=== PATIENT | male | born 1965 | race African-American/Black ===

== ENCOUNTER → 2017-08-14 | Outpatient (CLI) | payer OTHER ==
--- NOTE | 2017-08-14 17:15 | DIAGNOSTIC IMAGING REPORT ---
CHEST 2 VIEWS ROUTINE HISTORY: 52 years-old Male ABNORMAL IMAGING acute shortness of breath COMPARISON: None available TECHNIQUE: PA and lateral views of the chest FINDINGS: Cardiac silhouette is normal in size. Lungs are hyperinflated with diaphragmatic flattening. Increased lucency of the lungs suggests possible emphysema. Linear and patchy subsegmental perihilar and left upper lobe opacities are noted without pneumothorax or pleural effusion. Additionally, there is a large air-fluid level within a lucent lesion which appears to measure up to approximately 8.1 x 8.9 cm within the left upper lobe. Bones of the chest appear grossly intact. IMPRESSION: 1. Air-fluid level within a large lucent lesion of the left upper lobe suggests a pulmonary cavitation with infection, pneumatocele or neoplasm differential considerations. Further evaluation with a follow-up chest CT recommended. 2. Linear and patchy perihilar and left upper lobe opacities suggest areas of atelectasis and/or scarring. The above report was generated using voice recognition software. It may contain grammatical, syntax or spelling errors. Electronically signed by: Javy Flores M.D. 08/14/2017 5:14 PM Dictated Date/Time: 08/14/2017 5:09 PM
[2017-08-17 14:18] LABS: QUANTIFERON NIL 0.05 IU/ML
== END | disposition home or self-care (01) ==
LOC: C.RAD 16:20
PROVIDERS: ATTEND Internal Medicine
DX: R91.8 Other nonspecific abnormal finding of lung field (principal)

== ENCOUNTER 2017-09-08 11:51 | Inpatient (IN) | payer OTHER ==
[~2017-09-08] VITALS: Ht 167.6 cm; Wt 76.4 kg
[2017-09-08 14:12] VITALS: BMI 27.2
[2017-09-08 14:16] VITALS: BP 121/84; PULSE 89; TEMP 36.5; O2SAT 97; Ht 167.6 cm; Wt 76.4 kg
[2017-09-08] MEDS ORDERED: TRAMADOL HCL 50 MG TAB PO STA (15:50)
[2017-09-08 16:00] VITALS: O2SAT 97
[2017-09-08] MEDS ORDERED: FAMOTIDINE IV INJ 20 MG in DEXTROSE 5% 100ML 100 ML IV SCH (16:00)
[2017-09-08] MEDS ORDERED: ALUMINUM/MAGNESIUM/SIMETH (MAALOX MAX) 30 ML UDC PO PRN (16:00)
[2017-09-08] MEDS ORDERED: ONDANSETRON INJ 2 MG/ML 2 ML VIAL IV PRN (16:00)
--- NOTE | 2017-09-08 16:35 | History and Physical ---
History & Physical Date & Time of Service: Sep 08, 2017 at 16:32 Chief Complaint: Copd Exacerbation Primary Care Physician: Karson Jerome M.D. History of Present Illness Source: patient, clinic records 52 years old -[place] man who presented from [facility] based on Dr. Huston recommendation. Patient has been incarcerated for 3-1/2 years, 1 more year left in his sentence. Patient does have history of heavy tobacco abuse. Collected 100 pack/year, quit 4 years ago Has COPD, hypertension, diabetes mellitus and GERD disease. Also has multiple episodes of pneumonia and recently was treated for sinusitis. Patient complained of pleuritic left-sided chest pain. Worse with deep breathing. Dr. Karson Jerome at the correction facility sent him for a chest x- ray that showed a 9 cm left upper loop cavitary lesion with air-fluid level. Initial workup was negative including QuantiFERON gold, 3 sputum for AFB. White blood cell count recently was within normal limits. Patient symptoms continued to progress and he was sent for further evaluation and management. he has intermittent cough with clear sputum occasionally Review of system is positive for epigastric abdominal pain Recently had felt a swelling in his neck on the right side with sore throat, that resolved spontaneously Remote history of cocaine abuse about 12 years ago Quit smoking 4 years ago Currently in the correction facility no access to alcohol or IV drug Father from lung cancer Social History Smoking Status: Former Smoker Allergies Coded Allergies: No Known Allergies (Unverified , 09/08/17) Review of Systems Constitutional: No fever, No chills, No sweats, No weight loss, No weakness, No fatigue, No problem reported Eyes: No worsening of vision, No eye pain, No redness, No discharge, No diplopia, No problem reported ENT: No hearing loss, No unusual epistaxis, No nasal symptoms, No sore throat, No tinnitus, No dental problems, No trouble swallowing, No problem reported Respiratory: + cough, + sputum, + shortness of breath, No wheezing, No dyspnea on exertion, No dyspnea at rest, No hemoptysis, No problem reported Cardiovascular: + chest pain (pleuritic left-sided), No orthopnea, No PND, No edema, No claudication, No palpitations, No problem reported Abdomen: + pain (epigastric), No nausea, No vomiting, No diarrhea, No constipation, No GI bleeding, No problem reported Musculoskeletal: No joint pain, No muscle pain, No swelling, No calf pain, No problem reported Genitourinary - Male: No hematuria, No dysuria, No urinary frequency, No urinary urgency, No urinary hesitancy, No urinary retention, No urinary incontinence, No penile discharge, No lesions, No impotence, No problem reported Neurologic: No memory loss, No paralysis, No weakness, No numbness/tingling, No vertigo, No balance problems, No problem reported Psychiatric: No depression symptoms, No anhedonism, No anxiety, No insomnia, No substance abuse, No problem reported Endocrine: No fatigue, No excessive thirst, No excessive urination, No problem reported Hematologic / Lymphatic: No abnormal bleeding/bruising, No clotting problems, No swollen lymph nodes, No night sweats, No problem reported Integumentary: No rash, No itch, No new/changing skin lesions, No color change , No bleeding, No problem reported Allergic / Immunologic: No environmental allergies, No seasonal allergies, No pet sensitivities, No food allergies, No hives, No frequent infections, No poor healing, No prolonged convalescence, No problem reported Physical Exam Vital Signs Date Time Temp Pulse Resp B/P (MAP) Pulse Ox O2 Delivery O2 Flow Rate FiO2 09/08/17 16:00 97 Room Air 09/08/17 14:16 36.5 89 18 121/84 97 Room Air General Appearance: WD/WN, + mild distress Head: normocephalic, atraumatic Eyes: normal inspection, EOMI ENT: normal ENT inspection, hearing grossly normal Neck: supple, no adenopathy, thyroid normal Respiratory/Chest: chest non-tender, + respiratory distress, + crackles, + rales, + rhonchi, + wheezing Cardiovascular: regular rate, rhythm, no edema, no gallop, no JVD, no murmur, normal peripheral pulses Abdomen/GI: normal bowel sounds, non tender, soft, no organomegaly, no pulsatile mass Back: normal inspection Extremities/Musculoskelatal: normal inspection, no calf tenderness, normal capillary refill, no pedal edema Neurologic/Psych: 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 Incarcerated in a correction facility with history of COPD, hypertension, diabetes mellitus, GERD and heavy tobacco abuse, quit 4 years ago. Also patient has family history of lung cancer in his father. Presented to the hospital with 9 cm left upper lung cavitary lesion. Assessment 9 cm left upper lobe cavitary lung lesion COPD exacerbation Hypertension Diabetes mellitus type 2 GERD disease Previous multiple episodes of pneumonia/sinusitis History of lung cancer History of heavy tobacco abuse quit 4 years ago Plan Admit patient to negative pressure room Despite of negative QuantiFERON gold, would like also to consider TB, negative QuantiFERON gold could be false negative 3 sputum AFP were sent and were negative, would like to repeat the test here Consult Dr. Huston for bronchoscopy Since patient does not look septic, we'll hold off antibiotics until we get good samples from the bronchoscopy Consulted Dr Ocampo Obtain blood cultures/sputum culture Obtain sputum fungal cultures Obtain fungetil/D galactomannan Genotypic/bronchodilator Pain management 2-D echo rule out vegetation/septic emboli Heparin for DVT prophylaxis Advanced Directives Existing Living Will: No Existing Power of [employer]: No VTE Prophylaxis VTE Risk Assessment Done? Y/N: Yes Risk Level: Moderate
[2017-09-08 16:58] LABS: BASO % 0.6 %; BASO ABS # 0.04 K/uL (0-0.2); EOS % 3.5 %; EOS ABS # 0.23 K/uL (0-0.5); HEMATOCRIT 42.3 % (42-52); HEMOGLOBIN 14.7 g/dL (14.0-18.0); IG# 0.01 K/uL (0.00-0.02); LYMPH % 47.8 %; LYMPH ABS # 3.12 K/uL (1.2-3.4); MEAN CELL VOLUME 93.2 fL (80-100); MEAN CORPUSCULAR HEMOGLOBIN 32.4 pg (25-34); MEAN CORPUSCULAR HGB CONC 34.8 g/dl (32-36); MONO % 10.7 %; NEUT % 37.2 %; NEUT ABS # 2.43 K/uL (1.4-6.5); PLATELET COUNT 300 K/uL (130-400); RED CELL DISTRIBUTION WIDTH CV 14.1 % (11.5-14.5); RED CELL DISTRIBUTION WIDTH SD 47.6 fL (36.4-46.3); WHITE BLOOD COUNT 6.53 K/uL (4.8-10.8)
[2017-09-08 17:24] LABS: ALBUMIN 3.4 gm/dl (3.4-5.0); CALCIUM 8.9 mg/dl (8.5-10.1); CREATININE 0.87 mg/dl (0.60-1.40); POTASSIUM 3.8 mmol/L (3.5-5.1)
[2017-09-08 17:26] LABS: TOTAL PROTEIN 8.2 gm/dl (6.4-8.2)
[2017-09-08] MEDS: FAMOTIDINE IV INJ 20 MG in SYRINGE 3 ML IV SCH (18:20)
[2017-09-08] MEDS: ALBUT/IPRATROP 3MG/0.5MG NEB 3 ML VIAL INH SCH ×2 (19:44→20:01)
[2017-09-08 20:03] VITALS: PULSE 81; O2SAT 96
[2017-09-08] MEDS: HEPARIN SOD 5000 UNIT/0.5 ML CARP SQ SCH (20:57)
[2017-09-09 00:22] VITALS: BP 136/88; PULSE 63; TEMP 36.6; O2SAT 94
[2017-09-09] MEDS: ACETAMINOPHEN 325 MG TAB PO PRN (00:44)
[2017-09-09 05:33] LABS: BASO % 0.5 %; BASO ABS # 0.04 K/uL (0-0.2); EOS % 2.6 %; EOS ABS # 0.19 K/uL (0-0.5); HEMATOCRIT 42.1 % (42-52); HEMOGLOBIN 14.3 g/dL (14.0-18.0); IG# 0.01 K/uL (0.00-0.02); LYMPH % 41.6 %; LYMPH ABS # 3.08 K/uL (1.2-3.4); MEAN CELL VOLUME 93.1 fL (80-100); MEAN CORPUSCULAR HEMOGLOBIN 31.6 pg (25-34); MEAN PLATELET VOLUME 9.9 fL (7.4-10.4); MONO % 7.4 %; MONO ABS # 0.55 K/uL (0.11-0.59); NEUT % 47.8 %; NEUT ABS # 3.54 K/uL (1.4-6.5); PLATELET COUNT 276 K/uL (130-400); RED CELL DISTRIBUTION WIDTH CV 14.1 % (11.5-14.5); RED CELL DISTRIBUTION WIDTH SD 47.7 fL (36.4-46.3); WHITE BLOOD COUNT 7.41 K/uL (4.8-10.8)
[2017-09-09 05:51] LABS: ALBUMIN 3.3 gm/dl (3.4-5.0); CALCIUM 8.7 mg/dl (8.5-10.1); CREATININE 0.83 mg/dl (0.60-1.40); POTASSIUM 3.6 mmol/L (3.5-5.1)
[2017-09-09 05:55] LABS: PHOSPHORUS 2.9 mg/dl (2.5-4.9); TOTAL PROTEIN 8.2 gm/dl (6.4-8.2)
[2017-09-09] MEDS: FAMOTIDINE IV INJ 20 MG in SYRINGE 3 ML IV SCH ×2 (06:00→18:00)
[2017-09-09] MEDS: HEPARIN SOD 5000 UNIT/0.5 ML CARP SQ SCH ×2 (06:02→14:24)
[2017-09-09 06:33] LABS: HEMOGLOBIN A1C 6.2 % (4.5-5.6)
--- NOTE | 2017-09-09 07:13 | Medical Student: [facility] ---
Med Student Progress Note Date of Service Sep 09, 2017. Subjective Pt evaluation today including: conversation w/ patient, physical exam, chart review, lab review, review of studies Voiding: no voiding problems, no incontinence 52 y/o -[place] gentleman presenting from [facility] after c/o of pleuritic left sided chest pain worse with deep breathing. CXR showed a 9cm left upper lobe cavitary lesion with air-fluid level. The patient reports losing 20 pounds in the past 5 months. SOB he attributes to his COPD and HF. 1-2 weeks [employer] he felt a small lump in the right side of his neck in conjunction with a sore throat which has since resolved. Mild Intermittent cough with clear sputum when lying down. Denies coughing up blood. He has had no abdominal pain, N/V/D. Denies fever/chills. Denies swelling in legs/extremities. Denies fatigue. Notably, 100 pack year history. Quit smoking cigarettes 4-5 years [employer]. Father from lung cancer. No events overnight. Review of Systems Constitutional: No fever, No chills Respiratory: + cough (intermittent, mild), + sputum (clear intermittent), + shortness of breath Cardiac: No edema Abdomen: + pain (mild epigastric, intermittent), No nausea, No vomiting, No diarrhea, No GI bleeding Musculoskeletal: No joint pain Male : No dysuria Neurologic: No weakness, No numbness/tingling Endo: No fatigue Skin: No rash Objective Vital Signs Date Time Temp Pulse Resp B/P (MAP) Pulse Ox O2 Delivery O2 Flow Rate FiO2 09/09/17 00:45 Room Air 09/09/17 00:22 36.6 63 18 136/88 (104) 94 Room Air 09/08/17 20:03 81 16 96 Room Air 09/08/17 16:00 97 Room Air 09/08/17 14:16 36.5 89 18 121/84 97 Room Air Physical Exam General Appearance: WD/WN, no apparent distress Eyes: bilateral eyes normal inspection ENT: hearing grossly normal Neck: supple, + adenopathy present (bilateral cervical anterior adenopathy, mobile 1 cm, non-tender) Respiratory/Chest: chest non-tender, lungs clear, normal breath sounds, no respiratory distress, no accessory muscle use Cardiovascular: regular rate, rhythm, no edema, no gallop, no JVD, no murmur Abdomen: normal bowel sounds, non tender, soft, no organomegaly Extremities: no calf tenderness Neurologic/Psychiatric: alert, normal mood/affect, oriented x 3 Skin: normal color Laboratory Results Last 24 Hours Test 09/08/17 16:34 09/08/17 17:39 09/08/17 19:00 09/09/17 05:22 White Blood Count 6.53 K/uL 7.41 K/uL Red Blood Count 4.54 M/uL 4.52 M/uL Hemoglobin 14.7 g/dL 14.3 g/dL Hematocrit 42.3 % 42.1 % Mean Corpuscular Volume 93.2 fL 93.1 fL Mean Corpuscular Hemoglobin 32.4 pg 31.6 pg Mean Corpuscular Hemoglobin Concent 34.8 g/dl 34.0 g/dl Platelet Count 300 K/uL 276 K/uL Mean Platelet Volume 10.0 fL 9.9 fL Neutrophils (%) (Auto) 37.2 % 47.8 % Lymphocytes (%) (Auto) 47.8 % 41.6 % Monocytes (%) (Auto) 10.7 % 7.4 % Eosinophils (%) (Auto) 3.5 % 2.6 % Basophils (%) (Auto) 0.6 % 0.5 % Neutrophils # (Auto) 2.43 K/uL 3.54 K/uL Lymphocytes # (Auto) 3.12 K/uL 3.08 K/uL Monocytes # (Auto) 0.70 K/uL 0.55 K/uL Eosinophils # (Auto) 0.23 K/uL 0.19 K/uL Basophils # (Auto) 0.04 K/uL 0.04 K/uL RDW Standard Deviation 47.6 fL 47.7 fL RDW Coefficient of Variation 14.1 % 14.1 % Immature Granulocyte % (Auto) 0.2 % 0.1 % Immature Granulocyte # (Auto) 0.01 K/uL 0.01 K/uL Erythrocyte Sedimentation Rate 18 mm/hr Prothrombin Time 10.2 SECONDS 10.7 SECONDS Prothromb Time International Ratio 1.0 1.0 Sodium Level 140 mmol/L 136 mmol/L Potassium Level 3.8 mmol/L 3.6 mmol/L Chloride Level 110 mmol/L 106 mmol/L Carbon Dioxide Level 24 mmol/L 25 mmol/L Anion Gap 6.0 mmol/L 5.0 mmol/L Blood Urea Nitrogen 11 mg/dl 12 mg/dl Creatinine 0.87 mg/dl 0.83 mg/dl Est Creatinine Clear Calc Drug Dose 88.6 ml/min 92.8 ml/min Estimated GFR () 114.2 116.4 Estimated GFR (Non- 98.5 100.5 BUN/Creatinine Ratio 12.0 14.2 Random Glucose 55 mg/dl 86 mg/dl Calcium Level 8.9 mg/dl 8.7 mg/dl Magnesium Level 1.5 mg/dl 1.4 mg/dl Total Bilirubin 0.4 mg/dl 0.5 mg/dl Aspartate Amino Transf (AST/SGOT) 13 U/L 15 U/L Alanine Aminotransferase (ALT/SGPT) 26 U/L 26 U/L Alkaline Phosphatase 50 U/L 48 U/L C-Reactive Protein 0.50 mg/dl Total Protein 8.2 gm/dl 8.2 gm/dl Albumin 3.4 gm/dl 3.3 gm/dl Globulin 4.8 gm/dl 4.9 gm/dl Albumin/Globulin Ratio 0.7 0.7 Lipase 226 U/L Bedside Glucose 84 mg/dl Estimated Average Glucose 131 mg/dl Hemoglobin A1c 6.2 % Lactic Acid Level 1.0 mmol/L Phosphorus Level 2.9 mg/dl Triglycerides Level 205 mg/dl Cholesterol Level 123 mg/dl HDL Cholesterol 41 mg/dl LDL Cholesterol, Calculated 41 mg/dl VLDL Cholesterol, Calculated 41 mg/dl Cholesterol/HDL Ratio 3.0 Assessment and Plan Assessment and Plan: 52 y/o AA male with hx of COPD, HF, HTN, DM, cardiac stent, 100 pack years, family hx of lung cancer presenting with left sided pleuritic chest pain and 9cm left upper lobe cavitary lung lesion on CXR. 1. Cavitary lung lesion -Dr. Ocampo ordering a CT scan to evaluate lesion. Will plan bronchoscopy pending CT. -Negative quant gold TB test makes TB unlikely. -3 sputum AFP sent and were negative. -Hold off on antibiotics in the setting of normal vitals and normal WBC. Does not appear septic. -Blood cultures pending. -Pain management with tylenol. 2. COPD -Duoneb DVT ppx -Heparin
--- NOTE | 2017-09-09 07:44 | Medical Consult ---
Consultation Note Date of Service Sep 09, 2017. Consultation Note Consult Dictated #[id number]
[2017-09-09] MEDS ORDERED: OPTIRAY 320 IV PRN (07:45)
[2017-09-09 07:49] VITALS: PULSE 81; O2SAT 96
[2017-09-09] MEDS: ALBUT/IPRATROP 3MG/0.5MG NEB 3 ML VIAL INH SCH ×4 (07:49→19:28)
--- NOTE | 2017-09-09 08:03 | CONSULTATION REPORT ---
DATE OF CONSULTATION: 09/09/2017 REASON FOR CONSULTATION: Abnormal chest x-ray. HISTORY OF PRESENT ILLNESS: This is a 52-year-old -[place] male who is currently incarcerated at the [facility]. The patient had a recent episode of pleuritic left-sided chest pain and the physician at his correctional facility ordered a chest x-ray which was noted to be abnormal with approximately 9 cm left upper lobe cavitary lesion with an air fluid level. The patient has had workup for this including 3 sputum for AFB, which were negative and a QuantiFERON Gold, which was also noted to be negative. The assisted physician consulted Dr. Huston who recommended admission for this problem. I visited with the patient at the bedside and discussed his history in detail. The patient says that he has had approximately 20 pound weight loss over the past 6 weeks. He denies any fevers, chills or night sweats. He denies any hemoptysis or cough. He does admit to occasional episodes of pleuritic chest pain and chest tightness. He does admit that his shortness of breath is in part related to COPD. At this time, he is resting comfortably in bed without any other specific complaints. The patient does note that he does have a history of smoking approximately [id number] history but did quit 4 years ago. He does have a family history of lung cancer. Concerning other symptomatology, he denies any falls, head injuries, visual changes, tinnitus, sore throat or neck pain. He does admit to occasional episodes of left-sided pleuritic chest pain. He says he is short of breath with activity. He denies any fever, shakes, chills, cough or hemoptysis. He denies any nausea, vomiting or diarrhea. He denies abdominal pain. He denies any dysuria, history of stroke, DVT or seizures. He denies anxiety or depression. His evaluation thus far has included a chest x-ray which again showed a left upper lobe approximately 9 cm lesion with an air-fluid level of pulmonary cavitation. He has had labs including chemistry profile where sodium, potassium, BUN and creatinine were all within the normal range. He has had a CBC where white blood cell count, hemoglobin, hematocrit and platelet count were all within normal range and he has had serologies for HIV and legionella which are all pending. At the present time, he is resting comfortably in bed. PAST MEDICAL HISTORY: 1. Diabetes. 2. COPD. 3. Hypertension. 4. GERD. PAST SURGICAL HISTORY: The patient says that he has had a cardiac catheterization in the past, but he is unsure of any of the details and is unsure if he has had any stents placed though he believes he has not. ALLERGIES: None. OUTPATIENT MEDICATION REGIMEN: Includes the followin. Tylenol as needed. 2. DuoNeb. 3. Maalox as needed. 4. Zofran as needed. 5. Percocet as needed. 6. MiraLax as needed. 7. Ultram as needed. SOCIAL HISTORY: He does have a smoking history of [id number] but quit 4 years as noted above. FAMILY HISTORY: Positive for lung cancer. REVIEW OF SYSTEMS: See above. PHYSICAL EXAMINATION: VITAL SIGNS: The patient is afebrile with temperature 36.6, pulse 63 and regular, respirations are 18 and unlabored, blood pressure 136/88, pulse ox 94% on room air. SKIN: Warm with good turgor. GENERAL: He is alert and he is oriented x3 in no distress. HEENT: Head is atraumatic, normocephalic. EYES: Pupils equal, round and reactive to light and accommodation. Extraocular motions are intact. EARS: Auditory acuity is grossly intact. NOSE: Nasal patency was intact. Sinuses are nontender. Mouth is moist without exudates. NECK: Supple. I cannot appreciate any JVD. CARDIOVASCULAR: Regular rate and rhythm. LUNGS: Clear to auscultation. ABDOMEN: Soft and nontender. EXTREMITIES: Revealed no cyanosis, clubbing or edema. NEUROLOGIC: Revealed no focal deficits. DIAGNOSTIC DATA: As noted above. IMPRESSION: A 52-year-old male with abnormal chest x-ray consisting of a cavitary lesion with air fluid level. PLAN: Discussed with the patient the possible etiologies of this abnormal chest x-ray findings. We will proceed by getting a chest CT with contrast to help us better characterize this lesion. Discussed with the patient that we will then determine the next best step to proceed based on this CAT scan findings. The patient is agreeable to this and I have ordered this CAT scan. Further recommendations will be forthcoming based on the results of this ensuing workup.
[2017-09-09 08:04] VITALS: BP 130/86; PULSE 63; TEMP 36.6; O2SAT 97
--- NOTE | 2017-09-09 08:46 | DIAGNOSTIC IMAGING REPORT ---
CT OF THE CHEST WITH IV CONTRAST CLINICAL HISTORY: lung mass COMPARISON STUDY: Chest x-ray dated August 14, 2017 TECHNIQUE: Following the IV administration of 93 mL of Optiray-320, CT of the thorax was performed from the thoracic inlet to the lung bases. Images are reviewed in the axial, sagittal, and coronal planes. IV contrast was administered without complication. A dose lowering technique was utilized adhering to the principles of ALARA. CT DOSE: 237.84 mGy.cm FINDINGS: Thyroid: Imaged portions of the thyroid gland are normal in appearance. Thoracic aorta: The thoracic aorta is normal in course and caliber, noting standard 3-vessel arch anatomy. No aneurysm or dissection is seen. Pulmonary vasculature: The pulmonary trunk is normal in caliber. There are no central filling defects identified to suggest pulmonary embolus. Note that this examination was not protocoled for the evaluation of pulmonary emboli. HEART: The heart is normal in size and configuration, without pericardial effusion. Lungs and pleural spaces: There is severe bullous emphysema. There is fluid present within an anterior left upper lobe peripheral bulla. There are patchy right lower lobe airspace opacities, which could represent either pneumonia or focal atelectasis. There are scattered tiny left lung pulmonary nodules measuring up to 3 mm in diameter there is a calcified right upper lobe granuloma. Mediastinum: There are mildly enlarged mediastinal lymph nodes measuring up to 12 mm in short axis. Ashlee: There is no evidence of pathologic hilar lymphadenopathy. Axilla: There is no evidence of pathologic axillary lymphadenopathy. Upper abdomen: Partially visualized upper abdominal viscera is within normal limits. Skeletal structures: There are no lytic or blastic osseous lesions. IMPRESSION: 1. Severe bullous emphysema 2. Fluid present within the anterior left upper lobe bulla, likely representing an infected bulla. 3. Patchy right lower lobe airspace opacities, pneumonia versus dependent atelectasis 4. Mildly enlarged mediastinal lymph nodes 5. Scattered tiny left lung pulmonary nodules, the largest of which measures 3 mm. Electronically signed by: Dio Noriega M.D. 09/09/2017 8:45 AM Dictated Date/Time: 09/09/2017 8:37 AM
--- NOTE | 2017-09-09 10:16 | Family Medicine Progress Note ---
Progress Note Date of Service Sep 09, 2017. Subjective Pt evaluation today including: conversation w/ patient, physical exam, chart review, lab review Pain: L sided pleuritic chest pain PO Intake: tolerating Voiding: no voiding problems This AM reports L sided chest pain worse on taking a deep breath and epigastric and mild sob Constitutional: No fever, No chills Respiratory: + shortness of breath (exertional) Cardiovascular: + chest pain (L sided pleuritic) Abdomen: + pain (epigastric), No nausea, No vomiting Male : No dysuria Medications Current Inpatient Medications Medications (Trade) Dose Ordered Sig/Rudy Route Start Time Stop Time Status Last Admin Dose Admin Heparin Sodium (Porcine) (Heparin Sq 5000 Unit/0.5ml) 5,000 unit Q8H SQ 09/08/17 22:00 10/08/17 21:59 09/09/17 06:02 5,000 UNIT Acetaminophen (Tylenol Tab) 650 mg Q4H PRN PO 09/08/17 16:00 10/08/17 15:59 09/09/17 00:44 650 MG Al Hydrox/Mg Hydrox/Simethicone (Maalox Max Susp) 15 ml Q4H PRN PO 09/08/17 16:00 10/08/17 15:59 Polyethylene (Miralax Powder Packet) 17 gm DAILY PRN PO 09/08/17 16:00 10/08/17 15:59 Ondansetron HCl (Zofran Inj) 4 mg Q6H PRN IV 09/08/17 16:00 10/08/17 15:59 Tramadol HCl (Ultram Tab) 50 mg Q6H PRN PO 09/08/17 16:00 10/08/17 15:59 Oxycodone/ Acetaminophen (Percocet 5-325mg Tab) 1 tab Q12H PRN PO 09/08/17 16:00 09/22/17 15:59 Famotidine 20 mg/ Syringe 5 ml @ 2.5 mls/min Q12H IV 09/08/17 18:00 10/08/17 17:59 09/09/17 06:00 2.5 MLS/MIN Albuterol/ Ipratropium (Duoneb) 3 ml QIDR INH 09/08/17 16:00 10/08/17 15:59 09/09/17 07:49 3 ML Ioversol (Optiray 320) 100 ml UD PRN IV 09/09/17 07:45 09/13/17 07:44 Objective Vital Signs Date Time Temp Pulse Resp B/P (MAP) Pulse Ox O2 Delivery O2 Flow Rate FiO2 09/09/17 08:04 36.6 63 16 130/86 (101) 97 Room Air 09/09/17 08:00 Room Air 09/09/17 07:49 81 16 96 Room Air 09/09/17 00:45 Room Air 09/09/17 00:22 36.6 63 18 136/88 (104) 94 Room Air 09/08/17 20:03 81 16 96 Room Air 09/08/17 16:00 97 Room Air 09/08/17 14:16 36.5 89 18 121/84 97 Room Air Physical Exam General Appearance: no apparent distress Neck: supple Respiratory/Chest: lungs clear, normal breath sounds Cardiovascular: regular rate, rhythm, no murmur, + pertinent finding (L sided chest TTP) Abdomen: normal bowel sounds, soft, + tenderness (epigastric) Extremities: non-tender, no pedal edema Neurologic/Psychiatric: alert, oriented x 3 Laboratory Results 09/09/17 05:22 Red Blood Count 4.52, Mean Corpuscular Volume 93.1, Mean Corpuscular Hemoglobin 31.6, Mean Corpuscular Hemoglobin Concent 34.0, Mean Platelet Volume 9.9, Neutrophils (%) (Auto) 47.8, Lymphocytes (%) (Auto) 41.6, Monocytes (%) (Auto) 7.4, Eosinophils (%) (Auto) 2.6, Basophils (%) (Auto) 0.5, Neutrophils # (Auto) 3.54, Lymphocytes # (Auto) 3.08, Monocytes # (Auto) 0.55, Eosinophils # (Auto) 0.19, Basophils # (Auto) 0.04 09/09/17 05:22 Test 09/08/17 16:34 09/08/17 17:39 09/08/17 19:00 09/09/17 05:22 Erythrocyte Sedimentation Rate 18 mm/hr (0-14) C-Reactive Protein 0.50 mg/dl (0-0.29) Lipase 226 U/L (73-393) Bedside Glucose 84 mg/dl (70-99) White Blood Count 7.41 K/uL (4.8-10.8) Red Blood Count 4.52 M/uL (4.7-6.1) Hemoglobin 14.3 g/dL (14.0-18.0) Hematocrit 42.1 % (42-52) Mean Corpuscular Volume 93.1 fL (80-100) Mean Corpuscular Hemoglobin 31.6 pg (25-34) Mean Corpuscular Hemoglobin Concent 34.0 g/dl (32-36) Platelet Count 276 K/uL (130-400) Mean Platelet Volume 9.9 fL (7.4-10.4) Neutrophils (%) (Auto) 47.8 % Lymphocytes (%) (Auto) 41.6 % Monocytes (%) (Auto) 7.4 % Eosinophils (%) (Auto) 2.6 % Basophils (%) (Auto) 0.5 % Neutrophils # (Auto) 3.54 K/uL (1.4-6.5) Lymphocytes # (Auto) 3.08 K/uL (1.2-3.4) Monocytes # (Auto) 0.55 K/uL (0.11-0.59) Eosinophils # (Auto) 0.19 K/uL (0-0.5) Basophils # (Auto) 0.04 K/uL (0-0.2) RDW Standard Deviation 47.7 fL (36.4-46.3) RDW Coefficient of Variation 14.1 % (11.5-14.5) Immature Granulocyte % (Auto) 0.1 % Immature Granulocyte # (Auto) 0.01 K/uL (0.00-0.02) Prothrombin Time 10.7 SECONDS (9.0-12.0) Prothromb Time International Ratio 1.0 (0.9-1.1) Anion Gap 5.0 mmol/L (3-11) Est Creatinine Clear Calc Drug Dose 92.8 ml/min Estimated GFR () 116.4 Estimated GFR (Non- 100.5 BUN/Creatinine Ratio 14.2 (10-20) Estimated Average Glucose 131 mg/dl Hemoglobin A1c 6.2 % (4.5-5.6) Lactic Acid Level 1.0 mmol/L (0.4-2.0) Calcium Level 8.7 mg/dl (8.5-10.1) Phosphorus Level 2.9 mg/dl (2.5-4.9) Magnesium Level 1.4 mg/dl (1.8-2.4) Total Bilirubin 0.5 mg/dl (0.2-1) Aspartate Amino Transf (AST/SGOT) 15 U/L (15-37) Alanine Aminotransferase (ALT/SGPT) 26 U/L (12-78) Alkaline Phosphatase 48 U/L (45-117) Total Protein 8.2 gm/dl (6.4-8.2) Albumin 3.3 gm/dl (3.4-5.0) Globulin 4.9 gm/dl (2.5-4.0) Albumin/Globulin Ratio 0.7 (0.9-2) Triglycerides Level 205 mg/dl (0-150) Cholesterol Level 123 mg/dl (0-200) HDL Cholesterol 41 mg/dl LDL Cholesterol, Calculated 41 mg/dl VLDL Cholesterol, Calculated 41 mg/dl Cholesterol/HDL Ratio 3.0 Assessment and Plan 52 years old -[place] man. Incarcerated in a correction facility with history of COPD, hypertension, diabetes mellitus, GERD and heavy tobacco abuse, quit 4 years ago. Also patient has family history of lung cancer in his father. Presented to the hospital with 9 cm left upper lung cavitary lesion. Sob and Chest pain - cavitary lesion TB vs. COPD exacerbation vs autoimmune vs. cancer - Previous multiple episodes of pneumonia/sinusitis. smoked 100 packs/day quit 4 years ago. Fhx of lung cancer father - Admit patient to negative pressure room - 9 cm left upper lobe cavitary lung lesion - negative QuantiFERON gold - could be false negative - 3 sputum AFP were sent and were negative - repeat - Previous multiple episodes of pneumonia/sinusitis - smoked 100 packs/day quit 4 years ago - Fhx of lung cancer father - Consult Dr. Huston for bronchoscopy - hold off antibiotics until we get good samples from the bronchoscopy - Consulted Dr Ocampo - 2-D echo rule out vegetation/septic emboli - Obtain blood cultures/sputum culture - Obtain sputum fungal cultures - Obtain fungetil/D galactomannan Hypertension Diabetes mellitus type 2 GERD disease Heparin for DVT prophylaxis History Resident Physician Supervision Note: I was present with Dr. Conde during the history and exam. I discussed the case with the resident and agree with the findings and plan as documented in the note. Any exceptions or clarifications are listed here. Pt resting comfortably in bed. Reports persistence of chronic fatigue and h/o extensive weight loss over the last 6 weeks. Reports no fever, chills, ARCE, lightheadedness, CP, SOB, n/v, productive cough. General Appearance: WD/WN, no apparent distress Neck: non-tender, full range of motion, supple Respiratory: chest non-tender, lungs clear, normal breath sounds, no respiratory distress Cardiovascular: normal peripheral pulses, regular rate, rhythm, no edema, no murmur Gastrointestinal: normal bowel sounds, non tender, soft, no organomegaly Assessment/Plan 52 y/o male incarcerated @ [facility], h/o COPD w/ 100 yr smoking hx, HTN, DMII, GERD presents w/ cavitary lung lesion on CT Cavitary lung lesion - 3cm on CT, fluid filled, neg QF-G, neg AFB x3 - cardiothoracic surgery consulted, input appreciated. Airborne precautions. Follow up Cultures. COPD - stable - duonebs PRN HTN - well controlled w/o medication DMII - monitor FSBS, ISS GERD - continue famotidine
--- NOTE | 2017-09-09 10:32 | Medical Consult ---
Consultation Date of Consultation: Sep 09, 2017. Attending Physician: Susan Benavidez MD Reason for Consultation: Lung cavitary lesion History of Present Illness 52-year-old prisoner with history of COPD, diabetes, GERD, previous episodes of pneumonia, was reportedly treated several weeks ago for apparent sinusitis. He recently developed onset pleuritic left-sided chest pain was found to have large cavitary lesion left upper lobe. He has had negative QuantiFERON gold, and 3 negative AFB smears. He has had 20 lb weight loss, but no significant fever or chills or other systemic complaints. Just underwent CT scan, read by me, which shows the presence of large bleb with a air-fluid level. Some mild increase in lymph nodes regionally. No other significant travel or exposure history Past Medical/Surgical History Past medical/surgical history: COPD, hypertension, diabetes mellitus, GERD, several episodes of pneumonia. Family History Noncontributory Social History Smoking Status: Former Smoker Allergies Coded Allergies: No Known Allergies (Unverified , 09/08/17) Current Inpatient Medications Current Inpatient Medications Medications (Trade) Dose Ordered Sig/Rudy Route Start Time Stop Time Status Last Admin Dose Admin Heparin Sodium (Porcine) (Heparin Sq 5000 Unit/0.5ml) 5,000 unit Q8H SQ 09/08/17 22:00 10/08/17 21:59 09/09/17 06:02 5,000 UNIT Acetaminophen (Tylenol Tab) 650 mg Q4H PRN PO 09/08/17 16:00 10/08/17 15:59 09/09/17 00:44 650 MG Al Hydrox/Mg Hydrox/Simethicone (Maalox Max Susp) 15 ml Q4H PRN PO 09/08/17 16:00 10/08/17 15:59 Polyethylene (Miralax Powder Packet) 17 gm DAILY PRN PO 09/08/17 16:00 10/08/17 15:59 Ondansetron HCl (Zofran Inj) 4 mg Q6H PRN IV 09/08/17 16:00 10/08/17 15:59 Tramadol HCl (Ultram Tab) 50 mg Q6H PRN PO 09/08/17 16:00 10/08/17 15:59 Oxycodone/ Acetaminophen (Percocet 5-325mg Tab) 1 tab Q12H PRN PO 09/08/17 16:00 09/22/17 15:59 Famotidine 20 mg/ Syringe 5 ml @ 2.5 mls/min Q12H IV 09/08/17 18:00 10/08/17 17:59 09/09/17 06:00 2.5 MLS/MIN Albuterol/ Ipratropium (Duoneb) 3 ml QIDR INH 09/08/17 16:00 10/08/17 15:59 09/09/17 07:49 3 ML Ioversol (Optiray 320) 100 ml UD PRN IV 09/09/17 07:45 09/13/17 07:44 Review of Systems Constitutional: + fatigue, No fever, No chills Eyes: No problem reported ENT: No problem reported Respiratory: + shortness of breath, No hemoptysis Cardiovascular: + chest pain Abdomen: No problem reported Musculoskeletal: No problem reported Genitourinary - Male: No problem reported Neurologic: No problem reported Psychiatric: No problem reported Endocrine: No problem reported Hematologic / Lymphatic: No problem reported Integumentary: No problem reported Allergic / Immunologic: No problem reported Physical Exam Date Time Temp Pulse Resp B/P (MAP) Pulse Ox O2 Delivery O2 Flow Rate FiO2 09/09/17 08:04 36.6 63 16 130/86 (101) 97 Room Air 09/09/17 08:00 Room Air 09/09/17 07:49 81 16 96 Room Air 09/09/17 00:45 Room Air 09/09/17 00:22 36.6 63 18 136/88 (104) 94 Room Air 09/08/17 20:03 81 16 96 Room Air 09/08/17 16:00 97 Room Air 09/08/17 14:16 36.5 89 18 121/84 97 Room Air General Appearance: WD/WN, no apparent distress Head: normocephalic, atraumatic Eyes: normal inspection, EOMI, sclerae normal ENT: normal ENT inspection, hearing grossly normal, pharynx normal Neck: supple, no adenopathy, thyroid normal, trachea midline Respiratory/Chest: chest non-tender, lungs clear, normal breath sounds, no respiratory distress Cardiovascular: regular rate, rhythm, no gallop, no murmur Abdomen/GI: normal bowel sounds, non tender, soft, no organomegaly Back: normal inspection, no CVA tenderness Extremities/Musculoskelatal: no calf tenderness, non-tender Neurologic/Psych: alert, oriented x 3 Skin: normal color, warm/dry, no rash Lymphatic: no adenopathy Laboratory Results Date/Time Source Procedure Growth Status 09/08/17 16:45 Blood Blood Culture Pending Received 09/08/17 16:34 Blood Blood Culture Pending Received Last 24 Hours Test 09/08/17 16:34 09/08/17 17:39 09/08/17 19:00 09/09/17 05:22 White Blood Count 6.53 K/uL 7.41 K/uL Red Blood Count 4.54 M/uL 4.52 M/uL Hemoglobin 14.7 g/dL 14.3 g/dL Hematocrit 42.3 % 42.1 % Mean Corpuscular Volume 93.2 fL 93.1 fL Mean Corpuscular Hemoglobin 32.4 pg 31.6 pg Mean Corpuscular Hemoglobin Concent 34.8 g/dl 34.0 g/dl Platelet Count 300 K/uL 276 K/uL Mean Platelet Volume 10.0 fL 9.9 fL Neutrophils (%) (Auto) 37.2 % 47.8 % Lymphocytes (%) (Auto) 47.8 % 41.6 % Monocytes (%) (Auto) 10.7 % 7.4 % Eosinophils (%) (Auto) 3.5 % 2.6 % Basophils (%) (Auto) 0.6 % 0.5 % Neutrophils # (Auto) 2.43 K/uL 3.54 K/uL Lymphocytes # (Auto) 3.12 K/uL 3.08 K/uL Monocytes # (Auto) 0.70 K/uL 0.55 K/uL Eosinophils # (Auto) 0.23 K/uL 0.19 K/uL Basophils # (Auto) 0.04 K/uL 0.04 K/uL RDW Standard Deviation 47.6 fL 47.7 fL RDW Coefficient of Variation 14.1 % 14.1 % Immature Granulocyte % (Auto) 0.2 % 0.1 % Immature Granulocyte # (Auto) 0.01 K/uL 0.01 K/uL Erythrocyte Sedimentation Rate 18 mm/hr Prothrombin Time 10.2 SECONDS 10.7 SECONDS Prothromb Time International Ratio 1.0 1.0 Sodium Level 140 mmol/L 136 mmol/L Potassium Level 3.8 mmol/L 3.6 mmol/L Chloride Level 110 mmol/L 106 mmol/L Carbon Dioxide Level 24 mmol/L 25 mmol/L Anion Gap 6.0 mmol/L 5.0 mmol/L Blood Urea Nitrogen 11 mg/dl 12 mg/dl Creatinine 0.87 mg/dl 0.83 mg/dl Est Creatinine Clear Calc Drug Dose 88.6 ml/min 92.8 ml/min Estimated GFR () 114.2 116.4 Estimated GFR (Non- 98.5 100.5 BUN/Creatinine Ratio 12.0 14.2 Random Glucose 55 mg/dl 86 mg/dl Calcium Level 8.9 mg/dl 8.7 mg/dl Magnesium Level 1.5 mg/dl 1.4 mg/dl Total Bilirubin 0.4 mg/dl 0.5 mg/dl Aspartate Amino Transf (AST/SGOT) 13 U/L 15 U/L Alanine Aminotransferase (ALT/SGPT) 26 U/L 26 U/L Alkaline Phosphatase 50 U/L 48 U/L C-Reactive Protein 0.50 mg/dl Total Protein 8.2 gm/dl 8.2 gm/dl Albumin 3.4 gm/dl 3.3 gm/dl Globulin 4.8 gm/dl 4.9 gm/dl Albumin/Globulin Ratio 0.7 0.7 Lipase 226 U/L Bedside Glucose 84 mg/dl Estimated Average Glucose 131 mg/dl Hemoglobin A1c 6.2 % Lactic Acid Level 1.0 mmol/L Phosphorus Level 2.9 mg/dl Triglycerides Level 205 mg/dl Cholesterol Level 123 mg/dl HDL Cholesterol 41 mg/dl LDL Cholesterol, Calculated 41 mg/dl VLDL Cholesterol, Calculated 41 mg/dl Cholesterol/HDL Ratio 3.0 Patient Name: ROBE SMITH [id number] Unit Number: [id number] Dictated: 09/09/17836 Transcribed: 09/09/17836 ARG Printed Date/Time: [~ rep prt dt]/[~ rep prt tm] [~ rep ct labl] - [~ rep ct ivnm] [facility] [place] [address] Dictated: 09/09/17836 Transcribed: 09/09/17836 ARG Printed Date/Time: [~ rep prt dt]/[~ rep prt tm] [~ rep ct labl] - [~ rep ct ivnm] CT OF THE CHEST WITH IV CONTRAST CLINICAL HISTORY: lung mass COMPARISON STUDY: Chest x-ray dated August 14, 2017 TECHNIQUE: Following the IV administration of 93 mL of Optiray-320, CT of the thorax was performed from the thoracic inlet to the lung bases. Images are reviewed in the axial, sagittal, and coronal planes. IV contrast was administered without complication. A dose lowering technique was utilized adhering to the principles of ALARA. CT DOSE: 237.84 mGy.cm FINDINGS: Thyroid: Imaged portions of the thyroid gland are normal in appearance. Thoracic aorta: The thoracic aorta is normal in course and caliber, noting standard 3-vessel arch anatomy. No aneurysm or dissection is seen. Pulmonary vasculature: The pulmonary trunk is normal in caliber. There are no central filling defects identified to suggest pulmonary embolus. Note that this examination was not protocoled for the evaluation of pulmonary emboli. HEART: The heart is normal in size and configuration, without pericardial effusion. Lungs and pleural spaces: There is severe bullous emphysema. There is fluid present within an anterior left upper lobe peripheral bulla. There are patchy right lower lobe airspace opacities, which could represent either pneumonia or focal atelectasis. There are scattered tiny left lung pulmonary nodules measuring up to 3 mm in diameter there is a calcified right upper lobe granuloma. Mediastinum: There are mildly enlarged mediastinal lymph nodes measuring up to 12 mm in short axis. Ashlee: There is no evidence of pathologic hilar lymphadenopathy. Axilla: There is no evidence of pathologic axillary lymphadenopathy. Upper abdomen: Partially visualized upper abdominal viscera is within normal limits. Skeletal structures: There are no lytic or blastic osseous lesions. IMPRESSION: 1. Severe bullous emphysema 2. Fluid present within the anterior left upper lobe bulla, likely representing an infected bulla. 3. Patchy right lower lobe airspace opacities, pneumonia versus dependent atelectasis 4. Mildly enlarged mediastinal lymph nodes 5. Scattered tiny left lung pulmonary nodules, the largest of which measures 3 mm. Electronically signed by: Dio Noriega M.D. 09/09/2017 8:45 AM Dictated Date/Time: 09/09/2017 8:37 AM The status of this report is Signed. Draft = Not yet reviewed or approved by Radiologist. Signed = Reviewed and approved by Radiologist. <AttendingPhy>Susan Benavidez MD</AttendingPhy> <FamilyPhy>Karson Jerome M.D.</FamilyPhy> <PrimaryPhy>Karson Jerome M.D.</PrimaryPhy> < UnitNumber>[id number]</UnitNumber> <VisitNumber>[id number]</VisitNumber> < PatientName>ROBE SMITH [id number]</PatientName> <DateOfBirth>1965</ DateOfBirth> <Location>C.MS2W</Location> <ServiceDate></ServiceDate> <MNE>ESINDI </MNE> <OrderingPhy>Felton Jc</OrderingPhy> <OrderingPhyMNE>f rep ord dr whitfield</OrderingPhyMNE> <DictatingPhyMNE>f rep dict dr whitfield</DictatingPhyMNE > <CCListMNE>f rep ct mne</CCListMNE> <AdmittingPhyMNE>f pt admit dr whitfield</ AdmittingPhyMNE> <AttendingPhyMNE>f pt attend dr whitfield</AttendingPhyMNE> <ConsultingPhyMNE>f pt consult dr whitfield</ConsultingPhyMNE> <FamilyPhyMNE>f pt fam dr whitfield</FamilyPhyMNE> <OtherPhyMNE>f pt other dr whitfield</OtherPhyMNE> < PrimaryPhyMNE>f pt prim care dr whitfield</PrimaryPhyMNE> <ReferringPhyMNE>f pt referring dr whitfield</ReferringPhyMNE> Assessment & Plan 52-year-old male with diabetes and COPD now presents with large left upper lobe cavity with air-fluid level, with appearance on CT scanning most consistent with infected bleb. Given lack of systemic complaints, would await evaluation by thoracic surgery and Pulmonary to see if intervention planned to allow optimization of potential culture results. If no procedure plan, would consider treating patient with prolonged course of oral antibiotics such as with Augmentin with follow-up CT scanning. Will discuss with all involved.
--- NOTE | 2017-09-09 12:55 | ECHOCARDIOGRAM REPORT ---
*NOTICE TO RECEIVING REPUBLICAN AGENCY This information is strictly Confidential and protected under [place] law. [place] law prohibits you from making any further disclosure of this information unless further disclosure is expressly permitted by the written consent of the person to whom it pertains or is authorized by law. A general authorization for the release of medical or other information is not sufficient for this purpose. Hospital accepts no responsibility if the information is made available to any other person, INCLUDING THE PATIENT. Interpretation Summary * Name: ROBE SMITH [id number] Study Date: 09/09/2017 11:24 AM BP: 136/88 mmHg * Patient Location: .MS2W\S\W251\S\1 HR: 64 * : 1965 (M/d/yyyy) Gender: Male Height: 66 in * Age: 52 yrs Ethnicity: AA Weight: 168 lb * Ordering Physician: Susan Benavidez * Referring Physician: Rafael Huston * Performed By: Yesenia Rinaldi RCS * * Reason For Study: ENDOCARDITIS * BSA: 1.9 m2 * There is no evidence of a mass or vegetation. This does not rule out endocarditis. * -- Conclusions -- * There is mild concentric left ventricular hypertrophy. * Left ventricular systolic function is mildly reduced. Procedure Details * A complete two-dimensional transthoracic echocardiogram was performed (2D, M-mode, Doppler and color flow Doppler). Left Ventricle * The left ventricle is normal in size. * There is mild concentric left ventricular hypertrophy. * Left ventricular systolic function is mildly reduced. * Ejection Fraction = 45-50%. * There is mild global hypokinesis of the left ventricle. * The distal anterior and lateral chan appear slightly more hypokinetic Right Ventricle * The right ventricle is normal in size and function. Atria * The left atrial size is normal. * Right atrial size is normal. Mitral Valve * The mitral valve leaflets appear normal. There is no evidence of stenosis, fluttering, or prolapse. * Significant mitral regurgitation is absent. Tricuspid Valve * The tricuspid valve anatomy is normal. * Significant tricuspid regurgitation is absent. Aortic Valve * The aortic valve is normal in structure and function. * The aortic valve is trileaflet. * No hemodynamically significant valvular aortic stenosis. * There is no significant aortic regurgitation. Pulmonic Valve * The pulmonic valve leaflets are thin and pliable; valve motion is normal. Great Vessels * The aortic root is normal size. Pericardium/Pleural * There is no pericardial effusion. Great Vessels * Normal inferior vena cava diameter and respiratory variation suggests normal central venous pressure. MMode 2D Measurements and Calculations IVSd 1.4 cm IVSs 1.5 cm LVIDd 4.4 cm LVIDs 3.5 cm LVPWd 1.3 cm LVPWs 1.6 cm IVS/LVPW 1.1 FS 21.9 % EDV(Teich) 89.4 ml ESV(Teich) 49.6 ml EF(Teich) 44.5 % EDV(cubed) 87.3 ml ESV(cubed) 41.5 ml EF(cubed) 52.4 % % IVS thick 10.3 % % LVPW thick 21.8 % LV mass(C)d 228.2 grams LV mass(C)dI 122.9 grams/m\S\2 LV mass(C)s 202.1 grams LV mass(C)sI 108.8 grams/m\S\2 SV(Teich) 39.8 ml SI(Teich) 21.4 ml/m\S\2 SV(cubed) 45.8 ml SI(cubed) 24.7 ml/m\S\2 Ao root diam 3.3 cm Ao root area 8.3 cm\S\2 LA dimension 3.3 cm LA/Ao 1.0 LVOT diam 2.0 cm LVOT area 3.1 cm\S\2 Doppler Measurements and Calculations MV E max cate 46.4 cm/sec MV A max cate 35.4 cm/sec MV E/A 1.3 MV P1/2t max cate 86.3 cm/sec MV P1/2t 52.9 msec MVA(P1/2t) 4.2 cm\S\2 MV dec slope 477.8 cm/sec\S\2 MV dec time 0.17 sec Ao V2 max 116.5 cm/sec Ao max PG 5.4 mmHg Ao max PG (full) 3.2 mmHg MARIAMA(V,A) 2.0 cm\S\2 MARIAMA(V,D) 2.0 cm\S\2 LV V1 max PG 2.2 mmHg LV V1 max 73.9 cm/sec MR max cate 428.3 cm/sec MR max PG 73.4 mmHg PA V2 max 47.5 cm/sec PA max PG 0.90 mmHg
--- NOTE | 2017-09-09 13:24 | Pulmonary Consultation ---
History General Date of Service: Sep 09, 2017. Stated Complaint: Copd Exacerbation HPI The patient is a 52 year old male who presents to [facility] with complaints of Copd Exacerbation. The patient's primary care provider is Karson Jerome M.D.. Mr. Servin is a 52-year-old inmate with past medical history of diabetes, COPD , FEV1 unknown, hypertension and GERD who presented on 09/09/2017 with complaints of left-sided pleuritic chest pain. He was seen by a intermediate physician at the [facility] as an outpatient. He was noted to have a large 9 cm left upper lobe cavitary lesion with air-fluid level on recent chest x-ray done on 08/14/2017. He also had 3 sputum AFBs as well as a QuantiFERON Gold which all resulted negative. Patient continued to have left- sided chest pain. The intermediate physician consulted Dr. Huston, boats renter who recommended that he come to the hospital for further evaluation he was transferred as a direct admit to the floor. Patient states that he has had symptoms for about 6 months. He denies any known exposures to anyone with tuberculosis. He denies any fevers, chills, night sweats, cough or hemoptysis. He describes dyspnea on exertion, he does have occasional chest tightness and wheezing. He does endorse about a 20 pound unintentional weight loss over this time. He admits to decreased appetite, but denies any gastrointestinal symptoms. He does have genitourinary symptoms of BPH. He denies any previous alcohol or IV drug use. He does admit to history of crack abuse,but quit about 15 years ago. He does have long history of tobacco use of over about 80-100 pack years. He has known history of COPD, FEV1 unknown. His exercise tolerance is limited due to COPD to several feet before becoming dyspneic. He quit smoking in 2013. He is currently on Duonebs, but states that he was presribed two inhalers 1 that he is to take twice a day and another on a prn basis. He is non complaint with both. He has had a history of pneumonia in the past, about 3 episodes. First time, was about 8 years ago. He also has family history of lung cancer. Initial vital signs, showed a temperature 36.5, pulse 89, respiratory rate 18, blood pressure 121/84, saturating 97% on room air. Laboratory data showed a white blood cell, 6.53, hemoglobin of 14.7, platelet count of 300. Sodium 140, potassium 2.8, chloride 110, carbon dioxide 24, BUN 11, creatinine 0.87 and glucose 55. Magnesium 1.5. ESR 18 and CRP 0.5. Coags were within normal limits. HIV RNA, urine Legionella and beta-1 3-D glucan pending. Throat cultures grew group B beta strep. Blood cultures pending. Chest x-ray shows large air-filled bulla in the left upper lobe with alejandro and patchy perihilar and left upper lobe opacities. CT chest was done this morning, which showed severe bullous emphysematous disease, a fluid-filled left upper lobe bulla, mildly enlarged mediastinal lymph nodes, patchy right lower lobe airspace opacities and scattered tiny left lung pulmonary nodules. At time of my evaluation this morning, patient denies any shortness of breath or chest pain. Historian: patient Onset: other (several weeks ago) Complaint Status: persistent Review of Systems Constitutional: + fatigue, No fever, No chills Eyes: No problem reported ENT: No problem reported Respiratory: + shortness of breath, No hemoptysis Cardiovascular: + chest pain Abdomen: No problem reported Musculoskeletal: No problem reported Genitourinary - Male: No problem reported Neurologic: No problem reported Psychiatric: No problem reported Endocrine: No problem reported Hematologic / Lymphatic: No problem reported Integumentary: No problem reported Allergic / Immunologic: No problem reported Eyes: reports: as stated in HPI All Other Symptoms All Other Systems: Reviewed and Negative Past Medical History Past Medical History: COPD, FEV1 unknown Hypertension GERD Diabetes type 2 Social History Hx Tobacco Use In Past Year?: No Smoking Status: Former Smoker Allergies Coded Allergies: No Known Allergies (Unverified , 09/08/17) Physical Physical Exam Vital Signs: Date Time Temp Pulse Resp B/P (MAP) Pulse Ox O2 Delivery O2 Flow Rate FiO2 09/09/17 08:04 36.6 63 16 130/86 (101) 97 Room Air 09/09/17 07:49 81 16 96 Room Air 09/09/17 00:45 Room Air 09/09/17 00:22 36.6 63 18 136/88 (104) 94 Room Air 09/08/17 20:03 81 16 96 Room Air 09/08/17 16:00 97 Room Air 09/08/17 14:16 36.5 89 18 121/84 97 Room Air General Appearance: WD/WN, no apparent distress Head: normocephalic, atraumatic Eyes: normal inspection, EOMI, sclerae normal ENT: normal ENT inspection, hearing grossly normal, pharynx normal Neck: supple, no adenopathy, thyroid normal, trachea midline Respiratory/Chest: chest non-tender, lungs clear, normal breath sounds, no respiratory distress Cardiovascular: regular rate, rhythm, no gallop, no murmur Abdomen/GI: normal bowel sounds, non tender, soft, no organomegaly Back: normal inspection, no CVA tenderness Extremities/Musculoskelatal: no calf tenderness, non-tender, no cyanosis, no clubbing, no lower extremity swelling or edema Neurologic/Psych: alert, oriented x 3 Skin: normal color, warm/dry, no rash Lymphatic: no adenopathy Diagnostics Labs Results Past 24 Hours Test 09/08/17 16:34 09/08/17 17:39 09/08/17 19:00 09/09/17 05:22 Range/Units White Blood Count 6.53 7.41 4.8-10.8 K/uL Red Blood Count 4.54 4.52 4.7-6.1 M/uL Hemoglobin 14.7 14.3 14.0-18.0 g/dL Hematocrit 42.3 42.1 42-52 % Mean Corpuscular Volume 93.2 93.1 80-100 fL Mean Corpuscular Hemoglobin 32.4 31.6 25-34 pg Mean Corpuscular Hemoglobin Concent 34.8 34.0 32-36 g/dl Platelet Count 300 276 130-400 K/uL Mean Platelet Volume 10.0 9.9 7.4-10.4 fL Neutrophils (%) (Auto) 37.2 47.8 % Lymphocytes (%) (Auto) 47.8 41.6 % Monocytes (%) (Auto) 10.7 7.4 % Eosinophils (%) (Auto) 3.5 2.6 % Basophils (%) (Auto) 0.6 0.5 % Neutrophils # (Auto) 2.43 3.54 1.4-6.5 K/uL Lymphocytes # (Auto) 3.12 3.08 1.2-3.4 K/uL Monocytes # (Auto) 0.70 0.55 0.11-0.59 K/uL Eosinophils # (Auto) 0.23 0.19 0-0.5 K/uL Basophils # (Auto) 0.04 0.04 0-0.2 K/uL RDW Standard Deviation 47.6 47.7 36.4-46.3 fL RDW Coefficient of Variation 14.1 14.1 11.5-14.5 % Immature Granulocyte % (Auto) 0.2 0.1 % Immature Granulocyte # (Auto) 0.01 0.01 0.00-0.02 K/uL Erythrocyte Sedimentation Rate 18 0-14 mm/hr Prothrombin Time 10.2 10.7 9.0-12.0 SECONDS Prothromb Time International Ratio 1.0 1.0 0.9-1.1 Sodium Level 140 136 136-145 mmol/L Potassium Level 3.8 3.6 3.5-5.1 mmol/L Chloride Level 110 106 98-107 mmol/L Carbon Dioxide Level 24 25 21-32 mmol/L Anion Gap 6.0 5.0 3-11 mmol/L Blood Urea Nitrogen 11 12 7-18 mg/dl Creatinine 0.87 0.83 0.60-1.40 mg/dl Est Creatinine Clear Calc Drug Dose 88.6 92.8 ml/min Estimated GFR () 114.2 116.4 Estimated GFR (Non- 98.5 100.5 BUN/Creatinine Ratio 12.0 14.2 10-20 Random Glucose 55 86 70-99 mg/dl Calcium Level 8.9 8.7 8.5-10.1 mg/dl Magnesium Level 1.5 1.4 1.8-2.4 mg/dl Total Bilirubin 0.4 0.5 0.2-1 mg/dl Aspartate Amino Transf (AST/SGOT) 13 15 15-37 U/L Alanine Aminotransferase (ALT/SGPT) 26 26 12-78 U/L Alkaline Phosphatase 50 48 45-117 U/L C-Reactive Protein 0.50 0-0.29 mg/dl Total Protein 8.2 8.2 6.4-8.2 gm/dl Albumin 3.4 3.3 3.4-5.0 gm/dl Globulin 4.8 4.9 2.5-4.0 gm/dl Albumin/Globulin Ratio 0.7 0.7 0.9-2 Lipase 226 73-393 U/L Bedside Glucose 84 70-99 mg/dl Estimated Average Glucose 131 mg/dl Hemoglobin A1c 6.2 4.5-5.6 % Lactic Acid Level 1.0 0.4-2.0 mmol/L Phosphorus Level 2.9 2.5-4.9 mg/dl Triglycerides Level 205 0-150 mg/dl Cholesterol Level 123 0-200 mg/dl HDL Cholesterol 41 mg/dl LDL Cholesterol, Calculated 41 mg/dl VLDL Cholesterol, Calculated 41 mg/dl Cholesterol/HDL Ratio 3.0 Microbiology Results 09/08/17 Blood Culture, Received Pending 09/08/17 Blood Culture, Received Pending Diagnostic Radiology CT OF THE CHEST WITH IV CONTRAST 09/09/2016 CLINICAL HISTORY: lung mass COMPARISON STUDY: Chest x-ray dated August 14, 2017 TECHNIQUE: Following the IV administration of 93 mL of Optiray-320, CT of the thorax was performed from the thoracic inlet to the lung bases. Images are reviewed in the axial, sagittal, and coronal planes. IV contrast was administered without complication. A dose lowering technique was utilized adhering to the principles of ALARA. CT DOSE: 237.84 mGy.cm FINDINGS: Thyroid: Imaged portions of the thyroid gland are normal in appearance. Thoracic aorta: The thoracic aorta is normal in course and caliber, noting standard 3-vessel arch anatomy. No aneurysm or dissection is seen. Pulmonary vasculature: The pulmonary trunk is normal in caliber. There are no central filling defects identified to suggest pulmonary embolus. Note that this examination was not protocoled for the evaluation of pulmonary emboli. HEART: The heart is normal in size and configuration, without pericardial effusion. Lungs and pleural spaces: There is severe bullous emphysema. There is fluid present within an anterior left upper lobe peripheral bulla. There are patchy right lower lobe airspace opacities, which could represent either pneumonia or focal atelectasis. There are scattered tiny left lung pulmonary nodules measuring up to 3 mm in diameter there is a calcified right upper lobe granuloma. Mediastinum: There are mildly enlarged mediastinal lymph nodes measuring up to 12 mm in short axis. Ashlee: There is no evidence of pathologic hilar lymphadenopathy. Axilla: There is no evidence of pathologic axillary lymphadenopathy. Upper abdomen: Partially visualized upper abdominal viscera is within normal limits. Skeletal structures: There are no lytic or blastic osseous lesions. IMPRESSION: 1. Severe bullous emphysema 2. Fluid present within the anterior left upper lobe bulla, likely representing an infected bulla. 3. Patchy right lower lobe airspace opacities, pneumonia versus dependent atelectasis 4. Mildly enlarged mediastinal lymph nodes 5. Scattered tiny left lung pulmonary nodules, the largest of which measures 3 mm. CHEST 2 VIEWS ROUTINE 08/14/2017 HISTORY: 52 years-old Male ABNORMAL IMAGING acute shortness of breath COMPARISON: None available TECHNIQUE: PA and lateral views of the chest FINDINGS: Cardiac silhouette is normal in size. Lungs are hyperinflated with diaphragmatic flattening. Increased lucency of the lungs suggests possible emphysema. Linear and patchy subsegmental perihilar and left upper lobe opacities are noted without pneumothorax or pleural effusion. Additionally, there is a large air-fluid level within a lucent lesion which appears to measure up to approximately 8.1 x 8.9 cm within the left upper lobe. Bones of the chest appear grossly intact. IMPRESSION: 1. Air-fluid level within a large lucent lesion of the left upper lobe suggests a pulmonary cavitation with infection, pneumatocele or neoplasm differential considerations. Further evaluation with a follow-up chest CT recommended. 2. Linear and patchy perihilar and left upper lobe opacities suggest areas of atelectasis and/or scarring. The above report was generated using voice recognition software. It may contain grammatical, syntax or spelling errors. Impression Assessment and Plan COPD, FEV1 unknown Bullous emphysema Left upper lobe cavitary lesion Mr. Servin is a 52-year-old male with COPD who presents with large left apical cavitary lesion. This likely represents an infected bulla that he does appear to have severe subpleural emphysema. However due to his social history we should consider other etiologies including mycobacterial infection, fungal infection, lung abscess, cavitary granuloma and bronchogenic carcinoma. He does have mediastinal adenopathy which is likely reactive I do agree with current work up . Currently workup thus far has showed a negative QuantiFERON as well as 3 negative sputum cultures for AFB. Mycobacterium could be present however lower on the differential. Still have to consider fungal infections. Galactomannan still pending. I would obtain a sputum culture for bacteria. Bronchoscopy is low yield for diagnosis of infectious bulla. I do recommend CT surgery for further evaluation to see what options they could offer. Percutaneous aspiration of bulla may be yielding however put him at high risk for pneumothorax. In the meantime I will continue to optimize him medically with bronchodilators, inhaled glucocorticosteroids and supplemental oxygen if needed. Continue with adequate pain control for pleurisy. He should also have a full PFT. I will also send alpha-1 antitrypsin as he does have severe emphysematous disease and he is quite young. I do agree with obtaining TTE to rule out possible septic emboli, however I feel that this is less likely. I await the results. Continue with antibiotic therapy per ID recommendations. Pulmonary will continue to follow with you.
[2017-09-09] MEDS ORDERED: SODIUM CHLORIDE 0.9% 1000ML 1,000 ML IV SCH (13:45)
[2017-09-09] MEDS: TRAMADOL HCL 50 MG TAB PO PRN ×2 (14:35→20:42)
--- NOTE | 2017-09-09 15:13 | SURGERY PROGRESS NOTE ---
DATE: 09/09/2017 SUBJECTIVE: Mr. Servin is a 52-year-old -[place] male who is an inmate, who has an air-fluid level in his left upper chest. He was seen by Dr. Huston and then he [facility] and was [facility] last night. He has had left-sided chest pain. He has had air-fluid levels for at least a week or so. We are going to order a CT scan. This may well be an infected bulla. He has been worked up for AFB and it is negative. He was a heavy cigarette smoker and has lost a significant amount of weight. 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 We are going to get a CT scan and I will discuss this with Dr. Huston. Interestingly enough, his white count is normal.
[2017-09-09 16:00] VITALS: O2SAT 94
[2017-09-09 16:05] VITALS: BP 128/86; PULSE 83; TEMP 36.6; O2SAT 94
[2017-09-09] MEDS: POLYETHYLENE (MIRALAX) 17 GM PACK PO PRN (18:00)
[2017-09-09 19:28] VITALS: PULSE 98; O2SAT 93
[2017-09-10] VITALS (9 sets, daily range): BP systolic 109–133; BP diastolic 73–88; PULSE 72–87; TEMP 36.4–36.8; O2SAT 90–93
[2017-09-10] MEDS: FAMOTIDINE IV INJ 20 MG in SYRINGE 3 ML IV SCH ×2 (05:39→19:13)
[2017-09-10] MEDS: TRAMADOL HCL 50 MG TAB PO PRN ×3 (05:44→23:17)
[2017-09-10] MEDS: ALBUT/IPRATROP 3MG/0.5MG NEB 3 ML VIAL INH SCH ×4 (07:02→19:26)
[2017-09-10 08:47] LABS: BASO % 0.7 %; BASO ABS # 0.04 K/uL (0-0.2); EOS % 3.4 %; EOS ABS # 0.19 K/uL (0-0.5); HEMATOCRIT 40.9 % (42-52); IG# 0.01 K/uL (0.00-0.02); LYMPH % 47.6 %; LYMPH ABS # 2.65 K/uL (1.2-3.4); MEAN CELL VOLUME 92.7 fL (80-100); MEAN CORPUSCULAR HEMOGLOBIN 31.7 pg (25-34); MEAN CORPUSCULAR HGB CONC 34.2 g/dl (32-36); MONO % 8.8 %; MONO ABS # 0.49 K/uL (0.11-0.59); NEUT % 39.3 %; NEUT ABS # 2.19 K/uL (1.4-6.5); PLATELET COUNT 267 K/uL (130-400); RED CELL DISTRIBUTION WIDTH SD 47.7 fL (36.4-46.3); WHITE BLOOD COUNT 5.57 K/uL (4.8-10.8)
[2017-09-10 10:18] LABS: CALCIUM 8.4 mg/dl (8.5-10.1); CREATININE 0.81 mg/dl (0.60-1.40); POTASSIUM 3.6 mmol/L (3.5-5.1)
--- NOTE | 2017-09-10 10:23 | SURGERY PROGRESS NOTE ---
DATE: 09/10/2017 DATE: 09/10/2017 Mr. Servin is seen today. He is unchanged. He is on room air. I reviewed his CT scan from yesterday. I went over the film with radiology and they have agreed to place a small catheter into this cavity percutaneously tomorrow under CT guidance. I am a bit concerned about his right lower lobe, he may have a small infiltrate there. At any rate, I discussed this in detail with the patient, as well as radiology. I discussed this with pulmonary also. We will get this set up in the morning.
--- NOTE | 2017-09-10 11:24 | Family Medicine Progress Note ---
Progress Note Date of Service Sep 10, 2017. Subjective Pt evaluation today including: conversation w/ patient, physical exam, chart review, lab review Pain: Chest pain this AM PO Intake: tolerating Voiding: no voiding problems This AM reports persistent sob and chest pain. No epigastric pain. Also reports headache Constitutional: No fever, No chills Respiratory: + shortness of breath Cardiovascular: + chest pain Abdomen: No pain, No nausea, No vomiting Male : No dysuria Neurologic: + problem reported (headache) Medications Current Inpatient Medications Medications (Trade) Dose Ordered Sig/Rudy Route Start Time Stop Time Status Last Admin Dose Admin Heparin Sodium (Porcine) (Heparin Sq 5000 Unit/0.5ml) 5,000 unit Q8H SQ 09/08/17 22:00 10/08/17 21:59 Future Hold 09/09/17 14:24 5,000 UNIT Acetaminophen (Tylenol Tab) 650 mg Q4H PRN PO 09/08/17 16:00 10/08/17 15:59 09/09/17 00:44 650 MG Al Hydrox/Mg Hydrox/Simethicone (Maalox Max Susp) 15 ml Q4H PRN PO 09/08/17 16:00 10/08/17 15:59 Polyethylene (Miralax Powder Packet) 17 gm DAILY PRN PO 09/08/17 16:00 10/08/17 15:59 09/09/17 18:00 17 GM Ondansetron HCl (Zofran Inj) 4 mg Q6H PRN IV 09/08/17 16:00 10/08/17 15:59 Tramadol HCl (Ultram Tab) 50 mg Q6H PRN PO 09/08/17 16:00 10/08/17 15:59 09/10/17 05:44 50 MG Oxycodone/ Acetaminophen (Percocet 5-325mg Tab) 1 tab Q12H PRN PO 09/08/17 16:00 09/22/17 15:59 Famotidine 20 mg/ Syringe 5 ml @ 2.5 mls/min Q12H IV 09/08/17 18:00 10/08/17 17:59 09/10/17 05:39 2.5 MLS/MIN Albuterol/ Ipratropium (Duoneb) 3 ml QIDR INH 09/08/17 16:00 10/08/17 15:59 1/4/18 11:06 3 ML Ioversol (Optiray 320) 100 ml UD PRN IV 09/09/17 07:45 09/13/17 07:44 Objective Vital Signs Date Time Temp Pulse Resp B/P (MAP) Pulse Ox O2 Delivery O2 Flow Rate FiO2 09/10/17 11:08 86 14 92 Nasal Cannula 2.0 09/10/17 08:00 Nasal Cannula 2.0 09/10/17 07:49 36.8 87 16 111/73 (86) 90 Nasal Cannula 2.0 09/10/17 07:05 85 16 92 Nasal Cannula 2.0 09/10/17 00:06 36.6 72 20 119/77 (91) 93 Room Air 09/10/17 00:00 Room Air 09/09/17 19:28 98 16 93 Room Air 09/09/17 16:05 36.6 83 16 128/86 (100) 94 Room Air 09/09/17 16:00 94 Room Air Physical Exam General Appearance: no apparent distress Eyes: normal inspection, sclerae normal Neck: supple Respiratory/Chest: lungs clear, + decreased breath sounds, + wheezing Cardiovascular: regular rate, rhythm, no murmur, + pertinent finding (L sided chest TTP) Abdomen: normal bowel sounds, non tender, soft Extremities: non-tender, no pedal edema Neurologic/Psychiatric: alert, oriented x 3 Skin: warm/dry Laboratory Results 09/10/17 08:21 Red Blood Count 4.41, Mean Corpuscular Volume 92.7, Mean Corpuscular Hemoglobin 31.7, Mean Corpuscular Hemoglobin Concent 34.2, Mean Platelet Volume 10.0, Neutrophils (%) (Auto) 39.3, Lymphocytes (%) (Auto) 47.6, Monocytes (%) (Auto) 8.8, Eosinophils (%) (Auto) 3.4, Basophils (%) (Auto) 0.7, Neutrophils # (Auto) 2.19, Lymphocytes # (Auto) 2.65, Monocytes # (Auto) 0.49, Eosinophils # (Auto) 0.19, Basophils # (Auto) 0.04 09/10/17 08:21 Test 09/09/17 13:34 09/09/17 20:45 09/10/17 08:21 White Blood Count 5.57 K/uL (4.8-10.8) Red Blood Count 4.41 M/uL (4.7-6.1) Hemoglobin 14.0 g/dL (14.0-18.0) Hematocrit 40.9 % (42-52) Mean Corpuscular Volume 92.7 fL (80-100) Mean Corpuscular Hemoglobin 31.7 pg (25-34) Mean Corpuscular Hemoglobin Concent 34.2 g/dl (32-36) Platelet Count 267 K/uL (130-400) Mean Platelet Volume 10.0 fL (7.4-10.4) Neutrophils (%) (Auto) 39.3 % Lymphocytes (%) (Auto) 47.6 % Monocytes (%) (Auto) 8.8 % Eosinophils (%) (Auto) 3.4 % Basophils (%) (Auto) 0.7 % Neutrophils # (Auto) 2.19 K/uL (1.4-6.5) Lymphocytes # (Auto) 2.65 K/uL (1.2-3.4) Monocytes # (Auto) 0.49 K/uL (0.11-0.59) Eosinophils # (Auto) 0.19 K/uL (0-0.5) Basophils # (Auto) 0.04 K/uL (0-0.2) RDW Standard Deviation 47.7 fL (36.4-46.3) RDW Coefficient of Variation 14.0 % (11.5-14.5) Immature Granulocyte % (Auto) 0.2 % Immature Granulocyte # (Auto) 0.01 K/uL (0.00-0.02) Anion Gap 8.0 mmol/L (3-11) Est Creatinine Clear Calc Drug Dose 95.1 ml/min Estimated GFR () 117.6 Estimated GFR (Non- 101.5 BUN/Creatinine Ratio 13.1 (10-20) Calcium Level 8.4 mg/dl (8.5-10.1) Phosphorus Level 3.0 mg/dl (2.5-4.9) Magnesium Level 1.8 mg/dl (1.8-2.4) Immunoglobulin G 1780.0 mg/dL (700-1600) Immunoglobulin A 245.0 mg/dL (70-400) Immunoglobulin M 31.9 mg/dL (40-230) Assessment and Plan 52 years old -[place] man. Incarcerated in a correction facility with history of COPD, hypertension, diabetes mellitus, GERD and heavy tobacco abuse, quit 4 years ago. Also patient has family history of lung cancer in his father. Presented to the hospital with 9 cm left upper lung cavitary lesion. Sob and Chest pain - cavitary lesion consistent with infected bulla and severe subpleural emphysema vs TB vs. COPD exacerbation vs autoimmune vs. cancer - Previous multiple episodes of pneumonia/sinusitis. smoked 100 packs/day quit 4 years ago. Fhx of lung cancer father - Admitted patient to negative pressure room - CXR - 9 cm left upper lobe cavitary lung lesion - CT 3cm fluid filled lesion - negative QuantiFERON gold - could be false negative - 3 sputum AFP were sent and were negative - repeat - Consult Dr. Huston for bronchoscopy - hold off antibiotics until we get good samples from the bronchoscopy - no bronchoscopy - Consulted Dr Ocampo - CT guided percutaneous small catheter into cavity - scheduled for tomorrow - Consulted pulm - infected bulla and severe subpleural emphysema - given in nursing home rule out - fungal and mycobacterial inf - also consider lung abscess, bronchogenic cancer and cavitary granuloma - ID consulted - augmentin if no procedure scheduled - 2-D echo rule out vegetation/septic emboli - no evidence of mass/vegetations; mildly dec LV systolic function and mild LVH - Obtain blood cultures x 2 NGTD - sputum culture x 3 pending - Throat culture - group B strep - fungetil/D galactomannan - pending - alpha 1 antitrypsin - pending - HIV pending - PFT outpatient COPD - duoneb PRN Hypertension - well without meds Diabetes mellitus type 2 - ISS GERD disease - Famotidine Heparin for DVT prophylaxis History Resident Physician Supervision Note: I was present with Dr. Conde during the history and exam. I discussed the case with the resident and agree with the findings and plan as documented in the note. Any exceptions or clarifications are listed here. Pt reports persistent reproducible central and left lower chest pain which is unchanged. Some slow urinary flow for which he has taken finasteride with improvement and would like to restart. Minimal nonproductive cough with some increased chest tightness since yesterday. Reports no fever, chills, ARCE, lightheadedness General Appearance: WD/WN, no apparent distress Respiratory: chest non-tender, no respiratory distress, decreased breath sounds (b/l bases), rhonchi Cardiovascular: normal peripheral pulses, regular rate, rhythm, no edema, no murmur Gastrointestinal: normal bowel sounds, non tender, soft, no organomegaly Assessment/Plan 52 y/o male incarcerated @ [facility], h/o COPD w/ 100 yr smoking hx, HTN, DMII, GERD presents w/ cavitary lung lesion on CT Cavitary lung lesion - 3cm on CT, fluid filled, neg QF-G, neg AFB x3 - cardiothoracic surgery consulted, input appreciated. For IR drainage tomorrow. COPD - stable - continue symbicort, spiriva, duonebs PRN, close monitoring Decreased urinary flow w/ h/o BPH - restart finasteride HTN - well controlled w/o medication DMII - monitor FSBS, ISS GERD - continue famotidine
--- NOTE | 2017-09-10 13:29 | Medical Student: [facility] ---
Med Student Progress Note Date of Service Sep 10, 2017. Subjective Pt evaluation today including: conversation w/ patient, physical exam, lab review, review of studies Pain: chest wall pain continues Voiding: no voiding problems 52 y/o AA male from [facility] c/o chest pain and found to have a 9 cm cavitary lesion on CXR prompting admission. Overnight his reproducible jeanette pain continued unchanged. His SOB worsened and he required 2 L NC this morning. Review of Systems Constitutional: + weight loss, No fever, No chills Respiratory: + cough, + shortness of breath, No sputum, No wheezing, No dyspnea at rest, No hemoptysis Cardiac: + chest pain, No palpitations Abdomen: No pain, No nausea, No vomiting, No diarrhea, No constipation Musculoskeletal: No swelling Male : No dysuria Endo: No fatigue Skin: No rash Objective Vital Signs Date Time Temp Pulse Resp B/P (MAP) Pulse Ox O2 Delivery O2 Flow Rate FiO2 09/10/17 11:08 86 14 92 Nasal Cannula 2.0 09/10/17 08:00 Nasal Cannula 2.0 09/10/17 07:49 36.8 87 16 111/73 (86) 90 Nasal Cannula 2.0 09/10/17 07:05 85 16 92 Nasal Cannula 2.0 09/10/17 00:06 36.6 72 20 119/77 (91) 93 Room Air 09/10/17 00:00 Room Air 09/09/17 19:28 98 16 93 Room Air 09/09/17 16:05 36.6 83 16 128/86 (100) 94 Room Air 09/09/17 16:00 94 Room Air Physical Exam General Appearance: WD/WN, no apparent distress ENT: hearing grossly normal Neck: supple, no JVD, + adenopathy present (anterior cervical, no supraclavicular ) Respiratory/Chest: normal breath sounds, no respiratory distress, no accessory muscle use, + rhonchi (right lung base), + wheezing (bilateral lung bases) Cardiovascular: regular rate, rhythm, no edema, no murmur Abdomen: normal bowel sounds, non tender, soft Neurologic/Psychiatric: alert, normal mood/affect, oriented x 3 Skin: normal color, warm/dry, no rash Laboratory Results Last 24 Hours Test 09/09/17 13:34 09/09/17 20:45 09/10/17 08:21 White Blood Count 5.57 K/uL Red Blood Count 4.41 M/uL Hemoglobin 14.0 g/dL Hematocrit 40.9 % Mean Corpuscular Volume 92.7 fL Mean Corpuscular Hemoglobin 31.7 pg Mean Corpuscular Hemoglobin Concent 34.2 g/dl Platelet Count 267 K/uL Mean Platelet Volume 10.0 fL Neutrophils (%) (Auto) 39.3 % Lymphocytes (%) (Auto) 47.6 % Monocytes (%) (Auto) 8.8 % Eosinophils (%) (Auto) 3.4 % Basophils (%) (Auto) 0.7 % Neutrophils # (Auto) 2.19 K/uL Lymphocytes # (Auto) 2.65 K/uL Monocytes # (Auto) 0.49 K/uL Eosinophils # (Auto) 0.19 K/uL Basophils # (Auto) 0.04 K/uL RDW Standard Deviation 47.7 fL RDW Coefficient of Variation 14.0 % Immature Granulocyte % (Auto) 0.2 % Immature Granulocyte # (Auto) 0.01 K/uL Sodium Level 136 mmol/L Potassium Level 3.6 mmol/L Chloride Level 105 mmol/L Carbon Dioxide Level 23 mmol/L Anion Gap 8.0 mmol/L Blood Urea Nitrogen 11 mg/dl Creatinine 0.81 mg/dl Est Creatinine Clear Calc Drug Dose 95.1 ml/min Estimated GFR () 117.6 Estimated GFR (Non- 101.5 BUN/Creatinine Ratio 13.1 Random Glucose 101 mg/dl Calcium Level 8.4 mg/dl Phosphorus Level 3.0 mg/dl Magnesium Level 1.8 mg/dl Immunoglobulin G 1780.0 mg/dL Immunoglobulin A 245.0 mg/dL Immunoglobulin M 31.9 mg/dL Medications Current Inpatient Medications Medications (Trade) Dose Ordered Sig/Rudy Route Start Time Stop Time Status Last Admin Dose Admin Heparin Sodium (Porcine) (Heparin Sq 5000 Unit/0.5ml) 5,000 unit Q8H SQ 09/08/17 22:00 10/08/17 21:59 Future Hold 09/09/17 14:24 5,000 UNIT Acetaminophen (Tylenol Tab) 650 mg Q4H PRN PO 09/08/17 16:00 10/08/17 15:59 09/09/17 00:44 650 MG Al Hydrox/Mg Hydrox/Simethicone (Maalox Max Susp) 15 ml Q4H PRN PO 09/08/17 16:00 10/08/17 15:59 Polyethylene (Miralax Powder Packet) 17 gm DAILY PRN PO 09/08/17 16:00 10/08/17 15:59 09/09/17 18:00 17 GM Ondansetron HCl (Zofran Inj) 4 mg Q6H PRN IV 09/08/17 16:00 10/08/17 15:59 Tramadol HCl (Ultram Tab) 50 mg Q6H PRN PO 09/08/17 16:00 10/08/17 15:59 09/10/17 05:44 50 MG Oxycodone/ Acetaminophen (Percocet 5-325mg Tab) 1 tab Q12H PRN PO 09/08/17 16:00 09/22/17 15:59 Famotidine 20 mg/ Syringe 5 ml @ 2.5 mls/min Q12H IV 09/08/17 18:00 10/08/17 17:59 09/10/17 05:39 2.5 MLS/MIN Albuterol/ Ipratropium (Duoneb) 3 ml QIDR INH 09/08/17 16:00 10/08/17 15:59 09/10/17 11:06 3 ML Ioversol (Optiray 320) 100 ml UD PRN IV 09/09/17 07:45 09/13/17 07:44 Assessment and Plan Assessment and Plan: 52 AA male with hx of COPD, HTN, DM, GERD, and former smoker with SOB and cavitary lung lesion. 1. Cavitary lesion - Cancer, fungal, lung abscess most likely given smoking history, family hx of lung cancer, and residence in correctional facility -Dr. Ocampo to perform CT guided percutaneous small catheter into cavity tomorrow. -Holding off on augmentin until after procedure. Although I am concerned for development of worsening atelectasis or pneumonia because wheezing, rhonchi in right lung base on exam. He is also on 2L NC due to worsening SOB. -Give patient an incentive spirometer and/or encourage ambulation. -fungal lab tests pending -alpha 1 antitrypsin pending -HIV pending -TB tests negative 2. COPD -Continue bronchodilators, inhaled glucocorticoids, O2 as needed to maintain O2 saturation above 90. 3. Chest pain -EKG showed no signs of ischemia -tylenol, tramadol, percocet seem to help 4. DVT ppx -heparin
[2017-09-10] MEDS: POLYETHYLENE (MIRALAX) 17 GM PACK PO PRN (15:32)
--- NOTE | 2017-09-10 15:44 | Pulmonology Progress Note ---
Pulmonary Progress Note Date of Service Sep 10, 2017. Attending Dr. Churchill Subjective Patient seen and examined this afternoon. He states that he is feeling a little better from a respiratory standpoint. He still has intermittent cough. He continues to have dyspnea and pleuritic chest pain with deep inspiration. He also complains of difficulty urinating. Dr. West, hospitalist at bedside during follow up today. Objective VS reviewed. Tm 36.8, BP 111/73-119/77, P 72-87, RR 14-20, SaO2 90-93% on 2L/m nasal canula. Gen: AAOx3, NAD, no respiratory distress or use of accessory muscles of respiration HEENT: Atraumatic, NC, PERRL, EOMI; no thrush, [place] II CVS: S1, S2, RRR Lungs: coarse crackles bilaterally, prolonged expiratory phase, no wheezing Abd: soft/NT/ND/BS+ Ext: no edema bilaterally, no clubbing, no cyanosis Labs reviewed. Sputum culture--heavy normal tiki Sputum AFB--pending Sputum fungal culture--pending HIV-1 RNA--pending Urine Legionella Ag--not detected Beta 1,3, D glucan--epnding Urine Histoplasma galactomannan. Imaging reviewed. TTE 09/09/2017 -- Conclusions -- * There is mild concentric left ventricular hypertrophy. * Left ventricular systolic function is mildly reduced. EF 40-45% Medications reviewed. Assessment & Plan COPD, FEV1 unknown Bullous emphysema Left upper lobe cavitary lesion Left ventricular systolic dysfunction. Mr. Servin is a 52-year-old male with COPD who presents with large left apical cavitary lesion. This likely represents an infected bulla that he does appear to have severe subpleural emphysema. However due to his social history we should consider other etiologies including mycobacterial infection, fungal infection, lung abscess, cavitary granuloma and bronchogenic carcinoma. He does have mediastinal adenopathy which is likely reactive. Continue with current workup. I spoke with Dr. Retana, cardiothoracic surgery this morning. Plan is for patient to have IR guided pigtail and drainage tomorrow AM. Hopefully, cultures of fluid will yield a diagnosis. Continue with bronchodilators, inhaled glucocorticosteroids and supplemental oxygen if needed. I have put him on Spiriva and Symbicor 160/4.5 2 puffs BID. Continue with adequate pain control for pleurisy. He should also have a full PFT. Alpha-1 antitrypsin is pending. Continue with antibiotic therapy per ID recommendations. BPH--management per primary team. Pulmonary will continue to follow with you. Data Medications: Current Inpatient Medications Medications (Trade) Dose Ordered Sig/Rudy Route Start Time Stop Time Status Last Admin Dose Admin Heparin Sodium (Porcine) (Heparin Sq 5000 Unit/0.5ml) 5,000 unit Q8H SQ 09/08/17 22:00 10/08/17 21:59 Future Hold 09/09/17 14:24 5,000 UNIT Acetaminophen (Tylenol Tab) 650 mg Q4H PRN PO 09/08/17 16:00 10/08/17 15:59 09/09/17 00:44 650 MG Al Hydrox/Mg Hydrox/Simethicone (Maalox Max Susp) 15 ml Q4H PRN PO 09/08/17 16:00 10/08/17 15:59 Polyethylene (Miralax Powder Packet) 17 gm DAILY PRN PO 09/08/17 16:00 10/08/17 15:59 09/09/17 18:00 17 GM Ondansetron HCl (Zofran Inj) 4 mg Q6H PRN IV 09/08/17 16:00 10/08/17 15:59 Tramadol HCl (Ultram Tab) 50 mg Q6H PRN PO 09/08/17 16:00 10/08/17 15:59 09/10/17 05:44 50 MG Oxycodone/ Acetaminophen (Percocet 5-325mg Tab) 1 tab Q12H PRN PO 09/08/17 16:00 09/22/17 15:59 Famotidine 20 mg/ Syringe 5 ml @ 2.5 mls/min Q12H IV 09/08/17 18:00 10/08/17 17:59 09/10/17 05:39 2.5 MLS/MIN Albuterol/ Ipratropium (Duoneb) 3 ml QIDR INH 09/08/17 16:00 10/08/17 15:59 09/10/17 15:17 3 ML Ioversol (Optiray 320) 100 ml UD PRN IV 09/09/17 07:45 09/13/17 07:44 I & O: 24-Hour Column 09/11/17 07:59 Intake Total 300 ml Output Total 550 ml Balance -250 ml Vital Signs: Date Time Temp Pulse Resp B/P (MAP) Pulse Ox O2 Delivery O2 Flow Rate FiO2 09/10/17 15:17 85 14 91 Room Air 09/10/17 11:08 86 14 92 Nasal Cannula 2.0 09/10/17 08:00 Nasal Cannula 2.0 09/10/17 07:49 36.8 87 16 111/73 (86) 90 Nasal Cannula 2.0 09/10/17 07:05 85 16 92 Nasal Cannula 2.0 09/10/17 00:06 36.6 72 20 119/77 (91) 93 Room Air 09/10/17 00:00 Room Air 09/09/17 19:28 98 16 93 Room Air 09/09/17 16:05 36.6 83 16 128/86 (100) 94 Room Air 09/09/17 16:00 94 Room Air Laboratory Results: Last 24 Hours Test 09/09/17 20:45 09/10/17 08:21 White Blood Count 5.57 K/uL Red Blood Count 4.41 M/uL Hemoglobin 14.0 g/dL Hematocrit 40.9 % Mean Corpuscular Volume 92.7 fL Mean Corpuscular Hemoglobin 31.7 pg Mean Corpuscular Hemoglobin Concent 34.2 g/dl Platelet Count 267 K/uL Mean Platelet Volume 10.0 fL Neutrophils (%) (Auto) 39.3 % Lymphocytes (%) (Auto) 47.6 % Monocytes (%) (Auto) 8.8 % Eosinophils (%) (Auto) 3.4 % Basophils (%) (Auto) 0.7 % Neutrophils # (Auto) 2.19 K/uL Lymphocytes # (Auto) 2.65 K/uL Monocytes # (Auto) 0.49 K/uL Eosinophils # (Auto) 0.19 K/uL Basophils # (Auto) 0.04 K/uL RDW Standard Deviation 47.7 fL RDW Coefficient of Variation 14.0 % Immature Granulocyte % (Auto) 0.2 % Immature Granulocyte # (Auto) 0.01 K/uL Sodium Level 136 mmol/L Potassium Level 3.6 mmol/L Chloride Level 105 mmol/L Carbon Dioxide Level 23 mmol/L Anion Gap 8.0 mmol/L Blood Urea Nitrogen 11 mg/dl Creatinine 0.81 mg/dl Est Creatinine Clear Calc Drug Dose 95.1 ml/min Estimated GFR () 117.6 Estimated GFR (Non- 101.5 BUN/Creatinine Ratio 13.1 Random Glucose 101 mg/dl Calcium Level 8.4 mg/dl Phosphorus Level 3.0 mg/dl Magnesium Level 1.8 mg/dl Immunoglobulin G 1780.0 mg/dL Immunoglobulin A 245.0 mg/dL Immunoglobulin M 31.9 mg/dL
[2017-09-10] MEDS ORDERED: FINASTERIDE 5 MG TAB PO ONE (19:17)
[2017-09-10] MEDS: OXYCODONE/ACETAMINOPHEN 5-325 TAB PO PRN (19:18)
[2017-09-10] MEDS: BUDESONIDE/FORMOTEROL FUMARATE 160/4.5 60 PUFFS/INHALER INH SCH (21:33)
[2017-09-11] VITALS (17 sets, daily range): BP systolic 110–138; BP diastolic 73–95; PULSE 63–90; TEMP 36.5–36.7; O2SAT 88–100
[2017-09-11] MEDS: FAMOTIDINE IV INJ 20 MG in SYRINGE 3 ML IV SCH ×2 (05:22→18:32)
[2017-09-11 06:11] LABS: HEMATOCRIT 41.1 % (42-52); HEMOGLOBIN 13.9 g/dL (14.0-18.0); MEAN CELL VOLUME 93.6 fL (80-100); MEAN CORPUSCULAR HEMOGLOBIN 31.7 pg (25-34); MEAN CORPUSCULAR HGB CONC 33.8 g/dl (32-36); MEAN PLATELET VOLUME 10.2 fL (7.4-10.4); PLATELET COUNT 282 K/uL (130-400); RED CELL DISTRIBUTION WIDTH SD 47.8 fL (36.4-46.3); WHITE BLOOD COUNT 5.23 K/uL (4.8-10.8)
[2017-09-11] MEDS: ALBUT/IPRATROP 3MG/0.5MG NEB 3 ML VIAL INH SCH ×4 (06:53→19:34)
--- NOTE | 2017-09-11 07:27 | Medical Student: [facility] ---
Med Student Progress Note Date of Service Sep 11, 2017. Subjective Pt evaluation today including: conversation w/ patient, physical exam, lab review Pain: no [facility] 52 [facility], SOB requiring oxygen, pleuritic CP Has not had a bowel movement. Urinating clear/yellow dark but small amount and this is unusual for him. He is eating/drinking normally. Pain is well controlled per patient. Denies fever, confusion, suprapubic pain, worsening CP, worsening SOB, N/V/D. Going for catheter placement by Dr. Ocampo today. Review of Systems Constitutional: + weight loss, No fever Respiratory: + cough, + sputum (clear), + shortness of breath, No wheezing Abdomen: + constipation, No pain, No nausea, No vomiting, No diarrhea Male : No urinary frequency, No hematuria (urinating less often compared to normal, ckear/yellow) Psychiatric: No depression symptoms Skin: No rash Objective Vital Signs Date Time Temp Pulse Resp B/P (MAP) Pulse Ox O2 Delivery O2 Flow Rate FiO2 09/11/17 06:53 82 14 95 Room Air 09/11/17 00:00 Room Air 09/10/17 23:50 36.6 78 20 133/88 (103) 93 Room Air 09/10/17 19:27 84 14 93 Room Air 09/10/17 15:45 92 Room Air 09/10/17 15:38 36.4 82 20 109/74 (86) 92 Room Air 09/10/17 15:17 85 14 91 Room Air 09/10/17 11:08 86 14 92 Nasal Cannula 2.0 09/10/17 08:00 Nasal Cannula 2.0 09/10/17 07:49 36.8 87 16 111/73 (86) 90 Nasal Cannula 2.0 Physical Exam Eyes: bilateral eyes abnormal EOM ENT: hearing grossly normal Neck: + pertinent finding (cervical adenopathy unchanged) Respiratory/Chest: no respiratory distress, no accessory muscle use, + rhonchi (wheezing improved from yesterday, rhonchi improved in RL base) Cardiovascular: regular rate, rhythm, no JVD, no murmur Abdomen: normal bowel sounds, non tender, soft Neurologic/Psychiatric: alert, normal mood/affect, oriented x 3 Skin: normal color Laboratory Results Last 24 Hours Test 09/10/17 08:21 09/11/17 05:16 09/11/17 07:00 White Blood Count 5.57 K/uL 5.23 K/uL Red Blood Count 4.41 M/uL 4.39 M/uL Hemoglobin 14.0 g/dL 13.9 g/dL Hematocrit 40.9 % 41.1 % Mean Corpuscular Volume 92.7 fL 93.6 fL Mean Corpuscular Hemoglobin 31.7 pg 31.7 pg Mean Corpuscular Hemoglobin Concent 34.2 g/dl 33.8 g/dl Platelet Count 267 K/uL 282 K/uL Mean Platelet Volume 10.0 fL 10.2 fL Neutrophils (%) (Auto) 39.3 % Lymphocytes (%) (Auto) 47.6 % Monocytes (%) (Auto) 8.8 % Eosinophils (%) (Auto) 3.4 % Basophils (%) (Auto) 0.7 % Neutrophils # (Auto) 2.19 K/uL Lymphocytes # (Auto) 2.65 K/uL Monocytes # (Auto) 0.49 K/uL Eosinophils # (Auto) 0.19 K/uL Basophils # (Auto) 0.04 K/uL RDW Standard Deviation 47.7 fL 47.8 fL RDW Coefficient of Variation 14.0 % 14.0 % Immature Granulocyte % (Auto) 0.2 % Immature Granulocyte # (Auto) 0.01 K/uL Sodium Level 136 mmol/L Potassium Level 3.6 mmol/L Chloride Level 105 mmol/L Carbon Dioxide Level 23 mmol/L Anion Gap 8.0 mmol/L Blood Urea Nitrogen 11 mg/dl Creatinine 0.81 mg/dl Est Creatinine Clear Calc Drug Dose 95.1 ml/min Estimated GFR () 117.6 Estimated GFR (Non- 101.5 BUN/Creatinine Ratio 13.1 Random Glucose 101 mg/dl Calcium Level 8.4 mg/dl Phosphorus Level 3.0 mg/dl Magnesium Level 1.8 mg/dl Immunoglobulin G 1780.0 mg/dL Immunoglobulin A 245.0 mg/dL Immunoglobulin M 31.9 mg/dL Medications Current Inpatient Medications Medications (Trade) Dose Ordered Sig/Rudy Route Start Time Stop Time Status Last Admin Dose Admin Heparin Sodium (Porcine) (Heparin Sq 5000 Unit/0.5ml) 5,000 unit Q8H SQ 09/08/17 22:00 2/1/18 21:59 Future Hold 09/09/17 14:24 5,000 UNIT Acetaminophen (Tylenol Tab) 650 mg Q4H PRN PO 09/08/17 16:00 10/08/17 15:59 09/09/17 00:44 650 MG Al Hydrox/Mg Hydrox/Simethicone (Maalox Max Susp) 15 ml Q4H PRN PO 09/08/17 16:00 10/08/17 15:59 Polyethylene (Miralax Powder Packet) 17 gm DAILY PRN PO 09/08/17 16:00 10/08/17 15:59 09/10/17 15:32 17 GM Ondansetron HCl (Zofran Inj) 4 mg Q6H PRN IV 09/08/17 16:00 10/08/17 15:59 Tramadol HCl (Ultram Tab) 50 mg Q6H PRN PO 09/08/17 16:00 10/08/17 15:59 09/10/17 23:17 50 MG Oxycodone/ Acetaminophen (Percocet 5-325mg Tab) 1 tab Q12H PRN PO 09/08/17 16:00 09/22/17 15:59 09/10/17 19:18 1 TAB Famotidine 20 mg/ Syringe 5 ml @ 2.5 mls/min Q12H IV 09/08/17 18:00 10/08/17 17:59 09/11/17 05:22 2.5 MLS/MIN Albuterol/ Ipratropium (Duoneb) 3 ml QIDR INH 09/08/17 16:00 10/08/17 15:59 09/11/17 06:53 3 ML Ioversol (Optiray 320) 100 ml UD PRN IV 09/09/17 07:45 09/13/17 07:44 Tiotropium [place] (Spiriva Handihaler Inhaler) 1 puff QAM INH 09/11/17 09:00 10/11/17 08:59 Budesonide/ Formoterol Fumarate (Symbicort 160/ 4.5 Inh) 2 puffs BID INH 09/10/17 21:00 10/10/17 20:59 09/10/17 21:33 2 PUFFS Finasteride (Proscar Tab) 5 mg QAM PO 09/11/17 09:00 10/11/17 08:59 Assessment and Plan Assessment and Plan: 52 AA male with hx of COPD, HTN, DM, GERD, and former smoker with SOB and cavitary lung lesion. 1. Cavitary lesion -Cancer, fungal, lung abscess most likely given smoking history, family hx of lung cancer, and residence in correctional facility -Dr. Ocampo to perform CT guided percutaneous small catheter into cavity tomorrow. Anticoagulation on hold. INR pending. -Holding off on augmentin until after procedure. Although I am concerned for development of worsening atelectasis or pneumonia because wheezing, rhonchi in right lung base on exam. He is also on 2L NC due to worsening SOB. -Encourage patient to sit in chair and move from bed. -fungal lab tests pending -alpha 1 antitrypsin pending -HIV pending -TB tests negative 2. COPD -Continue bronchodilators, inhaled glucocorticoids, O2 as needed to maintain O2 saturation above 90. 3. Chest pain -EKG showed no signs of ischemia -tylenol, tramadol, percocet seem to help 4. Constipation -Miralax 17gm PRN. Pt did not know he could use it every day. Encouraged him to do so after surgery. 5. GERD -maalox 6. DVT ppx -heparin on hold today prior to surgery -INR 1.0 7. Disposition Medical Full Code Continued [facility] stay due to: other (surgery)
[2017-09-11] MEDS: TIOTROPIUM BROMIDE 5 PUFF/90 MCG INH INH SCH (08:10)
[2017-09-11] MEDS: BUDESONIDE/FORMOTEROL FUMARATE 160/4.5 60 PUFFS/INHALER INH SCH ×2 (08:11→20:34)
[2017-09-11] MEDS: FINASTERIDE 5 MG TAB PO SCH (08:11)
--- NOTE | 2017-09-11 08:45 | Family Medicine Progress Note ---
Progress Note Date of Service Sep 11, 2017. Subjective Pt evaluation today including: conversation w/ patient, physical exam, chart review, lab review Pain: improved cp PO Intake: NPO after midnight for procedure Voiding: voiding difficulty This AM reports voiding difficulty/straining, but improving sob and cp Constitutional: No fever, No chills Respiratory: + shortness of breath Cardiovascular: + chest pain Abdomen: No pain, No nausea, No vomiting Male : + slowing stream, No dysuria, No hematuria Medications Current Inpatient Medications Medications (Trade) Dose Ordered Sig/Rudy Route Start Time Stop Time Status Last Admin Dose Admin Heparin Sodium (Porcine) (Heparin Sq 5000 Unit/0.5ml) 5,000 unit Q8H SQ 09/08/17 22:00 10/08/17 21:59 Future Hold 09/09/17 14:24 5,000 UNIT Acetaminophen (Tylenol Tab) 650 mg Q4H PRN PO 09/08/17 16:00 10/08/17 15:59 09/09/17 00:44 650 MG Al Hydrox/Mg Hydrox/Simethicone (Maalox Max Susp) 15 ml Q4H PRN PO 09/08/17 16:00 10/08/17 15:59 Polyethylene (Miralax Powder Packet) 17 gm DAILY PRN PO 09/08/17 16:00 10/08/17 15:59 09/10/17 15:32 17 GM Ondansetron HCl (Zofran Inj) 4 mg Q6H PRN IV 09/08/17 16:00 10/08/17 15:59 Tramadol HCl (Ultram Tab) 50 mg Q6H PRN PO 09/08/17 16:00 10/08/17 15:59 09/10/17 23:17 50 MG Oxycodone/ Acetaminophen (Percocet 5-325mg Tab) 1 tab Q12H PRN PO 09/08/17 16:00 09/22/17 15:59 09/10/17 19:18 1 TAB Famotidine 20 mg/ Syringe 5 ml @ 2.5 mls/min Q12H IV 09/08/17 18:00 10/08/17 17:59 09/11/17 05:22 2.5 MLS/MIN Albuterol/ Ipratropium (Duoneb) 3 ml QIDR INH 09/08/17 16:00 2/1/18 15:59 09/11/17 06:53 3 ML Ioversol (Optiray 320) 100 ml UD PRN IV 09/09/17 07:45 09/13/17 07:44 Tiotropium [place] (Spiriva Handihaler Inhaler) 1 puff QAM INH 09/11/17 09:00 10/11/17 08:59 09/11/17 08:10 1 PUFF Budesonide/ Formoterol Fumarate (Symbicort 160/ 4.5 Inh) 2 puffs BID INH 09/10/17 21:00 10/10/17 20:59 09/11/17 08:11 2 PUFFS Finasteride (Proscar Tab) 5 mg QAM PO 09/11/17 09:00 10/11/17 08:59 09/11/17 08:11 5 MG Objective Vital Signs Date Time Temp Pulse Resp B/P (MAP) Pulse Ox O2 Delivery O2 Flow Rate FiO2 09/11/17 07:20 36.7 63 20 110/73 (85) 94 09/11/17 06:53 82 14 95 Room Air 09/11/17 00:00 Room Air 09/10/17 23:50 36.6 78 20 133/88 (103) 93 Room Air 09/10/17 19:27 84 14 93 Room Air 09/10/17 15:45 92 Room Air 09/10/17 15:38 36.4 82 20 109/74 (86) 92 Room Air 09/10/17 15:17 85 14 91 Room Air 09/10/17 11:08 86 14 92 Nasal Cannula 2.0 Physical Exam General Appearance: no apparent distress Eyes: normal inspection, sclerae normal Neck: supple Respiratory/Chest: lungs clear, + decreased breath sounds Cardiovascular: regular rate, rhythm, no murmur, + pertinent finding (L sided chest TTP) Abdomen: normal bowel sounds, soft, + tenderness (suprapubic) Extremities: non-tender, no pedal edema Neurologic/Psychiatric: alert, oriented x 3 Laboratory Results 09/11/17 05:16 Test 09/11/17 05:16 09/11/17 07:52 Red Blood Count 4.39 M/uL (4.7-6.1) Mean Corpuscular Volume 93.6 fL (80-100) Mean Corpuscular Hemoglobin 31.7 pg (25-34) Mean Corpuscular Hemoglobin Concent 33.8 g/dl (32-36) RDW Standard Deviation 47.8 fL (36.4-46.3) RDW Coefficient of Variation 14.0 % (11.5-14.5) Mean Platelet Volume 10.2 fL (7.4-10.4) Prothrombin Time 10.5 SECONDS (9.0-12.0) Prothromb Time International Ratio 1.0 (0.9-1.1) Assessment and Plan 52 years old -[place] man. Incarcerated in a correction facility with history of COPD, hypertension, diabetes mellitus, GERD and heavy tobacco abuse, quit 4 years ago. Also patient has family history of lung cancer in his father. Presented to the hospital with 9 cm left upper lung cavitary lesion on CXR. Sob and Chest pain - cavitary lesion consistent with infected bulla and severe subpleural emphysema vs TB vs. COPD exacerbation vs autoimmune vs. cancer - Previous multiple episodes of pneumonia/sinusitis. smoked 100 packs/day quit 4 years ago. Fhx of lung cancer father - CXR - 9 cm left upper lobe cavitary lung lesion - CT 3cm fluid filled lesion - negative QuantiFERON gold - could be false negative - 3 sputum AFP were sent and were negative - repeated - Consult Dr. Huston for bronchoscopy - hold off antibiotics until we get good samples from the bronchoscopy - no bronchoscopy - Consulted Dr Ocampo - CT guided pigtail catheter drainage of cavity - received 5cc of complex fluid (sent for path) - CXR - trace L pneumothorax and pigtail catheter in place (repeat CXR today) - Consulted pulm - infected bulla and severe subpleural emphysema - given in skilled nursing rule out - fungal and mycobacterial inf - also consider lung abscess, bronchogenic cancer and cavitary granuloma - ID consulted - started on Unasyn 3g IV Q6H - 2-D echo rule out vegetation/septic emboli - no evidence of mass/vegetations; mildly dec LV systolic function and mild LVH - Obtain blood cultures x 2 NGTD since 1/2 - sputum culture x 3 pending - sputum culture x1 - normal tiki - Throat culture - group B strep - fungetil/D galactomannan - pending - alpha 1 antitrypsin - pending - Urine Legionella not detected - HIV pending - PFT outpatient BPH - spraining with urination - UA neg - PVR of 296 - Straighted cath x 1 - Restarted Flomax post procedure - Continue Finasteride 5mg QAM COPD - Spiriva and Symbicort - duoneb PRN Hypertension - well without meds Diabetes mellitus type 2 - ISS GERD - Famotidine Heparin for DVT prophylaxis Resident Involvement: Resident Care Provided Care Provided: Adult Hospital Medicine History Resident Physician Supervision Note: I was present with Dr. Conde during the history and exam. I discussed the case with the resident and agree with the findings and plan as documented in the note. Any exceptions or clarifications are listed here. Pt reports decreased chest pain which is well controlled on present medication regimen. Mild improvement in urinary retention and decreased stream. Reports no cough, wheeze, SOB, lightheadedness, fever/chills General Appearance: WD/WN, no apparent distress Respiratory: chest non-tender, lungs clear, normal breath sounds, no respiratory distress Cardiovascular: normal peripheral pulses, regular rate, rhythm, no murmur Gastrointestinal: normal bowel sounds, non tender, soft, no organomegaly Assessment/Plan 52 y/o male incarcerated @ [facility], h/o COPD w/ 100 yr smoking hx, HTN, DMII, GERD presents w/ cavitary lung lesion on CT Cavitary lung lesion s/p pigtail concerning for infected bleb - 3cm on CT, fluid filled, neg QF-G, neg AFB x3 - Unasyn, f/u cultures COPD - stable - continue symbicort, spiriva, duonebs PRN, close monitoring Decreased urinary flow w/ h/o BPH - continue finasteride, t/c addition of flomax if no improvement s/p procedure HTN - well controlled w/o medication DMII - monitor FSBS, ISS GERD - continue famotidine
[2017-09-11 09:20] LABS: CALCIUM 8.8 mg/dl (8.5-10.1); CREATININE 0.7 mg/dl (0.60-1.40); POTASSIUM 4.1 mmol/L (3.5-5.1)
--- NOTE | 2017-09-11 10:09 | Surgery Progress Note ---
Subjective Date of Service: Sep 11, 2017. Pt. doing well. No SOB at rest. No fevers, shakes, or chills. Objective Vitals Date Time Temp Pulse Resp B/P (MAP) Pulse Ox O2 Delivery O2 Flow Rate FiO2 09/11/17 08:00 96 Nasal Cannula 2.0 09/11/17 07:20 36.7 63 20 110/73 (85) 94 09/11/17 06:53 82 14 95 Room Air 09/11/17 00:00 Room Air 09/10/17 23:50 36.6 78 20 133/88 (103) 93 Room Air 09/10/17 19:27 84 14 93 Room Air 09/10/17 15:45 92 Room Air 09/10/17 15:38 36.4 82 20 109/74 (86) 92 Room Air 09/10/17 15:17 85 14 91 Room Air 09/10/17 11:08 86 14 92 Nasal Cannula 2.0 Physical Exam General: + well developed, + well nourished CV: + RRR Pulmonary: No accessory muscle use, No respiratory distress Neurologic: + alert & oriented x 3 Assessment & Plan 52 year old male with CXR air fluid level, concern for infected bullae -discussed with Dr. Ocampo and Dr. Lara: -plan on placing catheter in area of concern under CT guidance -will send any fluid retrieved for appropriate cultures Addendum 4:00 pm Visited pt. at bedside and discussed with RN. CXR done at this time shows small apical pneumothorax. Will repeat CXR in am. Pt. noted to be stable with no SOB and minir pain from catheter insertion
[2017-09-11] MEDS: OXYCODONE/ACETAMINOPHEN 5-325 TAB PO PRN (13:00)
[2017-09-11] MEDS ORDERED: LIDOCAINE HCL 1% 20 ML VIAL ONE ×2 (13:45→14:07)
--- NOTE | 2017-09-11 15:19 | DIAGNOSTIC IMAGING REPORT ---
ABSCESS DRAINAGE (CT) CLINICAL HISTORY: infected bullae infection TECHNIQUE: CT guided percutaneous catheter placement COMPARISON STUDY: None FINDINGS: Following description of procedure and informed consent, a 6 [place] catheter was placed to the complex bulla in the anterior left upper lung region. Approximately 5 cc of complex fluid was withdrawn. The catheter remains in position. There is 10% left-sided pneumothorax. There are no additional complications. Patient was maintained on 4 L of oxygen via nasal cannula IMPRESSION: 1. Successful 6 [place] drainage catheter placement to the potential infected bulla left upper lung. 2. 5 cc of complex fluid was a with drawn combined with sterile water and was sent to pathology for evaluation. 3. 10% left-sided pneumothorax as residual with the 6 [place] catheter left in place. 4. Catheter care is to be performed by Dr. Ocampo/Marlon Jc 5. Is recommended that a portable chest series be acquired at 1800 hours today The above report was generated using voice recognition software. It may contain grammatical, syntax or spelling errors. Electronically signed by: Venkat Lara M.D. 09/11/2017 3:18 PM Dictated Date/Time: 09/11/2017 3:14 PM
[2017-09-11] MEDS: TRAMADOL HCL 50 MG TAB PO PRN ×2 (16:06→21:18)
--- NOTE | 2017-09-11 16:20 | DIAGNOSTIC IMAGING REPORT ---
CHEST ONE VIEW PORTABLE CLINICAL HISTORY: Pneumothorax. COMPARISON STUDY: CT-guided abscess drainage September 11, 2017. FINDINGS: A left upper lobe pigtail is in place. Hazy adjacent opacities noted. There is a trace left apical pneumothorax. Emphysema is noted. Cardiomediastinal silhouette is normal. There is no evidence of pulmonary edema. IMPRESSION: 1. Trace left pneumothorax, likely decreased in size since postprocedural CT when allowing for differences in technique. 2. Left sided pigtail in place. Electronically signed by: Marvin Silva M.D. 09/11/2017 4:19 PM Dictated Date/Time: 09/11/2017 4:11 PM
--- NOTE | 2017-09-11 16:59 | Pulmonology Progress Note ---
Pulmonary Progress Note Date of Service Sep 11, 2017. Attending Dr. Churchill Subjective Patient currently undergoing left pigtail catheter placement with IR and surgery at this time. Objective VS reviewed. No examination performed Labs reviewed. Sputum culture--heavy normal tiki Sputum AFB--no AFB seen Sputum fungal culture--no hyphae or yeast seen HIV-1 RNA--pending Urine Legionella Ag--not detected Beta 1,3, D glucan--pending Urine Histoplasma galactomannan pending IgG 1780 (H), IgA 245, IgM 31.9 (L) Alpha-1 antitrypsin 142 Imaging reviewed. TTE 09/09/2017 -- Conclusions -- * There is mild concentric left ventricular hypertrophy. * Left ventricular systolic function is mildly reduced. EF 40-45% Medications reviewed. Assessment & Plan COPD, FEV1 unknown Bullous emphysema Left upper lobe cavitary lesion Left ventricular systolic dysfunction. Mr. Servin is a 52-year-old male with COPD who presents with large left apical cavitary lesion. This likely represents an infected bulla that he does appear to have severe subpleural emphysema. However due to his social history we should consider other etiologies including mycobacterial infection, fungal infection, lung abscess, cavitary granuloma and bronchogenic carcinoma. He does have mediastinal adenopathy which is likely reactive. Continue with current workup. He is currently undergoing IR guided pigtail. Hopefully, cultures of fluid will yield a diagnosis. Continue with bronchodilators, inhaled glucocorticosteroids and supplemental oxygen if needed. I have put him on Spiriva and Symbicort 160/4.5 2 puffs BID. Continue with adequate pain control for pleurisy. Continue with antibiotic therapy per ID recommendations. BPH--management per primary team. Pulmonary will continue to follow with you. Data Medications: Current Inpatient Medications Medications (Trade) Dose Ordered Sig/Rudy Route Start Time Stop Time Status Last Admin Dose Admin Heparin Sodium (Porcine) (Heparin Sq 5000 Unit/0.5ml) 5,000 unit Q8H SQ 09/08/17 22:00 10/08/17 21:59 Future Hold 09/09/17 14:24 5,000 UNIT Acetaminophen (Tylenol Tab) 650 mg Q4H PRN PO 09/08/17 16:00 10/08/17 15:59 09/09/17 00:44 650 MG Al Hydrox/Mg Hydrox/Simethicone (Maalox Max Susp) 15 ml Q4H PRN PO 09/08/17 16:00 10/08/17 15:59 Polyethylene (Miralax Powder Packet) 17 gm DAILY PRN PO 09/08/17 16:00 10/08/17 15:59 09/10/17 15:32 17 GM Ondansetron HCl (Zofran Inj) 4 mg Q6H PRN IV 09/08/17 16:00 10/08/17 15:59 Tramadol HCl (Ultram Tab) 50 mg Q6H PRN PO 09/08/17 16:00 10/08/17 15:59 09/11/17 16:06 50 MG Oxycodone/ Acetaminophen (Percocet 5-325mg Tab) 1 tab Q12H PRN PO 09/08/17 16:00 09/22/17 15:59 09/11/17 13:00 1 TAB Famotidine 20 mg/ Syringe 5 ml @ 2.5 mls/min Q12H IV 09/08/17 18:00 10/08/17 17:59 09/11/17 05:22 2.5 MLS/MIN Albuterol/ Ipratropium (Duoneb) 3 ml QIDR INH 09/08/17 16:00 10/08/17 15:59 09/11/17 11:05 3 ML Ioversol (Optiray 320) 100 ml UD PRN IV 09/09/17 07:45 09/13/17 07:44 Tiotropium [place] (Spiriva Handihaler Inhaler) 1 puff QAM INH 09/11/17 09:00 10/11/17 08:59 09/11/17 08:10 1 PUFF Budesonide/ Formoterol Fumarate (Symbicort 160/ 4.5 Inh) 2 puffs BID INH 09/10/17 21:00 10/10/17 20:59 09/11/17 08:11 2 PUFFS Finasteride (Proscar Tab) 5 mg QAM PO 09/11/17 09:00 10/11/17 08:59 09/11/17 08:11 5 MG I & O: 24-Hour Column 09/12/17 08:00 Output Total 600 ml Balance -600 ml Vital Signs: Date Time Temp Pulse Resp B/P (MAP) Pulse Ox O2 Delivery O2 Flow Rate FiO2 09/11/17 16:34 36.5 79 20 132/95 (107) 100 Nasal Cannula 2.0 09/11/17 15:15 82 18 127/91 (103) 95 Mask 6.0 09/11/17 14:41 73 18 135/86 (102) 95 Mask 6.0 09/11/17 14:40 82 17 138/94 (109) 98 Mask 6.0 09/11/17 14:30 73 18 123/93 (103) 95 Mask 6.0 09/11/17 14:20 82 17 126/95 (105) 98 Mask 6.0 09/11/17 14:10 78 18 122/94 (103) 98 Mask 6.0 09/11/17 14:00 67 16 137/93 (108) 97 Mask 6.0 09/11/17 13:50 71 17 132/93 (106) 88 Room Air 09/11/17 13:40 71 17 132/93 (106) 97 Room Air 09/11/17 11:06 86 14 90 Room Air 09/11/17 08:00 96 Nasal Cannula 2.0 09/11/17 07:20 36.7 63 20 110/73 (85) 94 09/11/17 06:53 82 14 95 Room Air 09/11/17 00:00 Room Air 09/10/17 23:50 36.6 78 20 133/88 (103) 93 Room Air 09/10/17 19:27 84 14 93 Room Air Laboratory Results: Last 24 Hours Test 09/11/17 00:00 09/11/17 05:16 09/11/17 07:52 Urine Color YELLOW Urine Appearance CLEAR Urine pH 7.0 Urine Specific [place] 1.019 Urine Protein NEG Urine Glucose (UA) NEG Urine Ketones NEG Urine Occult Blood NEG Urine Nitrite NEG Urine Bilirubin NEG Urine Urobilinogen POS Urine Leukocyte Esterase TRACE Urine WBC (Auto) 1-5 /hpf Urine RBC (Auto) 0-4 /hpf Urine Hyaline Casts (Auto) 1-5 /lpf Urine Epithelial Cells (Auto) 10-20 /lpf Urine Bacteria (Auto) NEG White Blood Count 5.23 K/uL Red Blood Count 4.39 M/uL Hemoglobin 13.9 g/dL Hematocrit 41.1 % Mean Corpuscular Volume 93.6 fL Mean Corpuscular Hemoglobin 31.7 pg Mean Corpuscular Hemoglobin Concent 33.8 g/dl RDW Standard Deviation 47.8 fL RDW Coefficient of Variation 14.0 % Platelet Count 282 K/uL Mean Platelet Volume 10.2 fL Prothrombin Time 10.5 SECONDS Prothromb Time International Ratio 1.0 Sodium Level 136 mmol/L Potassium Level 4.1 mmol/L Chloride Level 104 mmol/L Carbon Dioxide Level 24 mmol/L Anion Gap 8.0 mmol/L Blood Urea Nitrogen 8 mg/dl Creatinine 0.70 mg/dl Est Creatinine Clear Calc Drug Dose 110.1 ml/min Estimated GFR () 124.9 Estimated GFR (Non- 107.7 BUN/Creatinine Ratio 11.2 Random Glucose 107 mg/dl Calcium Level 8.8 mg/dl
--- NOTE | 2017-09-11 17:39 | Infectious Disease Progress Nt ---
Progress Note Date of Service Sep 11, 2017. Subjective Pt evaluation today including: conversation w/ patient, physical exam, chart review, lab review, review of studies, conversation w/ regional sales consultant, review of inpatient medication list Patient undergoing catheter drainage of left upper lobe cavitary lesion. Offers no new complaints. Remains afebrile. All Other Systems: Reviewed and Negative Medications Current Inpatient Medications Medications (Trade) Dose Ordered Sig/Rudy Route Start Time Stop Time Status Last Admin Dose Admin Heparin Sodium (Porcine) (Heparin Sq 5000 Unit/0.5ml) 5,000 unit Q8H SQ 09/08/17 22:00 10/08/17 21:59 Future Hold 09/09/17 14:24 5,000 UNIT Acetaminophen (Tylenol Tab) 650 mg Q4H PRN PO 09/08/17 16:00 10/08/17 15:59 09/09/17 00:44 650 MG Al Hydrox/Mg Hydrox/Simethicone (Maalox Max Susp) 15 ml Q4H PRN PO 09/08/17 16:00 10/08/17 15:59 Polyethylene (Miralax Powder Packet) 17 gm DAILY PRN PO 09/08/17 16:00 10/08/17 15:59 09/10/17 15:32 17 GM Ondansetron HCl (Zofran Inj) 4 mg Q6H PRN IV 09/08/17 16:00 10/08/17 15:59 Tramadol HCl (Ultram Tab) 50 mg Q6H PRN PO 09/08/17 16:00 10/08/17 15:59 09/11/17 16:06 50 MG Oxycodone/ Acetaminophen (Percocet 5-325mg Tab) 1 tab Q12H PRN PO 09/08/17 16:00 09/22/17 15:59 09/11/17 13:00 1 TAB Famotidine 20 mg/ Syringe 5 ml @ 2.5 mls/min Q12H IV 09/08/17 18:00 10/08/17 17:59 09/11/17 05:22 2.5 MLS/MIN Albuterol/ Ipratropium (Duoneb) 3 ml QIDR INH 09/08/17 16:00 10/08/17 15:59 09/11/17 11:05 3 ML Ioversol (Optiray 320) 100 ml UD PRN IV 09/09/17 07:45 09/13/17 07:44 Tiotropium [place] (Spiriva Handihaler Inhaler) 1 puff QAM INH 09/11/17 09:00 10/11/17 08:59 09/11/17 08:10 1 PUFF Budesonide/ Formoterol Fumarate (Symbicort 160/ 4.5 Inh) 2 puffs BID INH 09/10/17 21:00 10/10/17 20:59 09/11/17 08:11 2 PUFFS Finasteride (Proscar Tab) 5 mg QAM PO 09/11/17 09:00 10/11/17 08:59 09/11/17 08:11 5 MG Objective Vital Signs Date Time Temp Pulse Resp B/P (MAP) Pulse Ox O2 Delivery O2 Flow Rate FiO2 09/11/17 16:34 36.5 79 20 132/95 (107) 100 Nasal Cannula 2.0 09/11/17 16:00 97 Nasal Cannula 2.0 09/11/17 15:15 82 18 127/91 (103) 95 Mask 6.0 09/11/17 14:41 73 18 135/86 (102) 95 Mask 6.0 09/11/17 14:40 82 17 138/94 (109) 98 Mask 6.0 09/11/17 14:30 73 18 123/93 (103) 95 Mask 6.0 09/11/17 14:20 82 17 126/95 (105) 98 Mask 6.0 09/11/17 14:10 78 18 122/94 (103) 98 Mask 6.0 09/11/17 14:00 67 16 137/93 (108) 97 Mask 6.0 09/11/17 13:50 71 17 132/93 (106) 88 Room Air 09/11/17 13:40 71 17 132/93 (106) 97 Room Air 09/11/17 11:06 86 14 90 Room Air 09/11/17 08:00 96 Nasal Cannula 2.0 09/11/17 07:20 36.7 63 20 110/73 (85) 94 09/11/17 06:53 82 14 95 Room Air 09/11/17 00:00 Room Air 09/10/17 23:50 36.6 78 20 133/88 (103) 93 Room Air 09/10/17 19:27 84 14 93 Room Air Physical Exam General Appearance: WD/WN, no apparent distress Eyes: normal inspection, EOMI, sclerae normal ENT: normal ENT inspection, pharynx normal Neck: supple, no adenopathy, thyroid normal, trachea midline Respiratory/Chest: chest non-tender, lungs clear, normal breath sounds, no respiratory distress Cardiovascular: regular rate, rhythm, no gallop, no murmur Abdomen: normal bowel sounds, non tender, soft, no organomegaly Extremities: non-tender, normal capillary refill Neurologic/Psychiatric: alert, oriented x 3 Skin: normal color, no rash Lymphatic: no adenopathy Laboratory Results Date/Time Source Procedure Growth Status 09/11/17 00:00 Pleural Fluid (Thoracentesis) Left Fungal Smear Pending Received 09/11/17 00:00 Pleural Fluid (Thoracentesis) Left Fungal Culture Pending Received 09/11/17 00:00 Pleural Fluid (Thoracentesis) Left Acid Fast Stain Pending Received 09/11/17 00:00 Pleural Fluid (Thoracentesis) Left Mycobacterial Culture Pending Received 09/11/17 00:00 Pleural Fluid (Thoracentesis) Left Gram Stain Pending Received 09/11/17 00:00 Pleural Fluid (Thoracentesis) Left Bacterial Culture Pending Received Last 24 Hours Test 09/11/17 00:00 09/11/17 05:16 09/11/17 07:52 Urine Color YELLOW Urine Appearance CLEAR Urine pH 7.0 Urine Specific [place] 1.019 Urine Protein NEG Urine Glucose (UA) NEG Urine Ketones NEG Urine Occult Blood NEG Urine Nitrite NEG Urine Bilirubin NEG Urine Urobilinogen POS Urine Leukocyte Esterase TRACE Urine WBC (Auto) 1-5 /hpf Urine RBC (Auto) 0-4 /hpf Urine Hyaline Casts (Auto) 1-5 /lpf Urine Epithelial Cells (Auto) 10-20 /lpf Urine Bacteria (Auto) NEG White Blood Count 5.23 K/uL Red Blood Count 4.39 M/uL Hemoglobin 13.9 g/dL Hematocrit 41.1 % Mean Corpuscular Volume 93.6 fL Mean Corpuscular Hemoglobin 31.7 pg Mean Corpuscular Hemoglobin Concent 33.8 g/dl RDW Standard Deviation 47.8 fL RDW Coefficient of Variation 14.0 % Platelet Count 282 K/uL Mean Platelet Volume 10.2 fL Prothrombin Time 10.5 SECONDS Prothromb Time International Ratio 1.0 Sodium Level 136 mmol/L Potassium Level 4.1 mmol/L Chloride Level 104 mmol/L Carbon Dioxide Level 24 mmol/L Anion Gap 8.0 mmol/L Blood Urea Nitrogen 8 mg/dl Creatinine 0.70 mg/dl Est Creatinine Clear Calc Drug Dose 110.1 ml/min Estimated GFR () 124.9 Estimated GFR (Non- 107.7 BUN/Creatinine Ratio 11.2 Random Glucose 107 mg/dl Calcium Level 8.8 mg/dl CLINICAL HISTORY: Pneumothorax. COMPARISON STUDY: CT-guided abscess drainage September 11, 2017. FINDINGS: A left upper lobe pigtail is in place. Hazy adjacent opacities noted. There is a trace left apical pneumothorax. Emphysema is noted. Cardiomediastinal silhouette is normal. There is no evidence of pulmonary edema. IMPRESSION: 1. Trace left pneumothorax, likely decreased in size since postprocedural CT when allowing for differences in technique. 2. Left sided pigtail in place. Assessment and Plan 52-year-old male with diabetes and COPD now presents with large left upper lobe cavity with air-fluid level, with appearance on CT scanning most consistent with infected bleb.Patient now status post pigtail catheter placement, would consider starting patient on IV Unasyn pending culture results given positive culture for strep. Will adjust antibiotics once cultures are available. Will follow.
[2017-09-11] MEDS: AMPICILLIN/SULBACTAM SOD INJ 3,000 MG in SODIUM CHLORIDE 0.9% 100ML 100 ML IV SCH (20:34)
[2017-09-11] MEDS: TAMSULOSIN HCL 0.4 MG CAP PO SCH (20:34)
[2017-09-11] MEDS: HEPARIN SOD 5000 UNIT/0.5 ML CARP SQ SCH (22:04)
[2017-09-12] VITALS (12 sets, daily range): BP systolic 120–128; BP diastolic 81–88; PULSE 89–107; TEMP 36.4–36.9; O2SAT 89–97
[2017-09-12] MEDS: AMPICILLIN/SULBACTAM SOD INJ 3,000 MG in SODIUM CHLORIDE 0.9% 100ML 100 ML IV SCH ×4 (01:19→19:40)
[2017-09-12] MEDS: HEPARIN SOD 5000 UNIT/0.5 ML CARP SQ SCH ×3 (05:38→22:33)
[2017-09-12] MEDS: FAMOTIDINE IV INJ 20 MG in SYRINGE 3 ML IV SCH ×2 (05:39→18:08)
--- NOTE | 2017-09-12 07:11 | DIAGNOSTIC IMAGING REPORT ---
CHEST ONE VIEW PORTABLE CLINICAL HISTORY: chest tube COMPARISON STUDY: 09/11/2017 FINDINGS: The cardiac and mediastinal contours remain stable. The left-sided chest tube remains unchanged in position. There is a trace left apical pneumothorax the pleural separation of 2 mm. There is slight increase in the right basal airspace opacities.[ IMPRESSION: 1. Trace left apical pneumothorax 2. No change the position of the left-sided pigtail catheter 3. Slight increase in the right basal airspace opacities Electronically signed by: Dio Noriega M.D. 09/12/2017 7:09 AM Dictated Date/Time: 09/12/2017 7:08 AM
[2017-09-12] MEDS: OXYCODONE/ACETAMINOPHEN 5-325 TAB PO PRN ×2 (07:17→14:10)
[2017-09-12] MEDS: BUDESONIDE/FORMOTEROL FUMARATE 160/4.5 60 PUFFS/INHALER INH SCH ×2 (07:18→21:18)
[2017-09-12] MEDS: TIOTROPIUM BROMIDE 5 PUFF/90 MCG INH INH SCH (07:18)
[2017-09-12] MEDS: FINASTERIDE 5 MG TAB PO SCH (07:18)
[2017-09-12] MEDS: ALBUT/IPRATROP 3MG/0.5MG NEB 3 ML VIAL INH SCH ×3 (07:38→15:23)
[2017-09-12 07:59] LABS: HEMATOCRIT 44.9 % (42-52); HEMOGLOBIN 15.1 g/dL (14.0-18.0); MEAN CELL VOLUME 94.7 fL (80-100); MEAN CORPUSCULAR HEMOGLOBIN 31.9 pg (25-34); MEAN CORPUSCULAR HGB CONC 33.6 g/dl (32-36); MEAN PLATELET VOLUME 10.2 fL (7.4-10.4); PLATELET COUNT 281 K/uL (130-400); RED CELL DISTRIBUTION WIDTH CV 14.3 % (11.5-14.5); RED CELL DISTRIBUTION WIDTH SD 48.9 fL (36.4-46.3); WHITE BLOOD COUNT 5.56 K/uL (4.8-10.8)
[2017-09-12 08:29] LABS: CALCIUM 9.2 mg/dl (8.5-10.1); CREATININE 0.81 mg/dl (0.60-1.40)
--- NOTE | 2017-09-12 08:42 | Surgery Progress Note ---
Subjective Date of Service: Sep 12, 2017. Pt. notes discomfort from chest catheter. Objective Vitals Date Time Temp Pulse Resp B/P (MAP) Pulse Ox O2 Delivery O2 Flow Rate FiO2 09/12/17 07:38 106 16 95 Room Air 09/12/17 07:30 36.8 92 18 128/88 (101) 92 Room Air 09/12/17 00:06 36.9 101 20 126/88 (101) 97 Nasal Cannula 2.0 09/12/17 00:00 Nasal Cannula 2.0 09/11/17 22:09 20 95 Nasal Cannula 2.0 09/11/17 19:34 90 16 95 Nasal Cannula 2.0 09/11/17 16:34 36.5 79 20 132/95 (107) 100 Nasal Cannula 2.0 09/11/17 16:00 97 Nasal Cannula 2.0 09/11/17 15:15 82 18 127/91 (103) 95 Mask 6.0 09/11/17 14:41 73 18 135/86 (102) 95 Mask 6.0 09/11/17 14:40 82 17 138/94 (109) 98 Mask 6.0 09/11/17 14:30 73 18 123/93 (103) 95 Mask 6.0 09/11/17 14:20 82 17 126/95 (105) 98 Mask 6.0 09/11/17 14:10 78 18 122/94 (103) 98 Mask 6.0 09/11/17 14:00 67 16 137/93 (108) 97 Mask 6.0 09/11/17 13:50 71 17 132/93 (106) 88 Room Air 09/11/17 13:40 71 17 132/93 (106) 97 Room Air 09/11/17 11:06 86 14 90 Room Air Physical Exam General: + well developed, + well nourished CV: + RRR Pulmonary: + pertinent finding (slight decrease at bases), No accessory muscle use, No respiratory distress Neurologic: + alert & oriented x 3 Radiology CXR today shows only trace apical pneumothorax; concern noted for right basilar infiltrate Assessment & Plan 52 year old male with CXR air fluid level, concern for infected bullae -pigtail catheter placed under CT guidance on 09/11/17: -fluid sent for cultures and are all pending -ID input noted: -pt. placed on unasyn pending further culture date
--- NOTE | 2017-09-12 09:54 | Pulmonology Progress Note ---
Pulmonary Progress Note Date of Service Sep 12, 2017. Attending Dr. Churchill Subjective Patient seen and examined at bedside. He is status post insertion of left pigtail and left upper lobe cavitary lesion. Patient currently complaining of pleuritic chest pain and coughing that is exacerbated with deep inspiration. He is complaining of urinary retention and hesitancy as well as constipation. Objective VS reviewed. MAXIMUM TEMPERATURE 36.9, blood pressure 126/88 to 128/88, pulse 92-106, respiratory rate 16-20, pulse oximetry 96-97% on 2 L nasal cannula. On examination Gen.: Resting comfortably in bed, no acute respiratory distress, awake alert oriented 3. No use of respiratory muscles of respiration. CVS: S1-S2, rate regular, no murmurs rubs or gallops appreciated Lungs/chest: Pigtail catheter in anterior left chest wall, draining serosanguineous fluid; diminished breath sounds bilaterally, no crackles, no wheezing Abdomen: Soft, nontender, nondistended Extremities: No edema bilaterally in lower extremity, no cyanosis, no clubbing Labs reviewed. Pleural fluid fungal, AFB and bacteria culture-pending Sputum culture--heavy normal tiki Sputum AFB--no AFB seen Sputum fungal culture--no hyphae or yeast seen HIV-1 RNA--pending Urine Legionella Ag--not detected Beta 1,3, D glucan--pending Urine Histoplasma galactomannan pending IgG 1780 (H), IgA 245, IgM 31.9 (L) Alpha-1 antitrypsin 142 Imaging reviewed. Chest x-ray 09/12/2017 IMPRESSION: 1. Trace left apical pneumothorax 2. No change the position of the left-sided pigtail catheter 3. Slight increase in the right basal airspace opacities TTE 09/09/2017 -- Conclusions -- * There is mild concentric left ventricular hypertrophy. * Left ventricular systolic function is mildly reduced. EF 40-45% Medications reviewed. Assessment & Plan COPD, FEV1 unknown Bullous emphysema Left upper lobe cavitary lesion Left ventricular systolic dysfunction. Mr. Servin is a 52-year-old male with COPD who presents with large left apical cavitary lesion. This likely represents an infected bulla that he does appear to have severe subpleural emphysema. However due to his social history we should consider other etiologies including mycobacterial infection, fungal infection, lung abscess, cavitary granuloma and bronchogenic carcinoma. He does have mediastinal adenopathy which is likely reactive. He is status post prior guided pigtail catheter and drainage of left apical cavitary lesion. Cultures are still pending. He is being empirically started on Unasyn by ID. CT surgery following closely of managing chest tube. For respiratory standpoint he is stable. On 0-2 L nasal and been saturating well. He is in no respiratory distress at this time. Continue with bronchodilators, Spiriva and Symbicort 160/4.5 2 puffs BID. Continue with adequate pain control for pleurisy. Continue with incentive spirometry Continue with antibiotic therapy per ID recommendations. BPH and constipation--management per primary team. I will signoff case. Please contact pulmonary you've any further questions or concerns. Data Medications: Current Inpatient Medications Medications (Trade) Dose Ordered Sig/Rudy Route Start Time Stop Time Status Last Admin Dose Admin Heparin Sodium (Porcine) (Heparin Sq 5000 Unit/0.5ml) 5,000 unit Q8H SQ 09/08/17 22:00 10/08/17 21:59 Future hold 09/12/17 05:38 5,000 UNIT Acetaminophen (Tylenol Tab) 650 mg Q4H PRN PO 09/08/17 16:00 10/08/17 15:59 09/09/17 00:44 650 MG Al Hydrox/Mg Hydrox/Simethicone (Maalox Max Susp) 15 ml Q4H PRN PO 09/08/17 16:00 10/08/17 15:59 Polyethylene (Miralax Powder Packet) 17 gm DAILY PRN PO 09/08/17 16:00 10/08/17 15:59 09/10/17 15:32 17 GM Ondansetron HCl (Zofran Inj) 4 mg Q6H PRN IV 09/08/17 16:00 10/08/17 15:59 Tramadol HCl (Ultram Tab) 50 mg Q6H PRN PO 09/08/17 16:00 10/08/17 15:59 09/11/17 21:18 50 MG Oxycodone/ Acetaminophen (Percocet 5-325mg Tab) 1 tab Q12H PRN PO 09/08/17 16:00 09/22/17 15:59 09/12/17 07:17 1 TAB Famotidine 20 mg/ Syringe 5 ml @ 2.5 mls/min Q12H IV 1/2/18 18:00 10/08/17 17:59 09/12/17 05:39 2.5 MLS/MIN Albuterol/ Ipratropium (Duoneb) 3 ml QIDR INH 09/08/17 16:00 10/08/17 15:59 09/12/17 07:38 3 ML Ioversol (Optiray 320) 100 ml UD PRN IV 09/09/17 07:45 09/13/17 07:44 Tiotropium [place] (Spiriva Handihaler Inhaler) 1 puff QAM INH 09/11/17 09:00 10/11/17 08:59 09/12/17 07:18 1 PUFF Budesonide/ Formoterol Fumarate (Symbicort 160/ 4.5 Inh) 2 puffs BID INH 09/10/17 21:00 10/10/17 20:59 09/12/17 07:18 2 PUFFS Finasteride (Proscar Tab) 5 mg QAM PO 09/11/17 09:00 10/11/17 08:59 09/12/17 07:18 5 MG Ampicillin Sodium/ Sulbactam Sodium 3000 mg/Sodium Chloride 108 ml @ 200 mls/hr Q6H IV 09/11/17 20:00 09/15/17 19:59 09/12/17 07:17 200 MLS/HR Tamsulosin HCl (Flomax Cap) 0.4 mg HS PO 09/11/17 21:00 10/11/17 20:59 09/11/17 20:34 0.4 MG Vital Signs: Date Time Temp Pulse Resp B/P (MAP) Pulse Ox O2 Delivery O2 Flow Rate FiO2 09/12/17 07:38 106 16 95 Room Air 09/12/17 07:30 36.8 92 18 128/88 (101) 92 Room Air 09/12/17 00:06 36.9 101 20 126/88 (101) 97 Nasal Cannula 2.0 09/12/17 00:00 Nasal Cannula 2.0 09/11/17 22:09 20 95 Nasal Cannula 2.0 09/11/17 19:34 90 16 95 Nasal Cannula 2.0 09/11/17 16:34 36.5 79 20 132/95 (107) 100 Nasal Cannula 2.0 09/11/17 16:00 97 Nasal Cannula 2.0 09/11/17 15:15 82 18 127/91 (103) 95 Mask 6.0 09/11/17 14:41 73 18 135/86 (102) 95 Mask 6.0 09/11/17 14:40 82 17 138/94 (109) 98 Mask 6.0 09/11/17 14:30 73 18 123/93 (103) 95 Mask 6.0 09/11/17 14:20 82 17 126/95 (105) 98 Mask 6.0 09/11/17 14:10 78 18 122/94 (103) 98 Mask 6.0 09/11/17 14:00 67 16 137/93 (108) 97 Mask 6.0 09/11/17 13:50 71 17 132/93 (106) 88 Room Air 09/11/17 13:40 71 17 132/93 (106) 97 Room Air 09/11/17 11:06 86 14 90 Room Air Laboratory Results: Last 24 Hours Test 09/12/17 07:35 White Blood Count 5.56 K/uL Red Blood Count 4.74 M/uL Hemoglobin 15.1 g/dL Hematocrit 44.9 % Mean Corpuscular Volume 94.7 fL Mean Corpuscular Hemoglobin 31.9 pg Mean Corpuscular Hemoglobin Concent 33.6 g/dl RDW Standard Deviation 48.9 fL RDW Coefficient of Variation 14.3 % Platelet Count 281 K/uL Mean Platelet Volume 10.2 fL Sodium Level 134 mmol/L Potassium Level 4.0 mmol/L Chloride Level 103 mmol/L Carbon Dioxide Level 24 mmol/L Anion Gap 7.0 mmol/L Creatinine 0.81 mg/dl Est Creatinine Clear Calc Drug Dose 95.1 ml/min Estimated GFR () 117.6 Estimated GFR (Non- 101.5 BUN/Creatinine Ratio 16.1 Random Glucose 106 mg/dl Calcium Level 9.2 mg/dl
[2017-09-12] MEDS ORDERED: DOCUSATE SODIUM 100 MG CAP PO ONE (11:34)
[2017-09-12] MEDS: POLYETHYLENE (MIRALAX) 17 GM PACK PO SCH ×2 (11:56→21:00)
--- NOTE | 2017-09-12 16:22 | Family Medicine Progress Note ---
Progress Note Date of Service Sep 12, 2017. Subjective Pt evaluation today including: conversation w/ patient, physical exam, chart review, lab review, review of inpatient medication list Pain: Chest pain reported PO Intake: Tolerating PO intake Voiding: voiding difficulty Mr. Servin reports he has chest pain across his chest and shortness of breath which he states is about the same as yesterday. He also remains with difficulty with urination, primarily difficulty initiating it. He denies dysuria or hematuria. He reports he feels that with the straining he does for urinating, he now has lower abdominal pain. He states that he has not moved his bowels in over a week. He denies n/v, states he is not passing flatus. He has had no history of bowel obstructions or prior surgeries on his abdomen. Constitutional: No fever, No chills Respiratory: + shortness of breath, No cough, No sputum Cardiovascular: + chest pain, No edema Abdomen: + pain, + constipation, No nausea, No vomiting, No diarrhea All Other Systems: Reviewed and Negative Medications Current Inpatient Medications Medications (Trade) Dose Ordered Sig/Rudy Route Start Time Stop Time Status Last Admin Dose Admin Heparin Sodium (Porcine) (Heparin Sq 5000 Unit/0.5ml) 5,000 unit Q8H SQ 09/08/17 22:00 10/08/17 21:59 Future hold 09/12/17 05:38 5,000 UNIT Acetaminophen (Tylenol Tab) 650 mg Q4H PRN PO 09/08/17 16:00 10/08/17 15:59 09/09/17 00:44 650 MG Al Hydrox/Mg Hydrox/Simethicone (Maalox Max Susp) 15 ml Q4H PRN PO 09/08/17 16:00 10/08/17 15:59 Polyethylene (Miralax Powder Packet) 17 gm DAILY PRN PO 09/08/17 16:00 10/08/17 15:59 09/10/17 15:32 17 GM Ondansetron HCl (Zofran Inj) 4 mg Q6H PRN IV 09/08/17 16:00 10/08/17 15:59 Tramadol HCl (Ultram Tab) 50 mg Q6H PRN PO 09/08/17 16:00 10/08/17 15:59 09/11/17 21:18 50 MG Oxycodone/ Acetaminophen (Percocet 5-325mg Tab) 1 tab Q12H PRN PO 09/08/17 16:00 09/22/17 15:59 09/12/17 07:17 1 TAB Famotidine 20 mg/ Syringe 5 ml @ 2.5 mls/min Q12H IV 09/08/17 18:00 10/08/17 17:59 09/12/17 05:39 2.5 MLS/MIN Albuterol/ Ipratropium (Duoneb) 3 ml QIDR INH 09/08/17 16:00 10/08/17 15:59 09/12/17 07:38 3 ML Ioversol (Optiray 320) 100 ml UD PRN IV 09/09/17 07:45 09/13/17 07:44 Tiotropium Man (Spiriva Handihaler Inhaler) 1 puff QAM INH 09/11/17 09:00 10/11/17 08:59 09/12/17 07:18 1 PUFF Budesonide/ Formoterol Fumarate (Symbicort 160/ 4.5 Inh) 2 puffs BID INH 09/10/17 21:00 10/10/17 20:59 09/12/17 07:18 2 PUFFS Finasteride (Proscar Tab) 5 mg QAM PO 09/11/17 09:00 10/11/17 08:59 09/12/17 07:18 5 MG Ampicillin Sodium/ Sulbactam Sodium 3000 mg/Sodium Chloride 108 ml @ 200 mls/hr Q6H IV 09/11/17 20:00 09/15/17 19:59 09/12/17 07:17 200 MLS/HR Tamsulosin HCl (Flomax Cap) 0.4 mg HS PO 09/11/17 21:00 10/11/17 20:59 09/11/17 20:34 0.4 MG Objective Vital Signs Date Time Temp Pulse Resp B/P (MAP) Pulse Ox O2 Delivery O2 Flow Rate FiO2 09/12/17 07:38 106 16 95 Room Air 09/12/17 07:30 36.8 92 18 128/88 (101) 92 Room Air 09/12/17 00:06 36.9 101 20 126/88 (101) 97 Nasal Cannula 2.0 09/12/17 00:00 Nasal Cannula 2.0 09/11/17 22:09 20 95 Nasal Cannula 2.0 09/11/17 19:34 90 16 95 Nasal Cannula 2.0 09/11/17 16:34 36.5 79 20 132/95 (107) 100 Nasal Cannula 2.0 09/11/17 16:00 97 Nasal Cannula 2.0 09/11/17 15:15 82 18 127/91 (103) 95 Mask 6.0 09/11/17 14:41 73 18 135/86 (102) 95 Mask 6.0 09/11/17 14:40 82 17 138/94 (109) 98 Mask 6.0 09/11/17 14:30 73 18 123/93 (103) 95 Mask 6.0 09/11/17 14:20 82 17 126/95 (105) 98 Mask 6.0 09/11/17 14:10 78 18 122/94 (103) 98 Mask 6.0 09/11/17 14:00 67 16 137/93 (108) 97 Mask 6.0 09/11/17 13:50 71 17 132/93 (106) 88 Room Air 09/11/17 13:40 71 17 132/93 (106) 97 Room Air 09/11/17 11:06 86 14 90 Room Air Physical Exam General Appearance: WD/WN, + mild distress Respiratory/Chest: chest non-tender, no respiratory distress, no accessory muscle use, + decreased breath sounds Cardiovascular: regular rate, rhythm, no edema, no gallop, no JVD, no murmur Abdomen: normal bowel sounds, + distended, + tenderness (tenderness in lower abdomen. No rigidity, no guarding) Laboratory Results Last 24 Hours Test 09/12/17 07:35 White Blood Count 5.56 K/uL Red Blood Count 4.74 M/uL Hemoglobin 15.1 g/dL Hematocrit 44.9 % Mean Corpuscular Volume 94.7 fL Mean Corpuscular Hemoglobin 31.9 pg Mean Corpuscular Hemoglobin Concent 33.6 g/dl RDW Standard Deviation 48.9 fL RDW Coefficient of Variation 14.3 % Platelet Count 281 K/uL Mean Platelet Volume 10.2 fL Sodium Level 134 mmol/L Potassium Level 4.0 mmol/L Chloride Level 103 mmol/L Carbon Dioxide Level 24 mmol/L Anion Gap 7.0 mmol/L Creatinine 0.81 mg/dl Est Creatinine Clear Calc Drug Dose 95.1 ml/min Estimated GFR () 117.6 Estimated GFR (Non- 101.5 BUN/Creatinine Ratio 16.1 Random Glucose 106 mg/dl Calcium Level 9.2 mg/dl Assessment and Plan Mr. Servin is a 52 year old -[place] man with a history of COPD, hypertension, diabetes mellitus, GERD and heavy tobacco abuse (quit 4 years ago ) who presented to [facility] from a correction facility with a 9 cm left upper lung cavitary lesion on CXR. Sob and Chest pain - cavitary lesion consistent with infected bulla and severe subpleural emphysema vs TB vs. COPD exacerbation vs autoimmune vs. cancer - Previous multiple episodes of pneumonia/sinusitis. smoked 100 pack year history - quit 4 years ago. Fhx of lung cancer father - CXR - 9 cm left upper lobe cavitary lung lesion - CT 3cm fluid filled lesion - Consulted Dr Ocampo - CT guided pigtail catheter drainage of cavity done on 09/11/2017 - Repeat CXR today showed trace apical pneumothorax and slight increase in right basal airspace opacity - Consulted pulmonary - infected bulla and severe subpleural emphysema - stable from respiratory standpoint - continue current management - ID consulted - continue Unasyn 3g IV Q6H (day 2) - 2-D echo to rule out vegetation/septic emboli - no evidence of mass/vegetations; mildly dec LV systolic function and mild LVH - Negative blood cultures - Pleural fluid bacterial and fungal culture negative, awaiting AFB culture - Sputum culture showed heavy normal tiki, negative AFB culture, and few ritchie albicans on fungal culture - Throat culture - group B strep - fungetil/D galactomannan - pending - alpha 1 antitrypsin - pending - Urine Legionella not detected - HIV negative - PFT outpatient New Right Basal Airspace Opacity - stable from respiratory standpoint, off supplementary O2 - likely secondary to atelectasis, add incentive spirometry and encourage use BPH - straining with urination - UA neg - Continue flomax and finasteride 5mg QAM - consider increasing dose of flomax if no improvement Constipation - patient reports he has not had a bowel movement in one week - increase bowel regimen to miralax scheduled BID and 100mg bid of colace - will monitor COPD - Spiriva and Symbicort - change duonebs to xopenex as he is tachycardic Hypertension - BP 128/88 today Diabetes mellitus type 2 - ISS GERD - Famotidine DVT Prophylaxis: Heparin 5000 units SQ q8h Code: Full Disposition: remains on med/surg Resident Tracking Resident Involvement: Resident Care Provided Care Provided: Adult Hospital Medicine History Resident Physician Supervision Note: I was present with Dr. Echevarria during the history and exam. I discussed the case with the resident and agree with the findings and plan as documented in the note. Any exceptions or clarifications are listed here. Pt reports unchanged and well controlled reproducible chest pain. Minimal alleviation of abdominal discomfort and urinary pressure. Constipation for the last few days. Reports no n/v, fever, chills, palpitations, ARCE, lightheadedness. General Appearance: WD/WN, no apparent distress Respiratory: chest non-tender, no respiratory distress, decreased breath sounds , wheezing (mild) Cardiovascular: normal peripheral pulses, regular rate, rhythm, no murmur Gastrointestinal: normal bowel sounds, non tender, soft, no organomegaly Assessment/Plan 52 y/o male incarcerated @ [facility], h/o COPD w/ 100 yr smoking hx, HTN, DMII, GERD presents w/ cavitary lung lesion on CT Cavitary lung lesion s/p pigtail concerning for infected bleb - 3cm on CT, fluid filled, neg QF-G, neg AFB x3 - Unasyn, f/u cultures COPD - stable - continue symbicort, spiriva, duonebs PRN, close monitoring RLL opacity - likely atelectasis - monitor, encourage IS Decreased urinary flow w/ h/o BPH - continue finasteride and flomax Constipation - bowel regimen HTN - well controlled w/o medication DMII - monitor FSBS, ISS GERD - continue famotidine
[2017-09-12] MEDS: TRAMADOL HCL 50 MG TAB PO PRN (18:07)
[2017-09-12] MEDS ORDERED: NURSING VERBAL MED ORDER ONE (19:15)
[2017-09-12] MEDS ORDERED: MAGNESIUM HYDROXIDE SUSP 30 ML UDC PO ONE (19:30)
[2017-09-12] MEDS: LEVALBUTEROL 1.25MG/3ML NEB INH SCH (19:57)
[2017-09-12] MEDS: ACETAMINOPHEN 325 MG TAB PO PRN (21:16)
[2017-09-12] MEDS: TAMSULOSIN HCL 0.4 MG CAP PO SCH (21:17)
[2017-09-12] MEDS: DOCUSATE SODIUM 100 MG CAP PO SCH (21:18)
[2017-09-12] MEDS ORDERED: LIDOCAINE HCL 2% JELLY 30 ML TUBE EXT ONE (22:52)
[2017-09-12] MEDS ORDERED: NURSING DECISION MEDICATION ORDER SCH (23:00)
[2017-09-13] VITALS (7 sets, daily range): BP systolic 117–136; BP diastolic 80–84; PULSE 83–103; TEMP 36.4–36.7; O2SAT 91–95
[2017-09-13] MEDS: LEVALBUTEROL 1.25MG/3ML NEB INH SCH ×4 (02:00→19:15)
[2017-09-13] MEDS: AMPICILLIN/SULBACTAM SOD INJ 3,000 MG in SODIUM CHLORIDE 0.9% 100ML 100 ML IV SCH ×4 (02:07→19:54)
[2017-09-13] MEDS ORDERED: LIDOCAINE HCL 2% JELLY 30 ML TUBE EXT PRN (03:00)
[2017-09-13] MEDS: FAMOTIDINE IV INJ 20 MG in SYRINGE 3 ML IV SCH ×2 (06:05→17:39)
[2017-09-13] MEDS: HEPARIN SOD 5000 UNIT/0.5 ML CARP SQ SCH ×3 (06:10→21:32)
[2017-09-13 07:14] LABS: HEMATOCRIT 39.3 % (42-52); MEAN CELL VOLUME 92.3 fL (80-100); MEAN CORPUSCULAR HEMOGLOBIN 32.9 pg (25-34); MEAN CORPUSCULAR HGB CONC 35.6 g/dl (32-36); PLATELET COUNT 266 K/uL (130-400); RED CELL DISTRIBUTION WIDTH CV 14.1 % (11.5-14.5); RED CELL DISTRIBUTION WIDTH SD 47.1 fL (36.4-46.3); WHITE BLOOD COUNT 5.63 K/uL (4.8-10.8)
[2017-09-13] MEDS: OXYCODONE/ACETAMINOPHEN 5-325 TAB PO PRN ×2 (07:27→13:07)
[2017-09-13] MEDS: FINASTERIDE 5 MG TAB PO SCH (07:28)
[2017-09-13] MEDS: TIOTROPIUM BROMIDE 5 PUFF/90 MCG INH INH SCH (07:28)
[2017-09-13] MEDS: BUDESONIDE/FORMOTEROL FUMARATE 160/4.5 60 PUFFS/INHALER INH SCH ×2 (07:28→20:48)
[2017-09-13] MEDS: DOCUSATE SODIUM 100 MG CAP PO SCH ×2 (07:28→20:48)
[2017-09-13] MEDS: POLYETHYLENE (MIRALAX) 17 GM PACK PO SCH ×3 (07:29→20:50)
[2017-09-13 07:43] LABS: CALCIUM 8.9 mg/dl (8.5-10.1); CREATININE 0.65 mg/dl (0.60-1.40)
--- NOTE | 2017-09-13 08:39 | Family Medicine Progress Note ---
Progress Note Date of Service Sep 13, 2017. Subjective Pt evaluation today including: conversation w/ patient, physical exam, chart review, lab review, conversation w/ reimbursement consultant Pain: Chest pain reported PO Intake: Tolerating PO intake Voiding: voiding difficulty Mr. Servin reports he feels the same today as yesterday. He remains with chest pain and states it has not worsened or gotten any better. He reports he had to be straight cathed yesterday as he was unable to begin voiding, but reports he has voided this morning. He also states he has not yet had a bowel movement and remains with lower abdominal pressure. He states his breathing is the same and he is coughing occasionally but it is non-productive. He denies any new complaints. Constitutional: + weakness, + fatigue, No fever, No chills Respiratory: + cough, + shortness of breath, No sputum, No wheezing Cardiovascular: + chest pain, No orthopnea, No PND, No edema, No palpitations Abdomen: + pain, + constipation, No nausea, No vomiting, No diarrhea All Other Systems: Reviewed and Negative Medications Current Inpatient Medications Medications (Trade) Dose Ordered Sig/Rudy Route Start Time Stop Time Status Last Admin Dose Admin Heparin Sodium (Porcine) (Heparin Sq 5000 Unit/0.5ml) 5,000 unit Q8H SQ 09/08/17 22:00 10/08/17 21:59 Future hold 09/13/17 06:10 5,000 UNIT Acetaminophen (Tylenol Tab) 650 mg Q4H PRN PO 09/08/17 16:00 10/08/17 15:59 09/12/17 21:16 650 MG Al Hydrox/Mg Hydrox/Simethicone (Maalox Max Susp) 15 ml Q4H PRN PO 09/08/17 16:00 10/08/17 15:59 Ondansetron HCl (Zofran Inj) 4 mg Q6H PRN IV 09/08/17 16:00 10/08/17 15:59 Tramadol HCl (Ultram Tab) 50 mg Q6H PRN PO 09/08/17 16:00 10/08/17 15:59 09/12/17 18:07 50 MG Oxycodone/ Acetaminophen (Percocet 5-325mg Tab) 1 tab Q12H PRN PO 09/08/17 16:00 09/22/17 15:59 09/13/17 07:27 1 TAB Famotidine 20 mg/ Syringe 5 ml @ 2.5 mls/min Q12H IV 09/08/17 18:00 10/08/17 17:59 09/13/17 06:05 2.5 MLS/MIN Tiotropium [place] (Spiriva Handihaler Inhaler) 1 puff QAM INH 09/11/17 09:00 10/11/17 08:59 09/13/17 07:28 1 PUFF Budesonide/ Formoterol Fumarate (Symbicort 160/ 4.5 Inh) 2 puffs BID INH 09/10/17 21:00 10/10/17 20:59 09/13/17 07:28 2 PUFFS Finasteride (Proscar Tab) 5 mg QAM PO 09/11/17 09:00 10/11/17 08:59 09/13/17 07:28 5 MG Ampicillin Sodium/ Sulbactam Sodium 3000 mg/Sodium Chloride 108 ml @ 200 mls/hr Q6H IV 09/11/17 20:00 09/15/17 19:59 09/13/17 07:27 200 MLS/HR Tamsulosin HCl (Flomax Cap) 0.4 mg HS PO 09/11/17 21:00 10/11/17 20:59 09/12/17 21:17 0.4 MG Docusate Sodium (coLACE CAP) 100 mg BID PO 09/12/17 21:00 10/12/17 20:59 09/13/17 07:28 100 MG Polyethylene (Miralax Powder Packet) 17 gm BID PO 09/12/17 11:45 10/08/17 15:59 09/13/17 07:29 17 GM Levalbuterol (Xopenex 1.25MG/ 3ML Neb) 1.25 mg Q6R INH 09/12/17 21:00 10/12/17 20:59 09/13/17 07:00 1.25 MG Lidocaine HCl (Xylocaine Jelly 2%) PRN PRN EXT 09/13/17 03:00 10/13/17 02:59 Objective Vital Signs Date Time Temp Pulse Resp B/P (MAP) Pulse Ox O2 Delivery O2 Flow Rate FiO2 09/13/17 08:00 Nasal Cannula 2.0 09/13/17 07:18 36.6 95 18 117/80 (92) 94 Nasal Cannula 2.0 09/13/17 07:02 83 16 93 Nasal Cannula 2.0 09/13/17 02:00 103 16 91 Nasal Cannula 2.0 09/12/17 23:55 36.8 103 20 123/81 (95) 90 Room Air 09/12/17 23:51 91 Nasal Cannula 2.0 09/12/17 21:22 98 91 Nasal Cannula 2.0 09/12/17 19:57 107 16 93 Room Air 09/12/17 18:31 107 93 Nasal Cannula 2.0 09/12/17 18:30 89 Room Air 09/12/17 16:20 Room Air 09/12/17 15:43 36.4 101 18 120/81 (94) 91 Room Air 09/12/17 15:23 101 16 90 Room Air 09/12/17 11:19 89 16 93 Room Air Physical Exam General Appearance: WD/WN, no apparent distress Respiratory/Chest: chest non-tender, normal breath sounds, no respiratory distress, no accessory muscle use, + decreased breath sounds Cardiovascular: regular rate, rhythm, no edema, no gallop, no JVD, no murmur Abdomen: normal bowel sounds, soft, no organomegaly, no pulsatile mass, + tenderness (over lower abdomen) Neurologic/Psychiatric: alert, normal mood/affect, oriented x 3 Laboratory Results Last 24 Hours Test 09/13/17 07:03 White Blood Count 5.63 K/uL Red Blood Count 4.26 M/uL Hemoglobin 14.0 g/dL Hematocrit 39.3 % Mean Corpuscular Volume 92.3 fL Mean Corpuscular Hemoglobin 32.9 pg Mean Corpuscular Hemoglobin Concent 35.6 g/dl RDW Standard Deviation 47.1 fL RDW Coefficient of Variation 14.1 % Platelet Count 266 K/uL Mean Platelet Volume 10.0 fL Sodium Level 134 mmol/L Potassium Level 4.0 mmol/L Chloride Level 103 mmol/L Carbon Dioxide Level 25 mmol/L Anion Gap 6.0 mmol/L Blood Urea Nitrogen 9 mg/dl Creatinine 0.65 mg/dl Est Creatinine Clear Calc Drug Dose 118.5 ml/min Estimated GFR () 128.7 Estimated GFR (Non- 111.1 BUN/Creatinine Ratio 14.3 Random Glucose 114 mg/dl Calcium Level 8.9 mg/dl Assessment and Plan Mr. Servin is a 52 year old -[place] man with a history of COPD, hypertension, diabetes mellitus, GERD and heavy tobacco abuse (quit 4 years ago ) who presented to [facility] from a correction facility with a 9 cm left upper lung cavitary lesion on CXR. Sob and Chest pain - cavitary lesion consistent with infected bulla and severe subpleural emphysema vs TB vs. COPD exacerbation vs autoimmune vs. cancer - Previous multiple episodes of pneumonia/sinusitis. smoked 100 pack year history - quit 4 years ago. Fhx of lung cancer father - CXR - 9 cm left upper lobe cavitary lung lesion - CT 3cm fluid filled lesion - Consulted Dr Ocampo - CT guided pigtail catheter drainage of cavity done on 09/11/2017 - Repeat CXR showed trace apical pneumothorax and slight increase in right basal airspace opacity - Consulted pulmonary - infected bulla and severe subpleural emphysema - continue current management - ID consulted - continue Unasyn 3g IV Q6H (day 3) - awaiting mycobacterial culture results and then will select abx for d/c - 2-D echo to rule out vegetation/septic emboli - no evidence of mass/vegetations; mildly dec LV systolic function and mild LVH - Negative blood cultures - Pleural fluid bacterial and fungal culture negative, awaiting AFB culture - Sputum culture showed heavy normal tiki, negative AFB culture, and few ritchie albicans on fungal culture - Throat culture - group B strep - fungetil/D galactomannan - negative - Urine Legionella not detected - HIV negative - PFT outpatient New Right Basal Airspace Opacity - stable from respiratory standpoint, off supplementary O2 - likely secondary to atelectasis, continue incentive spirometry and encourage use BPH - straining with urination - UA neg - patient was straight cathed yesterday but reports he is voiding well today - Continue flomax and finasteride 5mg QAM Constipation - patient reports he had a BM today - continue bowel regimen - miralax BID and 100mg bid of colace COPD - Spiriva and Symbicort - continue xopenex Diabetes mellitus type 2 - ISS GERD - Famotidine DVT Prophylaxis: Heparin 5000 units SQ q8h Code: Full Disposition: remains on med/surg, likely d/c tomorrow Resident Tracking Resident Involvement: Resident Care Provided Care Provided: Adult Hospital Medicine History Resident Physician Supervision Note: I was present with Dr. Echevarria during the history and exam. I discussed the case with the resident and agree with the findings and plan as documented in the note. Any exceptions or clarifications are listed here. Pt reports stable chest pain which is unchanged from previous and well controlled by current meds. Abd pain has improved since straight cath (and is presently urinating) and bowel movement (x1). Breathing is stable on inhalers. General Appearance: WD/WN, no apparent distress Respiratory: lungs clear, normal breath sounds, no respiratory distress Cardiovascular: normal peripheral pulses, regular rate, rhythm, no edema, no murmur Gastrointestinal: normal bowel sounds, non tender, soft, no organomegaly Assessment/Plan 52 y/o male incarcerated @ [facility], h/o COPD w/ 100 yr smoking hx, HTN, DMII, GERD presents w/ cavitary lung lesion on CT Cavitary lung lesion s/p pigtail concerning for infected bleb - 3cm on CT, fluid filled, neg QF-G, neg AFB x3 - Unasyn, f/u C&S COPD - stable - continue symbicort, spiriva, duonebs PRN, close monitoring RLL opacity - likely atelectasis - monitor, encourage IS Decreased urinary flow w/ h/o BPH - continue finasteride and flomax, t/c increase flomax to 0.8mg Constipation - bowel regimen HTN - well controlled w/o medication DMII - monitor FSBS, ISS GERD - continue famotidine
[2017-09-13] MEDS: TRAMADOL HCL 50 MG TAB PO PRN (19:09)
[2017-09-13] MEDS: TAMSULOSIN HCL 0.4 MG CAP PO SCH (20:47)
[2017-09-14] VITALS (8 sets, daily range): BP systolic 120; BP diastolic 78–80; PULSE 90–104; TEMP 36.9; O2SAT 87–93
[2017-09-14] MEDS: AMPICILLIN/SULBACTAM SOD INJ 3,000 MG in SODIUM CHLORIDE 0.9% 100ML 100 ML IV SCH ×4 (01:47→19:52)
[2017-09-14] MEDS: LEVALBUTEROL 1.25MG/3ML NEB INH SCH ×4 (01:50→19:04)
[2017-09-14] MEDS: HEPARIN SOD 5000 UNIT/0.5 ML CARP SQ SCH ×3 (05:38→20:51)
[2017-09-14 07:13] LABS: HEMATOCRIT 38.2 % (42-52); HEMOGLOBIN 12.8 g/dL (14.0-18.0); MEAN CELL VOLUME 94.8 fL (80-100); MEAN CORPUSCULAR HEMOGLOBIN 31.8 pg (25-34); MEAN CORPUSCULAR HGB CONC 33.5 g/dl (32-36); MEAN PLATELET VOLUME 10.2 fL (7.4-10.4); PLATELET COUNT 264 K/uL (130-400); RED CELL DISTRIBUTION WIDTH CV 14.4 % (11.5-14.5); RED CELL DISTRIBUTION WIDTH SD 49.4 fL (36.4-46.3); WHITE BLOOD COUNT 4.96 K/uL (4.8-10.8)
[2017-09-14] MEDS: POLYETHYLENE (MIRALAX) 17 GM PACK PO SCH ×2 (08:26→20:52)
[2017-09-14] MEDS: BUDESONIDE/FORMOTEROL FUMARATE 160/4.5 60 PUFFS/INHALER INH SCH ×2 (08:26→20:48)
[2017-09-14] MEDS: DOCUSATE SODIUM 100 MG CAP PO SCH ×2 (08:26→20:48)
[2017-09-14] MEDS: FAMOTIDINE 20 MG TAB PO SCH ×2 (08:27→20:49)
[2017-09-14] MEDS: FINASTERIDE 5 MG TAB PO SCH (08:27)
[2017-09-14] MEDS: TRAMADOL HCL 50 MG TAB PO PRN ×2 (08:41→16:55)
[2017-09-14] MEDS: TIOTROPIUM BROMIDE 5 PUFF/90 MCG INH INH SCH (08:59)
--- NOTE | 2017-09-14 09:58 | Family Medicine Progress Note ---
Progress Note Date of Service Sep 14, 2017. Subjective Pt evaluation today including: conversation w/ patient, physical exam, chart review, lab review, review of inpatient medication list Pain: Patient reports RLQ pain over the last 2 days PO Intake: Tolertaing PO diet well Voiding: no voiding problems Patient states his "breathing is no good" and continued RLQ abdominal pain. He states he has been able to urinate without assistance. Constitutional: + fatigue, No fever, No chills, No sweats, No weight loss, No weakness, No problem reported Respiratory: + cough, + wheezing, + shortness of breath, + dyspnea at rest Cardiovascular: No chest pain, No orthopnea, No PND, No edema, No claudication, No palpitations, No problem reported Abdomen: + pain (RLQ) All Other Systems: Reviewed and Negative Medications Current Inpatient Medications Medications (Trade) Dose Ordered Sig/Urdy Route Start Time Stop Time Status Last Admin Dose Admin Heparin Sodium (Porcine) (Heparin Sq 5000 Unit/0.5ml) 5,000 unit Q8H SQ 09/08/17 22:00 10/08/17 21:59 Future hold 09/14/17 05:38 5,000 UNIT Acetaminophen (Tylenol Tab) 650 mg Q4H PRN PO 09/08/17 16:00 10/08/17 15:59 09/12/17 21:16 650 MG Al Hydrox/Mg Hydrox/Simethicone (Maalox Max Susp) 15 ml Q4H PRN PO 09/08/17 16:00 10/08/17 15:59 Ondansetron HCl (Zofran Inj) 4 mg Q6H PRN IV 09/08/17 16:00 10/08/17 15:59 Tramadol HCl (Ultram Tab) 50 mg Q6H PRN PO 09/08/17 16:00 10/08/17 15:59 09/14/17 08:41 50 MG Oxycodone/ Acetaminophen (Percocet 5-325mg Tab) 1 tab Q12H PRN PO 09/08/17 16:00 09/22/17 15:59 09/13/17 13:07 1 TAB Tiotropium [place] (Spiriva Handihaler Inhaler) 1 puff QAM INH 09/11/17 09:00 10/11/17 08:59 09/14/17 08:59 1 PUFF Budesonide/ Formoterol Fumarate (Symbicort 160/ 4.5 Inh) 2 puffs BID INH 09/10/17 21:00 10/10/17 20:59 09/14/17 08:26 2 PUFFS Finasteride (Proscar Tab) 5 mg QAM PO 09/11/17 09:00 10/11/17 08:59 09/14/17 08:27 5 MG Ampicillin Sodium/ Sulbactam Sodium 3000 mg/Sodium Chloride 108 ml @ 200 mls/hr Q6H IV 09/11/17 20:00 09/15/17 19:59 09/14/17 08:26 200 MLS/HR Tamsulosin HCl (Flomax Cap) 0.4 mg HS PO 09/11/17 21:00 10/11/17 20:59 09/13/17 20:47 0.4 MG Docusate Sodium (coLACE CAP) 100 mg BID PO 09/12/17 21:00 10/12/17 20:59 09/14/17 08:26 100 MG Polyethylene (Miralax Powder Packet) 17 gm BID PO 09/12/17 11:45 10/08/17 15:59 09/13/17 07:29 17 GM Levalbuterol (Xopenex 1.25MG/ 3ML Neb) 1.25 mg Q6R INH 09/12/17 21:00 10/12/17 20:59 09/14/17 07:09 1.25 MG Lidocaine HCl (Xylocaine Jelly 2%) PRN PRN EXT 09/13/17 03:00 10/13/17 02:59 Famotidine (Pepcid Tab) 20 mg BID PO 09/14/17 09:00 10/14/17 08:59 09/14/17 08:27 20 MG Objective Vital Signs 09/14/17 06:54 Test 09/14/17 06:54 Red Blood Count 4.03 M/uL (4.7-6.1) Mean Corpuscular Volume 94.8 fL (80-100) Mean Corpuscular Hemoglobin 31.8 pg (25-34) Mean Corpuscular Hemoglobin Concent 33.5 g/dl (32-36) RDW Standard Deviation 49.4 fL (36.4-46.3) RDW Coefficient of Variation 14.4 % (11.5-14.5) Mean Platelet Volume 10.2 fL (7.4-10.4) Physical Exam General Appearance: WD/WN, no apparent distress Eyes: normal inspection, PERRL, EOMI ENT: hearing grossly normal Neck: supple, no adenopathy, no JVD Respiratory/Chest: chest non-tender, lungs clear, no respiratory distress, no accessory muscle use, + decreased breath sounds Cardiovascular: regular rate, rhythm, no edema, no gallop, no JVD, no murmur Abdomen: normal bowel sounds, soft, no organomegaly, no pulsatile mass, + tenderness (RLQ) Extremities: non-tender, no pedal edema Neurologic/Psychiatric: enamel dipper II-XII nml as tested, no motor/sensory deficits, alert, normal mood/affect, oriented x 3 Skin: normal color, warm/dry, no rash Laboratory Results Last Resulted 09/14/17 06:54 Last Resulted 09/13/17 07:03 Assessment and Plan Mr. Servin is a 52 year old -[place] man with a history of COPD, hypertension, diabetes mellitus, GERD and heavy tobacco abuse (quit 4 years ago ) who [facility] cm left upper lung cavitary lesion on CXR. Cavitary lesion likely consistent with infected bulla and severe subpleural emphysema - CXR - 9 cm left upper lobe cavitary lung lesion, CT 3cm fluid filled lesion - Consulted Dr Ocampo, appreciate recs - CT guided pigtail catheter drainage of cavity done on 09/11/2017, Repeat CXR showed trace apical pneumothorax and slight increase in right basal airspace opacity - Consulted pulmonary, infected bulla and severe subpleural emphysema, - ID consulted: continue Unasyn 3g IV Q6H (day 4), awaiting mycobacterial culture, but convert to oral augmentin tomorrow, 875 bid - 2-D echo to rule out vegetation/septic emboli: no evidence of mass/ vegetations; mildly dec LV systolic function and mild LVH - Negative blood cultures, Pleural fluid bacterial and fungal culture negative, awaiting AFB culture - Sputum culture showed heavy normal tiki, negative AFB culture, and few ritchie albicans on fungal culture - Throat culture - group B strep, fungetil/D galactomannan - negative, Urine Legionella not detected, HIV negative - Previous multiple episodes of pneumonia/sinusitis. Since improving less likely autoimmune etiology. - 100 pack year smoking history - quit 4 years ago. FMHx of lung cancer (father) . Not able to have enough fluid for pathology. - PFT as outpatient Shortness of breath - resolved - likely sec to underlying severe copd and atelectasis. - supportive nasal O2 prn. Right Basal Airspace Opacity on CT scan - likely secondary to atelectasis, continue incentive spirometry and encourage use - stable from respiratory standpoint, wean off supplementary O2 COPD - Spiriva and Symbicort - continue xopenex BPH - - UA neg - patient has not reported any need for straight cath for 2 days now - Continue flomax and finasteride 5mg QAM Constipation - patient reports he had a BM yestertoday - continue bowel regimen - miralax BID and 100mg bid of colace Diabetes mellitus type 2 - ISS GERD - Famotidine DVT Prophylaxis: Heparin 5000 units SQ q8h Code: Full Disposition: remains on med/surg, likely d/c tomorrow Resident Tracking Resident Involvement: Resident Care Provided Care Provided: Adult Hospital Medicine Reviewed: Pt Seen/Exam by Me History still with some chest pain mild cough with phlegm shortness of breath improving Constitutional: denies: fever General Appearance: no apparent distress Respiratory: lungs clear, no respiratory distress Cardiovascular: regular rate, rhythm Gastrointestinal: soft Neurologic/Psychiatric: alert, oriented x 3 Skin Characteristics: warm/dry Assessment/Plan Resident Physician Supervision Note: I independently interviewed and examined the patient and verified the riley history and physical, reviewed labs and image studies, discussed the case with the resident Dr. Wong and agree with the findings and care plan.
--- NOTE | 2017-09-14 14:55 | Infectious Disease Progress Nt ---
Progress Note Date of Service Sep 14, 2017. Subjective Pt evaluation today including: conversation w/ patient, physical exam, chart review, lab review, review of studies, conversation w/ customer care voice consultant, review of inpatient medication list Patient offering no new complaints today. Chest pain better. Remains afebrile. Cultures from drainage remain negative. All Other Systems: Reviewed and Negative Medications Current Inpatient Medications Medications (Trade) Dose Ordered Sig/Rudy Route Start Time Stop Time Status Last Admin Dose Admin Heparin Sodium (Porcine) (Heparin Sq 5000 Unit/0.5ml) 5,000 unit Q8H SQ 09/08/17 22:00 10/08/17 21:59 Future hold 09/14/17 14:34 5,000 UNIT Acetaminophen (Tylenol Tab) 650 mg Q4H PRN PO 09/08/17 16:00 10/08/17 15:59 09/12/17 21:16 650 MG Al Hydrox/Mg Hydrox/Simethicone (Maalox Max Susp) 15 ml Q4H PRN PO 09/08/17 16:00 10/08/17 15:59 Ondansetron HCl (Zofran Inj) 4 mg Q6H PRN IV 09/08/17 16:00 10/08/17 15:59 Tramadol HCl (Ultram Tab) 50 mg Q6H PRN PO 09/08/17 16:00 10/08/17 15:59 09/14/17 08:41 50 MG Oxycodone/ Acetaminophen (Percocet 5-325mg Tab) 1 tab Q12H PRN PO 09/08/17 16:00 09/22/17 15:59 09/13/17 13:07 1 TAB Tiotropium [place] (Spiriva Handihaler Inhaler) 1 puff QAM INH 09/11/17 09:00 10/11/17 08:59 09/14/17 08:59 1 PUFF Budesonide/ Formoterol Fumarate (Symbicort 160/ 4.5 Inh) 2 puffs BID INH 09/10/17 21:00 10/10/17 20:59 09/14/17 08:26 2 PUFFS Finasteride (Proscar Tab) 5 mg QAM PO 09/11/17 09:00 10/11/17 08:59 09/14/17 08:27 5 MG Ampicillin Sodium/ Sulbactam Sodium 3000 mg/Sodium Chloride 108 ml @ 200 mls/hr Q6H IV 09/11/17 20:00 09/15/17 19:59 09/14/17 14:33 200 MLS/HR Tamsulosin HCl (Flomax Cap) 0.4 mg HS PO 09/11/17 21:00 10/11/17 20:59 09/13/17 20:47 0.4 MG Docusate Sodium (coLACE CAP) 100 mg BID PO 09/12/17 21:00 10/12/17 20:59 09/14/17 08:26 100 MG Polyethylene (Miralax Powder Packet) 17 gm BID PO 09/12/17 11:45 10/08/17 15:59 09/13/17 07:29 17 GM Levalbuterol (Xopenex 1.25MG/ 3ML Neb) 1.25 mg Q6R INH 09/12/17 21:00 10/12/17 20:59 09/14/17 14:14 1.25 MG Lidocaine HCl (Xylocaine Jelly 2%) PRN PRN EXT 09/13/17 03:00 10/13/17 02:59 Famotidine (Pepcid Tab) 20 mg BID PO 09/14/17 09:00 10/14/17 08:59 09/14/17 08:27 20 MG Objective Vital Signs Date Time Temp Pulse Resp B/P (MAP) Pulse Ox O2 Delivery O2 Flow Rate FiO2 09/14/17 14:14 93 16 90 Room Air 09/14/17 09:30 91 87 09/14/17 09:17 92 Nasal Cannula 2.0 09/14/17 08:38 36.9 90 20 120/80 (93) 92 Nasal Cannula 2.0 09/14/17 07:09 90 16 93 Nasal Cannula 2.0 09/14/17 01:50 97 16 91 Room Air 09/13/17 23:45 Nasal Cannula 2.0 09/13/17 23:26 36.4 98 20 136/82 (100) 92 Nasal Cannula 2.0 09/13/17 19:15 86 16 95 Nasal Cannula 2.0 09/13/17 16:00 Nasal Cannula 2.0 09/13/17 15:37 36.7 100 18 125/84 (98) 91 Nasal Cannula 2.0 Physical Exam General Appearance: WD/WN, no apparent distress Eyes: normal inspection, EOMI, sclerae normal ENT: normal ENT inspection, pharynx normal Neck: supple, no adenopathy, trachea midline Respiratory/Chest: chest non-tender, lungs clear, normal breath sounds, no respiratory distress Cardiovascular: regular rate, rhythm, no gallop, no murmur Abdomen: normal bowel sounds, non tender, soft, no organomegaly Extremities: non-tender, no calf tenderness Neurologic/Psychiatric: alert, oriented x 3 Skin: normal color, warm/dry, no rash Lymphatic: no adenopathy Laboratory Results RUN DATE: 09/14/17 [facility] LAB PAGE 1 RUN TIME: 918 Specimen Inquiry PATIENT: ROBE SMITH [id number] LOC: AkiMS2W U # : [id number] AGE/SX: 52/M ROOM: [facility] REG : 09/08/[address]: Ashtyn Castle M.D. : 1965 BED: 1 DIS : STATUS: ADM IN TLOC: SPEC #: [id number] SHLOMO: 09/11/17-UNK STATUS: RES REQ #: [id number] RECD: 09/11/17-[address]: Felton Jc PA SOURCE: PLEURAL FL ENTR: 09/11/17-1530 [facility] DR: Jim Velazquez MD [facility]: MARTINA Bernardo West MD Kollman, Kevin J., M.D. Moustafa Hussein, Wesam H., MD Noor, Rahiba ., M.D. Ratner, Jeffrey A., M.D. Whitlark, Joseph D., MD ORDERED: AER/CESILIA CULTSMR COMMENTS: Has Specimen Been Obtained/Collected? Y Procedure Result Verified Site GRAM STAIN Final 09/12/17 RESULT MODERATE WBCs SEEN NO ORGANISMS SEEN OR AER/CESILIA CULT Preliminary 09/14/17 NO GROWTH TO DATE. Last 24 Hours Test 09/14/17 06:54 White Blood Count 4.96 K/uL Red Blood Count 4.03 M/uL Hemoglobin 12.8 g/dL Hematocrit 38.2 % Mean Corpuscular Volume 94.8 fL Mean Corpuscular Hemoglobin 31.8 pg Mean Corpuscular Hemoglobin Concent 33.5 g/dl RDW Standard Deviation 49.4 fL RDW Coefficient of Variation 14.4 % Platelet Count 264 K/uL Mean Platelet Volume 10.2 fL Patient Name: ROBE SMITH [id number] Unit Number: [id number] Dictated: 09/12/17707 Transcribed: 09/12/17707 ARG Printed Date/Time: [~ rep prt dt]/[~ rep prt tm] [~ rep ct labl] - [~ rep ct ivnm] [facility] Radiology Department [place] [id number] Dictated: 09/12/17707 Transcribed: 09/12/17707 ARG Printed Date/Time: [~ rep prt dt]/[~ rep prt tm] [~ rep ct labl] - [~ rep ct ivnm] [~ rep ct add3]] CHEST ONE VIEW PORTABLE CLINICAL HISTORY: chest tube COMPARISON STUDY: 09/11/2017 FINDINGS: The cardiac and mediastinal contours remain stable. The left-sided chest tube remains unchanged in position. There is a trace left apical pneumothorax the pleural separation of 2 mm. There is slight increase in the right basal airspace opacities.[ IMPRESSION: 1. Trace left apical pneumothorax 2. No change the position of the left-sided pigtail catheter 3. Slight increase in the right basal airspace opacities Electronically signed by: Dio Noriega M.D. 09/12/2017 7:09 AM Dictated Date/Time: 09/12/2017 7:08 AM The status of this report is Signed. Draft = Not yet reviewed or approved by Radiologist. Signed = Reviewed and approved by Radiologist. <AttendingPhy>Bernardo West MD</AttendingPhy> <FamilyPhy>Karson Jerome M.D.</FamilyPhy> <PrimaryPhy>Karson Jerome M.D.</PrimaryPhy> < UnitNumber>[id number]</UnitNumber> <VisitNumber>[id number]</VisitNumber> < PatientName>ROBE SMITH [id number]</PatientName> <DateOfBirth>1965</ DateOfBirth> <Location>C.MS2W</Location> <ServiceDate></ServiceDate> <MNE>ESINDI </MNE> <OrderingPhy>Felton Jc</OrderingPhy> <OrderingPhyMNE>f rep ord dr whitfield</OrderingPhyMNE> <DictatingPhyMNE>f rep dict dr whitfield</DictatingPhyMNE > <CCListMNE>f rep ct mne</CCListMNE> <AdmittingPhyMNE>f pt admit dr whitfield</ AdmittingPhyMNE> <AttendingPhyMNE>f pt attend dr whitfield</AttendingPhyMNE> <ConsultingPhyMNE>f pt consult dr whitfield</ConsultingPhyMNE> <FamilyPhyMNE>f pt fam dr whitfield</FamilyPhyMNE> <OtherPhyMNE>f pt other dr whitfield</OtherPhyMNE> < PrimaryPhyMNE>f pt prim care dr whitfield</PrimaryPhyMNE> <ReferringPhyMNE>f pt referring dr whitfield</ReferringPhyMNE> Assessment and Plan 52-year-old male with diabetes and COPD now presents with large left upper lobe cavity with air-fluid level, with appearance on CT scanning most consistent with infected bleb.Patient now status post pigtail catheter placement with negative cultures. With think the patient could be transitioned to oral Augmentin tomorrow with continues to improve, likely in the range of 2-3 weeks more therapy. Will discuss.
--- NOTE | 2017-09-14 16:29 | Medical Student: [facility] ---
Med Student Progress Note Date of Service Sep 14, 2017. Subjective Pt evaluation today including: conversation w/ family, physical exam, chart review, lab review, review of studies Pt is a 52 yo M who presented from [facility] with left sided pleuritic chest pain that was worse with deep breathing. He received a CXR there which showed a 9-cm cavitary lesion with an air-fluid level at the left upper lobe. Quantiferon Gold negative and AFB stain negative x 3. Pt is s/p CT-guided cavity drainage via catheter and is still complaining of diffuse chest pain but says it's better than before. He is complaining of RLQ pain which has been present for several days. Also complaining of occasional cough with clear sputum. He is not reporting problems with urination. Review of Systems Constitutional: No fever, No chills Eyes: No worsening of vision, No eye pain ENT: No hearing loss Respiratory: + cough, + shortness of breath, + dyspnea on exertion Cardiac: + chest pain Abdomen: + pain (RLQ) Musculoskeletal: No joint pain, No muscle pain Neurologic: No memory loss Psychiatric: No depression symptoms Heme: No abnormal bleeding/bruising Endo: No fatigue Skin: No rash, No itch Objective Vital Signs Date Time Temp Pulse Resp B/P (MAP) Pulse Ox O2 Delivery O2 Flow Rate FiO2 09/14/17 15:42 36.9 104 18 120/78 (92) 91 Room Air 09/14/17 14:14 93 16 90 Room Air 09/14/17 09:30 91 87 09/14/17 09:17 92 Nasal Cannula 2.0 09/14/17 08:38 36.9 90 20 120/80 (93) 92 Nasal Cannula 2.0 09/14/17 07:09 90 16 93 Nasal Cannula 2.0 09/14/17 01:50 97 16 91 Room Air 09/13/17 23:45 Nasal Cannula 2.0 09/13/17 23:26 36.4 98 20 136/82 (100) 92 Nasal Cannula 2.0 09/13/17 19:15 86 16 95 Nasal Cannula 2.0 09/13/17 16:00 Nasal Cannula 2.0 Physical Exam General Appearance: WD/WN, no apparent distress Eyes: bilateral eyes normal inspection, bilateral eyes PERRL, bilateral eyes EOMI ENT: normal ENT inspection, hearing grossly normal Neck: supple, no JVD Respiratory/Chest: chest non-tender, lungs clear, + decreased breath sounds Cardiovascular: regular rate, rhythm, no edema, no JVD, no murmur Abdomen: normal bowel sounds, + tenderness (RLQ tender on palpation) Extremities: normal range of motion, non-tender, normal inspection, no pedal edema, no calf tenderness Neurologic/Psychiatric: no motor/sensory deficits, alert, oriented x 3 Skin: normal color, warm/dry, no rash Laboratory Results Last 24 Hours Test 09/14/17 06:54 White Blood Count 4.96 K/uL Red Blood Count 4.03 M/uL Hemoglobin 12.8 g/dL Hematocrit 38.2 % Mean Corpuscular Volume 94.8 fL Mean Corpuscular Hemoglobin 31.8 pg Mean Corpuscular Hemoglobin Concent 33.5 g/dl RDW Standard Deviation 49.4 fL RDW Coefficient of Variation 14.4 % Platelet Count 264 K/uL Mean Platelet Volume 10.2 fL Medications Current Inpatient Medications Medications (Trade) Dose Ordered Sig/Rudy Route Start Time Stop Time Status Last Admin Dose Admin Heparin Sodium (Porcine) (Heparin Sq 5000 Unit/0.5ml) 5,000 unit Q8H SQ 09/08/17 22:00 10/08/17 21:59 Future hold 09/14/17 14:34 5,000 UNIT Acetaminophen (Tylenol Tab) 650 mg Q4H PRN PO 09/08/17 16:00 10/08/17 15:59 09/12/17 21:16 650 MG Al Hydrox/Mg Hydrox/Simethicone (Maalox Max Susp) 15 ml Q4H PRN PO 09/08/17 16:00 10/08/17 15:59 Ondansetron HCl (Zofran Inj) 4 mg Q6H PRN IV 09/08/17 16:00 10/08/17 15:59 Tramadol HCl (Ultram Tab) 50 mg Q6H PRN PO 09/08/17 16:00 10/08/17 15:59 09/14/17 08:41 50 MG Oxycodone/ Acetaminophen (Percocet 5-325mg Tab) 1 tab Q12H PRN PO 09/08/17 16:00 09/22/17 15:59 09/13/17 13:07 1 TAB Tiotropium [place] (Spiriva Handihaler Inhaler) 1 puff QAM INH 09/11/17 09:00 10/11/17 08:59 09/14/17 08:59 1 PUFF Budesonide/ Formoterol Fumarate (Symbicort 160/ 4.5 Inh) 2 puffs BID INH 09/10/17 21:00 10/10/17 20:59 09/14/17 08:26 2 PUFFS Finasteride (Proscar Tab) 5 mg QAM PO 09/11/17 09:00 10/11/17 08:59 09/14/17 08:27 5 MG Ampicillin Sodium/ Sulbactam Sodium 3000 mg/Sodium Chloride 108 ml @ 200 mls/hr Q6H IV 09/11/17 20:00 09/15/17 19:59 09/14/17 14:33 200 MLS/HR Tamsulosin HCl (Flomax Cap) 0.4 mg HS PO 09/11/17 21:00 10/11/17 20:59 09/13/17 20:47 0.4 MG Docusate Sodium (coLACE CAP) 100 mg BID PO 09/12/17 21:00 10/12/17 20:59 09/14/17 08:26 100 MG Polyethylene (Miralax Powder Packet) 17 gm BID PO 09/12/17 11:45 10/08/17 15:59 09/13/17 07:29 17 GM Levalbuterol (Xopenex 1.25MG/ 3ML Neb) 1.25 mg Q6R INH 09/12/17 21:00 10/12/17 20:59 09/14/17 14:14 1.25 MG Lidocaine HCl (Xylocaine Jelly 2%) PRN PRN EXT 09/13/17 03:00 10/13/17 02:59 Famotidine (Pepcid Tab) 20 mg BID PO 09/14/17 09:00 10/14/17 08:59 09/14/17 08:27 20 MG Assessment and Plan Assessment and Plan: Pt is a 52 yo M who presented with left sided pleuritic chest pain that was worsening in severity. He has a significant smoking hx of 100 pack years. On CXR he was found to have a cavitary lesion in the left upper lobe measuring 9- cm with an air-fluid level. He is s/p catheter drainage of the cavitary lesion. SOB/Chest Pain/Cavitary Lesion - DDx: TB, malignancy, infected bulla/severe subpleural emphysema - Pt has an extensive smoking hx of 100 pack/years and quit 4 years ago. - There is a fam hx of lung cancer in the pt's father - CXR showed a 9-cm cavitary lesion in the left upper lobe - CT Surgery consulted - CT guided catheter drainage of lesion was performed on 09/11/17, and repeat CXR showed trace left apical pneumothorax. Pt has pigtail catheter in place - Pulmonology consulted - Infected bulla and severe subpleural emphysema - ID consulted - Pt is on Day 4 of Unasyn and awaiting mycobacterial culture which is pending. Will adjust abx after result is back. - Echo performed to r/o septic embolic and vegetation, and there was no evidence of such pathology. Did demonstrate mild decrease in the LV systolic function and mild LVH - Blood cultures negative - Pleural fluid cultures for bacteria and fungi negative. - Sputum culture showed normal tiki Bobbi Albicans. AFB negative. - Throat culture grew Group B Strep - Ghyfi-[id number] level normal - No detection of urine Legionella - HIV negative (assessment of possible immunodeficient state) - Obtain PFT as an outpatient and f/u with CT surgery Right Basilar Airspace Opacity - Pt is on room air and pulse ox at 91%. Was on NC at 2.0L earlier today. - Likely secondary to atelectasis - Encourage use of incentive spirometry BPH - Pt had difficulty with urination and yesterday was straight cathed - Today he reports of no difficulties - UA negative - Continue flomax and finasteride Constipation - BM yesterday as reported by patient, not today - Continue miralax and 100mg BID colace COPD - Continue Spiriva, Symbicort, and Xopenex GERD - Famotidine 20mg PO BID DVT Prophylaxis - Heparin 5000 units SQ q 8 HR Code - Full Continued [facility] stay due to: other (surgery)
--- NOTE | 2017-09-14 17:00 | SURGERY PROGRESS NOTE ---
DATE: 09/14/2017 HISTORY OF PRESENT ILLNESS: Mr. Servin was seen today. He is draining very little from his percutaneously placed catheter. I am going to remove this catheter tomorrow. He has had excellent response radiographically. I see no evidence of an air-fluid level on his last x-ray and we are going to check another one tomorrow. His site is clean. He has very little in the way of pain. He really does not have a cough. Will see what his x-ray looks like tomorrow and we may remove this. There is no growth as of yet from the fluid. Dr. Velazquez's input was greatly appreciated. The patient will be placed on admission when he leaves for 2-3 weeks.
--- NOTE | 2017-09-14 17:01 | DIAGNOSTIC IMAGING REPORT ---
CHEST 2 VIEWS ROUTINE CLINICAL HISTORY: s/p left pleural drainage catheter. COMPARISON STUDY: Chest radiograph February. FINDINGS: The left pneumothorax has resolved. A left sided pigtail catheter remains in place. The adjacent opacity shown on exam of September 11, 2017 is no longer visualized. Right basilar airspace opacity has improved. Emphysema is noted. Cardiac size is normal. Mediastinal contours are stable. IMPRESSION: 1. Left pigtail catheter in place. Decrease in conspicuity of the adjacent opacity which likely reflects diminished fluid within the cavity. 2. Resolution of the left pneumothorax. 3. Improvement in right basilar opacity. Electronically signed by: Marvin Silva M.D. 09/14/2017 4:59 PM Dictated Date/Time: 09/14/2017 4:56 PM
[2017-09-14] MEDS: ACETAMINOPHEN 325 MG TAB PO PRN (19:57)
[2017-09-14] MEDS: TAMSULOSIN HCL 0.4 MG CAP PO SCH (20:48)
[2017-09-14] MEDS: OXYCODONE/ACETAMINOPHEN 5-325 TAB PO PRN (20:58)
[2017-09-15 00:33] VITALS: BP 131/84; PULSE 94; TEMP 36.6; O2SAT 92
[2017-09-15] MEDS: AMPICILLIN/SULBACTAM SOD INJ 3,000 MG in SODIUM CHLORIDE 0.9% 100ML 100 ML IV SCH ×2 (02:06→07:54)
[2017-09-15 02:24] VITALS: PULSE 94; O2SAT 90
[2017-09-15] MEDS: LEVALBUTEROL 1.25MG/3ML NEB INH SCH ×2 (02:24→07:10)
[2017-09-15] MEDS: HEPARIN SOD 5000 UNIT/0.5 ML CARP SQ SCH (06:42)
[2017-09-15 07:11] VITALS: PULSE 94; O2SAT 90
[2017-09-15 07:41] VITALS: BP 128/84; PULSE 86; TEMP 36.9; O2SAT 90
[2017-09-15] MEDS: BUDESONIDE/FORMOTEROL FUMARATE 160/4.5 60 PUFFS/INHALER INH SCH (07:58)
[2017-09-15] MEDS: TIOTROPIUM BROMIDE 5 PUFF/90 MCG INH INH SCH (07:58)
[2017-09-15] MEDS: DOCUSATE SODIUM 100 MG CAP PO SCH (07:59)
[2017-09-15] MEDS: POLYETHYLENE (MIRALAX) 17 GM PACK PO SCH (07:59)
[2017-09-15] MEDS: FINASTERIDE 5 MG TAB PO SCH (07:59)
[2017-09-15] MEDS: FAMOTIDINE 20 MG TAB PO SCH (07:59)
[2017-09-15] MEDS ORDERED: AMOXICILLIN/CLAVULANATE TAB 875 MG TAB PO SCH (08:00)
[2017-09-15 08:03] LABS: HEMATOCRIT 38.1 % (42-52); HEMOGLOBIN 12.7 g/dL (14.0-18.0); MEAN CELL VOLUME 94.3 fL (80-100); MEAN CORPUSCULAR HEMOGLOBIN 31.4 pg (25-34); MEAN CORPUSCULAR HGB CONC 33.3 g/dl (32-36); MEAN PLATELET VOLUME 9.9 fL (7.4-10.4); PLATELET COUNT 243 K/uL (130-400); RED CELL DISTRIBUTION WIDTH CV 14.4 % (11.5-14.5); RED CELL DISTRIBUTION WIDTH SD 49.5 fL (36.4-46.3); WHITE BLOOD COUNT 5.13 K/uL (4.8-10.8)
[2017-09-15] MEDS: OXYCODONE/ACETAMINOPHEN 5-325 TAB PO PRN (08:08)
--- NOTE | 2017-09-15 08:39 | DIAGNOSTIC IMAGING REPORT ---
CHEST ONE VIEW PORTABLE CLINICAL HISTORY: drain removal COMPARISON STUDY: Chest radiograph September 14, 2017. FINDINGS: The left-sided drain has been removed. There is no pneumothorax or pleural effusion. There is mild hazy left upper lung opacity. There is minimal right lower lung opacity. Emphysema is noted. Cardiomediastinal silhouette is normal. There is no evidence for pulmonary edema. IMPRESSION: 1. Interval removal of the left sided catheter. No pneumothorax. 2. Hazy left upper lung and right lower lung opacities. Electronically signed by: Marvin Silva M.D. 09/15/2017 8:38 AM Dictated Date/Time: 09/15/2017 8:36 AM
--- NOTE | 2017-09-15 08:47 | SURGERY PROGRESS NOTE ---
DATE: 09/15/2017 Mr. Servin was seen today on 09/15/2016. His x-ray from last night looked very good. I see no evidence of any fluid in his chest now. I removed the pigtail catheter, which is really not draining. His x-ray looked very good after we removed it. He tolerated it well. At this point, I am quite happy with how well he has done with this. I do not think there is going to be anything to do from a surgical standpoint. I think his right base is also improved. We will continue to follow along. I think a repeat CT scan in the future would be advisable.
[2017-09-15 09:22] LABS: CALCIUM 9.1 mg/dl (8.5-10.1); CREATININE 0.75 mg/dl (0.60-1.40); POTASSIUM 3.8 mmol/L (3.5-5.1)
[2017-09-15 09:31] VITALS: O2SAT 90
[2017-09-15] MEDS ORDERED: LEVALBUTEROL 1.25MG/3ML NEB INH PRN (10:30)
[2017-09-15] MEDS ORDERED: SPRIN INH (12:03)
[2017-09-15] MEDS ORDERED: ULT50X PO (12:03)
[2017-09-15] MEDS ORDERED: SYMIN INH (12:03)
[2017-09-15] MEDS ORDERED: FLM4 PO (12:03)
[2017-09-15] MEDS ORDERED: PRS5 PO (12:03)
[2017-09-15] MEDS ORDERED: AMOX1TAB43 PO (12:03)
--- NOTE | 2017-09-15 12:41 | Discharge Instructions ---
Discharge Instructions Date of Service Sep 15, 2017. Admission Reason for Admission: Copd Exacerbation Discharge Discharge Diagnosis / Problem: Cavitary lesion and COPD exacerbation Discharge Goals Goal(s): Decrease discomfort, Improve disease control, Prevent Disease Progression Activity Recommendations Activity Limitations: per Instructions/Follow-up section . Instructions / Follow-Up Instructions / Follow-Up Mr. Servin is a 52 year old -[place] man with a history of COPD, hypertension, diabetes mellitus, GERD and heavy tobacco abuse (quit 4 years ago ) admitted for a 9 cm left upper lung cavitary lesion on CXR. Cavitary lesion likely consistent with infected bulla and severe subpleural emphysema - CXR - 9 cm left upper lobe cavitary lung lesion, CT showed 3cm fluid filled lesion - Thoracic surgery: CT guided pigtail catheter drainage of cavity done on 2017, Repeat CXR showed trace apical pneumothorax and slight increase in right basal airspace opacity Drain removed 09/15/17; surgery recommends repeat CT at some point in future. - ID consulted: received 4 days of Unasyn 3g IV Q6H, awaiting mycobacterial culture, but converted to oral augmentin, 875 bid x 14 days - 2-D echo to rule out vegetation/septic emboli: no evidence of mass/ vegetations; mildly dec LV systolic function and mild LVH - Negative blood cultures, Pleural fluid bacterial and fungal culture negative, awaiting AFB culture - Sputum culture showed heavy normal tiki, negative AFB culture, and few ritchie albicans on fungal culture - Throat culture - group B strep, fungetil/D galactomannan - negative, Urine Legionella not detected, HIV negative - Previous multiple episodes of pneumonia/sinusitis. Since clinically improving , less likely autoimmune etiology. - 100 pack year smoking history - quit 4 years ago. FMHx of lung cancer (father) . Not enough fluid for pathology. - Recommend PFTs and repeat chest CT scan as outpatient Shortness of breath - resolved - likely 2/2 underlying severe copd and atelectasis. - supportive nasal O2 prn, has been off NC x 24 hours Right Basal Airspace Opacity on CT scan - likely secondary to atelectasis, encouraged incentive spirometry use - stable from respiratory standpoint, weaned off supplementary O2 COPD - Spiriva and Symbicort - continue xopenex BPH - - UA neg - patient has not reported any need for straight cath for 3 days now - Continue flomax and finasteride 5mg QAM Constipation - patient reports he had a BM 2 days ago - continue bowel regimen - miralax BID and 100mg bid of colace Diabetes mellitus type 2 - ISS GERD - Famotidine Current Hospital Diet Patient's current hospital diet: Low Sodium Diet (2gm Na), AHA Diet (Heart Healthy) Discharge Diet Recommended Diet: AHA Diet (Heart Healthy), Low Sodium Diet (2gm Na) Pending Studies Studies pending at discharge: yes List of pending studies: Mycobacterial culture from pleural fluid and sputum Laboratory Results Hemoglobin A1c Test 09/09/17 05:22 Range/Units Estimated Average Glucose 131 mg/dl Hemoglobin A1c 6.2 H 4.5-5.6 % Lipid Panel Test 09/09/17 05:22 Range/Units Triglycerides Level 205 H 0-150 mg/dl Cholesterol Level 123 0-200 mg/dl HDL Cholesterol 41 mg/dl Cholesterol/HDL Ratio 3.0 LDL Cholesterol, Calculated 41 mg/dl Medical Emergencies . Who to Call and When: Medical Emergencies: If at any time you feel your situation is an emergency, please call 911 immediately. . Non-Emergent Contact Non-Emergency issues call your: Primary Care Provider . . "Provider Documentation" section prepared by Jena Wong. . VTE Core Measure Inpt VTE Proph given/why not?: Unfractionated heparin SQ
[2017-09-15 12:51] VITALS: BP 128/84; PULSE 86; TEMP 36.9; O2SAT 90
[2017-09-15] MEDS ORDERED: LEVALBUTEROL 1.25MG/3ML NEB INH SCH (15:00)
--- NOTE | 2017-09-15 23:31 | Discharge Summary ---
Discharge Summary Date of Service Sep 15, 2017. Discharge Summary Admission Date: Sep 08, 2017 at 13:36 Discharge Date: Sep 15, 2017 Discharge Disposition: Home ([facility]) Principal Diagnosis: Left upper lobe cavitary lesion Problems/Secondary Diagnoses: COPD with ? exacerbation, BPH, DM, GERD, constipation Procedures: Pigtail catheter placement in lung cavitary lesion - removed on discharge Consultations: Pulmonary CT surgery Medication Reconciliation New Medications: Amoxicillin & Pot Clavulanate (Amoxicillin/Clavulanate P) 1 Tab Tab 875 MG PO BIDM for 14 Days, #28 TAB Budesonide/Formoterol Fumarate (Symbicort 160-4.5 Mcg/Act) 60 Puffs/Inhaler Aero 2 PUFFS INH BID for 30 Days, #1 INHALER Finasteride (Finasteride) 5 Mg Tab 5 MG PO QAM for 30 Days, #30 TAB Tamsulosin HCl (Tamsulosin HCl) 0.4 Mg Cap 0.4 MG PO HS for 30 Days, #30 CAP Tiotropium [place] (Spiriva Handihaler) 5 Puff/90 Mcg Aerp 1 PUFF INH QAM for 30 Days, #1 INHALER Discharge Exam ROS Constitutional: + fatigue, No fever, No chills, No sweats, No weight loss, No weakness, No problem reported Respiratory: + cough, + wheezing, + shortness of breath, + dyspnea at rest Cardiovascular: No chest pain, No orthopnea, No PND, No edema, No claudication, No palpitations, No problem reported Abdomen: + pain (RLQ) All Other Systems: Reviewed and Negative PE General Appearance: WD/WN, no apparent distress Eyes: normal inspection, PERRL, EOMI ENT: hearing grossly normal Neck: supple, no adenopathy, no JVD Respiratory/Chest: chest non-tender, lungs clear, no respiratory distress, no accessory muscle use, + decreased breath sounds Cardiovascular: regular rate, rhythm, no edema, no gallop, no JVD, no murmur Abdomen: normal bowel sounds, soft, no organomegaly, no pulsatile mass, + tenderness (RLQ) Extremities: non-tender, no pedal edema Neurologic/Psychiatric: senior patient account representative II-XII nml as tested, no motor/sensory deficits, alert, normal mood/affect, oriented x 3 Skin: normal color, warm/dry, no rash Hospital Course Mr. Servin is a 52 year old -[place] man with a history of COPD, hypertension, diabetes mellitus, GERD and heavy tobacco abuse (quit 4 years ago ) admitted for a 9 cm left upper lung cavitary lesion on CXR. Cavitary lesion likely consistent with infected bulla and severe subpleural emphysema - CXR - 9 cm left upper lobe cavitary lung lesion, CT showed 3cm fluid filled lesion - Thoracic surgery: CT guided pigtail catheter drainage of cavity done on 2017, Repeat CXR showed trace apical pneumothorax and slight increase in right basal airspace opacity Drain removed 09/15/17; surgery recommends repeat CT at some point in future. - ID consulted: received 4 days of Unasyn 3g IV Q6H, awaiting mycobacterial culture, but converted to oral augmentin, 875 bid x 14 days - 2-D echo to rule out vegetation/septic emboli: no evidence of mass/ vegetations; mildly dec LV systolic function and mild LVH - Negative blood cultures, Pleural fluid bacterial and fungal culture negative, awaiting AFB culture - Sputum culture showed heavy normal tiki, negative AFB culture, and few ritchie albicans on fungal culture - Throat culture - group B strep, fungetil/D galactomannan - negative, Urine Legionella not detected, HIV negative - Previous multiple episodes of pneumonia/sinusitis. Since clinically improving , less likely autoimmune etiology. - 100 pack year smoking history - quit 4 years ago. FMHx of lung cancer (father) . Not enough fluid for pathology. - Recommend PFTs and repeat chest CT scan as outpatient Shortness of breath - resolved - likely 2/2 underlying severe copd and atelectasis. - has been off NC x 24 hours Right Basal Airspace Opacity on CT scan - likely secondary to atelectasis, encouraged incentive spirometry use - stable from respiratory standpoint, weaned off supplementary O2 COPD - Spiriva and Symbicort - continue xopenex BPH - - UA neg - patient has not reported any need for straight cath for 3 days now - Continue flomax and finasteride 5mg QAM Constipation - patient reports he had a BM 2 days ago - continue bowel regimen - miralax BID and 100mg bid of colace Diabetes mellitus type 2 - ISS GERD - Famotidine Total Time Spent: Greater than 30 minutes This includes examination of the patient, discharge planning, medication reconciliation, and communication with other providers. Discharge Instructions Please refer to the electronic Patient Visit Report (Discharge Instructions) for additional information. Additional Copies To Karson Jerome M.D. Resident Tracking Resident Involvement: Resident Care Provided Care Provided: Adult Hospital Medicine Reviewed: Pt Seen/Exam by Me History chest pain mostly resolved breathing well Constitutional: denies: fever Respiratory: negative: short of breath Cardiovascular: denies chest pain General Appearance: no apparent distress Respiratory: lungs clear, no respiratory distress Cardiovascular: regular rate, rhythm Gastrointestinal: normal bowel sounds, non tender, soft Neurologic/Psychiatric: alert, oriented x 3 Skin Characteristics: warm/dry Assessment/Plan Resident Physician Supervision Note: I independently interviewed and examined the patient and verified the riley history and physical, reviewed labs and image studies, discussed the case with the resident Dr. Wong and agree with the findings and care plan. Time spent in discharge 40 min
== END 2017-09-15 13:41 | disposition home or self-care (01) | DRG 206 ==
LOC: C.MS2W 13:36
PROVIDERS: ADMIT Internal Medicine; ATTEND Family Medicine
PROC: 0W9B30Z Drainage of Left Pleural Cavity with Drainage Device, Percutaneous Approach (ICD-10-PCS; principal; 2017-09-11)
DX: R91.1 Solitary pulmonary nodule (principal); J44.1 Chronic obstructive pulmonary disease with (acute) exacerbation; I10 Essential (primary) hypertension; E11.9 Type 2 diabetes mellitus without complications; K21.9 Gastro-esophageal reflux disease without esophagitis; N40.0 Benign prostatic hyperplasia without lower urinary tract symptoms; K59.00 Constipation, unspecified; Z87.01 Personal history of pneumonia (recurrent); Z87.891 Personal history of nicotine dependence

== ENCOUNTER → 2017-09-30 | Outpatient (CLI) | payer OTHER ==
[~2017-09-30] MED LIST: AMOX1TAB43 PO; FLM4 PO; PRS5 PO; SPRIN INH; SYMIN INH
--- NOTE | 2017-09-30 13:09 | DIAGNOSTIC IMAGING REPORT ---
PET/CT HISTORY: R91.1 SOLITARY PULMONARY NODULE TECHNIQUE: PET/CT was performed from the base of the skull through the pelvis following the intravenous administration of 12.4 mCi of F18-FDG. Non-contrast CT imaging was performed over the same range without breath-hold for attenuation correction of PET images and anatomic correlation, but not for primary interpretation as it is not of standard diagnostic quality. CT DOSE: COMPARISON: Chest CT 09/09/2017. FINDINGS: HEAD AND NECK: There is no FDG-avid disease or significant lymphadenopathy in the imaged portions of the head and the neck. FDG uptake within multiple muscles and parotid glands, left greater than right. No corresponding CT abnormality. Therefore, this is likely physiologic. CHEST: Mildly enlarged AP window and left hilar lymph nodes are not significantly changed. Dominant AP window lymph node measures approximately 11 mm. Dominant left hilar lymph node measures 18 x 6 mm. These demonstrate abnormal FDG uptake with an SUV max of 3.2. No right hilar lymphadenopathy. There is persistent soft tissue thickening within the left anterior pleura. The air-fluid level has resolved at this location. This focal area of thickened pleura measures 7.1 x 1.7 cm and demonstrates an SUV max of 3.8. Advanced emphysema. Groundglass densities at the lung bases, right greater than left have progressed. ABDOMEN/PELVIS: There are 2 mildly enlarged upper abdominal lymph nodes measuring 1.8 x 1.1 and 1.6 x 1.3 cm. These remain unchanged in size. These demonstrate mild FDG uptake within an SUV max of 2. No FDG avid hepatic or splenic masses. Cholelithiasis. MUSCULOSKELETAL: There is no FDG-avid or destructive bone lesion. IMPRESSION: 1. No change in size in the mildly enlarged AP window and left hilar lymph nodes which demonstrate abnormal FDG uptake. These could be reactive or related to metastatic disease. 2. Soft tissue thickening within the left anterior pleural measuring 7.1 x 1.7 cm. However, the air-fluid level at this location has resolved. This demonstrates abnormal FDG uptake and could represent residual infectious process. However, a neoplastic process cannot be excluded. Correlation with pathology results is recommended. 3. There are 2 nonspecific mildly enlarged upper abdominal lymph nodes which demonstrate mild FDG uptake. These bear watching on future examinations. Electronically signed by: Nolna Girard M.D. 09/30/2017 1:07 PM Dictated Date/Time: 09/30/2017 12:43 PM
== END | disposition home or self-care (01) ==
LOC: C.PET 09:19
PROVIDERS: ATTEND Internal Medicine Pulmonary Disease
DX: R93.8 Abnormal findings on diagnostic imaging of other specified body structures (principal); R91.8 Other nonspecific abnormal finding of lung field; R91.1 Solitary pulmonary nodule

== ENCOUNTER 2017-10-02 09:49 | Day surgery (SDC) | payer OTHER ==
[~2017-10-02] VITALS: Ht 167.6 cm; Wt 75.0 kg
[2017-10-02] VITALS (7 sets, daily range): BP systolic 108–125; BP diastolic 70–96; PULSE 81–89; TEMP 36.4–36.7; O2SAT 90–95; Ht 167.6 cm; Wt 75.0 kg
--- NOTE | 2017-10-02 10:18 | History & Physical Bridge Note ---
H&P Re-Evaluation Bridge Note: I have examined the patient, reviewed the History & Physical and in the interval since the performance of the History & Physical I have noted the following changes of clinical significance: No changes noted
--- NOTE | 2017-10-02 10:19 | Pre Sedation Assessment ---
Pre Sedation Assessment General Date of Sedation: Oct 02, 2017. Pre-Sedation Airway Assessment Smoking Status: Former Smoker Mallampati Classification: Class II ASA Classification: Class II Procedure Planning Contraindications for Sedation: None Current Medications Reviewed: Yes Notes The planned sedation has been discussed with the patient. Informed Consent was obtained. I have identified the patient, determined the appropriateness of sedation and have assessed the patient immediately prior to the procedure. All medicine(s) and interventions are by my order.
[2017-10-02] MEDS ORDERED: ASPI81TA28 PO (10:45)
[2017-10-02] MEDS ORDERED: FURO-85 PO (10:45)
[2017-10-02] MEDS ORDERED: METF1TAB53 PO (10:45)
[2017-10-02] MEDS ORDERED: [UNRECOGNIZED DRUG - OTHER] (10:45)
[2017-10-02] MEDS ORDERED: ALBU2SYP9 (10:45)
[2017-10-02] MEDS ORDERED: AMOX875T3 PO (10:45)
[2017-10-02] MEDS ORDERED: GLIP-199 PO (10:45)
[2017-10-02] MEDS ORDERED: CARV3.122 PO (10:45)
[2017-10-02] MEDS ORDERED: UMEC1INH (10:45)
[2017-10-02] MEDS ORDERED: ATOR10TA82 PO (10:45)
[2017-10-02] MEDS ORDERED: ACET-1256 PO (10:45)
[2017-10-02] MEDS ORDERED: FLM4 (10:45)
[2017-10-02] MEDS ORDERED: MAGNSUS73 (10:45)
[2017-10-02] MEDS ORDERED: FINA5TAB PO (10:45)
--- NOTE | 2017-10-02 11:21 | Discharge Instructions ---
Discharge Instructions Date of Service Oct 02, 2017. Admission Reason for Admission: Asthma, Pulmonary Nodule Discharge Discharge Diagnosis / Problem: Chronic Mucopurulent Bronchitis Discharge Goals Goal(s): Therapeutic intervention Activity Recommendations Activity Limitations: resume your previous activity Lifting Limitations: none Exercise/Sports Limitations: none May Resume Sexual Activity: when tolerated Shower/Bathe: no limitations Driving or Machine Use: no limitations None . Instructions / Follow-Up Instructions / Follow-Up ACTIVITY RECOMMENDATIONS: * Rest today, resume normal activity tomorrow. * Do not drive today. SPECIAL CARE INSTRUCTIONS: * Call your physician if you experience any chest or shoulder pain, fever, coughing, spitting up blood (more than 2 teaspoons) or excessive shortness of breath. * Remove dressing from IV site (where needle was placed into the vein) after 2 hours. Apply a warm, moist compress to site if irritation occurs. Call physician if site becomes red or painful to touch. FOLLOW UP VISIT: * Keep any scheduled doctor appointments. Current Hospital Diet Patient's current hospital diet: Discharge Diet Recommended Diet: Regular Diet Fluid Restriction: None Pending Studies Studies pending at discharge: no Laboratory Results Hemoglobin A1c Test 09/09/17 05:22 Range/Units Estimated Average Glucose 131 mg/dl Hemoglobin A1c 6.2 H 4.5-5.6 % Lipid Panel Test 09/09/17 05:22 Range/Units Triglycerides Level 205 H 0-150 mg/dl Cholesterol Level 123 0-200 mg/dl HDL Cholesterol 41 mg/dl Cholesterol/HDL Ratio 3.0 LDL Cholesterol, Calculated 41 mg/dl Medical Emergencies . Who to Call and When: Medical Emergencies: If at any time you feel your situation is an emergency, please call 911 immediately. . Non-Emergent Contact Non-Emergency issues call your: Manufacturing Software Engineer Call Non-Emergent contact if: temperature is above 101 . . "Provider Documentation" section prepared by Rafael Huston. . VTE Core Measure Inpt VTE Proph given/why not?: Treatment not indicated
--- NOTE | 2017-10-02 11:22 | Post Sedation Assessment ---
Post Sedation Assessment General Date of Sedation Oct 02, 2017. Vital Signs: Vital Signs Past 12 Hours Date Time Temp Pulse Resp B/P (MAP) Pulse Ox O2 Delivery O2 Flow Rate FiO2 10/02/17 11:15 90 14 122/88 93 Mask 15 10/02/17 11:10 92 16 99/77 94 Mask 15 10/02/17 11:05 98 16 116/80 94 Mask 15 10/02/17 11:00 84 16 120/83 92 Mask 15 10/02/17 10:56 73 20 113/80 94 Mask 15 10/02/17 10:10 36.4 82 16 115/70 (85) 94 Room Air Post Procedure Recovery Score Activity: (2) Moves 4 extremities * Respiration: (2) Deep breath/cough Circulation: (2) +/-20% PreAnes Value Consciousness: (1) Arouseable (by name) Oxygen Saturation: (2) > 92% On Room Air Post Anesthesia Score: 9 Discharge Sedation Level of Care: Fast Track Phase II Post Sedation Plan On clinical assessment, the patient appears to have tolerated the sedation without complications. Patient is recovering as anticipated. Patient will continue to be monitored by nursing and may be discharged when sedation discharge criteria are met per below protocol. Upon Completions of procedure and additional 15 minutes continue every 5 minute vital signs and the P.A.R. score; then discharge to a Phase I or Fast Track to Phase II per the following guidelines: * Discharge Patient to appropriate Phase II area if PAR is 8 or greater or return to pre- procedure baseline. The post - procedure orders will be as directed. * If PAR score is less than 8 or not return to pre-procedure baseline then patient will follow Phase I monitoring till PAR is reached for Phase II. The Phase I may be done in procedure room or may call to secure a Phase I area. * If naloxone or flumazenil are used for reversal, hold in Phase I for an additional 60 -120 minutes before discharge to Phase II. Please call the Sedation Physician to re-evaluate and complete post-note for discharge to Phase II area. Do NOT discharge from procedure sedation or Phase 1 until post- sedation evaluation note is complete by procedure /sedation MD Sedation Discharge Instructions to be given to the patient at discharge to home.
[2017-10-02] MEDS ORDERED: LEVALBUTEROL 1.25MG/3ML NEB INH ONE (11:29)
[2017-10-02] MEDS ORDERED: FENTANYL CITRATE INJ 50 MCG/1 ML 2 ML VIAL IV ONE (11:29)
[2017-10-02] MEDS ORDERED: MIDAZOLAM HCL 5 MG/ML 1 ML VIAL IV ONE (11:29)
[2017-10-02] MEDS ORDERED: LIDOCAINE VISCOUS 2% 100ML TOP ONE (11:29)
[2017-10-02] MEDS ORDERED: LIDOCAINE 4% INH SOLN 4 ML BTL TOP ONE (11:29)
[2017-10-02] MEDS ORDERED: OXYMETAZOLINE HCL 0.05% NA SPR 15 ML BTL ONE (11:29)
[2017-10-02] MEDS ORDERED: LIDOCAINE HCL 2% LOCAL 50ML VIAL INSTIL ONE (11:29)
--- NOTE | 2017-10-02 11:47 | OPERATIVE REPORT ---
DATE OF OPERATION: 10/02/2017 PROCEDURE: Fiberoptic bronchoscopy with bronchoalveolar lavage. INDICATIONS: Left upper lobe with air fluid level, rule out endobronchial obstruction. ANESTHESIA PREOPERATIVELY: None. ANESTHESIA DURING PROCEDURE: 50 mcg IV fentanyl, 5 mg IV Versed, 20 mL of 2% Xylocaine spray above and below the cords, 4% viscous Xylocaine intranasally. DESCRIPTION OF PROCEDURE: Fiberoptic bronchoscope was inserted into the right naris with minimal difficulty and passed to the level of the true vocal cords. The cords appeared to approximate normally with phonation without evidence of lesions or paralysis. The scope was then introduced in the trachea and right and left tracheobronchial tree. The trachea was within normal limits. The rachel was sharp. The right main stem bronchus was explored initially and no endobronchial lesion was seen. The right upper lobe, the apical posterior and anterior segments, bronchus intermedius, right middle lobe and the medial and lateral segments and all basilar segments right lower lobe were found to be free of endobronchial lesions. Left tracheobronchial tree was explored and no endobronchial lesion was seen. Left upper lobe, the apical-posterior and anterior segments, lingular subdivision with the superior and inferior segments and left lower lobe with all basilar segments were free of endobronchial lesions down to subsegmental bronchi. The left upper lobe and lingular orifice were reentered and each lobar segment was copiously lavaged with normosol and the aspirate sent for appropriate studies. No brushings or biopsies were deemed necessary. The procedure was terminated. The patient appeared to tolerate the procedure well and was given a nebulizer treatment with Xopenex 1.25 mg and transferred to the medical treatment unit hemodynamically stable with no signs of respiratory compromise. Will await microbiological and cytologic examination of the bronchial washings. I attest to the content of the Intraoperative Record and any orders documented therein. Any exception s are noted below.
== END 2017-10-02 13:40 | disposition home or self-care (01) ==
LOC: C.ACU 09:49
PROVIDERS: ATTEND Internal Medicine Pulmonary Disease
DX: R91.8 Other nonspecific abnormal finding of lung field (principal); J44.9 Chronic obstructive pulmonary disease, unspecified; N40.0 Benign prostatic hyperplasia without lower urinary tract symptoms; J45.909 Unspecified asthma, uncomplicated; E11.9 Type 2 diabetes mellitus without complications; G89.29 Other chronic pain; E78.5 Hyperlipidemia, unspecified; Z79.82 Long term (current) use of aspirin; Z79.899 Other long term (current) drug therapy

== ENCOUNTER 2017-11-09 08:16 | Emergency (ER) | payer OTHER ==
[~2017-11-09] VITALS: Ht 177.8 cm; Wt 74.0 kg
[~2017-11-09 08:16] MED LIST changes: -ACET-749 PO; -ASPI81TA28 PO; -ATOR10TA82 PO; -CALC625T PO; -CARV3.122 PO; -CICL160A INH; -FIBER PO; -FINA5TAB PO; -FLM4 PO; -FURO-85 PO; -GLIP-199 PO; -GUAI400T44 PO; -LEVA45AE INH; -LISI-729 PO; -LSN25 PO; -MAGNSUS73 PO; -METF1TAB53 PO; -RISP0.5T10 PO; -RISP1TAB68 PO; -SULF800T23 PO; -TYLENOL CODEINE PO; -UMEC1INH INH; -VORI1TAB9 PO
[2017-11-09 08:17] VITALS: TEMP 37.4; Ht 177.8 cm; Wt 74.0 kg
[2017-11-09 08:27] VITALS: O2SAT 93
[2017-11-09] MEDS ORDERED: FIBER PO (09:01)
[2017-11-09] MEDS ORDERED: LISI-729 PO (09:08)
--- NOTE | 2017-11-09 09:11 | EMERGENCY ROOM VISIT NOTE ---
History Report prepared by Judith: Reese Morales Under the Supervision of: Dr. Carol Glasgow M.D. First contact with patient: 08:20 Stated Complaint: ALTERED MENTAL STATUS/SHORTNESS OF BREATH History of Present Illness The patient is a 52 year old male who presents to the Emergency Room with complaints of a sudden head injury occurring prior to arrival during a fall. He rates his pain as a 4/10 in severity. The patient states that he was having a dream, and he rolled and hit his head on the bed railing and then on the floor. He states that he did not lose consciousness, though he was close to it. The patient also notes that he is a little short of breath, and yesterday he had a fever. He denies any vomiting. The patient has a history of diabetes, and he has not had his blood sugar checked today, and he states that he has not eaten anything either. Source of History: patient Onset: prior to arrival Position: head Symptom Intensity: 4/10 Quality: other (injury) Timing: other (sudden) Associated Symptoms: + fevers, + SOB, No LOC, No vomiting Review of Systems See HPI for pertinent positives & negatives. A total of 10 systems reviewed and were otherwise negative. Past Medical & Surgical Medical Problems: (1) Pneumonia with cavity of lung Social History Smoking Status: Former Smoker Drug Use: none Occupation Status: other (prisoner) Current/Historical Medications Scheduled Aspirin (Aspirin Ec), 81 MG PO QAM Atorvastatin (Lipitor), 10 MG PO HS Carvedilol (Coreg), 3.125 MG PO BID Ciclesonide (Alvesco), 2 PUFFS INH BID Fiber Laxative (Fiber Laxative), 1 TBS PO BID Finasteride (Proscar), 5 MG PO QAM Furosemide (Lasix), 20 MG PO QAM Glipizide (Glipizide Er), 1 TAB PO QAM Guaifenesin (Guaifenesin), 2 TABS PO BID Lisinopril (Zestril), 2.5 MG PO QAM Magnesium Hydroxide (Milk of Magnesia 400 mg/5Ml), 30 ML PO QAM Metformin Hcl (Glucophage Ext Rel), 1 TAB PO BID Sulfa/Trimethoprim (Bactrim Ds 800MG/160MG), 1 TAB PO BID Tamsulosin HCl (Tamsulosin HCl), 1 CAP PO QAM Umeclidinium [place] (Incruse Ellipta), 1 PUFF INH QAM Voriconazole (Vfend), 1 TAB PO BID Scheduled PRN Levalbuterol Tartrate (Levalbuterol Tartrate Hfa), 2 PUFFS INH QID PRN for SOB/ Wheezing [Tylenol Codeine], 1 TAB PO Q4H PRN for Pain Allergies Coded Allergies: No Known Allergies (Unverified , 11/09/17) Physical Exam Vital Signs Date Time Temp Pulse Resp B/P (MAP) Pulse Ox O2 Delivery O2 Flow Rate FiO2 11/09/17 10:02 104 18 146/94 94 11/09/17 08:30 105 11/09/17 08:27 93 Room Air 11/09/17 08:17 37.4 103 20 134/80 89 Room Air Physical Exam Vital signs reviewed. General: Well-appearing male, in no significant distress. HEENT: He has a small abrasion to the left forehead above the left eye brow. No scleral icterus, PERRLA, neck supple. Cardiovascular: Regular rate and rhythm, no extra sounds. Pulmonary: Clear to auscultation bilaterally, normal work of breathing. Abdomen: Soft, nontender, nondistended, positive bowel sounds. Musculoskeletal: Post surgical changes on the left hemithorax. No C spine tenderness. Atraumatic, no peripheral edema. Neurologic: Patient awake alert and oriented x 3, full strength in all 4 extremities. Cranial nerves 2 through 12 grossly intact. Skin: Warm, dry, no rash Medical Decision & Procedures ER Provider Diagnostic Interpretation: Radiology results as stated below per my review and radiologist interpretation: HEAD WITHOUT CONTRAST (CT) CLINICAL HISTORY: 52 years-old Male presenting with ARCE, CHI, altered mental status. TECHNIQUE: Multidetector CT imaging of the head was performed without the use of intravenous contrast. IV contrast: None. A dose lowering technique was used consistent with the principles of ALARA (as low as reasonably achievable). COMPARISON: PET/CT from 09/30/2017. CT DOSE (mGy.cm): The estimated cumulative dose is 537.48 mGy.cm. FINDINGS: Front End Engineer topogram: Unremarkable. Ventricles and sulci normal in size. Brain parenchyma normal in appearance with preserved gtz-white differentiation. No mass effect or midline shift. No hemorrhage or acute territorial infarct. No extra-axial fluid collection. Mucosal thickening in the left maxillary sinus. Sclerosis of the left max or sinus wall likely implies chronic sinusitis. Calvarium intact. IMPRESSION: 1. No acute intracranial abnormality. 2. Chronic sinusitis of the left maxillary sinus. Electronically signed by: Abhilash Zepeda M.D. 11/09/2017 9:17 AM Dictated Date/Time: 11/09/2017 9:14 AM Laboratory Results Test 11/09/17 09:03 Bedside Glucose 148 mg/dl (70-99) Laboratory results per my review. ECG Per My Interpretation Indication: syncope Rate (beats per minute): 95 Rhythm: normal sinus Findings: no acute ischemic change, no ectopy ED Course 0820: Past medical records reviewed. The patient was evaluated in room B2. A complete history and physical examination was performed. 0955: Upon reevaluation, the patient appeared to have improvement of his symptoms. I discussed findings with him. He verbalized agreement of the treatment plan. He was discharged home. Medical Decision Differential diagnoses include: head contusion, intracranial hemorrhage, syncope , seizure, and concussion. This patient was evaluated and appeared to be in no significant distress. The patient denies any syncopal events but rather states he hit his head off the bed railing and fell to the ground subsequently. While the patient denies any clear loss of consciousness, he states it is a possibility. Head CT was performed and is negative for acute intracranial abnormality. Patient's blood glucose is 148. EKG reveals no evidence of acute ischemia or ectopy. Patient was discharged back to the present for further management. He will return to the ER for worsening of symptoms or any medical concerns. Medication Reconcilliation Current Medication List: was personally reviewed by me Blood Pressure Screening Patient's blood pressure: Elevated blood pressure Blood pressure disposition: Elevated BP felt to be situational Impression Primary Impression: Closed head injury Scribe Attestation The scribe's documentation has been prepared under my direction and personally reviewed by me in its entirety. I confirm that the note above accurately reflects all work, treatment, procedures, and medical decision making performed by me. Departure Information Dispostion Home / Self-Care Referrals Eric FERNANDES (PCP) Forms HOME CARE DOCUMENTATION FORM, IMPORTANT VISIT INFORMATION Patient Instructions ED Head Injury Closed, My [facility] Additional Instructions Diagnosis: Closed head injury Read head injury handout and return for any symptoms. Tylenol 650 mg as needed for pain (Maximum 3000 mg Tylenol in 24 hr period). Follow-up with the intermediate physician for reevaluation within the next several days prior to returning to full activity. Ice and elevate head. Return to the emergency department for worsening of symptoms or any medical concerns.
[2017-11-09] MEDS ORDERED: LEVA45AE INH (09:13)
[2017-11-09] MEDS ORDERED: TYLENOL CODEINE PO (09:18)
--- NOTE | 2017-11-09 09:19 | DIAGNOSTIC IMAGING REPORT ---
HEAD WITHOUT CONTRAST (CT) CLINICAL HISTORY: 52 years-old Male presenting with ARCE, CHI, altered mental status. TECHNIQUE: Multidetector CT imaging of the head was performed without the use of intravenous contrast. IV contrast: None. A dose lowering technique was used consistent with the principles of ALARA (as low as reasonably achievable). COMPARISON: PET/CT from 09/30/2017. CT DOSE (mGy.cm): The estimated cumulative dose is 537.48 mGy.cm. FINDINGS: Nitroglycerin Separator Operator topogram: Unremarkable. Ventricles and sulci normal in size. Brain parenchyma normal in appearance with preserved gtz-white differentiation. No mass effect or midline shift. No hemorrhage or acute territorial infarct. No extra-axial fluid collection. Mucosal thickening in the left maxillary sinus. Sclerosis of the left max or sinus wall likely implies chronic sinusitis. Calvarium intact. IMPRESSION: 1. No acute intracranial abnormality. 2. Chronic sinusitis of the left maxillary sinus. Electronically signed by: Abhilash Zepeda M.D. 11/09/2017 9:17 AM Dictated Date/Time: 11/09/2017 9:14 AM
[2017-11-09 10:02] VITALS: BP 146/94; PULSE 104; O2SAT 94
[2017-11-12] MEDS ORDERED: GUAI400T44 PO (09:05)
[2017-11-12] MEDS ORDERED: SULF800T23 PO (09:10)
[2017-11-12] MEDS ORDERED: VORI1TAB9 PO (09:12)
[2017-11-12] MEDS ORDERED: FURO-85 PO (10:45)
[2017-11-12] MEDS ORDERED: MAGNSUS73 PO (10:45)
[2017-11-12] MEDS ORDERED: METF1TAB53 PO (10:45)
[2017-11-12] MEDS ORDERED: UMEC1INH INH (10:45)
[2017-11-12] MEDS ORDERED: ATOR10TA82 PO (10:45)
[2017-11-12] MEDS ORDERED: GLIP-199 PO (10:45)
[2017-11-12] MEDS ORDERED: FLM4 PO (10:45)
[2017-11-12] MEDS ORDERED: ASPI81TA28 PO (10:45)
[2017-11-12] MEDS ORDERED: FINA5TAB PO (10:45)
[2017-11-12] MEDS ORDERED: CARV3.122 PO (10:45)
[2017-11-12] MEDS ORDERED: ACET-749 PO (10:57)
[2017-11-12] MEDS ORDERED: LSN25 PO (10:57)
== END 2017-11-09 10:13 ==
LOC: EDBD 08:16 → C.EDB 08:17
DX: S09.90XA Unspecified injury of head, initial encounter (principal); E11.9 Type 2 diabetes mellitus without complications; R50.9 Fever, unspecified; R06.02 Shortness of breath; Z79.82 Long term (current) use of aspirin; Z79.84 Long term (current) use of oral hypoglycemic drugs; Z79.899 Other long term (current) drug therapy; Z87.891 Personal history of nicotine dependence; W06.XXXA Fall from bed, initial encounter

== ENCOUNTER → 2017-11-09 | Outpatient (CLI) | payer OTHER ==
[~2017-11-09] MED LIST changes: +ACET-1256 PO; +ACET-749 PO; +ALBU2SYP9; -AMOX1TAB43 PO; +ASPI81TA28 PO; +ATOR10TA82 PO; +CALC625T PO; +CARV3.122 PO; +CICL160A INH; +FIBER PO; +FINA5TAB PO; +FURO-85 PO; +GLIP-199 PO; +GUAI400T44 PO; +LEVA45AE INH; +LISI-729 PO; +LSN25 PO; +MAGNSUS73 PO; +METF1TAB53 PO; -PRS5 PO; +RISP0.5T10 PO; +RISP1TAB68 PO; +RXC5 PO; -SPRIN INH; +SULF800T23 PO; -SYMIN INH; +TYLENOL CODEINE PO; +UMEC1INH INH; +VORI1TAB9 PO; +[UNRECOGNIZED DRUG - OTHER] INH
[2017-11-09 15:16] LABS: BASO % 0.4 %; BASO ABS # 0.03 K/uL (0-0.2); EOS % 1.3 %; HEMATOCRIT 46.1 % (42-52); HEMOGLOBIN 15.9 g/dL (14.0-18.0); IG# 0.02 K/uL (0.00-0.02); LYMPH % 26.9 %; MEAN CELL VOLUME 94.1 fL (80-100); MEAN CORPUSCULAR HEMOGLOBIN 32.4 pg (25-34); MEAN PLATELET VOLUME 10.3 fL (7.4-10.4); MONO % 8.3 %; MONO ABS # 0.65 K/uL (0.11-0.59); NEUT % 62.8 %; NEUT ABS # 4.91 K/uL (1.4-6.5); PLATELET COUNT 363 K/uL (130-400); RED CELL DISTRIBUTION WIDTH CV 14.8 % (11.5-14.5); RED CELL DISTRIBUTION WIDTH SD 50.7 fL (36.4-46.3); WHITE BLOOD COUNT 7.81 K/uL (4.8-10.8)
[2017-11-09 15:17] LABS: MEAN CORPUSCULAR HGB CONC 34.5 g/dl (32-36)
[2017-11-09 15:38] LABS: ALKALINE PHOSPHATASE 51 U/L (45-117); ALT/SGPT 26 U/L (12-78); AST/SGOT 17 U/L (15-37); BLOOD UREA NITROGEN 13 mg/dl (7-18); CALCIUM 9.8 mg/dl (8.5-10.1); CARBON DIOXIDE 21 mmol/L (21-32); CREATININE 0.89 mg/dl (0.60-1.40); GLUCOSE 141 mg/dl (70-99); SODIUM 136 mmol/L (136-145); TOTAL PROTEIN 8.7 gm/dl (6.4-8.2)
== END ==
LOC: C.LABSPEC 15:03
PROVIDERS: ATTEND Internal Medicine
DX: R41.82 Altered mental status, unspecified (principal)

== ENCOUNTER 2017-11-11 08:46 | Emergency (ER) | payer OTHER ==
[~2017-11-11] VITALS: Ht 167.6 cm; Wt 75.0 kg
[~2017-11-11 08:46] MED LIST changes: -ACET-1256 PO; -ALBU2SYP9; +FIBER PO; +LEVA45AE INH; +LISI-729 PO; -RXC5 PO; +TYLENOL CODEINE PO
[2017-11-11 08:50] VITALS: TEMP 36.8; Ht 167.6 cm; Wt 75.0 kg
--- NOTE | 2017-11-11 09:53 | EMERGENCY ROOM VISIT NOTE ---
History Report prepared by Judith: Edson Duran Under the Supervision of: Dr. Orlin Eddy M.D. First contact with patient: 09:35 Chief Complaint: RESPIRATORY PROBLEMS Stated Complaint: BREATHING TROUBLE, MENTAL PARANOID History of Present Illness The patient is a 52 year old male with a past medical history of pneumonia and psychiatric issues who presents to the ED with worsening respiratory problems beginning this week. Positive abdominal pain, hallucinations, shortness of breath, cough. Negative nausea, vomiting, fevers, chills. Per the jail guards, the patient had a procedure done with Dr. Ocampo a few weeks ago, with his lung being drained for suspected cancer. The patient states that "they have a cough". Per the jail guards, the patient has been hearing voices. The patient is here for evaluation for suspected pneumonia. The patient notes no tobacco, alcohol, or drug use. History limited secondary to patient's altered mental status. Per the past medical records, the patient was admitted no October 27 and was discharged on the . He had a VATS procedure, wedge resection, and lymph node biopsy. He is supposed to be on Voriconazole 200 mg BID for 6 weeks. The patient was given Haldol and Ativan prior to arrival. Source of History: patient, other (guards) History Limited By: AMS Onset: This week Position: other (global) Symptom Intensity: suspected pneumonia Quality: other (respiratory problems) Timing: worsening Associated Symptoms: + cough, + SOB, + abdominal pain, No fevers, No chills , No nausea, No vomiting Note: Positive hallucinations. Review of Systems See HPI for pertinent positives and negatives. A total of ten systems were reviewed and were otherwise negative. Past Medical & Surgical Medical Problems: (1) Pneumonia with cavity of lung Family History No pertinent family history Social History Smoking Status: Never Smoker Smokeless Tobacco Use: No Drug Use: none Housing Status: other (prisoner) Occupation Status: other Current/Historical Medications Scheduled Aspirin (Aspirin Ec), 81 MG PO QAM Atorvastatin (Lipitor), 10 MG PO HS Carvedilol (Coreg), 3.125 MG PO BID Ciclesonide (Alvesco), 2 PUFFS INH BID Fiber Laxative (Fiber Laxative), 1 TBS PO BID Finasteride (Proscar), 5 MG PO QAM Furosemide (Lasix), 20 MG PO QAM Glipizide (Glipizide Er), 1 TAB PO QAM Guaifenesin (Guaifenesin), 2 TABS PO BID Lisinopril (Lisinopril), 2.5 MG PO DAILY Magnesium Hydroxide (Milk of Magnesia 400 mg/5Ml), 30 ML PO QAM Metformin Hcl (Glucophage Ext Rel), 1 TAB PO BID Risperidone (Risperdal), 0.5 MG PO BID Sulfa/Trimethoprim (Bactrim Ds 800MG/160MG), 1 TAB PO BID Tamsulosin HCl (Tamsulosin HCl), 1 CAP PO QAM Umeclidinium [place] (Incruse Ellipta), 1 PUFF INH QAM Voriconazole (Vfend), 1 TAB PO BID Scheduled PRN Acetaminophen/Codeine (Tylenol W/Codeine #3), 2 TAB PO Q4 PRN for Pain Levalbuterol Tartrate (Levalbuterol Tartrate Hfa), 2 PUFFS INH QID PRN for SOB/ Wheezing Allergies Coded Allergies: No Known Allergies (Unverified , 11/11/17) Physical Exam Vital Signs Date Time Temp Pulse Resp B/P (MAP) Pulse Ox O2 Delivery O2 Flow Rate FiO2 11/11/17 16:56 90 16 95/73 93 11/11/17 16:30 74 16 93/74 96 Room Air 11/11/17 15:26 87 16 92/67 98 Room Air 11/11/17 13:52 78 16 98/71 96 Room Air 11/11/17 13:47 88 14 83/68 95 Room Air 11/11/17 13:26 89 11/11/17 12:30 89 12 95/63 94 11/11/17 12:00 89 12 95/59 94 Room Air 11/11/17 11:03 95 16 106/62 96 Room Air 11/11/17 10:05 92 11/11/17 10:04 Room Air 11/11/17 08:50 36.8 100 18 91/65 96 Room Air Physical Exam GENERAL: Easily arousable, well-appearing, NAD HENT: Normocephalic, atraumatic. EYES: Normal conjunctiva. Sclera non-icteric. NECK: Supple. No nuchal rigidity. FROM. RESPIRATORY: Some crackles right base, no rhonchi, wheezing. CARDIAC: RRR, no MRG ABDOMEN: Soft, some mild upper abdominal discomfort, nonsurgical abdomen, BS MSK: No chest wall TTP, no LE edema NEURO: GCS 15, CN 2-12 intact, moves all 4s on command SKIN: No rash or jaundice noted. Medical Decision & Procedures ER Provider Diagnostic Interpretation: X-ray: Per my interpretation, radiologist review. CHEST 2 VIEWS ROUTINE CLINICAL HISTORY: EVALUATE RESPIRATORY DISTRESS.DYSPNEA dyspnea COMPARISON STUDY: 10/30/2017 FINDINGS: Stable to slightly improved postoperative changes left hemithorax. Improved interstitial infiltrative change right base with minimal residual. No evidence for pneumothorax. IMPRESSION: Improved exam with minimal if any residual infiltrative change right base. No evidence for pneumothorax. The above report was generated using voice recognition software. It may contain grammatical, syntax or spelling errors. Electronically signed by: Venkat Lara M.D. 11/11/2017 11:18 AM Dictated Date/Time: 11/11/2017 11:17 AM Laboratory Results 11/11/17 10:21 Red Blood Count 5.16, Mean Corpuscular Volume 93.6, Mean Corpuscular Hemoglobin 32.6, Mean Corpuscular Hemoglobin Concent 34.8, Mean Platelet Volume 10.3, Neutrophils (%) (Auto) 53.2, Lymphocytes (%) (Auto) 35.0, Monocytes (%) (Auto) 9.5, Eosinophils (%) (Auto) 1.7, Basophils (%) (Auto) 0.4, Neutrophils # (Auto) 5.08, Lymphocytes # (Auto) 3.35, Monocytes # (Auto) 0.91, Eosinophils # (Auto) 0.16, Basophils # (Auto) 0.04 11/11/17 10:21 Test 11/11/17 10:21 11/11/17 13:40 11/11/17 15:21 White Blood Count 9.56 K/uL (4.8-10.8) Red Blood Count 5.16 M/uL (4.7-6.1) Hemoglobin 16.8 g/dL (14.0-18.0) Hematocrit 48.3 % (42-52) Mean Corpuscular Volume 93.6 fL (80-100) Mean Corpuscular Hemoglobin 32.6 pg (25-34) Mean Corpuscular Hemoglobin Concent 34.8 g/dl (32-36) Platelet Count 361 K/uL (130-400) Mean Platelet Volume 10.3 fL (7.4-10.4) Neutrophils (%) (Auto) 53.2 % Lymphocytes (%) (Auto) 35.0 % Monocytes (%) (Auto) 9.5 % Eosinophils (%) (Auto) 1.7 % Basophils (%) (Auto) 0.4 % Neutrophils # (Auto) 5.08 K/uL (1.4-6.5) Lymphocytes # (Auto) 3.35 K/uL (1.2-3.4) Monocytes # (Auto) 0.91 K/uL (0.11-0.59) Eosinophils # (Auto) 0.16 K/uL (0-0.5) Basophils # (Auto) 0.04 K/uL (0-0.2) RDW Standard Deviation 50.0 fL (36.4-46.3) RDW Coefficient of Variation 14.7 % (11.5-14.5) Immature Granulocyte % (Auto) 0.2 % Immature Granulocyte # (Auto) 0.02 K/uL (0.00-0.02) Prothrombin Time 10.9 SECONDS (9.0-12.0) Prothromb Time International Ratio 1.0 (0.9-1.1) Activated Partial Thromboplast Time 26.7 SECONDS (21.0-31.0) Partial Thromboplastin Ratio 1.0 Anion Gap 11.0 mmol/L (3-11) Est Creatinine Clear Calc Drug Dose 55.0 ml/min Estimated GFR () 66.0 Estimated GFR (Non- 57.0 BUN/Creatinine Ratio 23.3 (10-20) Calcium Level 9.3 mg/dl (8.5-10.1) Total Bilirubin 0.5 mg/dl (0.2-1) Direct Bilirubin 0.1 mg/dl (0-0.2) Aspartate Amino Transf (AST/SGOT) 16 U/L (15-37) Alanine Aminotransferase (ALT/SGPT) 24 U/L (12-78) Alkaline Phosphatase 49 U/L (45-117) Troponin I < 0.015 ng/ml (0-0.045) Pro-B-Type Natriuretic Peptide 19 pg/ml (0-900) Total Protein 9.2 gm/dl (6.4-8.2) Albumin 4.2 gm/dl (3.4-5.0) Thyroid Stimulating Hormone (TSH) 1.250 uIu/ml (0.300-4.500) Ethyl Alcohol mg/dL < 3.0 mg/dl (0-3) Salicylates Level < 1.7 mg/dl (2.8-20) Acetaminophen Level < 2 ug/ml (10-30) Urine Color DK YELLOW Urine Appearance CLEAR (CLEAR) Urine pH 5.0 (4.5-7.5) Urine Specific [place] 1.027 (1.000-1.030) Urine Protein NEG (NEG) Urine Glucose (UA) NEG (NEG) Urine Ketones 1+ (NEG) Urine Occult Blood 2+ (NEG) Urine Nitrite NEG (NEG) Urine Bilirubin NEG (NEG) Urine Urobilinogen NEG (NEG) Urine Leukocyte Esterase TRACE (NEG) Urine WBC (Auto) 1-5 /hpf (0-5) Urine RBC (Auto) >30 /hpf (0-4) Urine Hyaline Casts (Auto) 5-10 /lpf (0-5) Urine Epithelial Cells (Auto) 10-20 /lpf (0-5) Urine Bacteria (Auto) NEG (NEG) Urine Pathogenic Casts /lpf (0) Urine Opiates Screen POS (NEG) Urine Methadone, Qualitative NEG (NEG) Urine Barbiturates NEG (NEG) Urine Phencyclidine (PCP) Level NEG (NEG) Ur Amphetamine/Methamphetamine NEG (NEG) MDMA (Ecstasy) Screen NEG (NEG) Urine Benzodiazepines Screen NEG (NEG) Urine Cocaine Metabolite NEG (NEG) Urine Marijuana (THC) NEG (NEG) Laboratory results reviewed by me Medications Administered Medications (Trade) Dose Ordered Sig/Rudy Route Start Time Stop Time Status Last Admin Dose Admin Sodium Chloride 1,000 ml @ 999 mls/hr Q1H1M STAT IV 11/11/17 12:15 11/11/17 13:15 DC 11/11/17 12:15 999 MLS/HR ECG Per My Interpretation Indication: SOB/dyspnea Rate (beats per minute): 91 Rhythm: normal sinus Findings: other (normal intervals, normal axis) Comparison ECG Date: compared to 11/09/17, there are subtle changes in lateral leads ED Course 0946: The patient was evaluated in room B5. A complete history and physical exam was performed. 1558: I reevaluated the patient and he is resting comfortably. Discussed results and discharge instructions: he verbalized understanding and agreement. The patient is ready for discharge. Medical Decision The patient is a 52 year old male with a past medical history of pneumonia and psychiatric issues who presents to the ED with worsening respiratory problems beginning this week. Positive abdominal pain, hallucinations, shortness of breath, cough. Negative nausea, vomiting, fevers, chills. Differential diagnosis: Etiologies such as infections, reactive airway disease, pneumonia, pneumothorax , COPD, CHF, cardiac ischemia, pulmonary embolism, musculoskeletal, gastrointestinal, as well as others were entertained. Prior records were reviewed. Patient was seen and evaluated the bedside. 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 The patient is on status post be on an antifungal for about 6 weeks time. Patient was referred here as there was some concern of a pneumonia. Not much other history is obtained except that the guards to state the patient was fairly paranoid and hiding under a sink prior to being given Haldol and Ativan. The patient is not awake or alert but is easily arousable. Patient will answer basic questions. Patient has no focal neuro deficits. Patient has no signs of meningismus. Patient does have a softer blood pressure this may be related to possible sickness versus the medications he was given especially the patient is lying supine and does not have any compensatory tachycardia. Patient did have blood work completed along with EKG, chest x-ray, troponin. Patient also did have a tox screen, and urinalysis. Chest x-ray appeared improved from prior. Patient did have a normal white blood cell count the patient does not have a left shift. Patient did have mild AK I as well as a bicarb of 19. There is no anion gap. Patient was given 2 L of IV fluids. The patient is afebrile the patient has no signs of meningismus. Patient did have urinalysis that was negative. The patient's tox screen was positive for opiates but negative for salicylates, Tylenol, or ethanol. Patient was slightly more conversational upon reassessment and was stated also by the nurse. Given that the patient is not tachycardic has no overt signs of infection I do not believe that he requires further evaluation and treatment. There is psych care available at the half-way. Given that the patient was given Ativan and Haldol of unknown quantities prior to arrival this is the likely reason for his decreased alertness given that he apparently was very awake alert and paranoid prior to arrival. The patient is suitable for outpatient follow-up treatment at this time. Patient was given strict follow-up, discharge , and return precautions. All questions were answered. Patient was deemed suitable for outpatient follow-up at this time. Patient agreed with the plan of care and was safely discharged home. Medication Reconcilliation Current Medication List: was personally reviewed by me Blood Pressure Screening Patient's blood pressure: Normal blood pressure Impression Primary Impression: Paranoia (psychosis) Additional Impression: Cough Scribe Attestation The scribe's documentation has been prepared under my direction and personally reviewed by me in its entirety. I confirm that the note above accurately reflects all work, treatment, procedures, and medical decision making performed by me. Departure Information Dispostion Home / Self-Care Referrals Eric FERNANDES (PCP) Patient Instructions My [facility] Additional Instructions Please return to the emergency department if you have worsening or recurrent symptoms not amenable to at-home treatment. Please call for a follow-up appointment with her primary care physician. Please take your medications as prescribed. If you have other concerns and/or complaints please feel free to also call your primary care physician's office or return the ED for further evaluation, management, and treatment. You were found to have an elevated blood pressure today (>120 sytolic or >90 diastolic). Per medicare guidelines, you need to follow up with this blood pressure screening with your Primary Care Physician (PCP). For a new PCP call [phone]. You received narcotic or benzodiazepene medication while in the emergency room today. This is an addictive medication that may cause drowziness as well as constipation. Do not drive, operate heavy machinery, or drink alcohol under the influence of this medication. You may take 600 mg Ibuprofen every 6 hours as needed for pain with food for no more than 2 consecutive days. You may take tylenol 1000 mg every 6 hours as needed for pain. You may take motrin and tylenol separately or at the same time. Take your medications as prescribed. If taking an antibiotic consider taking a probiotic and/or eating yogurt, but at the least, please take with food as it can cause upset stomach. If culture results are not available at discharge, if they are positive for concern of infection, you will be informed of the results as soon as they are available. If you were seen between 11pm and 7AM all radiology reads will be re-read by our in house staff. If any major discrepancies are discovered, you will be notified. You have been examined and treated today on an emergency basis only. This is not a substitute for, or an effort to provide, complete comprehensive medical care. It is impossible to recognize and treat all injuries or illnesses in a single emergency department visit. It is therefore important that you follow up closely with [facility], your PCP, and/or your specialist(s). Call as soon as possible for an appointment. Thank you for your time and consideration. I look forward to speaking with you again soon. Please don't hesitate to call us if you have any questions. Problem Qualifiers
[2017-11-11 10:46] LABS: BASO % 0.4 %; BASO ABS # 0.04 K/uL (0-0.2); EOS % 1.7 %; EOS ABS # 0.16 K/uL (0-0.5); HEMATOCRIT 48.3 % (42-52); HEMOGLOBIN 16.8 g/dL (14.0-18.0); IG# 0.02 K/uL (0.00-0.02); LYMPH ABS # 3.35 K/uL (1.2-3.4); MEAN CELL VOLUME 93.6 fL (80-100); MEAN CORPUSCULAR HEMOGLOBIN 32.6 pg (25-34); MEAN CORPUSCULAR HGB CONC 34.8 g/dl (32-36); MEAN PLATELET VOLUME 10.3 fL (7.4-10.4); MONO % 9.5 %; MONO ABS # 0.91 K/uL (0.11-0.59); NEUT % 53.2 %; NEUT ABS # 5.08 K/uL (1.4-6.5); PLATELET COUNT 361 K/uL (130-400); RED CELL DISTRIBUTION WIDTH CV 14.7 % (11.5-14.5); WHITE BLOOD COUNT 9.56 K/uL (4.8-10.8)
[2017-11-11 10:54] LABS: PTT PATIENT 26.7 SECONDS (21.0-31.0)
[2017-11-11] MEDS ORDERED: RISP0.5T10 PO (10:57)
[2017-11-11 11:06] LABS: ALBUMIN 4.2 gm/dl (3.4-5.0); ALT/SGPT 24 U/L (12-78); BLOOD UREA NITROGEN 33 mg/dl (7-18); CALCIUM 9.3 mg/dl (8.5-10.1); CARBON DIOXIDE 19 mmol/L (21-32); GLUCOSE 85 mg/dl (70-99); POTASSIUM 4.9 mmol/L (3.5-5.1); SODIUM 134 mmol/L (136-145)
[2017-11-11 11:19] LABS: ALKALINE PHOSPHATASE 49 U/L (45-117); AST/SGOT 16 U/L (15-37); TOTAL PROTEIN 9.2 gm/dl (6.4-8.2)
--- NOTE | 2017-11-11 11:20 | DIAGNOSTIC IMAGING REPORT ---
CHEST 2 VIEWS ROUTINE CLINICAL HISTORY: EVALUATE RESPIRATORY DISTRESS.DYSPNEA dyspnea COMPARISON STUDY: 10/30/2017 FINDINGS: Stable to slightly improved postoperative changes left hemithorax. Improved interstitial infiltrative change right base with minimal residual. No evidence for pneumothorax. IMPRESSION: Improved exam with minimal if any residual infiltrative change right base. No evidence for pneumothorax. The above report was generated using voice recognition software. It may contain grammatical, syntax or spelling errors. Electronically signed by: Venkat Lara M.D. 11/11/2017 11:18 AM Dictated Date/Time: 11/11/2017 11:17 AM
[2017-11-11] MEDS ORDERED: SODIUM CHLORIDE 0.9% 1000ML 1,000 ML IV STA (12:15)
[2017-11-11 16:56] VITALS: BP 95/73; PULSE 90; O2SAT 93
[2017-11-12] MEDS ORDERED: GUAI400T44 PO (09:05)
[2017-11-12] MEDS ORDERED: SULF800T23 PO (09:10)
[2017-11-12] MEDS ORDERED: VORI1TAB9 PO (09:12)
[2017-11-12] MEDS ORDERED: FURO-85 PO (10:45)
[2017-11-12] MEDS ORDERED: UMEC1INH INH (10:45)
[2017-11-12] MEDS ORDERED: FLM4 PO (10:45)
[2017-11-12] MEDS ORDERED: MAGNSUS73 PO (10:45)
[2017-11-12] MEDS ORDERED: METF1TAB53 PO (10:45)
[2017-11-12] MEDS ORDERED: GLIP-199 PO (10:45)
[2017-11-12] MEDS ORDERED: FINA5TAB PO (10:45)
[2017-11-12] MEDS ORDERED: ASPI81TA28 PO (10:45)
[2017-11-12] MEDS ORDERED: ATOR10TA82 PO (10:45)
[2017-11-12] MEDS ORDERED: CARV3.122 PO (10:45)
[2017-11-12] MEDS ORDERED: LSN25 PO (10:57)
[2017-11-12] MEDS ORDERED: ACET-749 PO (10:57)
[2017-11-12] MEDS ORDERED: RISP1TAB68 PO (17:18)
[2017-11-12] MEDS ORDERED: CALC625T PO (17:18)
[2017-11-12] MEDS ORDERED: CICL160A INH (17:18)
[2017-11-12] MEDS ORDERED: LEVA45AE INH (17:18)
== END 2017-11-11 16:54 | disposition home or self-care (01) ==
LOC: C.EDB 08:47
DX: F22 Delusional disorders (principal); R05 Cough; R10.10 Upper abdominal pain, unspecified; R06.02 Shortness of breath; E11.9 Type 2 diabetes mellitus without complications; Z79.84 Long term (current) use of oral hypoglycemic drugs; Z79.82 Long term (current) use of aspirin; Z87.01 Personal history of pneumonia (recurrent)

== ENCOUNTER 2017-11-12 15:35 | Emergency (ER) | payer OTHER ==
[~2017-11-12] VITALS: Ht 167.6 cm; Wt 74.0 kg
[~2017-11-12 15:35] MED LIST changes: +ACET-749 PO; +ASPI81TA28 PO; +ATOR10TA82 PO; +CARV3.122 PO; +FINA5TAB PO; +FLM4 PO; +FURO-85 PO; +GLIP-199 PO; +GUAI400T44 PO; -LISI-729 PO; +LSN25 PO; +MAGNSUS73 PO; +METF1TAB53 PO; +RISP0.5T10 PO; +SULF800T23 PO; -TYLENOL CODEINE PO; +UMEC1INH INH; +VORI1TAB9 PO
[2017-11-12 15:46] VITALS: TEMP 36.7; Ht 167.6 cm; Wt 74.0 kg
[2017-11-12] MEDS ORDERED: KETOROLAC TROMETHAMINE 30 MG/ML VIAL IV STA (16:02)
[2017-11-12] MEDS ORDERED: SODIUM CHLORIDE 0.9% 1000ML 1,000 ML IV STA (16:02)
[2017-11-12 16:35] LABS: BASO % 0.3 %; BASO ABS # 0.02 K/uL (0-0.2); EOS % 2.6 %; EOS ABS # 0.15 K/uL (0-0.5); HEMATOCRIT 47.6 % (42-52); HEMOGLOBIN 16.4 g/dL (14.0-18.0); IG# 0.02 K/uL (0.00-0.02); LYMPH % 41.7 %; LYMPH ABS # 2.42 K/uL (1.2-3.4); MEAN CELL VOLUME 93.2 fL (80-100); MEAN CORPUSCULAR HEMOGLOBIN 32.1 pg (25-34); MEAN CORPUSCULAR HGB CONC 34.5 g/dl (32-36); MEAN PLATELET VOLUME 10.3 fL (7.4-10.4); MONO ABS # 0.64 K/uL (0.11-0.59); NEUT % 44.1 %; NEUT ABS # 2.56 K/uL (1.4-6.5); PLATELET COUNT 351 K/uL (130-400); RED CELL DISTRIBUTION WIDTH CV 14.4 % (11.5-14.5); RED CELL DISTRIBUTION WIDTH SD 48.7 fL (36.4-46.3); WHITE BLOOD COUNT 5.81 K/uL (4.8-10.8)
--- NOTE | 2017-11-12 16:54 | DIAGNOSTIC IMAGING REPORT ---
CT SCAN OF THE BRAIN WITHOUT IV CONTRAST CLINICAL HISTORY: Weakness. Change in mental status. COMPARISON STUDY: CT the brain dated 11/09/2017. TECHNIQUE: Unenhanced axial CT scan of the brain is performed from the vertex to the skull base. A dose lowering technique was utilized adhering to the principles of ALARA. FINDINGS: Brain parenchyma: The brain parenchyma is normal in appearance. There is no hemorrhage, mass effect, or evidence of acute territorial ischemia by CT criteria. Gaines-white matter is preserved. No extra-axial fluid collection is seen. Ventricles, sulci, cisterns: Normal in configuration. Intracranial vasculature: The visualized intracranial vasculature at the skull base is normal in appearance. Calvarium: Unremarkable. Sinuses and mastoids: The visualized paranasal sinuses are clear. The mastoid air cells are well pneumatized. Orbits: The bony orbits are grossly intact. IMPRESSION: There is no hemorrhage, mass effect, or evidence of acute territorial ischemia by CT criteria. Electronically signed by: Cash Finch M.D. 11/12/2017 4:53 PM Dictated Date/Time: 11/12/2017 4:51 PM
--- NOTE | 2017-11-12 17:02 | DIAGNOSTIC IMAGING REPORT ---
CT SCAN OF THE PARANASAL SINUSES CLINICAL HISTORY: Sinusitis. COMPARISON STUDY: CT of the brain performed concurrently on 11/12/2017. TECHNIQUE: High-resolution CT scan of the paranasal sinuses is performed. Images are reviewed in the axial, sagittal, and coronal planes. IV contrast was not administered for this examination. A dose lowering technique was utilized adhering to the principles of ALARA. FINDINGS: Maxillary antra: There is mild to moderate mucosal thickening in the left maxillary antrum. Trace mucosal thickening seen in the right maxillary antrum. Anterior ethmoid sinuses: Trace mucosal thickening is seen on the left. Clear on the right. Posterior ethmoid sinuses: Clear. Sphenoid sinuses: Clear. Frontal sinuses: Mild mucosal thickening is seen on the left. Clear on the right. Ostiomeatal complexes: Patent bilaterally, with narrowing on the left secondary to mucosal thickening. Frontoethmoidal and sphenoethmoidal recesses: Patent bilaterally. Carotid arteries: The carotid arteries are covered and without septal attachments. Ethmoid roofs: The ethmoid roofs are symmetric. Nasal turbinates: There is mild edin bullosa of the left middle nasal turbinate. Nasal septum: There is minimal rightward deviation of the bony nasal septum. Optic nerves: Covered. Orbits: There is evidence of a remote fracture of the right lamina papyracea. The bony orbits are otherwise intact. Orbital contents are normal in appearance. Calvarium: The imaged calvarium is normal in appearance Mastoid air cells: Well pneumatized. Brain parenchyma: Partially visualized brain parenchyma is within normal limits. Dentition: Numerous dental caries are identified. IMPRESSION: 1. Mild paranasal sinus disease as above. 2. There are numerous dental caries. Follow-up with dentistry is recommended. Electronically signed by: Cash Finch M.D. 11/12/2017 5:01 PM Dictated Date/Time: 11/12/2017 4:53 PM
--- NOTE | 2017-11-12 17:03 | DIAGNOSTIC IMAGING REPORT ---
SINGLE VIEW CHEST CLINICAL HISTORY: Change in mental status. Weakness. FINDINGS: An AP, portable, upright chest radiograph is compared to study dated 11/11/2017. Correlation is made with chest CT dated 10/27/2017. The examination is degraded by portable technique and patient rotation. The cardiomediastinal silhouette is unremarkable. Emphysema and chronic interstitial thickening are similar to previous. Volume loss in the left lung and suture material project over the left upper lobe are consistent with previous surgical resection. No airspace consolidation or large pleural effusion is identified. No pneumothorax is seen. The bony thorax is grossly intact. IMPRESSION: 1. Emphysema and postoperative change from previous left-sided pulmonary resection. 2. No airspace consolidation or large pleural effusion is identified. Electronically signed by: Cash Finch M.D. 11/12/2017 5:02 PM Dictated Date/Time: 11/12/2017 5:01 PM
[2017-11-12 17:13] LABS: BLOOD UREA NITROGEN 24 mg/dl (7-18); CREATININE 0.96 mg/dl (0.60-1.40); GLUCOSE 89 mg/dl (70-99); SODIUM 133 mmol/L (136-145)
[2017-11-12 17:14] LABS: ALBUMIN 4.1 gm/dl (3.4-5.0); ALT/SGPT 31 U/L (12-78); AST/SGOT 22 U/L (15-37); CALCIUM 9.3 mg/dl (8.5-10.1); CARBON DIOXIDE 21 mmol/L (21-32); POTASSIUM 4.1 mmol/L (3.5-5.1); TOTAL PROTEIN 9.1 gm/dl (6.4-8.2)
[2017-11-12 17:15] LABS: ALKALINE PHOSPHATASE 48 U/L (45-117); CKMB 1.2 ng/ml (0.5-3.6); LIPASE 146 U/L (73-393)
[2017-11-12] MEDS ORDERED: CALC625T PO (17:18)
[2017-11-12] MEDS ORDERED: CICL160A INH (17:18)
[2017-11-12] MEDS ORDERED: RISP1TAB68 PO (17:18)
[2017-11-12] MEDS ORDERED: LEVA45AE INH (17:18)
[2017-11-12 18:17] LABS: PTT PATIENT 26.1 SECONDS (21.0-31.0)
--- NOTE | 2017-11-12 18:34 | EMERGENCY ROOM VISIT NOTE ---
History Report prepared by Judith: Viki Zuniga Under the Supervision of: Dr. Karson Gomez D.O. First contact with patient: 15:50 Chief Complaint: ALTERED MENTAL STATUS Stated Complaint: PSYCH EVAL History of Present Illness The patient is a 52 year old male who presents to the Emergency Room with complaints of persistent rib pain starting 1 week ago. The patient reports that he had a procedure where they took a piece of his lung 1 week or so ago. He has been having pain since then. He denies any SOB. He has a history of COPD. He has also been having auditory and visual hallucinations. Source of History: patient Onset: 1 week ago Position: other (left rib) Quality: other (pain) Timing: other (persistent) Associated Symptoms: No SOB Note: Pt reports hallucinations. Review of Systems See HPI for pertinent positives & negatives. A total of 10 systems reviewed and were otherwise negative. Past Medical & Surgical Medical Problems: (1) Pneumonia with cavity of lung Family History No pertinent family history Social History Smoking Status: Former Smoker Drug Use: none Housing Status: other Occupation Status: other Current/Historical Medications Scheduled Aspirin (Aspirin Ec), 81 MG PO QAM Atorvastatin (Lipitor), 10 MG PO HS Calcium Polycarbophil (Fibercon), 1 CAP PO BID Carvedilol (Coreg), 3.125 MG PO BID Ciclesonide (Alvesco), 2 PUFFS INH BID Ciclesonide (Alvesco), 2 PUFFS INH BID Fiber Laxative (Fiber Laxative), 1 TBS PO BID Finasteride (Proscar), 5 MG PO QAM Furosemide (Lasix), 20 MG PO QAM Glipizide (Glipizide Er), 1 TAB PO QAM Guaifenesin (Guaifenesin), 2 TABS PO BID Lisinopril (Lisinopril), 2.5 MG PO DAILY Magnesium Hydroxide (Milk of Magnesia 400 mg/5Ml), 30 ML PO QAM Metformin Hcl (Glucophage Ext Rel), 1 TAB PO BID Risperidone (Risperdal), 1 MG PO BID Sulfa/Trimethoprim (Bactrim Ds 800MG/160MG), 1 TAB PO BID Tamsulosin HCl (Tamsulosin HCl), 1 CAP PO QAM Umeclidinium [place] (Incruse Ellipta), 1 PUFF INH QAM Voriconazole (Vfend), 1 TAB PO BID Scheduled PRN Acetaminophen/Codeine (Tylenol W/Codeine #3), 2 TAB PO Q4 PRN for Pain Levalbuterol Tartrate (Levalbuterol Tartrate Hfa), 2 PUFF INH QID PRN for SOB/ Wheezing Allergies Coded Allergies: No Known Allergies (Unverified , 11/12/17) Physical Exam Vital Signs Date Time Temp Pulse Resp B/P (MAP) Pulse Ox O2 Delivery O2 Flow Rate FiO2 11/12/17 17:47 81 18 111/76 95 Room Air 11/12/17 16:26 91 11/12/17 15:46 36.7 104 20 92/61 91 Room Air Physical Exam CONSTITUTIONAL/VITAL SIGNS: Reviewed / noted above. GENERAL: Non-toxic in appearance. INTEGUMENTARY: Warm, dry, and [place]. HEAD: Normocephalic. EYES: without scleral icterus or trauma. ENT/OROPHARYNX: clear and moist. LYMPHADENOPATHY/NECK: Is supple without lymphadenopathy or meningismus. RESPIRATORY: Lungs clear and equal. CARDIOVASCULAR: Regular rate and rhythm. GI/ABDOMEN: Soft and nontender. No organomegaly or pulsatile mass. No rebound or guarding. Normal bowel sounds. EXTREMITIES: Warm and well perfused. BACK: No CVA tenderness. NEUROLOGICAL: Intact without focal deficits. PSYCHIATRIC: normal affect. MUSCULOSKELETAL: Normally developed with good muscle tone. Medical Decision & Procedures ER Provider Diagnostic Interpretation: X ray results and stated below per my interpretation and radiology interpretation. Radiology results as stated below per my review and radiologist interpretation: SINGLE VIEW CHEST CLINICAL HISTORY: Change in mental status. Weakness. FINDINGS: An AP, portable, upright chest radiograph is compared to study dated 11/11/2017. Correlation is made with chest CT dated 10/27/2017. The examination is degraded by portable technique and patient rotation. The cardiomediastinal silhouette is unremarkable. Emphysema and chronic interstitial thickening are similar to previous. Volume loss in the left lung and suture material project over the left upper lobe are consistent with previous surgical resection. No airspace consolidation or large pleural effusion is identified. No pneumothorax is seen. The bony thorax is grossly intact. IMPRESSION: 1. Emphysema and postoperative change from previous left-sided pulmonary resection. 2. No airspace consolidation or large pleural effusion is identified. Electronically signed by: Cash Finch M.D. 11/12/2017 5:02 PM Dictated Date/Time: 11/12/2017 5:[address] SCAN OF THE BRAIN WITHOUT IV CONTRAST CLINICAL HISTORY: Weakness. Change in mental status. COMPARISON STUDY: CT the brain dated 11/09/2017. TECHNIQUE: Unenhanced axial CT scan of the brain is performed from the vertex to the skull base. A dose lowering technique was utilized adhering to the principles of ALARA. FINDINGS: Brain parenchyma: The brain parenchyma is normal in appearance. There is no hemorrhage, mass effect, or evidence of acute territorial ischemia by CT criteria. Gaines-white matter is preserved. No extra-axial fluid collection is seen. Ventricles, sulci, cisterns: Normal in configuration. Intracranial vasculature: The visualized intracranial vasculature at the skull base is normal in appearance. Calvarium: Unremarkable. Sinuses and mastoids: The visualized paranasal sinuses are clear. The mastoid air cells are well pneumatized. Orbits: The bony orbits are grossly intact. IMPRESSION: There is no hemorrhage, mass effect, or evidence of acute territorial ischemia by CT criteria. Electronically signed by: Cash Finch M.D. 11/12/2017 4:53 PM Dictated Date/Time: 11/12/2017 4:[address] SCAN OF THE PARANASAL SINUSES CLINICAL HISTORY: Sinusitis. COMPARISON STUDY: CT of the brain performed concurrently on 11/12/2017. TECHNIQUE: High-resolution CT scan of the paranasal sinuses is performed. Images are reviewed in the axial, sagittal, and coronal planes. IV contrast was not administered for this examination. A dose lowering technique was utilized adhering to the principles of ALARA. FINDINGS: Maxillary antra: There is mild to moderate mucosal thickening in the left maxillary antrum. Trace mucosal thickening seen in the right maxillary antrum. Anterior ethmoid sinuses: Trace mucosal thickening is seen on the left. Clear on the right. Posterior ethmoid sinuses: Clear. Sphenoid sinuses: Clear. Frontal sinuses: Mild mucosal thickening is seen on the left. Clear on the right. Ostiomeatal complexes: Patent bilaterally, with narrowing on the left secondary to mucosal thickening. Frontoethmoidal and sphenoethmoidal recesses: Patent bilaterally. Carotid arteries: The carotid arteries are covered and without septal attachments. Ethmoid roofs: The ethmoid roofs are symmetric. Nasal turbinates: There is mild edin bullosa of the left middle nasal turbinate. Nasal septum: There is minimal rightward deviation of the bony nasal septum. Optic nerves: Covered. Orbits: There is evidence of a remote fracture of the right lamina papyracea. The bony orbits are otherwise intact. Orbital contents are normal in appearance. Calvarium: The imaged calvarium is normal in appearance Mastoid air cells: Well pneumatized. Brain parenchyma: Partially visualized brain parenchyma is within normal limits. Dentition: Numerous dental caries are identified. IMPRESSION: 1. Mild paranasal sinus disease as above. 2. There are numerous dental caries. Follow-up with dentistry is recommended. Electronically signed by: Cash Finch M.D. 11/12/2017 5:01 PM Dictated Date/Time: 11/12/2017 4:53 PM Laboratory Results 11/12/17 16:15 Red Blood Count 5.11, Mean Corpuscular Volume 93.2, Mean Corpuscular Hemoglobin 32.1, Mean Corpuscular Hemoglobin Concent 34.5, Mean Platelet Volume 10.3, Neutrophils (%) (Auto) 44.1, Lymphocytes (%) (Auto) 41.7, Monocytes (%) (Auto) 11.0, Eosinophils (%) (Auto) 2.6, Basophils (%) (Auto) 0.3, Neutrophils # (Auto ) 2.56, Lymphocytes # (Auto) 2.42, Monocytes # (Auto) 0.64, Eosinophils # (Auto ) 0.15, Basophils # (Auto) 0.02 11/12/17 16:15 Test 11/12/17 16:02 11/12/17 16:15 11/12/17 17:22 Creatine Kinase MB Ratio (0-3.0) White Blood Count 5.81 K/uL (4.8-10.8) Red Blood Count 5.11 M/uL (4.7-6.1) Hemoglobin 16.4 g/dL (14.0-18.0) Hematocrit 47.6 % (42-52) Mean Corpuscular Volume 93.2 fL (80-100) Mean Corpuscular Hemoglobin 32.1 pg (25-34) Mean Corpuscular Hemoglobin Concent 34.5 g/dl (32-36) Platelet Count 351 K/uL (130-400) Mean Platelet Volume 10.3 fL (7.4-10.4) Neutrophils (%) (Auto) 44.1 % Lymphocytes (%) (Auto) 41.7 % Monocytes (%) (Auto) 11.0 % Eosinophils (%) (Auto) 2.6 % Basophils (%) (Auto) 0.3 % Neutrophils # (Auto) 2.56 K/uL (1.4-6.5) Lymphocytes # (Auto) 2.42 K/uL (1.2-3.4) Monocytes # (Auto) 0.64 K/uL (0.11-0.59) Eosinophils # (Auto) 0.15 K/uL (0-0.5) Basophils # (Auto) 0.02 K/uL (0-0.2) RDW Standard Deviation 48.7 fL (36.4-46.3) RDW Coefficient of Variation 14.4 % (11.5-14.5) Immature Granulocyte % (Auto) 0.3 % Immature Granulocyte # (Auto) 0.02 K/uL (0.00-0.02) Anion Gap 9.0 mmol/L (3-11) Est Creatinine Clear Calc Drug Dose 80.3 ml/min Estimated GFR () 104.2 Estimated GFR (Non- 89.9 BUN/Creatinine Ratio 25.0 (10-20) Calcium Level 9.3 mg/dl (8.5-10.1) Magnesium Level 2.3 mg/dl (1.8-2.4) Total Bilirubin 0.4 mg/dl (0.2-1) Direct Bilirubin 0.1 mg/dl (0-0.2) Aspartate Amino Transf (AST/SGOT) 22 U/L (15-37) Alanine Aminotransferase (ALT/SGPT) 31 U/L (12-78) Alkaline Phosphatase 48 U/L (45-117) Total Creatine Kinase 193 U/L (39-308) Creatine Kinase MB 1.2 ng/ml (0.5-3.6) Troponin I < 0.015 ng/ml (0-0.045) Total Protein 9.1 gm/dl (6.4-8.2) Albumin 4.1 gm/dl (3.4-5.0) Lipase 146 U/L (73-393) Thyroid Stimulating Hormone (TSH) 0.793 uIu/ml (0.300-4.500) Prothrombin Time 11.0 SECONDS (9.0-12.0) Prothromb Time International Ratio 1.0 (0.9-1.1) Activated Partial Thromboplast Time 26.1 SECONDS (21.0-31.0) Partial Thromboplastin Ratio 1.0 Laboratory results as stated above per my review. Medications Administered Medications (Trade) Dose Ordered Sig/Rudy Route Start Time Stop Time Status Last Admin Dose Admin Sodium Chloride 1,000 ml @ 999 mls/hr Q1H1M STAT IV 11/12/17 16:02 11/12/17 17:02 DC 11/12/17 16:27 999 MLS/HR Ketorolac Tromethamine (Toradol Inj) 30 mg NOW STAT IV 11/12/17 16:02 11/12/17 16:04 DC 11/12/17 16:32 30 MG ECG Per My Interpretation Indication: chest pain Rate (beats per minute): 89 Rhythm: normal sinus Findings: no ectopy, other (no ST elevation) ED Course 1553: Previous medical records were reviewed. The patient was evaluated in room A10. A complete history and physical examination was performed. 1602: Toradol Inj 30 mg IV, Sodium Chloride 1000 ml @ 999 mls/hr IV. 1827: On reevaluation, the patient is resting comfortably. I discussed the results and findings with the patient. He verbalized agreement of the treatment plan. He was discharged back to [facility]. Medical Decision Differential includes acute coronary syndrome, myocardial infarction, CVA, TIA, anemia, infection, pneumonia, UTI, pyelonephritis, poor nutrition, dehydration, electrolyte disturbance,hypoglycemia. This is a 52-year-old male who presents to the ED with a chief complaint of left -sided rib pain. The patient has also been hearing and seeing things. The patient reports that he had a wedge resection of his left long a week ago. I did review the culture results and nothing showed up on the culture results. The patient's vital signs are stable. His physical exam was unremarkable. The patient is acting normally. Reports only left-sided chest pain. Does not report any other significant issues. A 12-lead EKG shows a normal sinus rhythm at a rate of 89. CT scan of the brain did not show acute process. A CT scan of the sinuses revealed mild sinus disease with dental caries. Dental follow- up was recommended. Chest x-ray was negative for acute disease. CBC is normal , TSH was normal, complete metabolic panel was unremarkable and troponin was negative. The patient was told the results of the test. He is felt to be stable for discharge and outpatient follow-up. Medication Reconcilliation Current Medication List: was personally reviewed by me Blood Pressure Screening Patient's blood pressure: Normal blood pressure Blood pressure disposition: Did not require urgent referral Impression Primary Impression: Dental caries Additional Impression: Left-sided chest wall pain Scribe Attestation The scribe's documentation has been prepared under my direction and personally reviewed by me in its entirety. I confirm that the note above accurately reflects all work, treatment, procedures, and medical decision making performed by me. Departure Information Dispostion Home / Self-Care Referrals Eric FERNANDES (PCP) Patient Instructions My [facility] Additional Instructions A CT scan of the sinuses revealed dental caries. Dental follow-up is recommended. Follow-up with your doctor for further care and evaluation in 1-2 days. Return to the emergency department for worsening or new symptoms or any concerns. You have been examined and treated today on an emergency basis only. This is not a substitute for, or an effort to provide, complete comprehensive medical care. It is impossible to recognize and treat all injuries or illnesses in a single emergency department visit. It is therefore important that you follow up closely with your doctor. Call as soon as possible for an appointment. Problem Qualifiers
[2017-11-12 18:45] VITALS: BP 111/76; PULSE 85; O2SAT 94
== END 2017-11-12 18:50 | disposition home or self-care (01) ==
LOC: C.EDB 15:36 → C.EDA 18:50
DX: R07.89 Other chest pain (principal); K02.9 Dental caries, unspecified; Z98.890 Other specified postprocedural states; J44.9 Chronic obstructive pulmonary disease, unspecified; Z87.01 Personal history of pneumonia (recurrent); Z87.891 Personal history of nicotine dependence; Z79.82 Long term (current) use of aspirin; Z79.84 Long term (current) use of oral hypoglycemic drugs; Z79.899 Other long term (current) drug therapy

== ENCOUNTER 2018-01-07 13:03 | Inpatient (IN) | payer OTHER ==
[~2018-01-07] VITALS: Ht 167.6 cm; Wt 67.4 kg
[~2018-01-07 13:03] MED LIST changes: -ACET-749 PO; +ACET300T3 PO; +CALC625T PO; +CICL160A INH; -RISP0.5T10 PO; +RISP1TAB68 PO
[2018-01-07] MEDS ORDERED: ONDANSETRON INJ 2 MG/ML 2 ML VIAL IV STA (13:26)
[2018-01-07] MEDS ORDERED: RANITIDINE HCL 50 MG/100 ML D5W IV STA (13:26)
[2018-01-07] MEDS ORDERED: SODIUM CHLORIDE 0.9% 1000ML 1,000 ML IV STA ×2 (13:26→13:28)
[2018-01-07] MEDS ORDERED: RANITIDINE IV 50 MG in DEXTROSE 5% 100ML 100 ML IV STA (13:26)
[2018-01-07 13:43] LABS: ISTAT CREATININE 0.8 mg/dl (0.6-1.3); ISTAT IONIZED CALCIUM 1.16 mmol/l (1.12-1.32); ISTAT POTASSIUM 4.9 mEq/L (3.3-5.0)
[2018-01-07] MEDS ORDERED: PANTOprazole INJ 80 MG in DEXTROSE 5% 100ML IV ONE (13:45)
--- NOTE | 2018-01-07 13:51 | DIAGNOSTIC IMAGING REPORT ---
CHEST ONE VIEW PORTABLE HISTORY: 52 years-old Male EVALUATE GI BLEED acute GI bleed COMPARISON: None available TECHNIQUE: Portable AP view of the chest FINDINGS: Postoperative changes of the left upper lobe with surgical suture material noted. Linear opacity of the left infrahilar lung is noted. Right lung is clear. Mild mediastinal shift to the left with volume loss. No pneumothorax or pleural effusion. No overt pulmonary edema. Bones of the chest appear grossly intact. IMPRESSION: Postsurgical changes of the left upper lobe with left hemithorax volume loss and mild mediastinal shift to the left. Left infrahilar opacity May be related to scarring and postsurgical changes. Correlate with prior imaging. The above report was generated using voice recognition software. It may contain grammatical, syntax or spelling errors. Electronically signed by: Javy Flores M.D. 01/07/2018 1:49 PM Dictated Date/Time: 01/07/2018 1:47 PM
[2018-01-07 14:00] LABS: EOS % 0.2 %; EOS ABS # 0.03 K/uL (0-0.5); HEMATOCRIT 32.9 % (42-52); HEMOGLOBIN 11.6 g/dL (14.0-18.0); IG# 0.21 K/uL (0.00-0.02); LYMPH % 27.8 %; LYMPH ABS # 4.59 K/uL (1.2-3.4); MEAN CELL VOLUME 90.9 fL (80-100); MEAN CORPUSCULAR HGB CONC 35.3 g/dl (32-36); MEAN PLATELET VOLUME 10.4 fL (7.4-10.4); MONO % 7.8 %; MONO ABS # 1.29 K/uL (0.11-0.59); NEUT % 62.9 %; NEUT ABS # 10.41 K/uL (1.4-6.5); NUCLEATED RED BLOOD CELL ABS 0.08 K/uL (0-0); PLATELET COUNT 313 K/uL (130-400); RED CELL DISTRIBUTION WIDTH CV 13.2 % (11.5-14.5); RED CELL DISTRIBUTION WIDTH SD 43.7 fL (36.4-46.3); WHITE BLOOD COUNT 16.53 K/uL (4.8-10.8)
[2018-01-07] MEDS ORDERED: PANTOprazole INJ 40 MG in DEXTROSE 5% 100ML IV SCH (14:00)
[2018-01-07] MEDS ORDERED: VORI1TAB9 PO (14:27)
[2018-01-07] MEDS ORDERED: FINA5TAB PO (14:27)
[2018-01-07] MEDS ORDERED: GLUC-338 PO (14:27)
[2018-01-07] MEDS ORDERED: FURO-85 PO (14:27)
[2018-01-07] MEDS ORDERED: ONDA4TAB46 PO (14:27)
[2018-01-07] MEDS ORDERED: UMEC1INH INH (14:27)
[2018-01-07] MEDS ORDERED: ATOR10TA82 PO (14:27)
[2018-01-07] MEDS ORDERED: MOML PO (14:27)
[2018-01-07] MEDS ORDERED: LISI-729 PO (14:27)
[2018-01-07] MEDS ORDERED: ACET300T3 PO (14:27)
[2018-01-07] MEDS ORDERED: LEVO750T23 PO (14:27)
[2018-01-07] MEDS ORDERED: NUTR-7 PO (14:27)
[2018-01-07] MEDS ORDERED: MEGESTROL 40 MG/ML PO (14:27)
[2018-01-07] MEDS ORDERED: METF-384 PO (14:27)
[2018-01-07] MEDS ORDERED: SKINOIN22 PO (14:27)
[2018-01-07] MEDS ORDERED: ASPI81TA28 PO (14:27)
[2018-01-07] MEDS ORDERED: TAMS0.4C38 PO (14:27)
[2018-01-07] MEDS ORDERED: IPRASOL4 INH (14:27)
[2018-01-07] MEDS ORDERED: GLIP10TA9 PO (14:27)
[2018-01-07] MEDS ORDERED: PRED-301 PO (14:27)
[2018-01-07] MEDS ORDERED: CARV3.122 PO (14:27)
[2018-01-07] MEDS ORDERED: CICL160A INH (14:27)
[2018-01-07] MEDS ORDERED: OXGN (14:27)
[2018-01-07] MEDS ORDERED: GUAIFENESIN 400 MG PO (14:27)
[2018-01-07] MEDS ORDERED: LEVA45AE INH (14:27)
[2018-01-07 14:36] LABS: ALBUMIN 3.8 gm/dl (3.4-5.0); ALKALINE PHOSPHATASE 21 U/L (45-117); ALT/SGPT 21 U/L (12-78); AST/SGOT 12 U/L (15-37); BLOOD UREA NITROGEN 40 mg/dl (7-18); CALCIUM 9.1 mg/dl (8.5-10.1); CARBON DIOXIDE 21 mmol/L (21-32); CREATININE 0.91 mg/dl (0.60-1.40); GLUCOSE 97 mg/dl (70-99); LIPASE 116 U/L (73-393); POTASSIUM 5.2 mmol/L (3.5-5.1); SODIUM 133 mmol/L (136-145); TOTAL PROTEIN 6.9 gm/dl (6.4-8.2)
[2018-01-07 14:49] LABS: INR 1.1 (0.9-1.1); PTT PATIENT 22.9 SECONDS (21.0-31.0)
--- NOTE | 2018-01-07 15:18 | DIAGNOSTIC IMAGING REPORT ---
CT SCAN OF THE ABDOMEN AND PELVIS WITHOUT IV CONTRAST CLINICAL HISTORY: Vomiting. GI bleeding. Hypotension. COMPARISON STUDY: No priors. TECHNIQUE: CT scan of the abdomen and pelvis is performed from the lung bases to the proximal femora. Images are reviewed in the axial, sagittal, and coronal planes. IV contrast was not administered for this examination as per the referring clinician. Note that the examination was performed in suboptimal fashion without IV contrast. A dose lowering technique was utilized adhering to the principles of ALARA. CT DOSE: 320.43 mGycm FINDINGS: Lung bases: The heart is normal in size and without pericardial effusion. Advanced emphysematous change is present at the lung bases. Groundglass opacities are seen at the right lung base. No pleural effusion is identified. Liver: The unenhanced liver is normal in size, contour, and attenuation. There is no intrahepatic biliary ductal dilatation. Gallbladder: A calcified gallstone is identified. The gallbladder is mildly distended but otherwise normal in appearance. Spleen: Normal in size and attenuation. Pancreas: The unenhanced pancreas is grossly unremarkable. Adrenal glands: Unremarkable. Kidneys: The unenhanced kidneys are normal in size and without hydronephrosis. There are no renal calculi identified. There is no evidence of contour deforming renal mass lesion. Abdominal vasculature: The abdominal aorta is normal in course and caliber noting mild atherosclerotic calcification. Bowel: There is moderate colonic fecal retention. No bowel obstruction is seen. The appendix is well-visualized and normal. Peritoneum/retroperitoneum: There is no intraperitoneal free air or abdominal ascites. There is a fat-containing umbilical hernia. No retroperitoneal hemorrhage is identified. Lymphadenopathy: None. Pelvic viscera: The bladder, prostate, and seminal vesicles are normal as visualized. Skeletal structures: No lytic or blastic lesions are seen. IMPRESSION: 1. There are no acute infectious or inflammatory findings in the abdomen or pelvis. 2. Moderate colonic fecal retention. 3. Cholelithiasis. 4. Advanced emphysema. 5. Groundglass change is seen at the right lung base. Correlate clinically for evidence of mild infectious/inflammatory pneumonitis. Electronically signed by: Cash Finch M.D. 01/07/2018 3:17 PM Dictated Date/Time: 01/07/2018 2:59 PM
[2018-01-07] MEDS ORDERED: PIPERACILLIN/TAZOBACTAM 4.5 GM/100ML D5W IV STA (15:35)
--- NOTE | 2018-01-07 17:02 | History and Physical ---
History & Physical Date & Time of Service: January 07, 2018 at 16:59 Chief Complaint: Hypotension Primary Care Physician: Damon FERNANDES History of Present Illness Source: patient 52y/oM with hx of recent pulmonary surgery MARC for fungal infection, COPD, asthma, HTN, CHF, DM, Hep C, chronic sinusitis, chronic constipation presents with 2 episodes of hematemesis in the last 2 days. Reports coffee ground emesis. Pt is incarcerated and brought to the ED for concern of weakness/ fatigue and [facility] 77/50 [facility]. On arrival pt had BP of 68/55 with nausea but no active vomiting. Also reports LUQ abdominal pain, chronic L sided chest pain (post lung surgery few months ago), chronic dizziness/ARCE related to sinus infections (scheduled to have surgery with ENT soon), dyspnea . Denies any sob except for occasional dyspnea on exertion post recent lung surgery. Pt chronically constipated reports BM every 5-6 days with milk of magnesium. Saw Dr. Francisco PENA yesterday for upcoming sinus surgery. ED course: Received protonix IV, Zofran 4mg IV, zantac 50mg IV, NS 1L bolus and 125ml/hr and Zosyn 4.5 IV Past Medical/Surgical History Medical Problems: (1) Asthma (2) Chronic sinusitis (3) Constipation (4) COPD (chronic obstructive pulmonary disease) (5) Diabetes (6) Hepatitis C (7) HTN (hypertension) Social History Smoking Status: Former Smoker Allergies Coded Allergies: No Known Allergies (Unverified , 01/08/18) Home Medications Scheduled Aspirin (Aspirin Ec), 81 MG PO QAM Aspirin (Aspirin Ec), 81 MG PO QAM Atorvastatin (Lipitor), 10 MG PO HS Atorvastatin (Lipitor), 10 MG PO HS Calcium Polycarbophil (Fibercon), 1 CAP PO BID Carvedilol (Coreg), 3.125 MG PO BID Carvedilol (Coreg), 3.125 MG PO BID Ciclesonide (Alvesco), 2 PUFFS INH BID Ciclesonide (Alvesco), 2 PUFFS INH BID Ciclesonide (Alvesco), 2 PUFFS INH BID Fiber Laxative (Fiber Laxative), 1 TBS PO BID Finasteride (Proscar), 5 MG PO QAM Finasteride (Proscar), 5 MG PO DAILY Furosemide (Lasix), 20 MG PO QAM Furosemide (Lasix), 20 MG PO DAILY Glipizide (Glipizide Er), 1 TAB PO QAM Glipizide (Glucotrol), 10 MG PO DAILY Glucose-Vitamin C (Glucose), 1 TAB PO BID Guaifenesin (Guaifenesin), 2 TABS PO BID Home O2 Therapy (Oxygen), 2 LITERS NA PRN Ipratropium-Albuterol (Duoneb), 1 TREATMENT INH QID Levofloxacin (Levaquin), 1 TAB PO HS Lisinopril (Lisinopril), 2.5 MG PO DAILY Lisinopril (Zestril), 2.5 MG PO DAILY Magnesium Hydroxide (Milk of Magnesia 400 mg/5Ml), 30 ML PO QAM Metformin Hcl (Glucophage Ext Rel), 1 TAB PO BID Metformin Hcl (Glucophage), 1,000 MG PO BID Nutritional Supplements (Boost), 1 CAN PO TID Prednisone (Prednisone), 5 MG PO HS Risperidone (Risperdal), 1 MG PO BID Sulfa/Trimethoprim (Bactrim Ds 800MG/160MG), 1 TAB PO BID Tamsulosin HCl (Tamsulosin HCl), 1 CAP PO QAM Tamsulosin Hcl (Flomax), 0.4 MG PO DAILY Umeclidinium Chadwicks (Incruse Ellipta), 1 PUFF INH QAM Umeclidinium [place] (Incruse Ellipta), 1 PUFF INH DAILY Voriconazole (Vfend), 1 TAB PO BID Voriconazole (Vfend), 2 TABS PO BID [Guaifenesin 400MG], 800 MG PO BID [Megace 40MG/Ml Susp], 10 ML PO DAILY Scheduled PRN Acetaminophen/Codeine (Tylenol W/Codeine #3), 2 TAB PO Q4 PRN for Pain Acetaminophen/Codeine (Tylenol W/Codeine #3), 2 TAB PO Q4H PRN for Pain Levalbuterol Tartrate (Levalbuterol Tartrate Hfa), 2 PUFF INH QID PRN for SOB/ Wheezing Levalbuterol Tartrate (Levalbuterol Tartrate Hfa), 2 PUFFS INH QID PRN for Shortness of Breath Magnesium Hydroxide (Milk Of Magnesia), 30 ML PO DAILY PRN for Constipation Ondansetron Hcl (Zofran), 4 MG PO TID PRN for Nausea Skin Protectants, Misc. (A+D First Aid), 1 APPLN PO BID PRN for DRYNESS Review of Systems Constitutional: No fever Respiratory: + dyspnea on exertion, No shortness of breath Cardiovascular: + chest pain (l sided in region of lung surgery) Abdomen: + pain (LUQ close to region of lung surgery (chronic)), + nausea ( improved s/p zofran), + GI bleeding (hematemesis), No vomiting Genitourinary - Male: No dysuria Neurologic: + problem reported (Chronic ARCE/dizziness) Physical Exam Vital Signs Date Time Temp Pulse Resp B/P (MAP) Pulse Ox O2 Delivery O2 Flow Rate FiO2 01/07/18 16:44 93 18 93/59 99 Room Air 01/07/18 15:42 95 20 100/71 99 Room Air 01/07/18 14:57 95 16 99/63 99 Room Air 01/07/18 14:34 96 18 95/67 99 Room Air 01/07/18 14:06 96 20 92/62 100 Room Air 01/07/18 13:47 106 20 95/64 99 Room Air 01/07/18 13:33 99 Room Air 01/07/18 13:31 106 22 90/68 100 Room Air 01/07/18 13:28 106 18 90/72 100 01/07/18 13:15 100 18 86/69 100 Room Air 01/07/18 13:08 36.4 117 20 68/55 99 Room Air General Appearance: no apparent distress Eyes: normal inspection ENT: normal ENT inspection, pharynx normal (no evidence of blood) Neck: supple Respiratory/Chest: normal breath sounds, + rhonchi (basilar lung perdomo) Cardiovascular: regular rate, rhythm, no murmur Abdomen/GI: normal bowel sounds, soft, + tenderness (LUQ to very deep palpation ) Back: + pertinent finding (laparoscopic surgical scars (L flank/upper back)) Extremities/Musculoskelatal: no calf tenderness, no pedal edema Neurologic/Psych: alert, oriented x 3 Skin: warm/dry Diagnostics Laboratory Results Results Past 24 Hours Test 01/07/18 13:25 01/07/18 13:30 01/07/18 14:27 Range/Units White Blood Count 16.53 4.8-10.8 K/uL Red Blood Count 3.62 4.7-6.1 M/uL Hemoglobin 11.6 14.0-18.0 g/dL Hematocrit 32.9 42-52 % Mean Corpuscular Volume 90.9 80-100 fL Mean Corpuscular Hemoglobin 32.0 25-34 pg Mean Corpuscular Hemoglobin Concent 35.3 32-36 g/dl Platelet Count 313 130-400 K/uL Mean Platelet Volume 10.4 7.4-10.4 fL Neutrophils (%) (Auto) 62.9 % Lymphocytes (%) (Auto) 27.8 % Monocytes (%) (Auto) 7.8 % Eosinophils (%) (Auto) 0.2 % Basophils (%) (Auto) 0.0 % Neutrophils # (Auto) 10.41 1.4-6.5 K/uL Lymphocytes # (Auto) 4.59 1.2-3.4 K/uL Monocytes # (Auto) 1.29 0.11-0.59 K/uL Eosinophils # (Auto) 0.03 0-0.5 K/uL Basophils # (Auto) 0.00 0-0.2 K/uL RDW Standard Deviation 43.7 36.4-46.3 fL RDW Coefficient of Variation 13.2 11.5-14.5 % Immature Granulocyte % (Auto) 1.3 % Immature Granulocyte # (Auto) 0.21 0.00-0.02 K/uL Nucleated RBC Absolute Count (auto) 0.08 0-0 K/uL Nucleated Red Blood Cells % 0.5 % Sodium Level 133 136-145 mmol/L Potassium Level 5.2 3.5-5.1 mmol/L Chloride Level 101 98-107 mmol/L Carbon Dioxide Level 21 21-32 mmol/L Anion Gap 11.0 17.0 16-25 mmol/L Blood Urea Nitrogen 40 7-18 mg/dl Creatinine 0.91 0.60-1.40 mg/dl Estimated GFR () 111.1 Estimated GFR (Non- 95.9 BUN/Creatinine Ratio 43.6 10-20 Random Glucose 97 70-99 mg/dl Calcium Level 9.1 8.5-10.1 mg/dl Total Bilirubin 0.4 0.2-1 mg/dl Direct Bilirubin 0-0.2 mg/dl Aspartate Amino Transf (AST/SGOT) 12 15-37 U/L Alanine Aminotransferase (ALT/SGPT) 21 12-78 U/L Alkaline Phosphatase 21 45-117 U/L Total Creatine Kinase 72 39-308 U/L Troponin I < 0.015 0-0.045 ng/ml Total Protein 6.9 6.4-8.2 gm/dl Albumin 3.8 3.4-5.0 gm/dl Lipase 116 73-393 U/L Chemistry Specimen Hemolysis Bedside Hemoglobin 11.6 14.0-18.0 g/dl Bedside Hematocrit 34 42-52 % Bedside Sodium 132 135-144 mEq/L Bedside Potassium 4.9 3.3-5.0 mEq/L Bedside Chloride 100 101-112 mEq/L Bedside Total CO2 21 24-31 mEq/l Bedside Blood Urea Nitrogen 42 7-18 mg/dl Bedside Creatinine 0.8 0.6-1.3 mg/dl Bedside Glucose (other) 103 70-99 mg/dl Bedside Ionized Calcium (Kelsie) 1.16 1.12-1.32 mmol/l Prothrombin Time 11.5 9.0-12.0 SECONDS Prothromb Time International Ratio 1.1 0.9-1.1 Activated Partial Thromboplast Time 22.9 21.0-31.0 SECONDS Partial Thromboplastin Ratio 0.[address] SCAN OF THE ABDOMEN AND PELVIS WITHOUT IV CONTRAST CLINICAL HISTORY: Vomiting. GI bleeding. Hypotension. COMPARISON STUDY: No priors. TECHNIQUE: CT scan of the abdomen and pelvis is performed from the lung bases to the proximal femora. Images are reviewed in the axial, sagittal, and coronal planes. IV contrast was not administered for this examination as per the referring clinician. Note that the examination was performed in suboptimal fashion without IV contrast. A dose lowering technique was utilized adhering to the principles of ALARA. CT DOSE: 320.43 mGycm FINDINGS: Lung bases: The heart is normal in size and without pericardial effusion. Advanced emphysematous change is present at the lung bases. Groundglass opacities are seen at the right lung base. No pleural effusion is identified. Liver: The unenhanced liver is normal in size, contour, and attenuation. There is no intrahepatic biliary ductal dilatation. Gallbladder: A calcified gallstone is identified. The gallbladder is mildly distended but otherwise normal in appearance. Spleen: Normal in size and attenuation. Pancreas: The unenhanced pancreas is grossly unremarkable. Adrenal glands: Unremarkable. Kidneys: The unenhanced kidneys are normal in size and without hydronephrosis. There are no renal calculi identified. There is no evidence of contour deforming renal mass lesion. Abdominal vasculature: The abdominal aorta is normal in course and caliber noting mild atherosclerotic calcification. Bowel: There is moderate colonic fecal retention. No bowel obstruction is seen. The appendix is well-visualized and normal. Peritoneum/retroperitoneum: There is no intraperitoneal free air or abdominal ascites. There is a fat-containing umbilical hernia. No retroperitoneal hemorrhage is identified. Lymphadenopathy: None. Pelvic viscera: The bladder, prostate, and seminal vesicles are normal as visualized. Skeletal structures: No lytic or blastic lesions are seen. IMPRESSION: 1. There are no acute infectious or inflammatory findings in the abdomen or pelvis. 2. Moderate colonic fecal retention. 3. Cholelithiasis. 4. Advanced emphysema. 5. Groundglass change is seen at the right lung base. Correlate clinically for evidence of mild infectious/inflammatory pneumonitis. CHEST ONE VIEW PORTABLE HISTORY: 52 years-old Male EVALUATE GI BLEED acute GI bleed COMPARISON: None available TECHNIQUE: Portable AP view of the chest FINDINGS: Postoperative changes of the left upper lobe with surgical suture material noted. Linear opacity of the left infrahilar lung is noted. Right lung is clear. Mild mediastinal shift to the left with volume loss. No pneumothorax or pleural effusion. No overt pulmonary edema. Bones of the chest appear grossly intact. IMPRESSION: Postsurgical changes of the left upper lobe with left hemithorax volume loss and mild mediastinal shift to the left. Left infrahilar opacity May be related to scarring and postsurgical changes. Correlate with prior imaging. EKG rate 103 sinus tachycardia Impression Assessment and Plan 52y/oM with hx of recent pulmonary surgery MARC for fungal infection, COPD, asthma, HTN, CHF, DM, Hep C, chronic sinusitis, chronic constipation presents with 2 episodes of hematemesis in the last 2 days. Associated with weakness, tachycardia and hypotension concerning for shock. Vitals improved s/p IVF resuscitation. H/H 11.6/32.9 with no active hematemesis. Likely in the setting of esophagitis/gastritis from chronic aspirin and prednisone use. GI bleed (hematemesis) with tachycardia and hypotension - improving - No active hematemesis, nausea controlled with zofran, abdominal pain ( reported to be chronic and likely related to recent lung surgery given LUQ in region of laparoscopy scars) - BP and HR improving s/p IVF - CT abdomen - no acute abnormality, mod colonic fecal retention, cholelithiasis and advanced emphysema, RLL mild inflammation/pneumonitis - CXR - post surgical MARC changes, mild L mediastinal shift, opacity L hilar region likely scarring - H/H - 11.6/32.9 - Mild WBC of 16.5, afebrile - Type and Cross w/t 2 units of pRBC - H&H Q12H x 4 - PIV x 2 - Protonix 40mg IV BID - Zofran 4mg Q6H PRN - LR 125mls/hr Pulm: COPD/asthma - Duoneb 3ml QID - Continue home inhalers: levalbuterol 2 puffs QID, incruse ellipta 1 puff daily ; Alvesco 2 puffs BID - Continue Guaifenesin 800mg BID - Continue home prednisone 5mg HS (reports taking for lung condition) - Continue home levofloxacin 750mg HS (reports taking daily post surgery) - Continue home voriconazole 400mg BID (for lung fungal infection likely) - Continue home tylenol w/t codeine 2 tabs Q4H PRN for recent surgical pain per pt CAD/CHF/HTN - Hold home Lasix given hypovolemic - Hold home Lisinopril and Carvedilol given hypotension - Hold home aspirin 81mg given GI bleed BPH - Continue home finasteride 5mg daily - Tamsulosin HCL 0.4mg daily DM - Hold home glipizide and metformin - SSI w/t qacs and qhs HLD - continue home atorvastatin 10mg HS Diet - Boost 1 can TID Code: Full DVT Prophylaxis: SCDs (chemical contraindicated due to GI bleed) Dispo: pending stable H/H and clinical improvement Resident Physician Supervision Note: I interviewed and examined the patient. Discussed with Dr. Conde and agree with findings and plan as documented in the note. Any exceptions or clarifications are listed here: None Documented By: Ishmael Lee hematemesis low BP now doing better no other new complaints vitals noted nad breathing unlabored no pallor or icterus, minimal to no epigastric ttp UGI bleed - presumed PUD. IVF, blood on hold, PPI, supportive care, follow closely - otherwise as above Resuscitation Status Full VTE Prophylaxis Will order VTE Prophylaxis: Yes Reason for no VTE drug order: Contraindicated Note Total Time: Critical Care 30 - 74 minutes Additional Copies To Ishmael Lee D.O. Resident Involvement: Resident Care Provided Care Provided: Adult Hospital Medicine
[2018-01-07] MEDS ORDERED: ONDANSETRON INJ 2 MG/ML 2 ML VIAL IV PRN (17:15)
[2018-01-07] MEDS ORDERED: ALUMINUM/MAGNESIUM/SIMETH (MAALOX MAX) 30 ML UDC PO PRN (17:15)
[2018-01-07] MEDS ORDERED: EUCERIN CR 120 GM JAR EXT PRN (17:30)
[2018-01-07] MEDS ORDERED: LEValbuterol HFA 15GM INHALER INH PRN (17:30)
--- NOTE | 2018-01-07 18:14 | EMERGENCY ROOM VISIT NOTE ---
History Report prepared by Judith: Saul Landeros Under the Supervision of: Dr. Rocky Weeks M.D. First contact with patient: 13:20 Chief Complaint: HYPOTENSION Stated Complaint: HYPOTENSION History of Present Illness The patient is a 52 year old male who presents to the Emergency Room with complaints of intermittent coffee-ground emesis beginning yesterday. The patient is incarcerated. His blood pressure was found to be 68/55 upon arrival. He reports "coffee-ground" emesis since yesterday. The patient was seen by Dr. Singh of ENT yesterday for sinus pain, and was told that he should have surgery. He also complains of constipation (last bowel movement was 5-6 days ago). He has a history of COPD, asthma, diabetes, constipation, Hepatitis C, chronic sinusitis and HTN. The patient reports having recent lung surgery. He was referred to the ED today by the physician at the [facility] due to concerns of fatigue, weakness, coffee-ground emesis, and a blood pressure of 77/ 50. Pt denies LOC, headache, fevers, chills, diaphoresis, visual changes, neck pain, chest pain, breathing difficulties, back pain, melena, hematochezia, urinary symptoms, numbness, weakness, lymphadenopathy, rash, or other complaints. Source of History: patient Onset: Yesterday Symptom Intensity: "coffee-ground" emesis Quality: other (hematemesis) Timing: intermittent Note: The patient also complains of constipation (last bowel movement was 5-6 days ago ). Review of Systems See HPI for pertinent positives and negatives. A total of ten systems were reviewed and were otherwise negative. Past Medical & Surgical Medical Problems: (1) Asthma (2) Chronic sinusitis (3) Constipation (4) COPD (chronic obstructive pulmonary disease) (5) Diabetes (6) Hematemesis (7) Hepatitis C (8) HTN (hypertension) Family History No pertinent family history stated. Social History Smoking Status: Former Smoker Housing Status: other (incarcerated) Occupation Status: other (incarcerated) Current/Historical Medications Scheduled Aspirin (Aspirin Ec), 81 MG PO QAM Atorvastatin (Lipitor), 10 MG PO HS Carvedilol (Coreg), 3.125 MG PO BID Ciclesonide (Alvesco), 2 PUFFS INH BID Finasteride (Proscar), 5 MG PO DAILY Furosemide (Lasix), 20 MG PO DAILY Glipizide (Glucotrol), 10 MG PO DAILY Glucose-Vitamin C (Glucose), 1 TAB PO BID Home O2 Therapy (Oxygen), 2 LITERS NA PRN Ipratropium-Albuterol (Duoneb), 1 TREATMENT INH QID Levofloxacin (Levaquin), 1 TAB PO HS Lisinopril (Zestril), 2.5 MG PO DAILY Metformin Hcl (Glucophage), 1,000 MG PO BID Nutritional Supplements (Boost), 1 CAN PO TID Prednisone (Prednisone), 5 MG PO HS Tamsulosin Hcl (Flomax), 0.4 MG PO DAILY Umeclidinium [place] (Incruse Ellipta), 1 PUFF INH DAILY Voriconazole (Vfend), 2 TABS PO BID [Guaifenesin 400MG], 800 MG PO BID [Megace 40MG/Ml Susp], 10 ML PO DAILY Scheduled PRN Acetaminophen/Codeine (Tylenol W/Codeine #3), 2 TAB PO Q4H PRN for Pain Levalbuterol Tartrate (Levalbuterol Tartrate Hfa), 2 PUFFS INH QID PRN for Shortness of Breath Magnesium Hydroxide (Milk Of Magnesia), 30 ML PO DAILY PRN for Constipation Ondansetron Hcl (Zofran), 4 MG PO TID PRN for Nausea Skin Protectants, Misc. (A+D First Aid), 1 APPLN PO BID PRN for DRYNESS Allergies Coded Allergies: No Known Allergies (Unverified , 01/07/18) Physical Exam Vital Signs Date Time Temp Pulse Resp B/P (MAP) Pulse Ox O2 Delivery O2 Flow Rate FiO2 01/07/18 16:44 93 18 93/59 99 Room Air 01/07/18 15:42 95 20 100/71 99 Room Air 01/07/18 14:57 95 16 99/63 99 Room Air 01/07/18 14:34 96 18 95/67 99 Room Air 01/07/18 14:06 96 20 92/62 100 Room Air 01/07/18 13:47 106 20 95/64 99 Room Air 01/07/18 13:33 99 Room Air 01/07/18 13:31 106 22 90/68 100 Room Air 01/07/18 13:28 106 18 90/72 100 5/3/18 13:15 100 18 86/69 100 Room Air 01/07/18 13:08 36.4 117 20 68/55 99 Room Air Physical Exam GENERAL: Awake, alert, uncomfortable-appearing, in no distress HENT: Normocephalic, atraumatic. Oropharynx unremarkable. EYES: Normal conjunctiva. Sclera non-icteric. NECK: Supple. No nuchal rigidity. FROM. No masses. RESPIRATORY: Clear to auscultation. No wheezes. No rales. Normal respiratory effort. CARDIAC: Tachycardic rate. Normal rhythm. No murmurs. No rubs. Extremities warm and well perfused. Pulses equal. No JVD. GI: Soft, non-distended. Mild tenderness to palpation. No rebound or guarding. No masses. RECTAL: Deferred. MUSCULOSKELETAL: Atraumatic. Chest examination reveals no tenderness. The back is symmetrical on inspection without obvious abnormality. There is no CVA tenderness to palpation. No joint edema. LOWER EXTREMITIES: Calves are equal size bilaterally and non-tender. No edema. No discoloration. NEURO: Normal sensorium. No sensory or motor deficits noted. SKIN: No rash or jaundice noted. Medical Decision & Procedures ER Provider Diagnostic Interpretation: Radiology results as stated below per my review and radiologist interpretation: CHEST ONE VIEW PORTABLE FINDINGS: Postoperative changes of the left upper lobe with surgical suture material noted. Linear opacity of the left infrahilar lung is noted. Right lung is clear. Mild mediastinal shift to the left with volume loss. No pneumothorax or pleural effusion. No overt pulmonary edema. Bones of the chest appear grossly intact. IMPRESSION: Postsurgical changes of the left upper lobe with left hemithorax volume loss and mild mediastinal shift to the left. Left infrahilar opacity May be related to scarring and postsurgical changes. Correlate with prior imaging. The above report was generated using voice recognition software. It may contain grammatical, syntax or spelling errors. Electronically signed by: Javy Flores M.D. 01/07/2018 1:[address] SCAN OF THE ABDOMEN AND PELVIS WITHOUT IV CONTRAST FINDINGS: Lung bases: The heart is normal in size and without pericardial effusion. Advanced emphysematous change is present at the lung bases. Groundglass opacities are seen at the right lung base. No pleural effusion is identified. Liver: The unenhanced liver is normal in size, contour, and attenuation. There is no intrahepatic biliary ductal dilatation. Gallbladder: A calcified gallstone is identified. The gallbladder is mildly distended but otherwise normal in appearance. Spleen: Normal in size and attenuation. Pancreas: The unenhanced pancreas is grossly unremarkable. Adrenal glands: Unremarkable. Kidneys: The unenhanced kidneys are normal in size and without hydronephrosis. There are no renal calculi identified. There is no evidence of contour deforming renal mass lesion. Abdominal vasculature: The abdominal aorta is normal in course and caliber noting mild atherosclerotic calcification. Bowel: There is moderate colonic fecal retention. No bowel obstruction is seen. The appendix is well-visualized and normal. Peritoneum/retroperitoneum: There is no intraperitoneal free air or abdominal ascites. There is a fat-containing umbilical hernia. No retroperitoneal hemorrhage is identified. Lymphadenopathy: None. Pelvic viscera: The bladder, prostate, and seminal vesicles are normal as visualized. Skeletal structures: No lytic or blastic lesions are seen. IMPRESSION: 1. There are no acute infectious or inflammatory findings in the abdomen or pelvis. 2. Moderate colonic fecal retention. 3. Cholelithiasis. 4. Advanced emphysema. 5. Groundglass change is seen at the right lung base. Correlate clinically for evidence of mild infectious/inflammatory pneumonitis. Electronically signed by: Cash Finch M.D. 01/07/2018 3:17 PM Laboratory Results 01/07/18 13:25 Red Blood Count 3.62, Mean Corpuscular Volume 90.9, Mean Corpuscular Hemoglobin 32.0, Mean Corpuscular Hemoglobin Concent 35.3, Mean Platelet Volume 10.4, Neutrophils (%) (Auto) 62.9, Lymphocytes (%) (Auto) 27.8, Monocytes (%) (Auto) 7.8, Eosinophils (%) (Auto) 0.2, Basophils (%) (Auto) 0.0, Neutrophils # (Auto) 10.41, Lymphocytes # (Auto) 4.59, Monocytes # (Auto) 1.29, Eosinophils # (Auto) 0.03, Basophils # (Auto) 0.00 01/07/18 13:25 Test 01/07/18 13:25 01/07/18 13:30 01/07/18 14:27 White Blood Count 16.53 K/uL (4.8-10.8) Red Blood Count 3.62 M/uL (4.7-6.1) Hemoglobin 11.6 g/dL (14.0-18.0) Hematocrit 32.9 % (42-52) Mean Corpuscular Volume 90.9 fL (80-100) Mean Corpuscular Hemoglobin 32.0 pg (25-34) Mean Corpuscular Hemoglobin Concent 35.3 g/dl (32-36) Platelet Count 313 K/uL (130-400) Mean Platelet Volume 10.4 fL (7.4-10.4) Neutrophils (%) (Auto) 62.9 % Lymphocytes (%) (Auto) 27.8 % Monocytes (%) (Auto) 7.8 % Eosinophils (%) (Auto) 0.2 % Basophils (%) (Auto) 0.0 % Neutrophils # (Auto) 10.41 K/uL (1.4-6.5) Lymphocytes # (Auto) 4.59 K/uL (1.2-3.4) Monocytes # (Auto) 1.29 K/uL (0.11-0.59) Eosinophils # (Auto) 0.03 K/uL (0-0.5) Basophils # (Auto) 0.00 K/uL (0-0.2) RDW Standard Deviation 43.7 fL (36.4-46.3) RDW Coefficient of Variation 13.2 % (11.5-14.5) Immature Granulocyte % (Auto) 1.3 % Immature Granulocyte # (Auto) 0.21 K/uL (0.00-0.02) Nucleated RBC Absolute Count (auto) 0.08 K/uL (0-0) Nucleated Red Blood Cells % 0.5 % Estimated GFR () 111.1 Estimated GFR (Non- 95.9 BUN/Creatinine Ratio 43.6 (10-20) Calcium Level 9.1 mg/dl (8.5-10.1) Total Bilirubin 0.4 mg/dl (0.2-1) Direct Bilirubin mg/dl (0-0.2) Aspartate Amino Transf (AST/SGOT) 12 U/L (15-37) Alanine Aminotransferase (ALT/SGPT) 21 U/L (12-78) Alkaline Phosphatase 21 U/L (45-117) Total Creatine Kinase 72 U/L (39-308) Troponin I < 0.015 ng/ml (0-0.045) Total Protein 6.9 gm/dl (6.4-8.2) Albumin 3.8 gm/dl (3.4-5.0) Lipase 116 U/L (73-393) Chemistry Specimen Hemolysis Bedside Hemoglobin 11.6 g/dl (14.0-18.0) Bedside Hematocrit 34 % (42-52) Bedside Sodium 132 mEq/L (135-144) Bedside Potassium 4.9 mEq/L (3.3-5.0) Bedside Chloride 100 mEq/L (101-112) Bedside Total CO2 21 mEq/l (24-31) Anion Gap 17.0 mmol/L (16-25) Bedside Blood Urea Nitrogen 42 mg/dl (7-18) Bedside Creatinine 0.8 mg/dl (0.6-1.3) Bedside Glucose (other) 103 mg/dl (70-99) Bedside Ionized Calcium (Kelsie) 1.16 mmol/l (1.12-1.32) Prothrombin Time 11.5 SECONDS (9.0-12.0) Prothromb Time International Ratio 1.1 (0.9-1.1) Activated Partial Thromboplast Time 22.9 SECONDS (21.0-31.0) Partial Thromboplastin Ratio 0.9 Laboratory results reviewed by me Medications Administered Medications (Trade) Dose Ordered Sig/Rudy Route Start Time Stop Time Status Last Admin Dose Admin Sodium Chloride 1,000 ml @ 999 mls/hr Q1H1M STAT IV 01/07/18 13:26 01/07/18 14:26 DC 01/07/18 13:26 999 MLS/HR Ondansetron HCl (Zofran Inj) 4 mg NOW STAT IV 01/07/18 13:26 01/07/18 13:29 DC 01/07/18 13:44 4 MG Sodium Chloride 1,000 ml @ 125 mls/hr Q8H STAT IV 01/07/18 13:28 01/07/18 21:27 01/07/18 13:28 125 MLS/HR Pantoprazole Sodium 80 mg/ Dextrose 120 ml @ 480 mls/hr NOW ONCE IV 01/07/18 13:45 01/07/18 13:59 DC 01/07/18 13:53 480 MLS/HR Pantoprazole Sodium 40 mg/ Dextrose 100 ml @ 20 mls/hr Q5H IV 01/07/18 14:00 01/07/18 18:59 01/07/18 13:54 20 MLS/HR Ranitidine HCl 50 mg/Dextrose 102 ml @ 204 mls/hr NOW STAT IV 01/07/18 13:26 01/07/18 13:55 DC 01/07/18 14:15 204 MLS/HR Piperacillin Sod/ Tazobactam Sod (Zosyn Iv) 4.5 gm NOW STAT IV 01/07/18 15:35 01/07/18 15:37 DC 01/07/18 15:41 4.5 GM ECG Per My Interpretation Indication: other (hypotension) Rate (beats per minute): 103 Rhythm: sinus tachycardia Findings: other (No ST elevations, no PVCs. ) ED Course 1321: The patient was evaluated in room B1. A complete history and physical exam was performed. 1326: Ordered Protonix Bolus/Drip IV, Zofran Inj 4 mg IV, Zantac 50 mg IV, Sodium Chloride 1000 ml @ 999 mls/hr IV. 1328: Ordered Sodium Chloride 1000 ml @ 125 mls/hr IV. 1535: Ordered Zosyn 4.5 gm IV. 1550: Upon reexamination, the patient was resting comfortably. I discussed the test results and treatment plan with him. The patient will be evaluated for further management. Medical Decision Prior records/ancillary studies reviewed. Triage Nursing notes reviewed and agree them. The patient's history was concerning for possible gastrointestinal bleeding. Differential diagnosis: Etiologies such as peptic ulcer disease, variceal bleed, gastritis, diverticulosis, AVM, coagulopathy, colitis, inflammatory bowel disease, malignancy,Olga-Crouch tear, esophagitis, epistaxis, fissure, hemorrhoids, as well as others were entertained. Physical exam: As above. Patient was hypotensive. ER treatment provided: Normal saline bolus IV Zantac IV Protonix bolus and drip IV Zosyn On reassessment the patient felt better. Vital signs improved. Diagnostics interpreted by me: ECG: No acute ischemia The labs revealed a mild anemia on CBC. Chemistry panel revealed a moderate elevation of BUN with a normal creatinine. Imaging studies: X-ray and CT scan as above. Patient's history and findings are concerning for an upper GI bleed. He is doing better after the above treatment but will need further management in the hospital. Consultation: A consultation was placed with the hospitalist. The case was discussed and diagnostics were reviewed. The patient was evaluated in the ER for further treatment. Medication Reconcilliation Current Medication List: was personally reviewed by me Blood Pressure Screening Patient's blood pressure: Low blood pressure Blood pressure disposition: Did not require urgent referral Consults Time Called: [phone] Consulting Physician: Dr. Felecia MENDOZA Hospitalist Returned Call: [phone] Discussed the patient's case. The patient will be evaluated for further treatment and disposition. Impression Primary Impression: Upper GI bleed Additional Impressions: Pneumonitis Hypotension Critical Care I have personally spent greater than 30 minutes of critical care time in the direct management of this patient. This includes bedside care, interpretation of diagnostic studies, and testing, discussion with consultants, patient, and family members, and other required patient management activities. This 30 minutes is in excess of all separately billable procedures. Scribe Attestation The scribe's documentation has been prepared under my direction and personally reviewed by me in its entirety. I confirm that the note above accurately reflects all work, treatment, procedures, and medical decision making performed by me. Departure Information Dispostion Being Evaluated By Hospitalist Referrals No Doctor, Assigned (PCP) Patient Instructions My [facility] Problem Qualifiers
[2018-01-07 19:08] VITALS: BP 101/69; PULSE 89; TEMP 36.5; O2SAT 98
[2018-01-07 19:09] VITALS: Ht 167.6 cm; Wt 67.4 kg
[2018-01-07 19:11] VITALS: BP 101/69; PULSE 89; TEMP 36.5
[2018-01-07 19:18] VITALS: O2SAT 98
[2018-01-07] MEDS: ALBUT/IPRATROP 3MG/0.5MG NEB 3 ML VIAL INH SCH (19:58)
[2018-01-07 19:59] VITALS: PULSE 89; O2SAT 96
[2018-01-07] MEDS ORDERED: GLUCOSE 10 TABS/TUBE PO PRN (20:00)
[2018-01-07] MEDS ORDERED: GLUCAGON FOR INJ 1 MG VIAL IM PRN (20:00)
[2018-01-07] MEDS ORDERED: DEXTROSE 50% 50 ML SYR IV PRN (20:00)
[2018-01-07] MEDS ORDERED: GLUCOSE 40% GEL 15 GM TUBE PO PRN (20:00)
[2018-01-07] MEDS: CARBOHYDRATES FOR HYPOGLYCEMIA PO PRN ×2 (20:52→21:05)
[2018-01-07] MEDS: LACTATED RINGER'S 1000ML 1,000 ML IV SCH (20:57)
[2018-01-07] MEDS: BOOST VANILLA PO SCH (20:57)
[2018-01-07] MEDS: ATORVASTATIN 10 MG TAB PO SCH (20:59)
[2018-01-07] MEDS: LEVOFLOXACIN 750 MG TAB PO SCH (20:59)
[2018-01-07] MEDS: VORICONAZOLE 200 MG TAB PO SCH (21:00)
[2018-01-07] MEDS: GUAIFENESIN 200 MG TAB PO SCH (21:00)
[2018-01-07] MEDS: INSULIN ASPART 100 UNITS/ML 3 ML PEN SC SCH (21:00)
[2018-01-07] MEDS: PANTOprazole INJ 40 MG in SYRINGE 0 ML IV SCH (21:01)
[2018-01-07 23:53] VITALS: BP 98/64; PULSE 105; TEMP 36.6; O2SAT 97
[2018-01-08] VITALS (13 sets, daily range): BP systolic 86–115; BP diastolic 50–73; PULSE 96–127; TEMP 36.3–38.2; O2SAT 95–99
[2018-01-08] MEDS ORDERED: INSULIN ASPART 100 UNITS/ML 3 ML PEN SC SCH (04:00)
[2018-01-08] MEDS: LACTATED RINGER'S 1000ML 1,000 ML IV SCH ×3 (05:10→17:23)
[2018-01-08 05:45] LABS: BASO % 0.1 %; BASO ABS # 0.01 K/uL (0-0.2); EOS % 0.8 %; EOS ABS # 0.08 K/uL (0-0.5); HEMATOCRIT 23.9 % (42-52); HEMOGLOBIN 8.6 g/dL (14.0-18.0); IG# 0.13 K/uL (0.00-0.02); LYMPH % 27.1 %; LYMPH ABS # 2.67 K/uL (1.2-3.4); MEAN CELL VOLUME 90.9 fL (80-100); MEAN CORPUSCULAR HEMOGLOBIN 32.7 pg (25-34); MEAN PLATELET VOLUME 9.4 fL (7.4-10.4); MONO % 11.2 %; NEUT % 59.5 %; NEUT ABS # 5.87 K/uL (1.4-6.5); NUCLEATED RED BLOOD CELL ABS 0.03 K/uL (0-0); PLATELET COUNT 227 K/uL (130-400); RED CELL DISTRIBUTION WIDTH CV 13.1 % (11.5-14.5); RED CELL DISTRIBUTION WIDTH SD 43.7 fL (36.4-46.3); WHITE BLOOD COUNT 9.86 K/uL (4.8-10.8)
[2018-01-08 06:07] LABS: HEMOGLOBIN A1C 6.1 % (4.5-5.6)
[2018-01-08 06:22] LABS: ALBUMIN 2.9 gm/dl (3.4-5.0); CALCIUM 7.8 mg/dl (8.5-10.1); CREATININE 0.66 mg/dl (0.60-1.40)
[2018-01-08 06:25] LABS: TOTAL PROTEIN 5.8 gm/dl (6.4-8.2)
[2018-01-08 06:45] LABS: POTASSIUM 4.3 mmol/L (3.5-5.1)
[2018-01-08] MEDS: INSULIN ASPART 100 UNITS/ML 3 ML PEN SC SCH ×4 (07:00→20:56)
[2018-01-08] MEDS: ALBUT/IPRATROP 3MG/0.5MG NEB 3 ML VIAL INH SCH ×4 (07:08→19:02)
[2018-01-08] MEDS: PANTOprazole INJ 40 MG in SYRINGE 0 ML IV SCH (08:01)
[2018-01-08] MEDS: BOOST VANILLA PO SCH ×3 (08:01→20:55)
[2018-01-08] MEDS: GUAIFENESIN 200 MG TAB PO SCH ×2 (08:02→20:57)
[2018-01-08] MEDS: MEGESTROL ACETATE SUSP 400 MG/10 ML UDC PO SCH (08:02)
[2018-01-08] MEDS: TAMSULOSIN HCL 0.4 MG CAP PO SCH (08:02)
[2018-01-08] MEDS: VORICONAZOLE 200 MG TAB PO SCH ×2 (08:02→20:56)
[2018-01-08] MEDS: FINASTERIDE 5 MG TAB PO SCH (08:02)
--- NOTE | 2018-01-08 09:57 | Gastrointestinal Consultation ---
Gastrointestinal Consultation Date of Consultation: January 08, 2018 Attending Physician: Dr. Lee Consulting Physician: Dr. Mcduffie/STEVEN Pineda Reason for Consultation: Hematemesis History of Present Illness Patient is a 52 year old male with a history of tobacco use and prior pulmonary infection admitted to the hospital in October of this year for a MARC by Dr. Ocampo in regard to abnormal PET with mass and lymphadenopathy. Since surgery , he reports he has been having left-sided chest discomfort and LUQ abdominal pain as well as intermittent shortness of breath. He was brought back to the hospital yesterday after a sudden development of coffee-ground emesis 1 1/2 days ago. Patient states he did have 2 vomiting episodes but has not vomited since. Reports reduced appetite. No bowel movement over the past day. Complains of mild mid-abdominal discomfort rated 4/10 at present without radiation. On arrival, he was found to be mildly anemic with an H&H 11.6 and 32.9. He was found to be hypotensive and hypovolemic. With fluid resuscitation, his blood pressures have improved. H&H did drop to 8.6 and 23.9 overnight but he is without any overt GIB symptoms. Has been started on Protonix 40 mg IV BID. Prior to admission, the patient had been taking both aspirin and Prednisone. Currently, he is without any other complaints. Past Medical/Surgical History Medical Problems: (1) Closed head injury Status: Acute (2) Cough Status: Acute (3) Dental caries Status: Acute (4) Hypotension Status: Acute (5) Left-sided chest wall pain Status: Acute (6) Paranoia (psychosis) Status: Acute (7) Pneumonitis Status: Acute (8) Upper GI bleed Status: Acute Past Medical History: 1. Asthma 2. Chronic sinusitis 3. Constipation 4. COPD 5. Diabetes 6. Hepatitis C 7. Hypertension Past Surgical History: 1. Left upper lobectomy 2. Bronchoscopy 3. Cardiac catheterization Family History No pertinent family history Lung cancer Social History Smoking Status: Former Smoker Alcohol Use: none Housing Status: other (incarcerated) Allergies Coded Allergies: No Known Allergies (Unverified , 11/12/17) Current Medications Home Meds and Scripts Medications Dose Route/Sig Max Daily Dose Days Date Category Dose Instructions Levalbuterol Tartrate Hfa (Levalbuterol Tartrate) 45 Mcg/Act Aer 2 Puff INH QID PRN 11/12/17 Reported Risperdal (Risperidone) 1 Mg Tab 1 Mg PO BID 11/12/17 Reported Fibercon (Calcium Polycarbophil) 625 Mg Tab 1 Cap PO BID 11/12/17 Reported TAKE WITH 8 OZ H20 [place] (Ciclesonide) 160 Mcg/Act Aer 2 Puffs INH BID 11/12/17 Reported Tylenol W/Codeine #3 (Acetaminophen/Codeine Phosphate) 300 Mg/30 Mg Tab 2 Tab PO Q4 PRN 11/11/17 Reported Lisinopril 2.5 Mg Tab 2.5 Mg PO DAILY 11/11/17 Reported Vfend (Voriconazole) 200 Mg Tab 1 Tab PO BID 11/09/17 Reported Bactrim Ds 800MG/160MG (Trimethoprim/Sulfamethoxazole) Tab 1 Tab PO BID 11/09/17 Reported Guaifenesin 400 Mg Tab 2 Tabs PO BID 11/09/17 Reported Fiber Laxative (Fiber) Ea 1 Tbs PO BID 11/09/17 Reported TAKE IN 8 OZ WATER Proscar (Finasteride) 5 Mg Tab 5 Mg PO QAM 10/02/17 Reported Glucophage Ext Rel (Metformin Hcl) 1,000 Mg Tab 1 Tab PO BID 10/02/17 Reported Glipizide Er (Glipizide) 10 Mg Tab 1 Tab PO QAM 10/02/17 Reported Lasix (Furosemide) 20 Mg Tab 20 Mg PO QAM 10/02/17 Reported Lipitor (Atorvastatin Calcium) 10 Mg Tab 10 Mg PO HS 10/02/17 Reported Aspirin Ec (Aspirin) 81 Mg Tab 81 Mg PO QAM 10/02/17 Reported [place] (Ciclesonide) 60 Puff/6.1 Gm Aerp 2 Puffs INH BID 10/02/17 Reported Coreg (Carvedilol) 3.125 Mg Tab 3.125 Mg PO BID 10/02/17 Reported Incruse Ellipta (Umeclidinium [place]) 62.5 Mcg/Inh Inh 1 Puff INH QAM 10/02/17 Reported Tamsulosin HCl 0.4 Mg Cap 1 Cap PO QAM 10/02/17 Reported Milk of Magnesia 400 mg/5Ml (Magnesium Hydroxide) 1 Clementina Clementina 30 Ml PO QAM 10/02/17 Reported Oxygen Gas 2 Liters NA PRN 01/07/18 Reported Zofran (Ondansetron HCl) 4 Mg Tab 4 Mg PO TID PRN 01/07/18 Reported Milk Of Magnesia (Magnesium Hydroxide) 30 Ml Susp 30 Ml PO DAILY PRN 01/07/18 Reported Tylenol W/Codeine #3 (Acetaminophen/Codeine Phosphate) 300 Mg/30 Mg Tab 2 Tab PO Q4H PRN 01/07/18 Reported Glucose (Glucose-Vitamin C) 1 Chw Chw 1 Tab PO BID 01/07/18 Reported Boost (Nutritional Supplements) 1 Liq Liq 1 Can PO TID 01/07/18 Reported Duoneb (Ipratropium-Albuterol) 3 Ml Nebu 1 Treatment INH QID 01/07/18 Reported Levalbuterol Tartrate Hfa (Levalbuterol Tartrate) 45 Mcg/Act Aer 2 Puffs INH QID PRN 01/07/18 Reported Vfend (Voriconazole) 200 Mg Tab 2 Tabs PO BID 01/07/18 Reported Flomax (Tamsulosin Hcl) 0.4 Mg Cap 0.4 Mg PO DAILY 01/07/18 Reported Prednisone 5 Mg Tab 5 Mg PO HS 01/07/18 Reported Glucophage (Metformin Hcl) 1,000 Mg Tab 1,000 Mg PO BID 01/07/18 Reported [Megace 40MG/Ml Susp] 10 Ml PO DAILY 01/07/18 Reported Zestril (Lisinopril) 5 Mg Tab 2.5 Mg PO DAILY 01/07/18 Reported Levaquin (Levofloxacin) 750 Mg Tab 1 Tab PO HS 01/07/18 Reported Incruse Ellipta (Umeclidinium [place]) 62.5 Mcg/Inh Inh 1 Puff INH DAILY 01/07/18 Reported [Guaifenesin 400MG] 800 Mg PO BID 01/07/18 Reported TAKE WITH 8OZ WATER Glucotrol (Glipizide) 10 Mg Tab 10 Mg PO DAILY 01/07/18 Reported Lasix (Furosemide) 20 Mg Tab 20 Mg PO DAILY 01/07/18 Reported Proscar (Finasteride) 5 Mg Tab 5 Mg PO DAILY 01/07/18 Reported Coreg (Carvedilol) 3.125 Mg Tab 3.125 Mg PO BID 01/07/18 Reported Lipitor (Atorvastatin Calcium) 10 Mg Tab 10 Mg PO HS 01/07/18 Reported Aspirin Ec (Aspirin) 81 Mg Tab 81 Mg PO QAM 01/07/18 Reported [place]ves[place] (Ciclesonide) 160 Mcg/Act Aer 2 Puffs INH BID 01/07/18 Reported A+D First Aid (Skin Protectants, Misc.) 1 Oin Oin 1 Appln PO BID PRN 01/07/18 Reported Review of Systems See HPI for pertinent positives & negatives. A total of 10 systems reviewed and were otherwise negative. Physical Exam Date Time Temp Pulse Resp B/P (MAP) Pulse Ox O2 Delivery O2 Flow Rate FiO2 01/08/18 08:06 38.2 102 19 104/70 (81) 99 Room Air 01/08/18 08:00 Room Air 01/08/18 07:08 98 16 97 Room Air 01/08/18 04:26 37.0 104 17 99/69 (79) 96 01/08/18 04:03 Room Air 01/08/18 00:02 Room Air 01/07/18 23:53 36.6 105 16 98/64 (75) 97 01/07/18 20:00 Room Air 01/07/18 19:59 89 16 96 Room Air 01/07/18 19:18 98 Room Air 01/07/18 19:11 36.5 89 18 101/69 01/07/18 19:08 36.5 89 18 101/69 (80) 98 Room Air 01/07/18 18:35 89 18 104/62 94 01/07/18 16:44 93 18 93/59 99 Room Air 01/07/18 15:42 95 20 100/71 99 Room Air 01/07/18 14:57 95 16 99/63 99 Room Air 01/07/18 14:34 96 18 95/67 99 Room Air 01/07/18 14:06 96 20 92/62 100 Room Air 01/07/18 13:47 106 20 95/64 99 Room Air 01/07/18 13:33 99 Room Air 01/07/18 13:31 106 22 90/68 100 Room Air 01/07/18 13:28 106 18 90/72 100 01/07/18 13:15 100 18 86/69 100 Room Air 01/07/18 13:08 36.4 117 20 68/55 99 Room Air General Appearance: WD/WN, no apparent distress Eyes: EOMI ENT: hearing grossly normal Neck: supple Respiratory/Chest: no respiratory distress, + rhonchi, + pertinent finding ( left chest tenderness) Cardiovascular: regular rate, rhythm, no gallop, no murmur Abdomen: normal bowel sounds, soft, + tenderness (epigastric) Extremities: no pedal edema Neurologic/Psych: alert, normal mood/affect, oriented x 3 Skin: warm/dry Laboratory Results Last 24 Hours Test 01/07/18 13:25 01/07/18 13:30 01/07/18 14:27 01/07/18 19:40 White Blood Count 16.53 K/uL Red Blood Count 3.62 M/uL Hemoglobin 11.6 g/dL 9.7 g/dL Hematocrit 32.9 % Mean Corpuscular Volume 90.9 fL Mean Corpuscular Hemoglobin 32.0 pg Mean Corpuscular Hemoglobin Concent 35.3 g/dl Platelet Count 313 K/uL Mean Platelet Volume 10.4 fL Neutrophils (%) (Auto) 62.9 % Lymphocytes (%) (Auto) 27.8 % Monocytes (%) (Auto) 7.8 % Eosinophils (%) (Auto) 0.2 % Basophils (%) (Auto) 0.0 % Neutrophils # (Auto) 10.41 K/uL Lymphocytes # (Auto) 4.59 K/uL Monocytes # (Auto) 1.29 K/uL Eosinophils # (Auto) 0.03 K/uL Basophils # (Auto) 0.00 K/uL RDW Standard Deviation 43.7 fL RDW Coefficient of Variation 13.2 % Immature Granulocyte % (Auto) 1.3 % Immature Granulocyte # (Auto) 0.21 K/uL Nucleated RBC Absolute Count (auto) 0.08 K/uL Nucleated Red Blood Cells % 0.5 % Sodium Level 133 mmol/L Potassium Level 5.2 mmol/L Chloride Level 101 mmol/L Carbon Dioxide Level 21 mmol/L Anion Gap 11.0 mmol/L 17.0 mmol/L Blood Urea Nitrogen 40 mg/dl Creatinine 0.91 mg/dl Estimated GFR () 111.1 Estimated GFR (Non- 95.9 BUN/Creatinine Ratio 43.6 Random Glucose 97 mg/dl Estimated Average Glucose 128 mg/dl Hemoglobin A1c 6.1 % Calcium Level 9.1 mg/dl Total Bilirubin 0.4 mg/dl Direct Bilirubin mg/dl Aspartate Amino Transf (AST/SGOT) 12 U/L Alanine Aminotransferase (ALT/SGPT) 21 U/L Alkaline Phosphatase 21 U/L Total Creatine Kinase 72 U/L Troponin I < 0.015 ng/ml Total Protein 6.9 gm/dl Albumin 3.8 gm/dl Lipase 116 U/L Chemistry Specimen Hemolysis Bedside Hemoglobin 11.6 g/dl Bedside Hematocrit 34 % Bedside Sodium 132 mEq/L Bedside Potassium 4.9 mEq/L Bedside Chloride 100 mEq/L Bedside Total CO2 21 mEq/l Bedside Blood Urea Nitrogen 42 mg/dl Bedside Creatinine 0.8 mg/dl Bedside Glucose (other) 103 mg/dl Bedside Ionized Calcium (Kelsie) 1.16 mmol/l Prothrombin Time 11.5 SECONDS Prothromb Time International Ratio 1.1 Activated Partial Thromboplast Time 22.9 SECONDS Partial Thromboplastin Ratio 0.9 Test 01/07/18 20:52 01/07/18 21:04 01/07/18 21:05 01/07/18 21:22 Bedside Glucose 75 mg/dl 66 mg/dl 98 mg/dl Urine Color YELLOW Urine Appearance CLEAR Urine pH 5.0 Urine Specific [place] 1.028 Urine Protein NEG Urine Glucose (UA) NEG Urine Ketones NEG Urine Occult Blood NEG Urine Nitrite NEG Urine Bilirubin NEG Urine Urobilinogen NEG Urine Leukocyte Esterase NEG Test 01/08/18 04:01 01/08/18 05:26 01/08/18 07:04 Bedside Glucose 81 mg/dl 98 mg/dl White Blood Count 9.86 K/uL Red Blood Count 2.63 M/uL Hemoglobin 8.6 g/dL Hematocrit 23.9 % Mean Corpuscular Volume 90.9 fL Mean Corpuscular Hemoglobin 32.7 pg Mean Corpuscular Hemoglobin Concent 36.0 g/dl Platelet Count 227 K/uL Mean Platelet Volume 9.4 fL Neutrophils (%) (Auto) 59.5 % Lymphocytes (%) (Auto) 27.1 % Monocytes (%) (Auto) 11.2 % Eosinophils (%) (Auto) 0.8 % Basophils (%) (Auto) 0.1 % Neutrophils # (Auto) 5.87 K/uL Lymphocytes # (Auto) 2.67 K/uL Monocytes # (Auto) 1.10 K/uL Eosinophils # (Auto) 0.08 K/uL Basophils # (Auto) 0.01 K/uL RDW Standard Deviation 43.7 fL RDW Coefficient of Variation 13.1 % Immature Granulocyte % (Auto) 1.3 % Immature Granulocyte # (Auto) 0.13 K/uL Nucleated RBC Absolute Count (auto) 0.03 K/uL Nucleated Red Blood Cells % 0.3 % Hypersegmented Polys 1+ Sodium Level 134 mmol/L Potassium Level 4.3 mmol/L Chloride Level 106 mmol/L Carbon Dioxide Level 22 mmol/L Anion Gap 6.0 mmol/L Blood Urea Nitrogen 20 mg/dl Creatinine 0.66 mg/dl Est Creatinine Clear Calc Drug Dose 116.7 ml/min Estimated GFR () 127.9 Estimated GFR (Non- 110.4 BUN/Creatinine Ratio 30.5 Random Glucose 75 mg/dl Calcium Level 7.8 mg/dl Total Bilirubin 0.3 mg/dl Aspartate Amino Transf (AST/SGOT) 8 U/L Alanine Aminotransferase (ALT/SGPT) 17 U/L Alkaline Phosphatase 16 U/L Total Protein 5.8 gm/dl Albumin 2.9 gm/dl Globulin 2.9 gm/dl Albumin/Globulin Ratio 1.0 Impression Patient is a 52 year old male status post left upper lobectomy on aspirin and Prednisone admitted with hypotension and coffee-ground emesis prior to arrival. Diff dx: esophagitis vs gastritis vs PUD vs Olga-Crouch tear vs mass vs other. Plan 1. Remain NPO for now. 2. EGD with Dr. Mcduffie for further evaluation. 3. Continue Protonix 40 mg IV BID. 4. Additional recommendations pending results of testing. Thank you for allowing us to participate in the care of this patient. If you have any questions or concerns, please do not hesitate to contact us. Agree with STEVEN Pineda as above Abd: Soft, NT, ND, +BS Continue current therapy EGD today for further evaluation.
[2018-01-08] MEDS ORDERED: LIDOCAINE HCL 2% 2 ML VIAL (20MG/ML) ONE ×2 (12:39→13:47)
[2018-01-08] MEDS ORDERED: PROPOFOL IV EMULSION 10 MG/ML 20 ML VIAL ONE ×2 (12:39→13:47)
[2018-01-08] MEDS ORDERED: FENTANYL CITRATE INJ 50 MCG/1 ML 2 ML VIAL ONE (13:19)
--- NOTE | 2018-01-08 13:57 | GI REPORT ---
Patient Name: Alexandro Servin Procedure Date: 01/08/2018 1:38 PM Date of : 1965 Admit Type: Inpatient Age: 52 Gender: Male Attending MD: Nimesh Mcduffie DO Procedure: Upper GI endoscopy Providers: Nimesh Mcduffie DO Referring MD: Ishmael Lee Indications: Hematemesis Medicines: Monitored Anesthesia Care Complications: No immediate complications. Estimated Blood Loss: Estimated blood loss: none. Procedure: Pre-Anesthesia Assessment: - Prior to the procedure, a History and Physical was performed, and patient medications and allergies were reviewed. The patient's tolerance of previous anesthesia was also reviewed. The risks and benefits of the procedure and the sedation options and risks were discussed with the patient. All questions were answered, and informed consent was obtained. Prior Anticoagulants: The patient has taken no previous anticoagulant or antiplatelet agents. ASA Grade Assessment: III - A patient with severe systemic disease. After reviewing the risks and benefits, the patient was deemed in satisfactory condition to undergo the procedure. After obtaining informed consent, the endoscope was passed under direct vision. Throughout the procedure, the patient's blood pressure, pulse, and oxygen saturations were monitored continuously. The scope was introduced through the mouth, and advanced to the second part of duodenum. The upper GI endoscopy was accomplished without difficulty. The patient tolerated the procedure well. Findings: The esophagus was normal. Many non-bleeding superficial gastric ulcers with no stigmata of bleeding were found in the stomach. The largest lesion was 5 mm in largest dimension. Biopsies were taken with a cold forceps for histology. The examined duodenum was normal. Impression: - Normal esophagus. - Non-bleeding gastric ulcers with no stigmata of bleeding. Biopsied. - Normal examined duodenum. Recommendation: - Return patient to hospital [facility] for ongoing care. - Advance diet as tolerated. - Switch to Protonix 40mg by mouth twice daily. - Use sucralfate suspension 1 gram PO QID for 10 days. - Await pathology results Nimesh Mcduffie DO 01/08/2018 1:56:45 PM This report has been signed electronically. Note Initiated On: 01/08/2018 1:38 PM Number of Addenda: 0 I attest to the content of the Intraoperative Record and orders documented therein, exceptions below {[id number]}
--- NOTE | 2018-01-08 14:07 | Anesthesiology Progress Note ---
Anesthesia Post Op Note Date & Time January 08, 2018 at 14:07 Vital Signs Pain Intensity: 0 Vital Signs Past 12 Hours Date Time Temp Pulse Resp B/P (MAP) Pulse Ox O2 Delivery O2 Flow Rate FiO2 01/08/18 12:44 36.5 115 20 113/70 (84) 98 Room Air 01/08/18 12:00 Room Air 01/08/18 11:47 37.2 104 19 99/64 (76) 98 Room Air 01/08/18 11:25 96 16 97 Room Air 01/08/18 08:06 38.2 102 19 104/70 (81) 99 Room Air 01/08/18 08:00 Room Air 01/08/18 07:08 98 16 97 Room Air 01/08/18 04:26 37.0 104 17 99/69 (79) 96 01/08/18 04:03 Room Air Notes Mental Status: alert / awake / arousable, participated in evaluation Pt Amnestic to Procedure: Yes Nausea / Vomiting: adequately controlled Pain: adequately controlled Airway Patency, RR, SpO2: stable & adequate BP & HR: stable & adequate Hydration State: stable & adequate Anesthetic Complications: no major complications apparent
--- NOTE | 2018-01-08 14:41 | Family Medicine Progress Note ---
Progress Note Date of Service January 08, 2018. Subjective Pt evaluation today including: conversation w/ patient, physical exam, chart review, lab review Pain: improved PO Intake: tolerating clear diet Voiding: no voiding problems This AM pt reports improved chest tightness, abdominal pain and sob. Still nauseous but no vomiting Constitutional: No fever Respiratory: + shortness of breath (improved) Cardiovascular: + chest pain (improved) Abdomen: + pain (improved), + nausea (improved), + constipation, No vomiting Male : No dysuria Medications Current Inpatient Medications Medications (Trade) Dose Ordered Sig/Rudy Route Start Time Stop Time Status Last Admin Dose Admin Al Hydrox/Mg Hydrox/Simethicone (Maalox Max Susp) 15 ml Q4H PRN PO 01/07/18 17:15 02/06/18 17:14 Ondansetron HCl (Zofran Inj) 4 mg Q6H PRN IV 01/07/18 17:15 02/06/18 17:14 01/08/18 08:02 4 MG Polyethylene (Miralax Powder Packet) 17 gm DAILY PRN PO 01/07/18 17:15 02/06/18 17:14 Pantoprazole Sodium 40 mg/ Syringe 10 ml @ 5 mls/min BID@0900,2100 IV 01/07/18 21:00 02/06/18 20:59 01/08/18 08:01 5 MLS/MIN Lactated Ringer's 1,000 ml @ 125 mls/hr Q8H IV 01/07/18 17:15 02/06/18 17:14 01/08/18 05:10 125 MLS/HR Acetaminophen/ Codeine Phosphate (Tylenol w/ Codeine #3 Tab) 2 tab Q4H PRN PO 01/07/18 17:30 02/06/18 17:29 Atorvastatin Calcium (Lipitor Tab) 10 mg HS PO 01/07/18 21:00 02/06/18 20:59 01/07/18 20:59 10 MG Finasteride (Proscar Tab) 5 mg DAILY PO 01/08/18 09:00 02/07/18 08:59 01/08/18 08:02 5 MG Albuterol/ Ipratropium (Duoneb) 3 ml QIDR INH 01/07/18 20:00 02/06/18 19:59 01/08/18 11:25 3 ML Levalbuterol (Xopenex Hfa Inhaler) 2 puffs QID PRN INH 01/07/18 17:30 02/06/18 17:29 Levofloxacin (Levaquin Tab) 750 mg HS PO 01/07/18 21:00 01/14/18 20:59 01/07/18 20:59 750 MG Magnesium Hydroxide (Milk Of Magnesia Susp) 30 ml DAILY PRN PO 01/07/18 17:30 02/06/18 17:29 Enteral Nutritional Formula (Boost) 1 can TID PO 01/07/18 21:00 02/06/18 20:59 01/07/18 20:57 1 CAN Prednisone (PredniSONE TAB) 5 mg HS PO 01/07/18 21:00 02/06/18 20:59 01/07/18 21:00 5 MG Tamsulosin HCl (Flomax Cap) 0.4 mg DAILY PO 01/08/18 09:00 02/07/18 08:59 01/08/18 08:02 0.4 MG Voriconazole (Vfend Tab) 400 mg BID PO 01/07/18 21:00 01/14/18 20:59 01/08/18 08:02 400 MG Miscellaneous Information (Order Awaiting Action) 1 ea QS N/A 01/08/18 00:00 02/07/18 00:00 Multi-Ingredient Ointment (Eucerin Unscented Cr) 1 appln BID PRN EXT 01/07/18 17:30 02/06/18 17:29 Miscellaneous Information (Order Awaiting Action) 1 ea QS N/A 01/08/18 00:00 02/07/18 00:00 Guaifenesin (Organidin Nr Tab) 800 mg BID PO 01/07/18 21:00 02/06/18 20:59 01/08/18 08:02 800 MG Megestrol Acetate (Megace Susp) 400 mg DAILY PO 01/08/18 09:00 02/07/18 08:59 01/08/18 08:02 400 MG Insulin Aspart (novoLOG ASPART) SLIDING SCALE G... ACHS SC 01/07/18 21:00 02/06/18 20:59 Glucose (Glucose 40% Gel) 15-30 GRAMS 15 GRAMS... UD PRN PO 01/07/18 20:00 02/06/18 19:59 Glucose (Glucose Chew Tab) 4-8 Tablets 4 Tabl... UD PRN PO 01/07/18 20:00 02/06/18 19:59 01/07/18 21:07 4 TABS Dextrose (Dextrose 50% 50ML Syringe) 25-50ML 25ML FOR ... UD PRN IV 01/07/18 20:00 02/06/18 19:59 Glucagon (Glucagon Inj) 1 mg UD PRN IM 01/07/18 20:00 02/06/18 19:59 Carbohydrates (Carbohydrates For Hypoglycemia) 15-30 GRAMS 15 grams if BSG 54-69... UD PRN PO 01/07/18 20:00 02/06/18 19:59 01/07/18 20:52 15 GM Objective Vital Signs Date Time Temp Pulse Resp B/P (MAP) Pulse Ox O2 Delivery O2 Flow Rate FiO2 01/08/18 14:05 115 18 105/69 (81) 100 Room Air 01/08/18 13:50 115 18 96/66 (76) 98 Room Air 01/08/18 12:44 36.5 115 20 113/70 (84) 98 Room Air 01/08/18 12:00 Room Air 01/08/18 11:47 37.2 104 19 99/64 (76) 98 Room Air 01/08/18 11:25 96 16 97 Room Air 01/08/18 08:06 38.2 102 19 104/70 (81) 99 Room Air 01/08/18 08:00 Room Air 01/08/18 07:08 98 16 97 Room Air 01/08/18 04:26 37.0 104 17 99/69 (79) 96 01/08/18 04:03 Room Air 01/08/18 00:02 Room Air 01/07/18 23:53 36.6 105 16 98/64 (75) 97 01/07/18 20:00 Room Air 01/07/18 19:59 89 16 96 Room Air 01/07/18 19:18 98 Room Air 01/07/18 19:11 36.5 89 18 101/69 01/07/18 19:08 36.5 89 18 101/69 (80) 98 Room Air 01/07/18 18:35 89 18 104/62 94 01/07/18 16:44 93 18 93/59 99 Room Air 01/07/18 15:42 95 20 100/71 99 Room Air 01/07/18 14:57 95 16 99/63 99 Room Air 01/07/18 14:34 96 18 95/67 99 Room Air Physical Exam General Appearance: no apparent distress Eyes: normal inspection Neck: supple Respiratory/Chest: lungs clear, normal breath sounds Cardiovascular: regular rate, rhythm, no murmur Abdomen: normal bowel sounds, soft, + distended (mildly), + tenderness (mildy TTP diffusely no BM x 1 week) Neurologic/Psychiatric: alert, oriented x 3 Skin: warm/dry Laboratory Results 01/08/18 05:26 Red Blood Count 2.63, Mean Corpuscular Volume 90.9, Mean Corpuscular Hemoglobin 32.7, Mean Corpuscular Hemoglobin Concent 36.0, Mean Platelet Volume 9.4, Neutrophils (%) (Auto) 59.5, Lymphocytes (%) (Auto) 27.1, Monocytes (%) (Auto) 11.2, Eosinophils (%) (Auto) 0.8, Basophils (%) (Auto) 0.1, Neutrophils # (Auto ) 5.87, Lymphocytes # (Auto) 2.67, Monocytes # (Auto) 1.10, Eosinophils # (Auto ) 0.08, Basophils # (Auto) 0.01 01/08/18 05:26 Test 01/07/18 21:05 01/08/18 05:26 01/08/18 11:18 Urine Color YELLOW Urine Appearance CLEAR (CLEAR) Urine pH 5.0 (4.5-7.5) Urine Specific [place] 1.028 (1.000-1.030) Urine Protein NEG (NEG) Urine Glucose (UA) NEG (NEG) Urine Ketones NEG (NEG) Urine Occult Blood NEG (NEG) Urine Nitrite NEG (NEG) Urine Bilirubin NEG (NEG) Urine Urobilinogen NEG (NEG) Urine Leukocyte Esterase NEG (NEG) White Blood Count 9.86 K/uL (4.8-10.8) Red Blood Count 2.63 M/uL (4.7-6.1) Hemoglobin 8.6 g/dL (14.0-18.0) Hematocrit 23.9 % (42-52) Mean Corpuscular Volume 90.9 fL (80-100) Mean Corpuscular Hemoglobin 32.7 pg (25-34) Mean Corpuscular Hemoglobin Concent 36.0 g/dl (32-36) Platelet Count 227 K/uL (130-400) Mean Platelet Volume 9.4 fL (7.4-10.4) Neutrophils (%) (Auto) 59.5 % Lymphocytes (%) (Auto) 27.1 % Monocytes (%) (Auto) 11.2 % Eosinophils (%) (Auto) 0.8 % Basophils (%) (Auto) 0.1 % Neutrophils # (Auto) 5.87 K/uL (1.4-6.5) Lymphocytes # (Auto) 2.67 K/uL (1.2-3.4) Monocytes # (Auto) 1.10 K/uL (0.11-0.59) Eosinophils # (Auto) 0.08 K/uL (0-0.5) Basophils # (Auto) 0.01 K/uL (0-0.2) RDW Standard Deviation 43.7 fL (36.4-46.3) RDW Coefficient of Variation 13.1 % (11.5-14.5) Immature Granulocyte % (Auto) 1.3 % Immature Granulocyte # (Auto) 0.13 K/uL (0.00-0.02) Nucleated RBC Absolute Count (auto) 0.03 K/uL (0-0) Nucleated Red Blood Cells % 0.3 % Hypersegmented Polys 1+ Anion Gap 6.0 mmol/L (3-11) Est Creatinine Clear Calc Drug Dose 116.7 ml/min Estimated GFR () 127.9 Estimated GFR (Non- 110.4 BUN/Creatinine Ratio 30.5 (10-20) Calcium Level 7.8 mg/dl (8.5-10.1) Total Bilirubin 0.3 mg/dl (0.2-1) Aspartate Amino Transf (AST/SGOT) 8 U/L (15-37) Alanine Aminotransferase (ALT/SGPT) 17 U/L (12-78) Alkaline Phosphatase 16 U/L (45-117) Total Protein 5.8 gm/dl (6.4-8.2) Albumin 2.9 gm/dl (3.4-5.0) Globulin 2.9 gm/dl (2.5-4.0) Albumin/Globulin Ratio 1.0 (0.9-2) Bedside Glucose 96 mg/dl (70-99) Date/Time Source Procedure Growth Status 01/07/18 19:15 Nasal MRSA DNA Surveillance Screen - Final Specimen Negative for MRSA by DNA Probe Complete Assessment and Plan 52y/oM with hx of recent pulmonary surgery MARC for fungal infection, COPD, asthma, HTN, CHF, DM, Hep C, chronic sinusitis, chronic constipation presents with 2 episodes of hematemesis in the last 2 days. Associated with NOW improving weakness, tachycardia and hypotension s/p IVF initially concerning for shock. H/H 11.6/32.9 downtrended to 8.6/23.9 this AM but no active hematemesis. Likely in the setting of gastritis from chronic aspirin and prednisone use. EGD today consistent with multiple non-bleeding superficial gastric ulcers. GI bleed (hematemesis) with tachycardia, hypotension- improving - No active hematemesis, nausea improved with zofran, abdominal pain (reported to be chronic and likely related to recent lung surgery given LUQ in region of laparoscopy scars vs. constipation) - BP and HR improving s/p IVF - EGD: many superficial non-bleeding gastric ulcers, no bleeding stigmata ( biopsied); nl esophagus and duodenum - CT abdomen - no acute abnormality, mod colonic fecal retention, cholelithiasis and advanced emphysema, RLL mild inflammation/pneumonitis - CXR - post surgical MARC changes, mild L mediastinal shift, opacity L hilar region likely scarring - H/H - 11.6/32.9 --> 8.6/23.9 this AM - Improved WBC of 16.5 --> 9.8 - Type and Cross w/t 2 units of pRBC - H&H Q12H x 4 - PIV x 2 - Received Protonix 40mg IV BID --> NOW PO - Started sucralfate 1g QID x 10 days per GI recommendation - Zofran 4mg Q6H PRN - LR 125mls/hr Abdominal pain likely 2/2 constipation - abdominal pain (reported to be chronic and likely related to recent lung surgery given LUQ in region of laparoscopy scars vs. constipation) - continue to monitor - continue bowel regimen (milk of magnesium) Febrile to 38.2 this AM (once) improved to 37 - Likely an error and not concerning for sepsis/infectious etiology at this time - continue to monitor Pulm: COPD/asthma - Duoneb 3ml QID - Continue home inhalers: levalbuterol 2 puffs QID, incruse ellipta 1 puff daily ; [place] 2 puffs BID - Continue Guaifenesin 800mg BID - Continue home prednisone 5mg HS (reports taking for lung condition) - Continue home levofloxacin 750mg HS (reports taking daily post surgery) - Continue home voriconazole 400mg BID (for lung fungal infection likely) - Continue home tylenol w/t codeine 2 tabs Q4H PRN for recent surgical pain per pt CAD/CHF/HTN - Hold home Lasix given hypovolemic - Hold home Lisinopril and Carvedilol given hypotension - Hold home aspirin 81mg given GI bleed BPH - Continue home finasteride 5mg daily - Tamsulosin HCL 0.4mg daily DM - Hold home glipizide and metformin - dc glipizide on discharge given HgbA1c of 6.1 and just continue metformin - SSI w/t qacs and qhs HLD - continue home atorvastatin 10mg HS Diet - Boost 1 can TID Code: Full DVT Prophylaxis: SCDs (chemical contraindicated due to GI bleed) Dispo: pending stable H/H and clinical improvement Resident Physician Supervision Note: I interviewed and examined the patient. Discussed with Dr. Conde and agree with findings and plan as documented in the note. Any exceptions or clarifications are listed here: None Documented By: Ishmael Lee feeling better post EGD just wants to eat HR has been up no pain no feeling at all like prior CAD - notes that that was a chest pressure and he feels none of that now, no sob vitals noted breathing unlabored sl pale and diaphoretic EKG sinus tach @ 120 UGI bleed from PUD w acute blood loss anemia -PPI -hold asa for now -follow Hgb tachycardia, diaphoresis -uncertain etiology -checked labs, other than anemia and nonspecific metabolic acidosis, nothing clear, CRP low pleading heavily against infection -doesn't have CAD sx, but ?symptomatic from anemia - conitnue IVF and work to stabilize, not totally clear needing to transfuse but if HR doesn't improve after ~1 additional L fluid then would re-eval and move ot transfuse Resident Involvement: Resident Care Provided Care Provided: Adult Hospital Medicine
[2018-01-08] MEDS: SUCRALFATE 1 GM/10 ML UDC PO SCH ×2 (16:17→20:55)
[2018-01-08] MEDS: ACETAMINOPHEN/CODEINE 300/30MG TAB PO PRN (17:23)
[2018-01-08 18:14] LABS: BASO % 0.2 %; BASO ABS # 0.02 K/uL (0-0.2); EOS % 0.8 %; EOS ABS # 0.07 K/uL (0-0.5); HEMATOCRIT 22.3 % (42-52); LYMPH % 35.7 %; LYMPH ABS # 3.08 K/uL (1.2-3.4); MEAN CELL VOLUME 90.7 fL (80-100); MEAN CORPUSCULAR HEMOGLOBIN 32.5 pg (25-34); MEAN CORPUSCULAR HGB CONC 35.9 g/dl (32-36); MEAN PLATELET VOLUME 9.3 fL (7.4-10.4); MONO % 13.8 %; MONO ABS # 1.19 K/uL (0.11-0.59); NEUT % 48.3 %; NEUT ABS # 4.17 K/uL (1.4-6.5); NUCLEATED RED BLOOD CELL ABS 0.06 K/uL (0-0); PLATELET COUNT 228 K/uL (130-400); RED CELL DISTRIBUTION WIDTH CV 13.2 % (11.5-14.5); RED CELL DISTRIBUTION WIDTH SD 43.2 fL (36.4-46.3); WHITE BLOOD COUNT 8.63 K/uL (4.8-10.8)
[2018-01-08] MEDS ORDERED: NURSING VERBAL MED ORDER ONE (18:30)
[2018-01-08 18:44] LABS: BLOOD UREA NITROGEN 12 mg/dl (7-18); CALCIUM 7.8 mg/dl (8.5-10.1); CARBON DIOXIDE 17 mmol/L (21-32); CREATININE 0.87 mg/dl (0.60-1.40); GLUCOSE 169 mg/dl (70-99); POTASSIUM 3.3 mmol/L (3.5-5.1); SODIUM 135 mmol/L (136-145)
[2018-01-08] MEDS ORDERED: LACTATED RINGER'S 1000ML 1,000 ML IV ONE ×2 (18:45→20:00)
[2018-01-08] MEDS: POLYETHYLENE (MIRALAX) 17 GM PACK PO PRN (19:59)
[2018-01-08] MEDS: PANTOprazole SOD 40 MG TAB PO SCH (20:56)
[2018-01-08] MEDS: LEVOFLOXACIN 750 MG TAB PO SCH (20:57)
[2018-01-08] MEDS: ATORVASTATIN 10 MG TAB PO SCH (20:57)
[2018-01-09] VITALS (23 sets, daily range): BP systolic 100–122; BP diastolic 54–79; PULSE 73–121; TEMP 36.5–37.7; O2SAT 95–99
[2018-01-09 05:29] LABS: CALCIUM 7.9 mg/dl (8.5-10.1); CREATININE 0.61 mg/dl (0.60-1.40); POTASSIUM 4.1 mmol/L (3.5-5.1)
[2018-01-09 05:39] LABS: HEMATOCRIT 20.8 % (42-52); MEAN CELL VOLUME 91.6 fL (80-100); MEAN CORPUSCULAR HEMOGLOBIN 30.8 pg (25-34); MEAN CORPUSCULAR HGB CONC 33.7 g/dl (32-36); MEAN PLATELET VOLUME 9.2 fL (7.4-10.4); NUCLEATED RED BLOOD CELL ABS 0.09 K/uL (0-0); PLATELET COUNT 219 K/uL (130-400); RED CELL DISTRIBUTION WIDTH CV 13.6 % (11.5-14.5); RED CELL DISTRIBUTION WIDTH SD 44.5 fL (36.4-46.3); WHITE BLOOD COUNT 7.22 K/uL (4.8-10.8)
[2018-01-09 05:57] LABS: BASO % 0.1 %; BASO ABS # 0.01 K/uL (0-0.2); EOS ABS # 0.07 K/uL (0-0.5); IG# 0.14 K/uL (0.00-0.02); LYMPH % 26.6 %; LYMPH ABS # 1.92 K/uL (1.2-3.4); MONO % 14.5 %; MONO ABS # 1.05 K/uL (0.11-0.59); NEUT % 55.9 %; NEUT ABS # 4.03 K/uL (1.4-6.5)
[2018-01-09] MEDS: INSULIN ASPART 100 UNITS/ML 3 ML PEN SC SCH ×4 (07:00→21:00)
--- NOTE | 2018-01-09 07:20 | Family Medicine Progress Note ---
Progress Note Date of Service January 09, 2018. Subjective Pt evaluation today including: conversation w/ patient, physical exam, chart review, lab review Patient reports mild throat discomfort but otherwise appetite is good Has mild abdominal pain but is improving No diarrhea. No recurrence of hematemesis Called with critical Hb 7.0. Additional Comments: A 10 point review of systems was negative unless stated above. Medications Current Inpatient Medications Medications (Trade) Dose Ordered Sig/Rudy Route Start Time Stop Time Status Last Admin Dose Admin Al Hydrox/Mg Hydrox/Simethicone (Maalox Max Susp) 15 ml Q4H PRN PO 01/07/18 17:15 02/06/18 17:14 Ondansetron HCl (Zofran Inj) 4 mg Q6H PRN IV 01/07/18 17:15 02/06/18 17:14 01/08/18 08:02 4 MG Polyethylene (Miralax Powder Packet) 17 gm DAILY PRN PO 01/07/18 17:15 02/06/18 17:14 01/09/18 08:08 17 GM Lactated Ringer's 1,000 ml @ 125 mls/hr Q8H IV 01/07/18 17:15 02/06/18 17:14 01/08/18 17:23 125 MLS/HR Acetaminophen/ Codeine Phosphate (Tylenol w/ Codeine #3 Tab) 2 tab Q4H PRN PO 01/07/18 17:30 02/06/18 17:29 01/09/18 09:34 2 TAB Atorvastatin Calcium (Lipitor Tab) 10 mg HS PO 01/07/18 21:00 02/06/18 20:59 01/08/18 20:57 10 MG Finasteride (Proscar Tab) 5 mg DAILY PO 01/08/18 09:00 02/07/18 08:59 01/09/18 08:09 5 MG Albuterol/ Ipratropium (Duoneb) 3 ml QIDR INH 01/07/18 20:00 02/06/18 19:59 01/09/18 07:25 3 ML Levalbuterol (Xopenex Hfa Inhaler) 2 puffs QID PRN INH 01/07/18 17:30 02/06/18 17:29 Levofloxacin (Levaquin Tab) 750 mg HS PO 01/07/18 21:00 01/14/18 20:59 01/08/18 20:57 750 MG Magnesium Hydroxide (Milk Of Magnesia Susp) 30 ml DAILY PRN PO 01/07/18 17:30 02/06/18 17:29 01/09/18 08:09 30 ML Enteral Nutritional Formula (Boost) 1 can TID PO 01/07/18 21:00 02/06/18 20:59 01/09/18 08:09 1 CAN Prednisone (PredniSONE TAB) 5 mg HS PO 01/07/18 21:00 02/06/18 20:59 01/08/18 20:57 5 MG Tamsulosin HCl (Flomax Cap) 0.4 mg DAILY PO 01/08/18 09:00 02/07/18 08:59 01/09/18 08:09 0.4 MG Voriconazole (Vfend Tab) 400 mg BID PO 01/07/18 21:00 01/14/18 20:59 01/09/18 08:09 400 MG Miscellaneous Information (Order Awaiting Action) 1 ea QS N/A 01/08/18 00:00 02/07/18 00:00 Multi-Ingredient Ointment (Eucerin Unscented Cr) 1 appln BID PRN EXT 01/07/18 17:30 02/06/18 17:29 Miscellaneous Information (Order Awaiting Action) 1 ea QS N/A 01/08/18 00:00 02/07/18 00:00 Guaifenesin (Organidin Nr Tab) 800 mg BID PO 01/07/18 21:00 02/06/18 20:59 01/09/18 08:09 800 MG Megestrol Acetate (Megace Susp) 400 mg DAILY PO 01/08/18 09:00 02/07/18 08:59 01/09/18 08:09 400 MG Insulin Aspart (novoLOG ASPART) SLIDING SCALE G... ACHS SC 01/07/18 21:00 02/06/18 20:59 Glucose (Glucose 40% Gel) 15-30 GRAMS 15 GRAMS... UD PRN PO 01/07/18 20:00 02/06/18 19:59 Glucose (Glucose Chew Tab) 4-8 Tablets 4 Tabl... UD PRN PO 01/07/18 20:00 6/2/18 19:59 01/07/18 21:07 4 TABS Dextrose (Dextrose 50% 50ML Syringe) 25-50ML 25ML FOR ... UD PRN IV 01/07/18 20:00 02/06/18 19:59 Glucagon (Glucagon Inj) 1 mg UD PRN IM 01/07/18 20:00 02/06/18 19:59 Carbohydrates (Carbohydrates For Hypoglycemia) 15-30 GRAMS 15 grams if BSG 54-69... UD PRN PO 01/07/18 20:00 02/06/18 19:59 01/07/18 20:52 15 GM Pantoprazole Sodium (Protonix Tab) 40 mg BID PO 01/08/18 21:00 02/07/18 20:59 01/09/18 08:10 40 MG Sucralfate (Carafate Susp) 1 gm QID PO 01/08/18 17:00 02/07/18 16:59 01/09/18 08:09 1 GM Objective Vital Signs Date Time Temp Pulse Resp B/P (MAP) Pulse Ox O2 Delivery O2 Flow Rate FiO2 01/09/18 09:35 37.1 99 18 100/68 95 01/09/18 09:05 37.5 107 19 108/70 95 01/09/18 08:50 37.2 104 18 107/71 95 01/09/18 08:00 Room Air 01/09/18 07:26 96 16 98 Room Air 01/09/18 06:58 37.7 73 20 104/54 (71) 98 Room Air 01/09/18 06:57 75 01/09/18 04:02 Room Air 01/09/18 03:32 88 01/09/18 03:30 37.1 94 20 113/74 (87) 96 Room Air 01/09/18 01:41 109 01/09/18 00:55 110 01/09/18 00:02 Room Air 01/08/18 23:03 37.5 127 19 86/50 (62) 95 Room Air 01/08/18 21:28 123 01/08/18 20:42 126 01/08/18 20:00 Room Air 01/08/18 19:16 37.0 113 20 108/69 (82) 97 Room Air 01/08/18 19:02 108 16 95 Room Air 01/08/18 18:08 37.0 116 18 106/73 (84) 98 Room Air 01/08/18 16:04 36.3 122 20 115/71 (86) 99 Room Air 01/08/18 16:00 Room Air 01/08/18 15:12 109 16 95 Room Air 01/08/18 14:05 115 18 105/69 (81) 100 Room Air 01/08/18 13:50 115 18 96/66 (76) 98 Room Air 01/08/18 12:44 36.5 115 20 113/70 (84) 98 Room Air 01/08/18 12:00 Room Air 01/08/18 11:47 37.2 104 19 99/64 (76) 98 Room Air 01/08/18 11:25 96 16 97 Room Air Physical Exam General Appearance: WD/WN, no apparent distress Eyes: normal inspection, EOMI ENT: hearing grossly normal, pharynx normal Neck: supple, no adenopathy, no JVD Respiratory/Chest: lungs clear, + pertinent finding (mild wheezing) Cardiovascular: regular rate, rhythm, no gallop, no murmur, + tachycardia Abdomen: normal bowel sounds, non tender, soft Extremities: non-tender, no pedal edema Neurologic/Psychiatric: alert, normal mood/affect, oriented x 3 Skin: normal color, warm/dry, no rash Lymphatic: no adenopathy Laboratory Results Last 24 Hours Test 01/08/18 11:18 01/08/18 16:11 01/08/18 17:54 01/08/18 20:51 Bedside Glucose 96 mg/dl 160 mg/dl 126 mg/dl White Blood Count 8.63 K/uL Red Blood Count 2.46 M/uL Hemoglobin 8.0 g/dL Hematocrit 22.3 % Mean Corpuscular Volume 90.7 fL Mean Corpuscular Hemoglobin 32.5 pg Mean Corpuscular Hemoglobin Concent 35.9 g/dl Platelet Count 228 K/uL Mean Platelet Volume 9.3 fL Neutrophils (%) (Auto) 48.3 % Lymphocytes (%) (Auto) 35.7 % Monocytes (%) (Auto) 13.8 % Eosinophils (%) (Auto) 0.8 % Basophils (%) (Auto) 0.2 % Neutrophils # (Auto) 4.17 K/uL Lymphocytes # (Auto) 3.08 K/uL Monocytes # (Auto) 1.19 K/uL Eosinophils # (Auto) 0.07 K/uL Basophils # (Auto) 0.02 K/uL RDW Standard Deviation 43.2 fL RDW Coefficient of Variation 13.2 % Immature Granulocyte % (Auto) 1.2 % Immature Granulocyte # (Auto) 0.10 K/uL Nucleated RBC Absolute Count (auto) 0.06 K/uL Nucleated Red Blood Cells % 0.7 % Red Blood Cell Morphology Unremarkable Sodium Level 135 mmol/L Potassium Level 3.3 mmol/L Chloride Level 109 mmol/L Carbon Dioxide Level 17 mmol/L Anion Gap 9.0 mmol/L Blood Urea Nitrogen 12 mg/dl Creatinine 0.87 mg/dl Est Creatinine Clear Calc Drug Dose 88.6 ml/min Estimated GFR () 114.2 Estimated GFR (Non- 98.5 BUN/Creatinine Ratio 13.7 Random Glucose 169 mg/dl Calcium Level 7.8 mg/dl C-Reactive Protein < 0.29 mg/dl Test 01/09/18 04:19 01/09/18 07:08 White Blood Count 7.22 K/uL Red Blood Count 2.27 M/uL Hemoglobin 7.0 g/dL Hematocrit 20.8 % Mean Corpuscular Volume 91.6 fL Mean Corpuscular Hemoglobin 30.8 pg Mean Corpuscular Hemoglobin Concent 33.7 g/dl Platelet Count 219 K/uL Mean Platelet Volume 9.2 fL Neutrophils (%) (Auto) 55.9 % Lymphocytes (%) (Auto) 26.6 % Monocytes (%) (Auto) 14.5 % Eosinophils (%) (Auto) 1.0 % Basophils (%) (Auto) 0.1 % Neutrophils # (Auto) 4.03 K/uL Lymphocytes # (Auto) 1.92 K/uL Monocytes # (Auto) 1.05 K/uL Eosinophils # (Auto) 0.07 K/uL Basophils # (Auto) 0.01 K/uL RDW Standard Deviation 44.5 fL RDW Coefficient of Variation 13.6 % Immature Granulocyte % (Auto) 1.9 % Immature Granulocyte # (Auto) 0.14 K/uL Nucleated RBC Absolute Count (auto) 0.09 K/uL Nucleated Red Blood Cells % 1.2 % Red Blood Cell Morphology Unremarkable Sodium Level 140 mmol/L Potassium Level 4.1 mmol/L Chloride Level 112 mmol/L Carbon Dioxide Level 24 mmol/L Anion Gap 4.0 mmol/L Blood Urea Nitrogen 8 mg/dl Creatinine 0.61 mg/dl Est Creatinine Clear Calc Drug Dose 126.3 ml/min Estimated GFR () 132.1 Estimated GFR (Non- 114.0 BUN/Creatinine Ratio 13.2 Random Glucose 120 mg/dl Calcium Level 7.9 mg/dl Bedside Glucose 138 mg/dl Assessment and Plan 52 year old halfway inmate who presented for hematemesis. Had EGD with noted non -bleeding gastric ulcer. Today Hb dropped to 7.0. - UGIB: No recurrence of hematemesis. No BM since 01/02 so unclear is passing through stool. Hb 7.0 today and remains slightly tachycardic, consider dilutional etiology but only excess of 2L. Will transfuse 2 units today and re- check H&H later today. GI consulted and recs appreciated. Will continue for total 10 days of Sucralfate and continue with Protonix 40 mg BID - Constipation: May hide UGIB. Given Milk of Mag + Miralax this AM. Will follow and provide add on therapy if required - BPH: Continue Finasteride and Tamsulosin. - HTN: all home meds (Lisinopril and Coreg on Hold due to low relative BPs); will re-start as BP tolerates - HLD: continue Atorvastatin - COPD: Continue Duoneb or Xopenex PRN. On chronic 5 mg Prednisone. Continue Mucinex. Continue Levofloxacin. - Aspergillosis: Continue Voriconazole DM2: Home meds on hold. Continue Sliding scale insulin. BSG are within normal limits DVT: SCD and TEDs. Pharmacological means are contra-indicated due to recent GI bleed Code Status: Level I Full Code Disposition: Remain in telemetry for monitoring. Resident Physician Supervision Note: I interviewed and examined the patient. Discussed with Dr. Sandoval and agree with findings and plan as documented in the note. Any exceptions or clarifications are listed here: None Documented By: Ishmael Lee eating OK still constpiated vitals noted no pallor or icterus breathing unlabored UGI bleed from PUD w acute blood loss anemia -PPI -hold asa for now -follow Hgb, requires transfusion due to persistent tachy, low hgb, CAD, etc - transfused as above tachycardia, diaphoresis -improving - see above severe constipation -suspect not seeing blood in stool since he's so profoundly constipated that nothing is coming through - miralax, enema, suspect some blood will be seen if bowels clear but with ulcer not bleeding on scope doubt actively bleeding otherwise as above Continued [facility] stay due to: fever, abnormal vital signs Discharge planning: uncertain
[2018-01-09] MEDS: ALBUT/IPRATROP 3MG/0.5MG NEB 3 ML VIAL INH SCH ×4 (07:25→19:09)
[2018-01-09] MEDS: POLYETHYLENE (MIRALAX) 17 GM PACK PO PRN (08:08)
[2018-01-09] MEDS: SUCRALFATE 1 GM/10 ML UDC PO SCH ×4 (08:09→21:18)
[2018-01-09] MEDS: MEGESTROL ACETATE SUSP 400 MG/10 ML UDC PO SCH (08:09)
[2018-01-09] MEDS: VORICONAZOLE 200 MG TAB PO SCH ×2 (08:09→21:20)
[2018-01-09] MEDS: MAGNESIUM HYDROXIDE SUSP 30 ML UDC PO PRN (08:09)
[2018-01-09] MEDS: TAMSULOSIN HCL 0.4 MG CAP PO SCH (08:09)
[2018-01-09] MEDS: GUAIFENESIN 200 MG TAB PO SCH ×2 (08:09→21:19)
[2018-01-09] MEDS: FINASTERIDE 5 MG TAB PO SCH (08:09)
[2018-01-09] MEDS: BOOST VANILLA PO SCH ×3 (08:09→21:17)
[2018-01-09] MEDS: PANTOprazole SOD 40 MG TAB PO SCH ×2 (08:10→21:19)
[2018-01-09] MEDS: LACTATED RINGER'S 1000ML 1,000 ML IV SCH (09:08)
[2018-01-09] MEDS: ACETAMINOPHEN/CODEINE 300/30MG TAB PO PRN ×2 (09:34→21:17)
[2018-01-09] MEDS ORDERED: POLYETHYLENE (MIRALAX) 17 GM PACK PO ONE (13:30)
[2018-01-09] MEDS ORDERED: SOD PHOSPHATE/SOD BIPHOSPHATE ENEMA 132 ML BTL PR PRN (13:30)
[2018-01-09] MEDS ORDERED: NURSING VERBAL MED ORDER ONE (14:00)
[2018-01-09] MEDS ORDERED: SOAP SUDS ENEMA PR PRN (14:15)
[2018-01-09 14:53] LABS: HEMATOCRIT 28.5 % (42-52); HEMOGLOBIN 10.2 g/dL (14.0-18.0)
[2018-01-09] MEDS: ATORVASTATIN 10 MG TAB PO SCH (21:18)
[2018-01-10] VITALS (13 sets, daily range): BP systolic 101–126; BP diastolic 72–88; PULSE 78–114; TEMP 36.4–37.5; O2SAT 95–99
[2018-01-10 06:08] LABS: HEMATOCRIT 29.6 % (42-52); HEMOGLOBIN 10.5 g/dL (14.0-18.0); MEAN CELL VOLUME 90.8 fL (80-100); MEAN CORPUSCULAR HEMOGLOBIN 32.2 pg (25-34); MEAN CORPUSCULAR HGB CONC 35.5 g/dl (32-36); MEAN PLATELET VOLUME 9.5 fL (7.4-10.4); NUCLEATED RED BLOOD CELL ABS 0.64 K/uL (0-0); PLATELET COUNT 230 K/uL (130-400); RED CELL DISTRIBUTION WIDTH CV 14.3 % (11.5-14.5); RED CELL DISTRIBUTION WIDTH SD 46.7 fL (36.4-46.3); WHITE BLOOD COUNT 11.18 K/uL (4.8-10.8)
[2018-01-10 06:38] LABS: CALCIUM 8.4 mg/dl (8.5-10.1); CREATININE 0.71 mg/dl (0.60-1.40); POTASSIUM 4.4 mmol/L (3.5-5.1)
[2018-01-10] MEDS: ALBUT/IPRATROP 3MG/0.5MG NEB 3 ML VIAL INH SCH ×4 (07:13→19:05)
[2018-01-10] MEDS: TAMSULOSIN HCL 0.4 MG CAP PO SCH (08:27)
[2018-01-10] MEDS: VORICONAZOLE 200 MG TAB PO SCH ×2 (08:27→20:48)
[2018-01-10] MEDS: MEGESTROL ACETATE SUSP 400 MG/10 ML UDC PO SCH (08:27)
[2018-01-10] MEDS: PANTOprazole SOD 40 MG TAB PO SCH ×2 (08:28→20:48)
[2018-01-10] MEDS: GUAIFENESIN 200 MG TAB PO SCH ×2 (08:28→20:48)
[2018-01-10] MEDS: SUCRALFATE 1 GM/10 ML UDC PO SCH ×4 (08:28→20:48)
[2018-01-10] MEDS: INSULIN ASPART 100 UNITS/ML 3 ML PEN SC SCH ×4 (08:28→20:54)
[2018-01-10] MEDS: FINASTERIDE 5 MG TAB PO SCH (08:29)
[2018-01-10] MEDS: POLYETHYLENE (MIRALAX) 17 GM PACK PO PRN (08:38)
[2018-01-10] MEDS: MAGNESIUM HYDROXIDE SUSP 30 ML UDC PO PRN (08:38)
[2018-01-10] MEDS: BOOST VANILLA PO SCH ×3 (08:38→20:47)
--- NOTE | 2018-01-10 10:59 | Family Medicine Progress Note ---
Progress Note Date of Service January 10, 2018. Subjective Pt evaluation today including: conversation w/ patient, physical exam, chart review, lab review Voiding: voiding difficulty (no BM) No issues overnight Today reports no new complaints Still has mild low grade abdominal discomfort from constipation No nausea or vomiting. Good PO intake. No nursing concerns at this time. Additional Comments: A 10 point review of systems was negative unless stated above. Medications Current Inpatient Medications Medications (Trade) Dose Ordered Sig/Rudy Route Start Time Stop Time Status Last Admin Dose Admin Al Hydrox/Mg Hydrox/Simethicone (Maalox Max Susp) 15 ml Q4H PRN PO 01/07/18 17:15 02/06/18 17:14 Ondansetron HCl (Zofran Inj) 4 mg Q6H PRN IV 01/07/18 17:15 02/06/18 17:14 01/08/18 08:02 4 MG Polyethylene (Miralax Powder Packet) 17 gm DAILY PRN PO 01/07/18 17:15 02/06/18 17:14 01/10/18 08:38 17 GM Acetaminophen/ Codeine Phosphate (Tylenol w/ Codeine #3 Tab) 2 tab Q4H PRN PO 01/07/18 17:30 02/06/18 17:29 01/09/18 21:17 2 TAB Atorvastatin Calcium (Lipitor Tab) 10 mg HS PO 01/07/18 21:00 02/06/18 20:59 01/09/18 21:18 10 MG Finasteride (Proscar Tab) 5 mg DAILY PO 01/08/18 09:00 02/07/18 08:59 01/10/18 08:29 5 MG Albuterol/ Ipratropium (Duoneb) 3 ml QIDR INH 01/07/18 20:00 02/06/18 19:59 01/10/18 07:13 3 ML Levalbuterol (Xopenex Hfa Inhaler) 2 puffs QID PRN INH 01/07/18 17:30 02/06/18 17:29 Magnesium Hydroxide (Milk Of Magnesia Susp) 30 ml DAILY PRN PO 01/07/18 17:30 02/06/18 17:29 01/10/18 08:38 30 ML Enteral Nutritional Formula (Boost) 1 can TID PO 01/07/18 21:00 02/06/18 20:59 5/6/18 08:38 1 CAN Prednisone (PredniSONE TAB) 5 mg HS PO 01/07/18 21:00 02/06/18 20:59 01/09/18 21:19 5 MG Tamsulosin HCl (Flomax Cap) 0.4 mg DAILY PO 01/08/18 09:00 02/07/18 08:59 01/10/18 08:27 0.4 MG Voriconazole (Vfend Tab) 400 mg BID PO 01/07/18 21:00 01/14/18 20:59 01/10/18 08:27 400 MG Miscellaneous Information (Order Awaiting Action) 1 ea QS N/A 01/08/18 00:00 02/07/18 00:00 Multi-Ingredient Ointment (Eucerin Unscented Cr) 1 appln BID PRN EXT 01/07/18 17:30 02/06/18 17:29 Miscellaneous Information (Order Awaiting Action) 1 ea QS N/A 01/08/18 00:00 02/07/18 00:00 Guaifenesin (Organidin Nr Tab) 800 mg BID PO 01/07/18 21:00 02/06/18 20:59 01/10/18 08:28 800 MG Megestrol Acetate (Megace Susp) 400 mg DAILY PO 01/08/18 09:00 02/07/18 08:59 01/10/18 08:27 400 MG Insulin Aspart (novoLOG ASPART) SLIDING SCALE G... ACHS SC 01/07/18 21:00 02/06/18 20:59 01/09/18 11:29 1 UNITS Glucose (Glucose 40% Gel) 15-30 GRAMS 15 GRAMS... UD PRN PO 01/07/18 20:00 02/06/18 19:59 Glucose (Glucose Chew Tab) 4-8 Tablets 4 Tabl... UD PRN PO 01/07/18 20:00 02/06/18 19:59 01/07/18 21:07 4 TABS Dextrose (Dextrose 50% 50ML Syringe) 25-50ML 25ML FOR ... UD PRN IV 01/07/18 20:00 02/06/18 19:59 Glucagon (Glucagon Inj) 1 mg UD PRN IM 5/3/18 20:00 02/06/18 19:59 Carbohydrates (Carbohydrates For Hypoglycemia) 15-30 GRAMS 15 grams if BSG 54-69... UD PRN PO 01/07/18 20:00 02/06/18 19:59 01/07/18 20:52 15 GM Pantoprazole Sodium (Protonix Tab) 40 mg BID PO 01/08/18 21:00 02/07/18 20:59 01/10/18 08:28 40 MG Sucralfate (Carafate Susp) 1 gm QID PO 01/08/18 17:00 02/07/18 16:59 01/10/18 08:28 1 GM Sodium Biphosphate/ Sodium Phosphate (Fleet Enema) 132 ml DAILY PRN AR 01/09/18 13:30 02/08/18 13:29 Miscellaneous (Soap Suds Enema) 1 ea DAILY PRN AR 01/09/18 14:15 02/08/18 14:14 01/09/18 14:05 1 EA Objective Vital Signs Date Time Temp Pulse Resp B/P (MAP) Pulse Ox O2 Delivery O2 Flow Rate FiO2 01/10/18 08:00 95 Room Air 01/10/18 07:14 78 16 95 Room Air 01/10/18 06:46 37.5 81 22 115/77 (90) 98 Room Air 01/10/18 04:12 37.2 84 20 108/72 (84) 96 Room Air 01/10/18 04:01 Room Air 01/10/18 00:02 Room Air 01/09/18 23:41 36.8 104 20 108/65 (79) 99 Room Air 01/09/18 20:00 98 Room Air 01/09/18 19:47 37.3 95 20 116/72 (87) 96 Room Air 01/09/18 19:09 87 16 96 Room Air 01/09/18 16:00 98 Room Air 01/09/18 15:36 37.4 93 20 110/73 (85) 98 Room Air 01/09/18 15:32 85 16 96 Room Air 01/09/18 13:10 37.4 113 19 122/79 97 01/09/18 12:10 36.8 118 19 118/74 98 01/09/18 12:00 Room Air 01/09/18 11:40 36.5 121 19 109/73 99 01/09/18 11:25 36.6 109 17 108/69 99 01/09/18 11:15 107 16 97 Room Air Physical Exam General Appearance: WD/WN, no apparent distress Eyes: normal inspection, EOMI ENT: hearing grossly normal, pharynx normal Neck: supple, no adenopathy, no JVD Respiratory/Chest: lungs clear, no respiratory distress Cardiovascular: regular rate, rhythm, no gallop, no murmur Abdomen: soft, no organomegaly, + distended, + tenderness (mlid generalized) Extremities: non-tender, no pedal edema Neurologic/Psychiatric: alert, normal mood/affect, oriented x 3 Skin: normal color, warm/dry, no rash Lymphatic: no adenopathy Laboratory Results Last 24 Hours Test 01/09/18 11:06 01/09/18 14:45 01/09/18 16:18 01/09/18 20:13 Bedside Glucose 170 mg/dl 142 mg/dl 140 mg/dl Hemoglobin 10.2 g/dL Hematocrit 28.5 % Test 01/10/18 05:33 01/10/18 07:32 White Blood Count 11.18 K/uL Red Blood Count 3.26 M/uL Hemoglobin 10.5 g/dL Hematocrit 29.6 % Mean Corpuscular Volume 90.8 fL Mean Corpuscular Hemoglobin 32.2 pg Mean Corpuscular Hemoglobin Concent 35.5 g/dl RDW Standard Deviation 46.7 fL RDW Coefficient of Variation 14.3 % Platelet Count 230 K/uL Mean Platelet Volume 9.5 fL Nucleated RBC Absolute Count (auto) 0.64 K/uL Nucleated Red Blood Cells % 5.7 % Sodium Level 139 mmol/L Potassium Level 4.4 mmol/L Chloride Level 112 mmol/L Carbon Dioxide Level 21 mmol/L Anion Gap 6.0 mmol/L Blood Urea Nitrogen 10 mg/dl Creatinine 0.71 mg/dl Est Creatinine Clear Calc Drug Dose 108.5 ml/min Estimated GFR () 124.2 Estimated GFR (Non- 107.1 BUN/Creatinine Ratio 13.6 Random Glucose 148 mg/dl Calcium Level 8.4 mg/dl Bedside Glucose 143 mg/dl Assessment and Plan 52 year old shelter inmate who presented for hematemesis. Had EGD with noted non -bleeding gastric ulcer. Hb yesterday noted to be 7, was transfused 2 units with recovery to 10 after transfusion. Today H&H has remained stable. - UGIB: No recurrence of hematemesis. H&H stable at 10 over the past 24 hours. No evidence of bleeding. At this time. GI recs appreciated. Will continue for total 10 days of Sucralfate and continue with Protonix 40 mg BID at discharge - Constipation: Soapsuds or Fleets enema today. Recommend discharge on chronic Miralax regimen. - BPH: Continue Finasteride and Tamsulosin. - HTN: Continue to hold all due to relatively low BP. Consider re-starting at low doses as would give secondary CAD benefit. - HLD: continue Atorvastatin - COPD: Continue Duoneb or Xopenex PRN. On chronic 5 mg Prednisone. Continue Mucinex. Outpatient records reviewed. Patient was on Levaquin as outpatient for 2 week duration but at this point that course is completed. No evidence of active PNA Discontinued Levaquin. - Aspergillosis: Continue Voriconazole as per outpatient regimen, needs to continue for 8 week course from start (Started early December by [facility]) DM2: Home meds on hold. Continue Sliding scale insulin. BSG are within normal limits DVT: SCD and TEDs. Pharmacological means are contra-indicated due to recent GI bleed Code Status: Level I Full Code Disposition: Transfer to Med/Surg. Anticipate return to [facility] when medically stable. Resident Physician Supervision Note: I interviewed and examined the patient. Discussed with Dr. Sandoval and agree with findings and plan as documented in the note. Any exceptions or clarifications are listed here: None Documented By: Ishmael Lee eating OK no new complaints still constipated - enema only with minimal return vitals noted no pallor or icterus breathing unlabored UGI bleed from PUD w acute blood loss anemia -PPI -hold asa for now -follow Hgb, appears better after transfusion tachycardia, diaphoresis -improved severe constipation -suspect not seeing blood in stool since he's so profoundly constipated that nothing is coming through - continue to work on more effective BM - appearing on CT high risk for obstruction/stercoral colitis/etc --> will have to work on more aggressive management as outpt, but seems too severely constipated to discharge wthout at least some improvement otherwise as above stable for med surg Continued [facility] stay due to: fever, voiding difficulties Discharge planning: home
[2018-01-10] MEDS: ACETAMINOPHEN/CODEINE 300/30MG TAB PO PRN ×2 (14:20→20:55)
[2018-01-10] MEDS ORDERED: SOAP SUDS ENEMA PR ONE (14:35)
[2018-01-10] MEDS: LAVAGE SOLUTION 4000ML PO SCH ×5 (16:04→23:58)
[2018-01-10] MEDS: ATORVASTATIN 10 MG TAB PO SCH (20:48)
[2018-01-11] VITALS (8 sets, daily range): BP systolic 100–117; BP diastolic 76–86; PULSE 93–128; TEMP 36.7–37.2; O2SAT 91–100
[2018-01-11] MEDS: LAVAGE SOLUTION 4000ML PO SCH ×11 (02:34→22:00)
[2018-01-11 06:36] LABS: HEMATOCRIT 32.6 % (42-52); HEMOGLOBIN 11.3 g/dL (14.0-18.0); MEAN CELL VOLUME 92.9 fL (80-100); MEAN CORPUSCULAR HEMOGLOBIN 32.2 pg (25-34); MEAN CORPUSCULAR HGB CONC 34.7 g/dl (32-36); NUCLEATED RED BLOOD CELL ABS 0.64 K/uL (0-0); PLATELET COUNT 216 K/uL (130-400); RED CELL DISTRIBUTION WIDTH CV 15.1 % (11.5-14.5); RED CELL DISTRIBUTION WIDTH SD 48.1 fL (36.4-46.3); WHITE BLOOD COUNT 10.15 K/uL (4.8-10.8)
--- NOTE | 2018-01-11 06:59 | Family Medicine Progress Note ---
Progress Note Date of Service January 11, 2018. Subjective Spoke at length with patient - denies hematemesis since admission, discussed need for PPI use after discharge. States his blood sugar control is very good, and he does have hypoglycemic symptoms from time to time -- he is not a very good eater in long-term "food is not good". Otherwise tolerating golytely well, had one small BM yesterday but no more since. Is eating well and voiding well. Denies abdominal pain or emesis as above, denies chest pain or difficulty breathing. ROS See HPI for pertinent positives and negatives. Objective Physical Exam Notes: GENERAL: Awake, alert, well-appearing, in no distress HENT: Normocephalic, atraumatic. EYES: Normal conjunctiva. Sclera non-icteric. NECK: Supple. FROM. No JVD. RESPIRATORY: Clear to auscultation. CARDIAC: Regular rate, normal rhythm. Extremities warm and well perfused. Pulses equal. ABDOMEN: Soft, non-distended. No tenderness to palpation. No rebound or guarding. No masses. LOWER EXTREMITIES: Calves are equal size bilaterally and non-tender. No edema. No discoloration. NEURO: No motor deficits noted. SKIN: No rash or jaundice noted. Assessment and Plan 52 year old long-term inmate who presented for hematemesis. Had EGD with noted non -bleeding gastric ulcer. Transfused 2 units with recovery to 10 after transfusion. Since H&H has remained stable. 1. Upper GI Bleeding sec to gastric ulcer on EGD: No recurrence of hematemesis. H&H stable 48 hours. No evidence of bleeding at this time. GI recs appreciated. Will continue for total 10 days of Sucralfate and continue with Protonix 40 mg BID at discharge 2. Constipation: Soapsuds enema x2 unsuccessful. Golytely running. Recommend discharge on chronic Miralax regimen. 3. BPH: Continue Finasteride and Tamsulosin. 4. HTN: Continue to hold all due to relatively low BP. Consider re-starting at low doses as would give secondary CAD benefit. 5. HLD: continue Atorvastatin 6. COPD: Continue Duoneb or Xopenex PRN. On chronic 5 mg Prednisone. Continue Mucinex. Outpatient records reviewed. Patient was on Levaquin as outpatient for 2 week duration but at this point that course is completed. No evidence of active PNA Discontinued Levaquin. 7. Aspergillosis: Continue Voriconazole as per outpatient regimen, needs to continue for 8 week course from start (Started early December by [facility]) 8. DM2: Home meds on hold. Continue Sliding scale insulin. BSG are within normal limits DVT: SCD and TEDs. Pharmacological means are contra-indicated due to recent GI bleed Code Status: Level I Full Code Disposition: Anticipate return to [facility] when medically stable. Pt is normally in a wheelchair most of the day. Current Inpatient Medications Medications (Trade) Dose Ordered Sig/Rudy Route Start Time Stop Time Status Last Admin Dose Admin Al Hydrox/Mg Hydrox/Simethicone (Maalox Max Susp) 15 ml Q4H PRN PO 01/07/18 17:15 02/06/18 17:14 Ondansetron HCl (Zofran Inj) 4 mg Q6H PRN IV 01/07/18 17:15 02/06/18 17:14 01/08/18 08:02 4 MG Polyethylene (Miralax Powder Packet) 17 gm DAILY PRN PO 01/07/18 17:15 02/06/18 17:14 01/10/18 08:38 17 GM Acetaminophen/ Codeine Phosphate (Tylenol w/ Codeine #3 Tab) 2 tab Q4H PRN PO 01/07/18 17:30 02/06/18 17:29 01/10/18 20:55 2 TAB Atorvastatin Calcium (Lipitor Tab) 10 mg HS PO 01/07/18 21:00 02/06/18 20:59 01/10/18 20:48 10 MG Finasteride (Proscar Tab) 5 mg DAILY PO 01/08/18 09:00 02/07/18 08:59 01/11/18 08:51 5 MG Albuterol/ Ipratropium (Duoneb) 3 ml QIDR INH 01/07/18 20:00 02/06/18 19:59 01/11/18 15:30 3 ML Levalbuterol (Xopenex Hfa Inhaler) 2 puffs QID PRN INH 01/07/18 17:30 02/06/18 17:29 Magnesium Hydroxide (Milk Of Magnesia Susp) 30 ml DAILY PRN PO 01/07/18 17:30 02/06/18 17:29 01/10/18 08:38 30 ML Enteral Nutritional Formula (Boost) 1 can TID PO 01/07/18 21:00 02/06/18 20:59 01/11/18 14:30 1 CAN Prednisone (PredniSONE TAB) 5 mg HS PO 01/07/18 21:00 02/06/18 20:59 01/10/18 20:48 5 MG Tamsulosin HCl (Flomax Cap) 0.4 mg DAILY PO 01/08/18 09:00 02/07/18 08:59 01/11/18 08:50 0.4 MG Voriconazole (Vfend Tab) 400 mg BID PO 01/07/18 21:00 01/14/18 20:59 01/11/18 08:50 400 MG Miscellaneous Information (Order Awaiting Action) 1 ea QS N/A 01/08/18 00:00 02/07/18 00:00 Multi-Ingredient Ointment (Eucerin Unscented Cr) 1 appln BID PRN EXT 01/07/18 17:30 02/06/18 17:29 Miscellaneous Information (Order Awaiting Action) 1 ea QS N/A 01/08/18 00:00 02/07/18 00:00 Guaifenesin (Organidin Nr Tab) 800 mg BID PO 01/07/18 21:00 02/06/18 20:59 01/11/18 08:51 800 MG Megestrol Acetate (Megace Susp) 400 mg DAILY PO 01/08/18 09:00 02/07/18 08:59 01/11/18 08:51 400 MG Insulin Aspart (novoLOG ASPART) SLIDING SCALE G... ACHS SC 01/07/18 21:00 02/06/18 20:59 01/11/18 12:47 1 UNITS Glucose (Glucose 40% Gel) 15-30 GRAMS 15 GRAMS... UD PRN PO 01/07/18 20:00 02/06/18 19:59 Glucose (Glucose Chew Tab) 4-8 Tablets 4 Tabl... UD PRN PO 01/07/18 20:00 02/06/18 19:59 01/07/18 21:07 4 TABS Dextrose (Dextrose 50% 50ML Syringe) 25-50ML 25ML FOR ... UD PRN IV 01/07/18 20:00 02/06/18 19:59 Glucagon (Glucagon Inj) 1 mg UD PRN IM 01/07/18 20:00 02/06/18 19:59 Carbohydrates (Carbohydrates For Hypoglycemia) 15-30 GRAMS 15 grams if BSG 54-69... UD PRN PO 01/07/18 20:00 02/06/18 19:59 01/07/18 20:52 15 GM Pantoprazole Sodium (Protonix Tab) 40 mg BID PO 01/08/18 21:00 02/07/18 20:59 01/11/18 08:51 40 MG Sucralfate (Carafate Susp) 1 gm QID PO 01/08/18 17:00 02/07/18 16:59 01/11/18 16:32 1 GM Sodium Biphosphate/ Sodium Phosphate (Fleet Enema) 132 ml DAILY PRN DC 01/09/18 13:30 02/08/18 13:29 Miscellaneous (Soap Suds Enema) 1 ea DAILY PRN DC 01/09/18 14:15 02/08/18 14:14 01/09/18 14:05 1 EA Polyethylene Glycol/ Electrolytes (Golytely Soln) 1 dose Q2H PO 01/10/18 16:00 02/09/18 15:59 01/11/18 16:31 1 DOSE Date Time Temp Pulse Resp B/P (MAP) Pulse Ox O2 Delivery O2 Flow Rate FiO2 01/11/18 15:30 104 17 97 Room Air 01/11/18 15:30 Room Air 01/11/18 15:10 36.7 108 17 117/86 (96) 96 Room Air 01/11/18 11:26 104 17 96 Room Air 01/11/18 07:55 Room Air 01/11/18 07:11 37.1 98 18 114/84 (94) 100 Mask 01/11/18 07:05 93 16 95 Room Air 01/10/18 23:50 Room Air 01/10/18 22:58 36.8 104 18 125/88 (100) 96 Room Air 01/10/18 19:06 104 20 99 Room Air 01/11/18 06:23 01/11/18 06:23 Test 01/11/18 06:23 01/11/18 17:07 Red Blood Count 3.51 M/uL (4.7-6.1) Mean Corpuscular Volume 92.9 fL (80-100) Mean Corpuscular Hemoglobin 32.2 pg (25-34) Mean Corpuscular Hemoglobin Concent 34.7 g/dl (32-36) RDW Standard Deviation 48.1 fL (36.4-46.3) RDW Coefficient of Variation 15.1 % (11.5-14.5) Mean Platelet Volume 9.0 fL (7.4-10.4) Nucleated RBC Absolute Count (auto) 0.64 K/uL (0-0) Nucleated Red Blood Cells % 6.3 % Anion Gap 7.0 mmol/L (3-11) Est Creatinine Clear Calc Drug Dose 101.4 ml/min Estimated GFR () 120.7 Estimated GFR (Non- 104.2 BUN/Creatinine Ratio 19.7 (10-20) Calcium Level 8.6 mg/dl (8.5-10.1) Bedside Glucose 135 mg/dl (70-99) Continued [facility] stay due to: voiding difficulties Discharge planning: home Resident Tracking Resident Involvement: Resident Care Provided Care Provided: Adult Hospital Medicine Reviewed: Pt Seen/Exam by Me History hasn't moved bowels yet. Constitutional: denies: fever Respiratory: negative: short of breath Cardiovascular: denies chest pain Gastrointestinal/Abdominal: negative: abdominal pain General Appearance: no apparent distress Respiratory: lungs clear, no respiratory distress Cardiovascular: regular rate, rhythm Gastrointestinal: normal bowel sounds, non tender, soft Neurologic/Psychiatric: alert, oriented x 3 Skin Characteristics: warm/dry Assessment/Plan Resident Physician Supervision Note: I independently interviewed and examined the patient and verified the riley history and physical, reviewed labs and image studies, discussed the case with the resident Dr. Reddy and agree with the findings and care plan.
[2018-01-11] MEDS: ALBUT/IPRATROP 3MG/0.5MG NEB 3 ML VIAL INH SCH ×4 (07:05→19:59)
[2018-01-11 07:08] LABS: CALCIUM 8.6 mg/dl (8.5-10.1); CREATININE 0.76 mg/dl (0.60-1.40); POTASSIUM 4.1 mmol/L (3.5-5.1)
[2018-01-11] MEDS: SUCRALFATE 1 GM/10 ML UDC PO SCH ×4 (08:50→22:30)
[2018-01-11] MEDS: VORICONAZOLE 200 MG TAB PO SCH ×2 (08:50→22:31)
[2018-01-11] MEDS: TAMSULOSIN HCL 0.4 MG CAP PO SCH (08:50)
[2018-01-11] MEDS: MEGESTROL ACETATE SUSP 400 MG/10 ML UDC PO SCH (08:51)
[2018-01-11] MEDS: FINASTERIDE 5 MG TAB PO SCH (08:51)
[2018-01-11] MEDS: PANTOprazole SOD 40 MG TAB PO SCH ×2 (08:51→22:31)
[2018-01-11] MEDS: GUAIFENESIN 200 MG TAB PO SCH ×2 (08:51→22:32)
[2018-01-11] MEDS: INSULIN ASPART 100 UNITS/ML 3 ML PEN SC SCH ×4 (08:52→22:30)
[2018-01-11] MEDS: BOOST VANILLA PO SCH ×3 (08:58→22:30)
[2018-01-11] MEDS ORDERED: MILK AND MOLASSES ENEMA PR ONE (18:00)
[2018-01-11] MEDS: ATORVASTATIN 10 MG TAB PO SCH (22:31)
[2018-01-11] MEDS: SODIUM CHLORIDE 0.9% 1000ML 1,000 ML IV SCH (22:32)
[2018-01-12] VITALS (7 sets, daily range): BP systolic 105–123; BP diastolic 68–81; PULSE 85–128; TEMP 37–37.2; O2SAT 97–98
[2018-01-12] MEDS ORDERED: NURSING VERBAL MED ORDER ONE (00:30)
[2018-01-12 06:53] LABS: HEMATOCRIT 32.1 % (42-52); MEAN CELL VOLUME 93.3 fL (80-100); MEAN CORPUSCULAR HGB CONC 34.3 g/dl (32-36); MEAN PLATELET VOLUME 9.2 fL (7.4-10.4); PLATELET COUNT 211 K/uL (130-400); RED CELL DISTRIBUTION WIDTH CV 15.5 % (11.5-14.5); RED CELL DISTRIBUTION WIDTH SD 48.6 fL (36.4-46.3); WHITE BLOOD COUNT 10.24 K/uL (4.8-10.8)
[2018-01-12] MEDS: ALBUT/IPRATROP 3MG/0.5MG NEB 3 ML VIAL INH SCH ×3 (07:01→15:24)
[2018-01-12 07:23] LABS: CREATININE 0.66 mg/dl (0.60-1.40); POTASSIUM 4.1 mmol/L (3.5-5.1)
[2018-01-12] MEDS: INSULIN ASPART 100 UNITS/ML 3 ML PEN SC SCH ×2 (08:00→12:00)
[2018-01-12] MEDS: BOOST VANILLA PO SCH ×2 (08:45→13:27)
[2018-01-12] MEDS: SODIUM CHLORIDE 0.9% 1000ML 1,000 ML IV SCH (08:45)
[2018-01-12] MEDS: GUAIFENESIN 200 MG TAB PO SCH (08:46)
[2018-01-12] MEDS: PANTOprazole SOD 40 MG TAB PO SCH (08:46)
[2018-01-12] MEDS: VORICONAZOLE 200 MG TAB PO SCH (08:46)
[2018-01-12] MEDS: FINASTERIDE 5 MG TAB PO SCH (08:46)
[2018-01-12] MEDS: MEGESTROL ACETATE SUSP 400 MG/10 ML UDC PO SCH (08:47)
[2018-01-12] MEDS: TAMSULOSIN HCL 0.4 MG CAP PO SCH (08:47)
[2018-01-12] MEDS: SUCRALFATE 1 GM/10 ML UDC PO SCH ×2 (08:47→12:26)
--- NOTE | 2018-01-12 11:31 | Discharge Instructions ---
Discharge Instructions Date of Service January 12, 2018. Admission Reason for Admission: Hematemesis Discharge Discharge Diagnosis / Problem: Hematemesis, peptic ulcer disease, constipation Discharge Goals Goal(s): Decrease discomfort, Improve function, Increase independence, Improve disease control, Diagnostic testing, Therapeutic intervention Activity Recommendations Activity Limitations: per Instructions/Follow-up section Lifting Limitations: gradually increase as tolerated Exercise/Sports Limitations: none Shower/Bathe: no limitations . Instructions / Follow-Up Instructions / Follow-Up Hematemesis: resolved. 2 units of PRBC's transfused here, tolerated well, improved functional status Peptic ulcer disease: present on endoscopy. Multiple non bleeding lesions identified. Biopsies taken, pathology results pending. Needs 5 more days of sucralfate 1 gm QID take as ordered, and continue PPI for 8 weeks omeprazole 40mg daily. Avoid NSAIDs. Constipation: will need daily Miralax. Can start with 1/2 cap full per day. Can titrate up by 1/2 cap every 3 days until goal of 1 soft formed stool per 1 -2 days. 70 ounces of water per day for adequate hydration. Increase activity , and increase fiber in diet (vegetables, fruits, whole grain bread/oatmeal). No changes made to chronic medications. Be well Current Hospital Diet Patient's current hospital diet: Diabetes Type 2 Diet Discharge Diet Recommended Diet: Diabetes Type 2 Diet Procedures Procedures Performed: Upper GI endoscopy Findings: The esophagus was normal. Many non-bleeding superficial gastric ulcers with no stigmata of bleeding were found in the stomach. The largest lesion was 5 mm in largest dimension. Biopsies were taken with a cold forceps for histology. The examined duodenum was normal. Impression: - Normal esophagus. - Non-bleeding gastric ulcers with no stigmata of bleeding. Biopsied. - Normal examined duodenum. Recommendation: - Return patient to hospital [facility] for ongoing care. - Advance diet as tolerated. - Switch to Protonix 40mg by mouth twice daily. - Use sucralfate suspension 1 gram PO QID for 10 days. - Await pathology results Nimesh Mcduffie DO 01/08/2018 1:56:45 PM Pending Studies Studies pending at discharge: yes List of pending studies: Pathology results of biopsy Laboratory Results Hemoglobin A1c Test 01/07/18 13:25 Range/Units Estimated Average Glucose 128 mg/dl Hemoglobin A1c 6.1 H 4.5-5.6 % Medical Emergencies . Who to Call and When: Medical Emergencies: If at any time you feel your situation is an emergency, please call 911 immediately. . Non-Emergent Contact Non-Emergency issues call your: Primary Care Provider . . "Provider Documentation" section prepared by Caryl Reddy. .
[2018-01-12] MEDS ORDERED: CRFUDL PO (11:39)
[2018-01-12] MEDS ORDERED: PRLSR20 PO (11:39)
--- NOTE | 2018-01-12 11:46 | Discharge Summary ---
Discharge Summary Date of Service January 12, 2018. Discharge Summary Admission Date: January 10, 2018 at 09:24 Discharge Date: January 12, 2018 Discharge Disposition: Home Principal Diagnosis: Hematemesis Problems/Secondary Diagnoses: . Hematemesis Blood loss Anemia Peptic ulcer disease Constipation . Procedures: Upper GI endoscopy Findings: The esophagus was normal. Many non-bleeding superficial gastric ulcers with no stigmata of bleeding were found in the stomach. The largest lesion was 5 mm in largest dimension. Biopsies were taken with a cold forceps for histology. The examined duodenum was normal. Impression: - Normal esophagus. - Non-bleeding gastric ulcers with no stigmata of bleeding. Biopsied. - Normal examined duodenum. Recommendation: - Return patient to hospital [facility] for ongoing care. - Advance diet as tolerated. - Switch to Protonix 40mg by mouth twice daily. - Use sucralfate suspension 1 gram PO QID for 10 days. - Await pathology results Nimesh Mcduffie, DO 01/08/2018 1:56:45 PM Medication Reconciliation New Medications: Omeprazole (Prilosec) 20 Mg Capcr 40 MG PO DAILY for 49 Days, #98 CAP Sucralfate (Sucralfate) 1 Gm/10 Ml Susp 1 GM PO QID for 5 Days, #1 BTL Continued Medications: Acetaminophen/Codeine (Tylenol W/Codeine #3) 300 Mg/30 Mg Tab 2 TAB PO Q4H PRN for Pain Aspirin (Aspirin Ec) 81 Mg Tab 81 MG PO QAM Atorvastatin (Lipitor) 10 Mg Tab 10 MG PO HS Calcium Polycarbophil (Fibercon) 625 Mg Tab 1 CAP PO BID, CPLT TAKE WITH 8 OZ H20 Carvedilol (Coreg) 3.125 Mg Tab 3.125 MG PO BID Ciclesonide (Alvesco) 160 Mcg/Act Aer 2 PUFFS INH BID Fiber Laxative (Fiber Laxative) Ea 1 TBS PO BID TAKE IN 8 OZ WATER Finasteride (Proscar) 5 Mg Tab 5 MG PO DAILY Furosemide (Lasix) 20 Mg Tab 20 MG PO DAILY Glipizide (Glucotrol) 10 Mg Tab 10 MG PO DAILY Glucose-Vitamin C (Glucose) 1 Chw Chw 1 TAB PO BID Guaifenesin (Guaifenesin) 400 Mg Tab 2 TABS PO BID Home O2 Therapy (Oxygen) Gas 2 LITERS NA PRN Ipratropium-Albuterol (Duoneb) 3 Ml Nebu 1 TREATMENT INH QID Levalbuterol Tartrate (Levalbuterol Tartrate Hfa) 45 Mcg/Act Aer 2 PUFFS INH QID PRN for Shortness of Breath Levofloxacin (Levaquin) 750 Mg Tab 1 TAB PO HS Lisinopril (Zestril) 5 Mg Tab 2.5 MG PO DAILY Magnesium Hydroxide (Milk Of Magnesia) 30 Ml Susp 30 ML PO DAILY PRN for Constipation Metformin Hcl (Glucophage) 1,000 Mg Tab 1000 MG PO BID Nutritional Supplements (Boost) 1 Liq Liq 1 CAN PO TID Ondansetron Hcl (Zofran) 4 Mg Tab 4 MG PO TID PRN for Nausea Prednisone (Prednisone) 5 Mg Tab 5 MG PO HS Risperidone (Risperdal) 1 Mg Tab 1 MG PO BID, TAB Skin Protectants, Misc. (A+D First Aid) 1 Oin Oin 1 APPLN PO BID PRN for DRYNESS Sulfa/Trimethoprim (Bactrim Ds 800MG/160MG) Tab 1 TAB PO BID Tamsulosin Hcl (Flomax) 0.4 Mg Cap 0.4 MG PO DAILY Umeclidinium [place] (Incruse Ellipta) 62.5 Mcg/Inh Inh 1 PUFF INH DAILY Voriconazole (Vfend) 200 Mg Tab 2 TABS PO BID [Guaifenesin 400MG] () 800 MG PO BID TAKE WITH 8OZ WATER [Megace 40MG/Ml Susp] () 10 ML PO DAILY Discontinued Medications: Acetaminophen/Codeine (Tylenol W/Codeine #3) 300 Mg/30 Mg Tab 2 TAB PO Q4 PRN for Pain Aspirin (Aspirin Ec) 81 Mg Tab 81 MG PO QAM Atorvastatin (Lipitor) 10 Mg Tab 10 MG PO HS Carvedilol (Coreg) 3.125 Mg Tab 3.125 MG PO BID Ciclesonide (Alvesco) 60 Puff/6.1 Gm Aerp 2 PUFFS INH BID Ciclesonide (Alvesco) 160 Mcg/Act Aer 2 PUFFS INH BID Finasteride (Proscar) 5 Mg Tab 5 MG PO QAM Furosemide (Lasix) 20 Mg Tab 20 MG PO QAM Glipizide (Glipizide Er) 10 Mg Tab 1 TAB PO QAM Levalbuterol Tartrate (Levalbuterol Tartrate Hfa) 45 Mcg/Act Aer 2 PUFF INH QID PRN for SOB/Wheezing Lisinopril (Lisinopril) 2.5 Mg Tab 2.5 MG PO DAILY Magnesium Hydroxide (Milk of Magnesia 400 mg/5Ml) 1 Clementina Clementina 30 ML PO QAM Metformin Hcl (Glucophage Ext Rel) 1,000 Mg Tab 1 TAB PO BID Tamsulosin HCl (Tamsulosin HCl) 0.4 Mg Cap 1 CAP PO QAM Umeclidinium [place] (Incruse Ellipta) 62.5 Mcg/Inh Inh 1 PUFF INH QAM Voriconazole (Vfend) 200 Mg Tab 1 TAB PO BID Discharge Exam Pt stable on day of discharge. Had large bowel movement this morning. Discussed need for daily miralax dosing. Denies abdominal pain, emesis, chest pain, difficulty breathing. Eating breakfast without issues. ROS See HPI for pertinent positives and negatives. PHYSICAL EXAM GENERAL: Awake, alert, well-appearing, in no distress HENT: Normocephalic, atraumatic. EYES: Normal conjunctiva. Sclera non-icteric. NECK: Supple. FROM. No JVD. RESPIRATORY: Clear to auscultation. CARDIAC: Regular rate, normal rhythm. Extremities warm and well perfused. Pulses equal. ABDOMEN: Soft, non-distended. No tenderness to palpation. No rebound or guarding. No masses. LOWER EXTREMITIES: Calves are equal size bilaterally and non-tender. No edema. No discoloration. NEURO: No motor deficits noted. SKIN: No rash or jaundice noted. Hospital Course Mr. Servin was admitted for hematemesis and was found to have several peptic ulcers on upper endoscopy (see results above). Biopsies were taken of the ulcers, although it is low risk for malignancy, results are still pending. Pt transfused 2 units of PRBC's and hemoglobin has been stable since. Pt was treated with Sucralfate and pantoprazole, and is to continue this as above. Pt experienced significant constipation while here and required several enemas and Golytely prep to have a stool. Recommend continue miralax daily, can start with 1/2 cap full per day and titrate up by 1/2 cap full daily every 3 days until goal of 1 soft stool every 1-2 days - then remain at that dose daily. Pt's A1C here is 6.2, diabetes in very good control. No changes were made to his chronic meds -- please note. (Med list was duplicated on admission, and that is why "stopped meds" list is the same as his home med list. Please continue all chronic medications as prior to admission.) Total Time Spent: Greater than 30 minutes This includes examination of the patient, discharge planning, medication reconciliation, and communication with other providers. Discharge Instructions Please refer to the electronic Patient Visit Report (Discharge Instructions) for additional information. Additional Copies To [facility] Resident Tracking Resident Involvement: Resident Care Provided Care Provided: Adult [facility] Medicine Reviewed: Pt Seen/Exam by Me History had a large bowel movement yesterday after enema Constitutional: denies: fever Respiratory: negative: short of breath Cardiovascular: denies chest pain General Appearance: no apparent distress Respiratory: lungs clear, no respiratory distress Cardiovascular: regular rate, rhythm Gastrointestinal: normal bowel sounds, non tender, soft Neurologic/Psychiatric: alert, oriented x 3 Skin Characteristics: warm/dry Assessment/Plan Resident Physician Supervision Note: I independently interviewed and examined the patient and verified the riley history and physical, reviewed labs and image studies, discussed the case with the resident Dr. Reddy and agree with the findings and care plan. Time spent in discharge 35 min
== END 2018-01-12 16:26 | disposition home or self-care (01) | DRG 378 ==
LOC: MERGE 13:04 → C.EDB 13:04 → C.2T 17:22 → EDBEDREQ 17:25 → ENRESERV 17:51 → OBSVTOIN 01-10 09:24 → ENRESERV 01-10 11:47 → C.MSN 01-10 14:12
PROVIDERS: ADMIT Family Medicine; ATTEND Family Medicine
PROC: 0DB68ZX Excision of Stomach, Via Natural or Artificial Opening Endoscopic, Diagnostic (ICD-10-PCS; principal; 2018-01-08 12:24)
DX: K25.4 Chronic or unspecified gastric ulcer with hemorrhage (principal); D62 Acute posthemorrhagic anemia; J44.9 Chronic obstructive pulmonary disease, unspecified; I11.0 Hypertensive heart disease with heart failure; I50.9 Heart failure, unspecified; E11.9 Type 2 diabetes mellitus without complications; K59.09 Other constipation; J32.9 Chronic sinusitis, unspecified; I25.10 Atherosclerotic heart disease of native coronary artery without angina pectoris; N40.0 Benign prostatic hyperplasia without lower urinary tract symptoms; E78.5 Hyperlipidemia, unspecified; I95.9 Hypotension, unspecified; R00.0 Tachycardia, unspecified; Z79.52 Long term (current) use of systemic steroids; Z79.82 Long term (current) use of aspirin; Z79.84 Long term (current) use of oral hypoglycemic drugs; Z79.899 Other long term (current) drug therapy; Z87.891 Personal history of nicotine dependence